=== PATIENT | male | born 1965 | race African-American/Black ===

== ENCOUNTER 2016-05-23 19:38 | Inpatient (IN) | payer MEDICAID ==
[~2016-05-23] VITALS: Ht 185.4 cm; Wt 108.4 kg
[~2016-05-23 19:38] MED LIST: ASPIRIN81 M3 PO; CARAFATE1 G1 ORAL; CIPROFLOXACIN500 M2 ORAL; COREG6.25 MG ORAL; COUMADIN4 MG ORAL; COUMADIN5 MG ORAL; CULTURELLE1 EACH ORAL; FERROUS SULFAT325 MG ORAL; HYTRIN10 MG PO; IMDUR60 MG ORAL; METRONIDAZOLE500 MG ORAL; NEURONTIN300 MG ORAL; NEXIUM40 MG ORAL; NITROSTAT0.4 M1 SL; NORCO 10/3251 EA ORAL; PEPCID20 MG ORAL; REGLAN10 MG PO; VASOTEC10 MG ORAL; XARELTO10 MG ORAL; ZOFRAN4 MG ORAL
[2016-05-23 19:56] VITALS: BP 135/81
[2016-05-23] MEDS ORDERED: Metoclopramide 10mg/2ml Inj IVP ONE (21:00)
[2016-05-23 21:15] LABS: APPEARANCE,URINE CLOUDY; KETONES,URINE 1+ (NEGATIVE); LEUKOCYTE ESTERASE ,URINE 1+ (NEGATIVE); NITRITE,URINE NEGATIVE (NEGATIVE); PH,URINE 5 (4.5-8.0); PROTEIN,URINE 2+ (NEGATIVE); UROBILINOGEN,URINE NORMAL MG/DL (0.0-1.0)
[2016-05-23 21:28] LABS: RBC,URINE TNTC /HPF (0 - 0); SQUAMOUS EPITHELIAL CELL,UR FEW /LPF (NONE/OCC); WBC,URINE TNTC /HPF (0 - 0)
[2016-05-23 21:29] LABS: BACTERIA,URINE MODERATE /HPF
[2016-05-23 21:34] LABS: ALANINE AMINOTRANSFERASE 12 U/L (3-41); ANION GAP 12 (5-15); ASPARTATE AMINO TRANSFERASE 16 U/L (5-40); CARBON DIOXIDE 16 mEQ/L (20-30); CHLORIDE 120 mEQ/L (98-107); CREATININE 1.1 mg/dL (0.7-1.2); GLOMERULAR FILTRATION RATE > 60 mL/min (>60); HEMOLYSIS 13; LIPASE 53 U/L (< 60); SODIUM 148 mEQ/L (135-145)
[2016-05-23 22:02] LABS: POTASSIUM 2.7 mEQ/L (3.4-4.9)
[2016-05-23 22:04] LABS: CALCIUM 5.6 mg/dL (8.6-10.2)
[2016-05-23 22:07] LABS: BASOPHILS % (AUTO) 1.7 % (0.0-2.0); EOSINOPHILS % (AUTO) 1.9 % (0.0-3.0); LYMPHOCYTES % (AUTO) 39.1 % (20.0-45.0); MEAN CORPUSCULAR HEMOGLOBIN 26.8 PG (27.0-31.0); MEAN CORPUSCULAR VOLUME 89 FL (80-99); MEAN PLATELET VOLUME 6.9 FL (6.5-10.1); MONOCYTES % (AUTO) 12.8 % (1.0-10.0); NEUTROPHILS % (AUTO) 44.6 % (45.0-75.0); PLATELET COUNT 161 K/UL (150-450); RED BLOOD COUNT 4.38 M/UL (4.70-6.10); RED CELL DISTRIBUTION WIDTH 15.4 % (11.6-14.8); WHITE BLOOD COUNT 5.2 K/UL (4.8-10.8)
[2016-05-23] MEDS ORDERED: Morphine Sulfate 4mg/ml Inj IVP ONE (22:15)
[2016-05-23] MEDS ORDERED: Calcium Chloride 100mg/ml Vial IVP ONE (22:15)
--- NOTE | 2016-05-23 22:18 | Emergency Room Report ---
History of Present Illness General Chief Complaint: Nausea, Vomiting, and Diarrhea Source: Patient, Medical Record Present Illness HPI 50 YO M with 2 days of hematemesis, abd pain, hematuria. States called Dr Goncalves yesterday, who told him to come to ED but he didnt because "I had stuff to take care of." States abd pain is due to "chronic pancreatitis" and "gastroparesis." No vomiting blood today. No coughing blood. No melena or blood in stool. Allergies: Coded Allergies: IODINATED CONTRAST MEDIA - IV DYE (Verified Allergy, Severe, Shortness of Breath, 01/17/15) DORIPENEM (Verified Allergy, Intermediate, Itching, 01/17/15) KETOROLAC TROMETHAMINE (Verified Allergy, Intermediate, Hives, 01/17/15) TRAMADOL (Verified Allergy, Intermediate, Hives, 01/17/15) ASPIRIN (Verified Allergy, Mild, 04/09/10) Patient History Past Medical History: see triage record, old chart reviewed Past Surgical History: other - Lapaortomy for "cancer" but "I didnt have it." Pertinent Family History: none Social History: Denies: alcohol use, drug use, smoking Immunizations: UTD Reviewed Nursing Documentation: PMH: Agreed, PSxH: Agreed Nursing Documentation-PMH Past Medical History: No History, Except For Hx Cardiac Problems: Yes - CHF Hx Hypertension: Yes Hx Pacemaker: No - PE Hx COPD: No - PE, IVC filter Hx Diabetes: Yes Hx Cancer: No Hx Gastrointestinal Problems: Yes Hx Dialysis: No - DIVERTICULITIS Hx Neurological Problems: Yes Hx Concentration Difficulty: Yes Hx Dizziness: Yes Hx Syncope: Yes Hx Weakness: Yes Hx Neurologic Surgery: No Review of Systems All Other Systems: negative except mentioned in HPI Physical Exam Vital Signs Date Time Temp Pulse Resp B/P Pulse Ox O2 Delivery O2 Flow Rate FiO2 05/23/16 19:46 97.2 90 21 147/72 100 Room Air Sp02 EP Interpretation: reviewed, normal General Appearance: normal inspection, well appearing, no apparent distress, alert Head: normocephalic, atraumatic Eyes: bilateral eye EOMI, bilateral eye PERRL ENT: normal ENT inspection, hearing grossly normal, normal voice Neck: normal inspection, full range of motion, supple, no bony tend Respiratory: normal inspection, lungs clear, normal breath sounds, no respiratory distress, no retraction, no wheezing Cardiovascular #1: regular rate, rhythm, no edema Gastrointestinal: normal inspection, normal bowel sounds, non tender, soft, no guarding, no hernia, other - midline laparatomy scar Genitourinary: no CVA tenderness Neurologic: normal inspection, alert, responsive, speech normal Psychiatric: normal inspection, judgement/insight normal, mood/affect normal Skin: normal inspection, normal color, no rash Medical Decision Making Diagnostic Impression: Primary Impression: Abdominal pain Qualified Codes: R10.84 - Generalized abdominal pain Additional Impressions: Hypokalemia Hypocalcemia ER Course 50 YO M with alleged hematemesis yesterday and abd pain. VSS. Afebrile. No vomiting blood in ED. LabsL H&H Stable. Critically low Ca and K Repleted with Calcium chloride and PO and IV K Endorsed to Dr Goncalves at 1017pm for med/surg admission CTAP in progress - endorsed to Dr Guerrero in ED to followup CTAP results and inform Dr Goncalves of any acute findings. Rhythm Strip Diag. Results EP Interpretation: yes Rate: 91 Rhythm: NSR, no PVC's, no ectopy Last Vital Signs Date Time Temp Pulse Resp B/P Pulse Ox O2 Delivery O2 Flow Rate FiO2 05/23/16 19:56 86 19 135/81 95 Room Air 05/23/16 19:46 97.2 Status: improved Disposition: ADMITTED INPATIENT Condition: Serious Referrals: KIAH GONCALVES (PCP) BARRY WADDELL M.D. May 23, 2016 22:18
[2016-05-23 22:50] VITALS: BP 143/77
[2016-05-23] MEDS ORDERED: ASPIR 8181 MG ORAL (23:13)
[2016-05-23] MEDS ORDERED: Mylanta II UD 30ml ORAL PRN (23:30)
[2016-05-23] MEDS ORDERED: Miralax 17gm pkt ORAL PRN (23:30)
[2016-05-23] MEDS ORDERED: Nitroglycerin Subl 0.4mg tab (Bottle Of 25) SL PRN (23:30)
--- NOTE | 2016-05-23 23:39 | Consultation ---
History of Present Illness General Date patient seen: May 23, 2016 Chief Complaint: Nausea, Vomiting, and Diarrhea Referring physician: Dr Aguayo Reason for Consultation: Manage multiple co-moridities Present Illness HPI Patient is a 50 yo gentleman with extensive past medical history, whom reports 2 to 3 days of hematemesis. Initially patient apparently was non-complaint with his doctors orders to immediately present to the emergency room for evaluation of his serious symptoms, however the patient admits to me he was very busy during the time of his initial hematemesis and did not have time to come to hospital. However the patient presents after a few days of hematemesis and chronic pain related complaints. I was asked to consult on this case due to the multiple co-morbidities and at this time the patient appears to be stable. Patient iwill be admitted to the hospital for prompt evaluation by GI specialist to investigate the patients apparent gastrointestinal ailment. Allergies: Coded Allergies: IODINATED CONTRAST MEDIA - IV DYE (Verified Allergy, Severe, Shortness of Breath, 01/17/15) DORIPENEM (Verified Allergy, Intermediate, Itching, 01/17/15) KETOROLAC TROMETHAMINE (Verified Allergy, Intermediate, Hives, 01/17/15) TRAMADOL (Verified Allergy, Intermediate, Hives, 01/17/15) ASPIRIN (Verified Allergy, Mild, 04/09/10) Medication History Scheduled Aspirin* (Aspir 81*), 81 MG ORAL DAILY, (Reported) Carvedilol (Coreg), 6.25 MG ORAL DAILY, (Reported) Enalapril Maleate* (Vasotec*), 10 MG ORAL DAILY, (Reported) Esomeprazole Magnesium (Nexium), 40 MG ORAL DAILY, (Reported) Ferrous Sulfate* (Ferrous Sulfate*), 325 MG ORAL DAILY, (Reported) Gabapentin (Neurontin), 300 MG ORAL THREE TIMES A DAY, (Reported) Isosorbide Mononitrate* (Imdur*), 60 MG ORAL DAILY, (Reported) Lactobacillus Rhamnosus Gg* (Culturelle*), 1 CAP ORAL THREE TIMES A DAY, ( Reported) Metronidazole* (Flagyl*), 500 MG ORAL EVERY 8 HOURS, (Reported) Sucralfate* (Carafate*), 1 GM ORAL FOUR TIMES A DAY, (Reported) Terazosin HCl (Terazosin HCl), 10 MG PO QHS, (Reported) Warfarin Sod* (Coumadin*), 5 MG ORAL DAILY, (Reported) Scheduled PRN Hydrocodone/Acetaminophen (Hydrocodon-Acetaminophn 10-325), 1 TAB ORAL Q4H PRN for For Pain, (Reported) Metoclopramide Hcl* (Reglan*), 10 MG PO TID PRN, (Reported) Nitroglycerin (Nitrostat), 0.4 MG SL, (Reported) Ondansetron (Zofran), 4 MG ORAL Q8H PRN, (Reported) Patient History Healthcare decision maker Resuscitation status Advanced Directive on File Past Medical/Surgical History Past Medical/Surgical History: (1) Hematuria (2) upper (3) Pancytopenia (4) Acute GI bleeding (5) C. difficile colitis (6) Anemia, chronic disease (7) Narcotic dependence (8) Chronic pancreatitis (9) HTN (hypertension) (10) Gastroparesis (11) UGIB (upper gastrointestinal bleed) (12) UTI (urinary tract infection) (13) Intractable abdominal pain (14) CHF (congestive heart failure) (15) Anemia (16) Presence of IVC filter (17) DVT (deep venous thrombosis) (18) HIV (human immunodeficiency virus infection) Review of Systems Constitutional: Reports: malaise, weakness Gastrointestinal: Reports: abdominal pain, hematemesis, nausea, vomiting Physical Exam General Appearance: moderate distress Lines, tubes and drains: peripheral HEENT: normocephalic, atraumatic, anicteric, PERRL Neck: non-tender, normal alignment, supple Respiratory/Chest: chest wall non-tender, normal breath sounds, no respiratory distress Breasts: no masses Cardiovascular/Chest: tachycardia Abdomen: hyperactive bowel sounds, guarding, rebound, tender Genitourinary/Rectal: normal genital exam, normal rectal exam Extremities: normal range of motion, non-tender, normal inspection Skin Exam: normal pigmentation Neurologic: hospital chief executive officer II-XII grossly normal, no motor/sensory deficits Last 24 Hour Vital Signs Date Time Temp Pulse Resp B/P Pulse Ox O2 Delivery O2 Flow Rate FiO2 05/23/16 22:52 97.2 05/23/16 22:50 65 16 143/77 98 Room Air 05/23/16 19:56 86 19 135/81 95 Room Air 05/23/16 19:46 97.2 90 21 147/72 100 Room Air Laboratory Tests Test 05/23/16 20:58 05/23/16 22:00 Urine Color Yellow Urine Appearance Cloudy Urine pH 5 (4.5-8.0) Urine Specific [place] 1.025 (1.005-1.035) Urine Protein 2+ (NEGATIVE) H Urine Glucose (UA) Negative (NEGATIVE) Urine Ketones 1+ (NEGATIVE) H Urine Occult Blood 5+ (NEGATIVE) H Urine Nitrite Negative (NEGATIVE) Urine Bilirubin Negative (NEGATIVE) Urine Urobilinogen Normal MG/DL (0.0-1.0) Urine Leukocyte Esterase 1+ (NEGATIVE) H Urine RBC Tntc /HPF (0 - 0) H Urine WBC Tntc /HPF (0 - 0) H Urine Squamous Epithelial Cells Few /LPF (NONE/OCC) Urine Bacteria Moderate /HPF (NONE) H Sodium Level 148 mEQ/L (135-145) H Potassium Level 2.7 mEQ/L (3.4-4.9) *L Chloride Level 120 mEQ/L (98-107) H Carbon Dioxide Level 16 mEQ/L (20-30) L Anion Gap 12 (5-15) Blood Urea Nitrogen 12 mg/dL (7-23) Creatinine 1.1 mg/dL (0.7-1.2) Estimat Glomerular Filtration Rate > 60 mL/min (>60) Glucose Level 85 mg/dL (74-106) Calcium Level 5.6 mg/dL (8.6-10.2) *L Total Bilirubin < 0.2 mg/dL (0.0-1.2) Aspartate Amino Transf (AST/SGOT) 16 U/L (5-40) Alanine Aminotransferase (ALT/SGPT) 12 U/L (3-41) Alkaline Phosphatase 73 U/L (40-129) Total Protein 5.0 g/dL (6.6-8.7) L Albumin 2.5 g/dL (3.5-5.2) L Globulin 2.5 g/dL Albumin/Globulin Ratio 1.0 (1.0-2.7) Lipase 53 U/L (< 60) White Blood Count 5.2 K/UL (4.8-10.8) Red Blood Count 4.38 M/UL (4.70-6.10) L Hemoglobin 11.8 G/DL (14.2-18.0) L Hematocrit 39.2 % (42.0-52.0) L Mean Corpuscular Volume 89 FL (80-99) Mean Corpuscular Hemoglobin 26.8 PG (27.0-31.0) L Mean Corpuscular Hemoglobin Concent 30.0 G/DL (32.0-36.0) L Red Cell Distribution Width 15.4 % (11.6-14.8) H Platelet Count 161 K/UL (150-450) Mean Platelet Volume 6.9 FL (6.5-10.1) Neutrophils (%) (Auto) 44.6 % (45.0-75.0) L Lymphocytes (%) (Auto) 39.1 % (20.0-45.0) Monocytes (%) (Auto) 12.8 % (1.0-10.0) H Eosinophils (%) (Auto) 1.9 % (0.0-3.0) Basophils (%) (Auto) 1.7 % (0.0-2.0) Height (Feet): 6 Height (Inches): 1.00 Weight (Pounds): 239 Medications Current Medications Medications (Trade) Dose Ordered Sig/Arslan Route PRN Reason Start Time Stop Time Status Last Admin Dose Admin Acetaminophen (Tylenol) 650 mg Q4H PRN ORAL fever 05/23/16 23:30 06/22/16 23:29 UNV Al Hydroxide/Mg Hydroxide (Mylanta II) 30 ml Q6H PRN ORAL dyspepsia 05/23/16 23:30 06/22/16 23:29 UNV Dextrose (Dextrose 50%) STAT PRN IV Hypoglycemia 05/23/16 23:30 06/22/16 23:29 UNV Diphenhydramine HCl (Benadryl) 25 mg Q6H PRN ORAL Itching/Pruritis 05/23/16 23:30 06/22/16 23:29 UNV Enalapril Maleate (Vasotec) 10 mg DAILY ORAL 05/24/16 09:00 06/23/16 08:59 UNV Nitroglycerin (Ntg) 0.4 mg Q5M X 3 DOSES PRN SL Prn Chest Pain 05/23/16 23:30 06/22/16 23:29 UNV Ondansetron HCl (Zofran) 4 mg Q6H PRN IVP Nausea & Vomiting 05/23/16 23:30 06/22/16 23:29 UNV Polyethylene Glycol (Miralax) 17 gm HSPRN PRN ORAL Constipation 05/23/16 23:30 06/22/16 23:29 UNV Potassium Chloride 100 ml @ 50 mls/hr ONCE ONCE IVPB 05/23/16 22:15 05/24/16 00:14 05/23/16 22:23 Potassium Chloride (KCl 20mEq/100ml Premix) 100 ml @ 50 mls/hr ONCE ONCE IVPB 05/23/16 22:30 05/24/16 00:29 Sucralfate (Carafate) 1 gm FOUR TIMES A DAY ORAL 05/24/16 09:00 06/23/16 08:59 UNV Temazepam (Restoril) 15 mg HSPRN PRN ORAL Insomnia 05/23/16 23:30 05/30/16 23:29 UNV Assessment/Plan Problem List: (1) UGIB (upper gastrointestinal bleed) ICD Codes: K92.2 - Gastrointestinal hemorrhage, unspecified SNOMED: 19216327 (2) Gastroparesis ICD Codes: K31.84 - Gastroparesis SNOMED: 078470705 (3) Chronic pancreatitis ICD Codes: K86.1 - Chronic pancreatitis SNOMED: 717829741 (4) HTN (hypertension) ICD Codes: I10 - HTN (hypertension) SNOMED: 57053812 Qualifiers: Qualified Codes: I10 - Essential (primary) hypertension (5) Narcotic dependence ICD Codes: F19.20 - Narcotic dependence SNOMED: 21402422 (6) Diabetes ICD Codes: E11.9 - Diabetes SNOMED: 46273438 Qualifiers: Qualified Codes: E11.8 - Type 2 diabetes mellitus with unspecified complications; Z79.4 - group home (current) use of insulin Status: stable Assessment/Plan (1) HIV (human immunodeficiency virus infection) ICD Codes: Z21 - Asymptomatic human immunodeficiency virus [HIV] infection status SNOMED: 08153102 (2) GI bleeding (3) Abdominal pain of unknown etiology ICD Codes: R10.9 - Unspecified abdominal pain SNOMED: 570753683 (4) Intractable vomiting ICD Codes: R11.10 - Vomiting, unspecified SNOMED: 823590051 (5) Gastritis ICD Codes: K29.70 - Gastritis SNOMED: 0155072 Status: stable Status Narrative Discussed with Dr. Sands. Assessment/Plan iron panel WNL stable H&H elevated lipase HIV + coffee grounds per patient Plan GI specialist to follow up EGD low fat diet tolerating ordered OB stool urine toxicology ppi fu labs SOM KNIGHT May 23, 2016 23:39
[2016-05-24] VITALS (7 sets, daily range): BP systolic 117–149; BP diastolic 67–91
[2016-05-24 03:57] LABS: BASOPHILS % (AUTO) 1.8 % (0.0-2.0); EOSINOPHILS % (AUTO) 2.4 % (0.0-3.0); LYMPHOCYTES % (AUTO) 44.6 % (20.0-45.0); MEAN CORPUSCULAR HEMOGLOBIN 27.1 PG (27.0-31.0); MEAN CORPUSCULAR HGB CONC 31.2 G/DL (32.0-36.0); MEAN CORPUSCULAR VOLUME 87 FL (80-99); MEAN PLATELET VOLUME 7.1 FL (6.5-10.1); NEUTROPHILS % (AUTO) 42.1 % (45.0-75.0); PLATELET COUNT 172 K/UL (150-450); RED BLOOD COUNT 4.38 M/UL (4.70-6.10)
[2016-05-24 04:11] LABS: INR 1.2 (0.9-1.1); PROTHROMBIN TIME 11.9 SEC (9.30-11.50)
[2016-05-24 04:16] LABS: CALCIUM 9.5 mg/dL (8.6-10.2); CREATININE 1.5 mg/dL (0.7-1.2); GLOMERULAR FILTRATION RATE 59.5 mL/min (>60); POTASSIUM 4.8 mEQ/L (3.4-4.9); TOTAL PROTEIN 8.2 g/dL (6.6-8.7)
[2016-05-24 06:05] LABS: HEMOLYSIS 11; IRON 61 ug/dL (59-158); TOTAL IRON BINDING CAPACITY 394 ug/dL (250-400)
[2016-05-24] MEDS ORDERED: Morphine Sulfate 4mg/ml Inj IM PRN (06:45)
[2016-05-24] MEDS: D5 1/2NS 1,000 ML IV SCH (07:34)
[2016-05-24 08:08] LABS: LACTATE DEHYDROGENASE 262 U/L (135-230)
[2016-05-24] MEDS ORDERED: Sucralfate 1gm tab ORAL SCH (09:00)
--- NOTE | 2016-05-24 09:13 | Infectious Diseases Prog Note ---
Assessment/Plan Problems: (1) UTI (urinary tract infection) Assessment & Plan: will start ceftriaxon empirically and send urine for culture (2) Hypokalemia Assessment & Plan: suspect dehydration related from vomiting, replace as needed , continue IVF for hydration (3) Hypocalcemia Assessment & Plan: most likely due to GI loss, replace as needed, monitor calcium level (4) UGIB (upper gastrointestinal bleed) Assessment & Plan: keep NPO, consult GI, monitor H&H, transfuse as needed (5) Intractable abdominal pain Assessment & Plan: continue pain management as per primary , consider CT abdomen if not improved Subjective Allergies: Coded Allergies: IODINATED CONTRAST MEDIA - IV DYE (Verified Allergy, Severe, Shortness of Breath, 01/17/15) DORIPENEM (Verified Allergy, Intermediate, Itching, 01/17/15) KETOROLAC TROMETHAMINE (Verified Allergy, Intermediate, Hives, 01/17/15) TRAMADOL (Verified Allergy, Intermediate, Hives, 01/17/15) ASPIRIN (Verified Allergy, Mild, 04/09/10) Objective Vital Signs Last 24 Hour Vital Signs Date Time Temp Pulse Resp B/P Pulse Ox O2 Delivery O2 Flow Rate FiO2 05/24/16 08:47 117/67 05/24/16 08:35 97.0 70 20 117/67 96 Room Air 05/24/16 04:00 97.5 74 20 126/85 98 Room Air 05/24/16 02:28 97.2 62 21 133/88 99 Room Air 05/24/16 02:20 97.3 55 20 142/89 91 Room Air 05/24/16 01:48 62 21 133/88 99 Room Air 05/24/16 00:32 75 12 130/73 97 Room Air 05/23/16 22:52 97.2 05/23/16 22:50 65 16 143/77 98 Room Air 05/23/16 19:56 86 19 135/81 95 Room Air 05/23/16 19:46 97.2 90 21 147/72 100 Room Air Height (Feet): 6 Height (Inches): 1.00 Weight (Pounds): 239 Laboratory Tests Test 05/23/16 20:58 05/23/16 22:00 05/24/16 03:20 Urine Color Yellow Urine Appearance Cloudy Urine pH 5 (4.5-8.0) Urine Specific [place] 1.025 (1.005-1.035) Urine Protein 2+ (NEGATIVE) H Urine Glucose (UA) Negative (NEGATIVE) Urine Ketones 1+ (NEGATIVE) H Urine Occult Blood 5+ (NEGATIVE) H Urine Nitrite Negative (NEGATIVE) Urine Bilirubin Negative (NEGATIVE) Urine Urobilinogen Normal MG/DL (0.0-1.0) Urine Leukocyte Esterase 1+ (NEGATIVE) H Urine RBC Tntc /HPF (0 - 0) H Urine WBC Tntc /HPF (0 - 0) H Urine Squamous Epithelial Cells Few /LPF (NONE/OCC) Urine Bacteria Moderate /HPF (NONE) H Sodium Level 148 mEQ/L (135-145) H 143 mEQ/L (135-145) Potassium Level 2.7 mEQ/L (3.4-4.9) *L 4.8 mEQ/L (3.4-4.9) # Chloride Level 120 mEQ/L (98-107) H 106 mEQ/L (98-107) Carbon Dioxide Level 16 mEQ/L (20-30) L 23 mEQ/L (20-30) Anion Gap 12 (5-15) 14 (5-15) Blood Urea Nitrogen 12 mg/dL (7-23) 17 mg/dL (7-23) Creatinine 1.1 mg/dL (0.7-1.2) 1.5 mg/dL (0.7-1.2) H Estimat Glomerular Filtration Rate > 60 mL/min (>60) 59.5 mL/min (>60) Glucose Level 85 mg/dL (74-106) 111 mg/dL (74-106) H Calcium Level 5.6 mg/dL (8.6-10.2) *L 9.5 mg/dL (8.6-10.2) # Total Bilirubin < 0.2 mg/dL (0.0-1.2) 0.3 mg/dL (0.0-1.2) Aspartate Amino Transf (AST/SGOT) 16 U/L (5-40) 27 U/L (5-40) Alanine Aminotransferase (ALT/SGPT) 12 U/L (3-41) 20 U/L (3-41) Alkaline Phosphatase 73 U/L (40-129) 132 U/L (40-129) H Total Protein 5.0 g/dL (6.6-8.7) L 8.2 g/dL (6.6-8.7) # Albumin 2.5 g/dL (3.5-5.2) L 4.1 g/dL (3.5-5.2) Globulin 2.5 g/dL 4.1 g/dL Albumin/Globulin Ratio 1.0 (1.0-2.7) 1.0 (1.0-2.7) Lipase 53 U/L (< 60) White Blood Count 5.2 K/UL (4.8-10.8) 5.0 K/UL (4.8-10.8) Red Blood Count 4.38 M/UL (4.70-6.10) L 4.38 M/UL (4.70-6.10) L Hemoglobin 11.8 G/DL (14.2-18.0) L 11.9 G/DL (14.2-18.0) L Hematocrit 39.2 % (42.0-52.0) L 38.0 % (42.0-52.0) L Mean Corpuscular Volume 89 FL (80-99) 87 FL (80-99) Mean Corpuscular Hemoglobin 26.8 PG (27.0-31.0) L 27.1 PG (27.0-31.0) Mean Corpuscular Hemoglobin Concent 30.0 G/DL (32.0-36.0) L 31.2 G/DL (32.0-36.0) L Red Cell Distribution Width 15.4 % (11.6-14.8) H 15.0 % (11.6-14.8) H Platelet Count 161 K/UL (150-450) 172 K/UL (150-450) Mean Platelet Volume 6.9 FL (6.5-10.1) 7.1 FL (6.5-10.1) Neutrophils (%) (Auto) 44.6 % (45.0-75.0) L 42.1 % (45.0-75.0) L Lymphocytes (%) (Auto) 39.1 % (20.0-45.0) 44.6 % (20.0-45.0) Monocytes (%) (Auto) 12.8 % (1.0-10.0) H 9.0 % (1.0-10.0) Eosinophils (%) (Auto) 1.9 % (0.0-3.0) 2.4 % (0.0-3.0) Basophils (%) (Auto) 1.7 % (0.0-2.0) 1.8 % (0.0-2.0) Erythrocyte Sedimentation Rate 70 MM/HR (0-20) H Reticulocyte Count 0.8 % (0.0-2.0) Prothrombin Time 11.9 SEC (9.30-11.50) H Prothromb Time International Ratio 1.2 (0.9-1.1) H Activated Partial Thromboplast Time 25 SEC (23-33) Iron Level 61 ug/dL (59-158) Total Iron Binding Capacity 394 ug/dL (250-400) Percent Iron Saturation 15 % (15-50) Unsaturated Iron Binding 333 ug/dL (112-346) Lactate Dehydrogenase 262 U/L (135-230) H Amylase Level 221 U/L (10-110) H Carcinoembryonic Antigen 4.8 ng/mL H Vitamin B12 Level 468 pg/mL (211-946) Folate Pending Current Medications Medications (Trade) Dose Ordered Sig/Arslan Route PRN Reason Start Time Stop Time Status Last Admin Dose Admin Acetaminophen (Tylenol) 650 mg Q4H PRN ORAL fever 05/23/16 23:30 06/22/16 23:29 Al Hydroxide/Mg Hydroxide (Mylanta II) 30 ml Q6H PRN ORAL dyspepsia 05/23/16 23:30 06/22/16 23:29 Dextrose STAT PRN IV Hypoglycemia 05/23/16 23:30 06/22/16 23:29 Dextrose/Sodium Chloride (D5 0.45% NS) 1,000 ml @ 50 mls/hr Q20H IV 05/24/16 07:00 06/23/16 06:59 05/24/16 07:34 Diphenhydramine HCl (Benadryl) 25 mg Q6H PRN ORAL Itching/Pruritis 05/23/16 23:30 06/22/16 23:29 05/24/16 07:55 Enalapril Maleate (Vasotec) 10 mg DAILY ORAL 05/24/16 09:00 06/23/16 08:59 Morphine Sulfate (Morphine Sulfate) 4 mg Q4H PRN IVP For Pain (Moderate to Severe) 05/24/16 10:45 05/31/16 10:44 Nitroglycerin (Ntg) 0.4 mg Q5M X 3 DOSES PRN SL Prn Chest Pain 05/23/16 23:30 06/22/16 23:29 Ondansetron HCl (Zofran) 4 mg Q6H PRN IVP Nausea & Vomiting 05/23/16 23:30 06/22/16 23:29 05/24/16 07:54 Polyethylene Glycol (Miralax) 17 gm HSPRN PRN ORAL Constipation 05/23/16 23:30 06/22/16 23:29 Sucralfate (Carafate) 1 gm FOUR TIMES A DAY ORAL 05/24/16 09:00 06/23/16 08:59 Temazepam (Restoril) 15 mg HSPRN PRN ORAL Insomnia 05/23/16 23:30 05/30/16 23:29 Warfarin Sodium (Coumadin per pharmacy) 1 ea DAILYPRN PRN MISC Per rx protocol 05/24/16 07:00 06/23/16 06:59 Fernanda Lim M.D. May 24, 2016 09:13
--- NOTE | 2016-05-24 09:15 | Diagnostic Imaging Report ---
Indication: Nausea and vomiting Technique: CT scan of the abdomen and pelvis utilizing automated exposure control without intravenous or oral contrast. Axial, sagittal and coronal images were obtained. CT dose: Total DLP 1029 mGycm; CTDI vol 18.4 mGy Comparison: 04/09/14 Findings: Evaluation of the solid organs is limited without intravenous contrast material. There is atelectasis in the lung bases. There is a small hiatal hernia. Liver and adrenal glands are grossly unremarkable. Spleen and pancreas are grossly unremarkable. IVC filter is present. No CT evident gallstones are identified. There is a nonobstructive calculus of the left kidney measuring 6 mm. There is no hydronephrosis or ureteral calculi. The appendix is normal. There is no definitive mechanical bowel obstruction. Colonic diverticulosis is noted without diverticulitis. Bladder is grossly unremarkable. Abdominal aorta is normal in caliber. Osseous structures demonstrate no acute abnormality. Impression: Limited evaluation of solid organs and bowel without intravenous or oral contrast. Nonobstructive left renal calculus. No hydronephrosis. IVC filter. Colonic diverticulosis. Small hiatal hernia. Other findings as above. The CT scanner at [facility] is accredited by the [employer] and the scans are performed using protocols designed to limit radiation exposure to as low as reasonably achievable to attain images of sufficient resolution adequate for diagnostic evaluation.
[2016-05-24] MEDS: Morphine Sulfate 4mg/ml Inj IVP PRN ×3 (10:50→20:33)
[2016-05-24] MEDS: cefTRIAXone 1 GM in D5W 55 ML IVPB SCH (11:40)
[2016-05-24 11:49] LABS: BAND NEUTROPHILS % (MANUAL) 4 % (0-8); BASOPHILS % (MANUAL) 0 % (0-2); EOSINOPHILS % (MANUAL) 1 % (0-3); LYMPHOCYTES % (MANUAL) 37 % (20-45); NEUTROPHILS % (MANUAL) 46 % (45-75); PATH BLOOD SMEAR/OMC SENT TO PATHOLOGIST; PLATELET ESTIMATE ADEQUATE; PLATELET MORPHOLOGY NORMAL; TOTAL CELLS COUNTED 100
[2016-05-24] MEDS: DiphenhydrAMINE 50mg/ml Inj IVP PRN ×2 (12:45→20:33)
--- NOTE | 2016-05-24 15:21 | Consultation ---
History of Present Illness General Chief Complaint: Nausea, Vomiting, and Diarrhea Referring physician: Dr Aguayo Reason for Consultation: Hypokalemia, hypernatremia Present Illness HPI The patient is a 50-year-old male with history of chronic generalized pain, HIV , recurrent hematuria, DVT on coumadin, gastroparesis,who presented to [facility] ED with two days of hematemesis, abdominal pain, and hematuria. Pain is in right quadrant of his abdomen and in the flank area and he described it as a dull pain, 01/11. Pain is worse with urination, vomiting and movement. Denies diarrhea or hematochezia, denies fever, no chills, no headache or blurry vision, no chest pain or SOB, c/o hematuria. Urinalysis showed evidence of infection, BMP showed potassium at 2.7, sodium is 148, calcium is 5.6 Allergies: Coded Allergies: IODINATED CONTRAST MEDIA - IV DYE (Verified Allergy, Severe, Shortness of Breath, 01/17/15) DORIPENEM (Verified Allergy, Intermediate, Itching, 01/17/15) KETOROLAC TROMETHAMINE (Verified Allergy, Intermediate, Hives, 01/17/15) TRAMADOL (Verified Allergy, Intermediate, Hives, 01/17/15) ASPIRIN (Verified Allergy, Mild, 04/09/10) Medication History Scheduled Aspirin* (Aspir 81*), 81 MG ORAL DAILY, (Reported) Carvedilol (Coreg), 6.25 MG ORAL DAILY, (Reported) Enalapril Maleate* (Vasotec*), 10 MG ORAL DAILY, (Reported) Esomeprazole Magnesium (Nexium), 40 MG ORAL DAILY, (Reported) Ferrous Sulfate* (Ferrous Sulfate*), 325 MG ORAL DAILY, (Reported) Gabapentin (Neurontin), 300 MG ORAL THREE TIMES A DAY, (Reported) Isosorbide Mononitrate* (Imdur*), 60 MG ORAL DAILY, (Reported) Lactobacillus Rhamnosus Gg* (Culturelle*), 1 CAP ORAL THREE TIMES A DAY, ( Reported) Metronidazole* (Flagyl*), 500 MG ORAL EVERY 8 HOURS, (Reported) Sucralfate* (Carafate*), 1 GM ORAL FOUR TIMES A DAY, (Reported) Terazosin HCl (Terazosin HCl), 10 MG PO QHS, (Reported) Warfarin Sod* (Coumadin*), 5 MG ORAL DAILY, (Reported) Scheduled PRN Hydrocodone/Acetaminophen (Hydrocodon-Acetaminophn 10-325), 1 TAB ORAL Q4H PRN for For Pain, (Reported) Metoclopramide Hcl* (Reglan*), 10 MG PO TID PRN, (Reported) Nitroglycerin (Nitrostat), 0.4 MG SL, (Reported) Ondansetron (Zofran), 4 MG ORAL Q8H PRN, (Reported) Patient History History Provided By: Patient Healthcare decision maker Resuscitation status Full Code Advanced Directive on File Past Medical/Surgical History Past Medical/Surgical History: (1) CHF (congestive heart failure) (2) Anemia (3) Diabetes (4) HTN (hypertension) (5) Gastroparesis (6) Presence of IVC filter (7) DVT (deep venous thrombosis) (8) HIV (human immunodeficiency virus infection) (9) Hematuria (10) Narcotic dependence (11) Chronic pancreatitis Family History Family History: (1) Medical history non-contributory Social History Social History: (1) Lives with family (2) Denies alcohol consumption (3) Patient denies drug use (4) Does not smoke Review of Systems Constitutional: Reports: weakness Eye: Denies: acuity changes, blurred vision, discharge, double vision, eye pain , no symptoms, nose congestion, nose pain, other, see HPI, tearing ENT: Denies: ear discharge, ear pain, hearing loss, mouth pain, nasal discharge , no symptoms, nose congestion, nose pain, other, see HPI, throat pain, throat swelling Respiratory: Denies: CLIFFORD, cough, no symptoms, orthopnea, other, see HPI, shortness of breath, sputum, stridor, wheezing Cardiovascular: Denies: PND, chest pain, edema, no symptoms, other, palpitations, see HPI, syncope Gastrointestinal: Reports: abdominal pain, diarrhea, nausea, vomiting Genitourinary: Denies: discharge, dysuria, frequency, hematuria, incontinence, no symptoms, other, pain, retention, see HPI, urgency, vag bleed/dc Musculoskeletal: Denies: back pain, gout, joint pain, joint swelling, muscle pain, muscle stiffness, no symptoms, other, see HPI Skin: Denies: change in color, change in hair/nails, dryness, lesions, no symptoms, other, rash, see HPI Psychiatric: Denies: HI, SI, anxiety, depressed feelings, emotional problems, hallucinations, no symptoms, other, prior hx, see HPI Neurological: Denies: dizziness, focal weakness, headache, no symptoms, numbness, other, paresthesia, see HPI, seizure, syncope, tingling, tremors Endocrine: Denies: excessive sweating, flushing, increased thirst, increased urine, intolerance to temperature, no symptoms, other, see HPI, unexplained weight loss Hematologic/Lymphatic: Denies: anemia, blood clots, diathesis, easy bleeding, easy bruising, no symptoms, other, see HPI, swollen glands Physical Exam General Appearance: alert Lines, tubes and drains: peripheral HEENT: normocephalic, atraumatic Neck: normal alignment, supple, normal inspection Respiratory/Chest: lungs clear, normal breath sounds, no respiratory distress Cardiovascular/Chest: normal rate, regular rhythm, no JVD Abdomen: non tender, soft, no organomegaly, no mass Extremities: normal range of motion, non-tender, normal inspection, no calf tenderness, normal capillary refill Skin Exam: normal pigmentation, warm/dry Neurologic: alert, oriented x 3, responsive, normal mood/affect Last 24 Hour Vital Signs Date Time Temp Pulse Resp B/P Pulse Ox O2 Delivery O2 Flow Rate FiO2 05/24/16 11:20 97.0 05/24/16 08:47 117/67 05/24/16 08:35 97.0 70 20 117/67 96 Room Air 05/24/16 04:00 97.5 74 20 126/85 98 Room Air 05/24/16 02:28 97.2 62 21 133/88 99 Room Air 05/24/16 02:20 97.3 55 20 142/89 91 Room Air 05/24/16 01:48 62 21 133/88 99 Room Air 05/24/16 00:32 75 12 130/73 97 Room Air 05/23/16 22:52 97.2 05/23/16 22:50 65 16 143/77 98 Room Air 05/23/16 19:56 86 19 135/81 95 Room Air 05/23/16 19:46 97.2 90 21 147/72 100 Room Air Intake and Output 05/23/16 05/24/16 19:00 07:00 Intake Total 100 ml Balance 100 ml IV Total 100 ml # Voids 8 Laboratory Tests Test 05/23/16 20:58 05/23/16 22:00 05/24/16 03:20 Urine Color Yellow Urine Appearance Cloudy Urine pH 5 (4.5-8.0) Urine Specific [place] 1.025 (1.005-1.035) Urine Protein 2+ (NEGATIVE) H Urine Glucose (UA) Negative (NEGATIVE) Urine Ketones 1+ (NEGATIVE) H Urine Occult Blood 5+ (NEGATIVE) H Urine Nitrite Negative (NEGATIVE) Urine Bilirubin Negative (NEGATIVE) Urine Urobilinogen Normal MG/DL (0.0-1.0) Urine Leukocyte Esterase 1+ (NEGATIVE) H Urine RBC Tntc /HPF (0 - 0) H Urine WBC Tntc /HPF (0 - 0) H Urine Squamous Epithelial Cells Few /LPF (NONE/OCC) Urine Bacteria Moderate /HPF (NONE) H Sodium Level 148 mEQ/L (135-145) H 143 mEQ/L (135-145) Potassium Level 2.7 mEQ/L (3.4-4.9) *L 4.8 mEQ/L (3.4-4.9) # Chloride Level 120 mEQ/L (98-107) H 106 mEQ/L (98-107) Carbon Dioxide Level 16 mEQ/L (20-30) L 23 mEQ/L (20-30) Anion Gap 12 (5-15) 14 (5-15) Blood Urea Nitrogen 12 mg/dL (7-23) 17 mg/dL (7-23) Creatinine 1.1 mg/dL (0.7-1.2) 1.5 mg/dL (0.7-1.2) H Estimat Glomerular Filtration Rate > 60 mL/min (>60) 59.5 mL/min (>60) Glucose Level 85 mg/dL (74-106) 111 mg/dL (74-106) H Calcium Level 5.6 mg/dL (8.6-10.2) *L 9.5 mg/dL (8.6-10.2) # Total Bilirubin < 0.2 mg/dL (0.0-1.2) 0.3 mg/dL (0.0-1.2) Aspartate Amino Transf (AST/SGOT) 16 U/L (5-40) 27 U/L (5-40) Alanine Aminotransferase (ALT/SGPT) 12 U/L (3-41) 20 U/L (3-41) Alkaline Phosphatase 73 U/L (40-129) 132 U/L (40-129) H Total Protein 5.0 g/dL (6.6-8.7) L 8.2 g/dL (6.6-8.7) # Albumin 2.5 g/dL (3.5-5.2) L 4.1 g/dL (3.5-5.2) Globulin 2.5 g/dL 4.1 g/dL Albumin/Globulin Ratio 1.0 (1.0-2.7) 1.0 (1.0-2.7) Lipase 53 U/L (< 60) White Blood Count 5.2 K/UL (4.8-10.8) 5.0 K/UL (4.8-10.8) Red Blood Count 4.38 M/UL (4.70-6.10) L 4.38 M/UL (4.70-6.10) L Hemoglobin 11.8 G/DL (14.2-18.0) L 11.9 G/DL (14.2-18.0) L Hematocrit 39.2 % (42.0-52.0) L 38.0 % (42.0-52.0) L Mean Corpuscular Volume 89 FL (80-99) 87 FL (80-99) Mean Corpuscular Hemoglobin 26.8 PG (27.0-31.0) L 27.1 PG (27.0-31.0) Mean Corpuscular Hemoglobin Concent 30.0 G/DL (32.0-36.0) L 31.2 G/DL (32.0-36.0) L Red Cell Distribution Width 15.4 % (11.6-14.8) H 15.0 % (11.6-14.8) H Platelet Count 161 K/UL (150-450) 172 K/UL (150-450) Mean Platelet Volume 6.9 FL (6.5-10.1) 7.1 FL (6.5-10.1) Neutrophils (%) (Auto) 44.6 % (45.0-75.0) L 42.1 % (45.0-75.0) L Lymphocytes (%) (Auto) 39.1 % (20.0-45.0) 44.6 % (20.0-45.0) Monocytes (%) (Auto) 12.8 % (1.0-10.0) H 9.0 % (1.0-10.0) Eosinophils (%) (Auto) 1.9 % (0.0-3.0) 2.4 % (0.0-3.0) Basophils (%) (Auto) 1.7 % (0.0-2.0) 1.8 % (0.0-2.0) Differential Total Cells Counted 100 Neutrophils % (Manual) 46 % (45-75) Lymphocytes % (Manual) 37 % (20-45) Monocytes % (Manual) 12 % (1-10) H Eosinophils % (Manual) 1 % (0-3) Basophils % (Manual) 0 % (0-2) Band Neutrophils 4 % (0-8) Platelet Estimate Adequate Platelet Morphology Normal Red Blood Cell Morphology Normal Erythrocyte Sedimentation Rate 70 MM/HR (0-20) H Reticulocyte Count 0.8 % (0.0-2.0) Prothrombin Time 11.9 SEC (9.30-11.50) H Prothromb Time International Ratio 1.2 (0.9-1.1) H Activated Partial Thromboplast Time 25 SEC (23-33) Iron Level 61 ug/dL (59-158) Total Iron Binding Capacity 394 ug/dL (250-400) Percent Iron Saturation 15 % (15-50) Unsaturated Iron Binding 333 ug/dL (112-346) Ferritin 28 ng/mL (10-230) Lactate Dehydrogenase 262 U/L (135-230) H Amylase Level 221 U/L (10-110) H Carcinoembryonic Antigen 4.8 ng/mL H Vitamin B12 Level 468 pg/mL (211-946) Folate Pending Height (Feet): 6 Height (Inches): 1.00 Weight (Pounds): 239 Medications Current Medications Medications (Trade) Dose Ordered Sig/Arslan Route PRN Reason Start Time Stop Time Status Last Admin Dose Admin Acetaminophen (Tylenol) 650 mg Q4H PRN ORAL fever 05/23/16 23:30 06/22/16 23:29 Al Hydroxide/Mg Hydroxide (Mylanta II) 30 ml Q6H PRN ORAL dyspepsia 05/23/16 23:30 06/22/16 23:29 Ceftriaxone Sodium/Dextrose (Rocephin/D5W) 55 ml @ 110 mls/hr Q24H IVPB 05/24/16 11:00 05/31/16 10:59 05/24/16 11:40 Dextrose STAT PRN IV Hypoglycemia 05/23/16 23:30 06/22/16 23:29 Dextrose/Sodium Chloride (D5 0.45% NS) 1,000 ml @ 50 mls/hr Q20H IV 05/24/16 07:00 06/23/16 06:59 05/24/16 07:34 Diphenhydramine HCl (Benadryl) 25 mg Q6H PRN IVP Itching 05/24/16 10:15 06/23/16 10:14 05/24/16 12:45 Enalapril Maleate (Vasotec) 10 mg DAILY ORAL 05/24/16 09:00 06/23/16 08:59 Morphine Sulfate 4 mg 4 mg Q4H PRN IVP For Pain (Moderate to Severe) 05/24/16 10:45 05/31/16 10:44 05/24/16 10:50 Nitroglycerin (Ntg) 0.4 mg Q5M X 3 DOSES PRN SL Prn Chest Pain 05/23/16 23:30 06/22/16 23:29 Ondansetron HCl (Zofran) 4 mg Q6H PRN IVP Nausea & Vomiting 05/23/16 23:30 06/22/16 23:29 05/24/16 07:54 Polyethylene Glycol (Miralax) 17 gm HSPRN PRN ORAL Constipation 05/23/16 23:30 06/22/16 23:29 Temazepam (Restoril) 15 mg HSPRN PRN ORAL Insomnia 05/23/16 23:30 05/30/16 23:29 Warfarin Sodium (Coumadin per pharmacy) 1 ea DAILYPRN PRN MISC Per rx protocol 05/24/16 07:00 06/23/16 06:[address] Abdomen Pelvis WO Contrast Impression: Limited evaluation of solid organs and bowel without intravenous or oral contrast. Nonobstructive left renal calculus. No hydronephrosis. IVC filter. Colonic diverticulosis. Small hiatal hernia. Assessment/Plan Problem List: (1) Hyperkalemia ICD Codes: E87.5 - Hyperkalemia SNOMED: 49642644 (2) Nausea, vomiting, and diarrhea ICD Codes: R11.2 - Nausea with vomiting, unspecified; R19.7 - Diarrhea, unspecified SNOMED: 5131524 (3) Abdominal pain ICD Codes: R10.9 - Unspecified abdominal pain SNOMED: 75760833 (4) Hypernatremia ICD Codes: E87.0 - Hyperosmolality and hypernatremia SNOMED: 82508410 (5) UTI (urinary tract infection) ICD Codes: N39.0 - Urinary tract infection, site not specified SNOMED: 73050143 (6) HIV (human immunodeficiency virus infection) ICD Codes: Z21 - Asymptomatic human immunodeficiency virus [HIV] infection status SNOMED: 48627346 (7) Hematuria ICD Codes: R31.9 - Hematuria, unspecified SNOMED: 09866492 Status: stable Assessment/Plan Hypokalemia - resolved Hypernatremia - resolved hypocalcemia - resolved GI consult pending Continue NPO Continue hydration Monitor lytes Monitor Intake and output Zofran PRN vomiting Pain management ID f/u Abx per ID AM labs Georgina Gorman N.P. May 24, 2016 15:21
--- NOTE | 2016-05-24 20:07 | History and Physical Report ---
DATE OF ADMISSION: 05/23/2016 TIME SEEN: 8 a.m. ATTENDING PHYSICIAN: Yogesh Aguayo D.O. CONSULTANTS: 1. Liam Fraire M.D. 2. Ugo Romo M.D. 3. Norbert Christianson M.D. 4. Juan Carlos Sands M.D. 5. Levi Johnston M.D. 6. Dr. Vallecillo. CHIEF COMPLAINT: Nausea, vomiting, GI bleed, hypokalemia. BRIEF HISTORY: This is a 50-year-old male who lives at home presents to [facility] last night with increased nausea, vomiting, GI bleed, exacerbation of his chronic pain and hypokalemia. The patient was admitted to medical floor for further treatment. Currently, slightly anxious in bed. PAST MEDICAL HISTORY: Include hypertension., diabetes, gastroparesis, chronic pain, anxiety. PAST SURGICAL HISTORY: Stomach surgery. MEDICATIONS: Morphine, Vasotec, Carafate, warfarin, Tylenol, MiraLAX, Zofran, Vistaril, Benadryl, Mylanta, nitroglycerin injection. ALLERGIES: Contrast, tramadol, Toradol. SOCIAL HISTORY: No smoking. No alcohol. No intravenous drug use. FAMILY HISTORY: Noncontributory. REVIEW OF SYSTEMS: No chest pain/shortness of breath. Slight nausea, vomiting. No diarrhea. PHYSICAL EXAMINATION: GENERAL: The patient is anxious in bed, alert and oriented x3, in no acute distress. VITAL SIGNS: Temperature 97 degrees, pulse 70, respiratory rate 20, and blood pressure 117/67. CARDIOVASCULAR: Distant without murmur LUNGS: ABDOMEN: Bowel sounds positive. Nontender and nondistended. EXTREMITIES: No cyanosis, clubbing, or edema. NEUROLOGIC: Cranial nerves II through XII are grossly intact. Deep tendon reflexes 2+/4. Muscle strength 4/5. LABORATORY DATA: Show hemoglobin 11.9, otherwise CBC is normal. BMP shows creatinine 1.2, yesterday potassium 2.7 now is 4.8, glucose today 111. Amylase 221. INR 1.2. Urinalysis shows leukocyte esterase 1+. ASSESSMENT: 1. Nausea and vomiting. 2. Urinary tract infection. 3. Gastrointestinal bleeding. 4. Anemia. 5. Hypotension. 6. Diabetes. 7. Gastroparesis. 8. Hypokalemia. 9. Anxiety. 10. Chronic pain. PLAN: 1. Continue premedications. 2. Antibiotics per Infectious Diseases. 3. GI followup. 4. Blood pressure and blood sugar control. 5. Dietary followup. 6. OT/OT and dietary evaluation. 7. CBC and BMP in the morning. 8. We will continue to follow this patient Dr. Fraire, Dr. Romo, Dr. Christianson, Dr. Sands, Dr. Johnston, Dr. Vallecillo, Dr. Lim consult. We will continue to follow this patient Yogesh Aguayo D.O. DR: Agustin JOB#: [id number] CC:
--- NOTE | 2016-05-24 23:17 | Consultation ---
DATE OF CONSULTATION: 05/24/2016 CHIEF COMPLAINT: Coffee-grounds emesis. HISTORY OF PRESENT ILLNESS: This is a 50-year-old male, known to me prior admissions both here and [facility]. He keeps admitting to the hospital most probably for seeking for pain medication. He every time complains of coffee-grounds emesis, but interestingly his stool OB is always negative and his H and H has been stable. For example, he was admitted here in January, his hemoglobin at the time of discharge was 12, at this time admitted with hemoglobin of 11.9, so the patient keeps coming for the same symptoms unfortunately. PAST MEDICAL HISTORY: 1. History of nephrolithiasis. 2. Diverticulosis. 3. Hiatal hernia. 4. History of hypercoagulable state, status post IVC filter placement for DVT. 5. History of bowel obstruction. 6. Questionable history of pancreatitis. ALLERGIES: To aspirin, doripenem, and iodine. MEDICATIONS: Please see medication reconciliation list. SOCIAL HISTORY: The patient denies any tobacco, alcohol, or drug abuse. FAMILY HISTORY: Noncontributory. REVIEW OF SYSTEMS: A 10-point review of systems was performed and pertinent positives in history of present illness. PHYSICAL EXAMINATION: GENERAL: The patient is a well developed male, in no acute distress. VITAL SIGNS: Temperature is 97 degrees, pulse 70, respirations 20, and blood pressure 117/67. HEENT: Normocephalic and atraumatic. NECK: Supple. No evidence of lymphadenopathy. CARDIOVASCULAR: Regular rhythm. Plus S1 and S2. LUNGS: ABDOMEN: Soft and nontender. No rebound. No guarding. EXTREMITIES: No cyanosis. No clubbing. No edema. LABORATORY DATA: White count is 5, hemoglobin 11.9, hematocrit 38, and platelet count 172,000. BUN is 17, creatinine 1.5, and glucose 111. Iron saturation 16%. Alkaline phosphate is 132. Albumin is 4.1. CEA is 4.8. Amylase was elevated to 221. Lipase was normal at 63. ASSESSMENT AND PLAN: This is a 50-year-old male with recurrent admissions for coffee-grounds emesis without any obvious gastrointestinal bleeding. Stool OB is pending. The patient's hemoglobin and hematocrit has been stable since last admission in January. PLAN: 1. Resume his diet. 2. Repeat amylase and lipase for tomorrow given the patient has abnormal amylase. Follow laboratories. 3. Hold off any GI procedures at this time. Juan Carlos Sands M.D. DR: MARTÍN JOB#: [id number] CC:
--- NOTE | 2016-05-24 23:57 | Consultation ---
DATE OF CONSULTATION: INFECTIOUS DISEASE CONSULTATION REQUESTING PHYSICIAN: Yogesh Aguayo D.O. REASON FOR CONSULTATION: Urinary tract infection, nausea and vomiting, rule out acute pyelonephritis. HISTORY OF PRESENT ILLNESS: The patient is a 50-year-old male with no significant past medical history presented to [facility] with two days of hematemesis, abdominal pain, and hematuria. The patient's pain is generalized mainly on the side of his abdomen and in the flank area and described it as a dull ache pain, 7/10. It gets worse with urination and movements, get better with rest. Abdominal pain was associated with vomiting. No diarrhea or hematochezia today but he had hematuria. The patient had history of prostate problem but he never sought any medical attention for it so far. So he was admitted to [facility] for further evaluation and management. He had a urinalysis which showed evidence of infection, so I was asked by the primary provider for antibiotics recommendation. The patient denied any fever or chills. No headache or blurry vision. No sore throat or runny nose. No chest pain or palpitations. No cough or shortness of breath. REVIEW OF SYSTEMS: A 14-point of system reviewed were all negative apart from the one I mentioned above in my History and Physical. PAST MEDICAL HISTORY: He had possible abdominal malignancy which he had surgery for but he did not have any malignancy . PAST SURGICAL HISTORY: Laparotomy. ALLERGIES: He had extensive drug allergy to iodinated contrast, doripenem, ketorolac, tramadol, and aspirin. MEDICATIONS: He is on morphine, Vasotec, Benadryl, Coumadin, Tylenol, MiraLAX, Zofran, Mylanta, and dextrose. FAMILY HISTORY: Noncontributory. SOCIAL HISTORY: The patient lives at home with family. Denied using any drugs, tobacco, or alcohol. PHYSICAL EXAMINATION: VITAL SIGNS: Temperature 97, pulse 70, respirations 20, blood pressure 117/67, pulse oximetry 96% on room air. GENERAL: This is a middle-aged male, in bed, awake, alert, oriented, not in distress, complains of mild abdominal pain. HEENT: normocephalic and atraumatic. Pupils both reactive to light equally. Moist oral mucosa. No exudate or thrush. NECK: Supple. No lymphadenopathy. CARDIOVASCULAR: Regular rate and rhythm. No murmur or gallop. LUNGS: Clear bilaterally. No wheezing. No rhonchi. Normal breathing efforts. ABDOMEN: Soft, obese, tender mainly on the side and then flank area. No rebound. No hepatomegaly. No ascites. EXTREMITIES: No edema or cyanosis. LABORATORY AND DIAGNOSTIC DATA: Showed white count of 5, hemoglobin of 11.9, hematocrit of 38, platelet count of 172,000. BUN 17, creatinine of 1.5. AST of 27, ALT of 20, lipase of 53. Urinalysis showed +1 leukocyte esterase, red blood cells too numerous to count, WBC too numerous to count, and moderate amount of bacteria. Imaging, he had abdominal CT scan and pelvis without contrast which showed obstructive left renal calculus, no hydronephrosis, IVC filter, diverticulosis, and small hiatal hernia. ASSESSMENT AND PLAN: 1. Urinary tract infection, possible pyelonephritis. The patient will be started on intravenous ceftriaxone empirically and send urine for culture. CT scan of abdomen and pelvis did not show any obstructive etiology or hydronephrosis. Recommend follow up with the urologist for enlarge prostate evaluation and management. 2. Hypokalemia and hypocalcemia suspect dehydration related versus gastrointestinal loss, replace as needed. Continue hydration. Monitor electrolyte levels closely. 3. Upper gastrointestinal bleeding. Consult gastrointestinal. Keep NPO. Monitor hemoglobin and hematocrit. Transfuse blood as needed. 4. Intractable abdominal pain. Continue pain management as per primary. CT abdomen did not show any acute pathology to explain his abdominal pain. May need esophagogastroduodenoscopy for further evaluation and management. Fernanda Lim M.D. DR: Silverio JOB#: [id number] CC: DINORA
[2016-05-25] VITALS: BP 130/72
[2016-05-25] MEDS: D5 1/2NS 1,000 ML IV SCH ×2 (00:51→22:49)
[2016-05-25] MEDS: DiphenhydrAMINE 50mg/ml Inj IVP PRN ×4 (02:38→23:56)
[2016-05-25] MEDS: Morphine Sulfate 4mg/ml Inj IVP PRN ×5 (02:39→23:58)
[2016-05-25 04:00] VITALS: BP 122/70
[2016-05-25 06:36] LABS: BASOPHILS % (AUTO) 2.4 % (0.0-2.0); EOSINOPHILS % (AUTO) 3.6 % (0.0-3.0); LYMPHOCYTES % (AUTO) 37.6 % (20.0-45.0); MEAN CORPUSCULAR HEMOGLOBIN 26.9 PG (27.0-31.0); MEAN CORPUSCULAR HGB CONC 29.7 G/DL (32.0-36.0); MEAN CORPUSCULAR VOLUME 90 FL (80-99); MEAN PLATELET VOLUME 7.4 FL (6.5-10.1); MONOCYTES % (AUTO) 11.4 % (1.0-10.0); PLATELET COUNT 162 K/UL (150-450); RED BLOOD COUNT 4.19 M/UL (4.70-6.10); WHITE BLOOD COUNT 4.8 K/UL (4.8-10.8)
[2016-05-25 06:47] LABS: INR 1.1 (0.9-1.1); PROTHROMBIN TIME 11.4 SEC (9.30-11.50)
[2016-05-25 07:57] LABS: CREATININE 1.7 mg/dL (0.7-1.2); GLOMERULAR FILTRATION RATE 51.5 mL/min (>60); POTASSIUM 4.9 mEQ/L (3.4-4.9)
[2016-05-25 08:00] VITALS: BP 123/84
[2016-05-25 08:17] LABS: LIPASE 96 U/L (< 60)
--- NOTE | 2016-05-25 08:24 | General Progress Note ---
Assessment/Plan Problem List: (1) DVT (deep venous thrombosis) ICD Codes: I82.409 - Acute embolism and thombos unsp deep vn unsp lower extremity SNOMED: 519833136 (2) Nausea, vomiting, and diarrhea ICD Codes: R11.2 - Nausea with vomiting, unspecified; R19.7 - Diarrhea, unspecified SNOMED: 8903773 (3) Abdominal pain ICD Codes: R10.9 - Unspecified abdominal pain SNOMED: 76768711 (4) Anemia ICD Codes: D64.9 - Anemia, unspecified SNOMED: 638652885 (5) Diabetes ICD Codes: E11.9 - Diabetes SNOMED: 46242598 (6) Gastritis ICD Codes: K29.70 - Gastritis SNOMED: 3187572 Assessment/Plan ppi stable H&H fu stool ob pain control EGd if needed Subjective ROS Limited/Unobtainable: Yes Allergies: Coded Allergies: IODINATED CONTRAST MEDIA - IV DYE (Verified Allergy, Severe, Shortness of Breath, 01/17/15) DORIPENEM (Verified Allergy, Intermediate, Itching, 01/17/15) KETOROLAC TROMETHAMINE (Verified Allergy, Intermediate, Hives, 01/17/15) TRAMADOL (Verified Allergy, Intermediate, Hives, 01/17/15) ASPIRIN (Verified Allergy, Mild, 04/09/10) Subjective no event Objective Last 24 Hour Vital Signs Date Time Temp Pulse Resp B/P Pulse Ox O2 Delivery O2 Flow Rate FiO2 05/25/16 08:00 97.7 73 20 123/84 97 Room Air 05/25/16 04:00 97.1 72 20 122/70 98 Room Air 05/25/16 00:00 97.9 78 18 130/72 99 Room Air 05/24/16 21:03 97.2 05/24/16 20:00 97.7 80 20 149/91 100 Room Air 05/24/16 16:30 97.2 90 20 126/74 96 Room Air 05/24/16 08:47 117/67 05/24/16 08:35 97.0 70 20 117/67 96 Room Air Intake and Output 05/24/16 05/25/16 18:59 06:59 Intake Total 915 ml 695 ml Balance 915 ml 695 ml Intake Oral 360 ml 120 ml IV Total 555 ml 575 ml # Voids 2 2 Laboratory Tests 05/25/16 04:35: White Blood Count 4.8, Red Blood Count 4.19L, Hemoglobin 11.3L, Hematocrit 37.9L , Mean Corpuscular Volume 90, Mean Corpuscular Hemoglobin 26.9L, Mean Corpuscular Hemoglobin Concent 29.7L, Red Cell Distribution Width 15.0H, Platelet Count 162, Mean Platelet Volume 7.4, Neutrophils (%) (Auto) 45.0, Lymphocytes (%) (Auto) 37.6, Monocytes (%) (Auto) 11.4H, Eosinophils (%) (Auto) 3.6H, Basophils (%) (Auto) 2.4H, Prothrombin Time 11.4, Prothromb Time International Ratio 1.1, Activated Partial Thromboplast Time 23, Sodium Level 143, Potassium Level 4.9, Chloride Level 103, Carbon Dioxide Level 27, Anion Gap 13, Blood Urea Nitrogen 21, Creatinine 1.7H, Estimat Glomerular Filtration Rate 51.5, Glucose Level 119H, Calcium Level 9.0, Amylase Level [Pending], Lipase [Pending] Height (Feet): 6 Height (Inches): 1.00 Weight (Pounds): 239 General Appearance: alert EENT: normal ENT inspection Neck: supple Cardiovascular: normal rate Respiratory/Chest: lungs clear Abdomen: normal bowel sounds, non tender, soft Extremities: non-tender TRANG CULVER May 25, 2016 08:24
[2016-05-25 08:25] LABS: AMYLASE 182 U/L (10-110)
--- NOTE | 2016-05-25 08:58 | General Progress Note ---
Assessment/Plan Problem List: (1) Renal insufficiency ICD Codes: N28.9 - Disorder of kidney and ureter, unspecified SNOMED: 193325064 (2) Intractable vomiting ICD Codes: R11.10 - Vomiting, unspecified SNOMED: 192939364 (3) Abdominal pain of unknown etiology ICD Codes: R10.9 - Unspecified abdominal pain SNOMED: 017200249 (4) UTI (urinary tract infection) ICD Codes: N39.0 - Urinary tract infection, site not specified SNOMED: 84558034 (5) Intractable abdominal pain ICD Codes: R10.9 - Intractable abdominal pain SNOMED: 04218562 (6) Hypokalemia ICD Codes: E87.6 - Hypokalemia SNOMED: 22811322 (7) GI bleeding (8) Anemia ICD Codes: D64.9 - Anemia, unspecified SNOMED: 575078131 Status: stable, progressing Assessment/Plan ot pt diet pain control gi f/u cbc bmp am Subjective Constitutional: Reports: weakness Allergies: Coded Allergies: IODINATED CONTRAST MEDIA - IV DYE (Verified Allergy, Severe, Shortness of Breath, 01/17/15) DORIPENEM (Verified Allergy, Intermediate, Itching, 01/17/15) KETOROLAC TROMETHAMINE (Verified Allergy, Intermediate, Hives, 01/17/15) TRAMADOL (Verified Allergy, Intermediate, Hives, 01/17/15) ASPIRIN (Verified Allergy, Mild, 04/09/10) All Systems: reviewed and negative except above Subjective sleepy calm sl nausea / gen pain Objective Last 24 Hour Vital Signs Date Time Temp Pulse Resp B/P Pulse Ox O2 Delivery O2 Flow Rate FiO2 05/25/16 08:00 97.7 73 20 123/84 97 Room Air 05/25/16 04:00 97.1 72 20 122/70 98 Room Air 05/25/16 00:00 97.9 78 18 130/72 99 Room Air 05/24/16 21:03 97.2 05/24/16 20:00 97.7 80 20 149/91 100 Room Air 05/24/16 16:30 97.2 90 20 126/74 96 Room Air Intake and Output 05/24/16 05/25/16 19:00 07:00 Intake Total 915 ml 745 ml Balance 915 ml 745 ml Intake Oral 360 ml 120 ml IV Total 555 ml 625 ml # Voids 2 2 Laboratory Tests 05/25/16 04:35: White Blood Count 4.8, Red Blood Count 4.19L, Hemoglobin 11.3L, Hematocrit 37.9L , Mean Corpuscular Volume 90, Mean Corpuscular Hemoglobin 26.9L, Mean Corpuscular Hemoglobin Concent 29.7L, Red Cell Distribution Width 15.0H, Platelet Count 162, Mean Platelet Volume 7.4, Neutrophils (%) (Auto) 45.0, Lymphocytes (%) (Auto) 37.6, Monocytes (%) (Auto) 11.4H, Eosinophils (%) (Auto) 3.6H, Basophils (%) (Auto) 2.4H, Prothrombin Time 11.4, Prothromb Time International Ratio 1.1, Activated Partial Thromboplast Time 23, Sodium Level 143, Potassium Level 4.9, Chloride Level 103, Carbon Dioxide Level 27, Anion Gap 13, Blood Urea Nitrogen 21, Creatinine 1.7H, Estimat Glomerular Filtration Rate 51.5, Glucose Level 119H, Calcium Level 9.0, Amylase Level 182H, Lipase 96H Height (Feet): 6 Height (Inches): 1.00 Weight (Pounds): 239 General Appearance: lethargic EENT: normal ENT inspection Neck: normal alignment Cardiovascular: normal peripheral pulses, normal rate, regular rhythm Respiratory/Chest: chest wall non-tender, lungs clear, normal breath sounds Abdomen: normal bowel sounds, non tender, soft Extremities: normal inspection Edema: no edema noted Arm (L), no edema noted Arm (R), no edema noted Leg (L), no edema noted Leg (R), no edema noted Pedal (L), no edema noted Pedal (R), no edema noted Generalized Neurologic: motor weakness Skin: normal pigmentation, warm/dry KIAH GONCALVES May 25, 2016 08:58
--- NOTE | 2016-05-25 09:36 | General Progress Note ---
Assessment/Plan Assessment/Plan IMPRESSION: 1. Anemia 2/2 GI bleed - currently h/h stable, being evaluated by GI 2. Anemia of chronic disease. 3. Anemia of kidney disease. 4. Chronic kidney disease. 5. Coagulopathy, secondary to Coumadin. 6. Hypercoagulable state. 7. History of deep vein thrombosis s/p ivc filter 8. History of pulmonary embolism s/p ivc filter 9. Status post IVC filter placement. 10. Anticoagulation with Coumadin. 11. Drug-seeking behavior. RECOMMENDATIONS: 1. Watch count. 2. Watch coagulopathy. 3. Coumadin to continue 4. INR 2-3 goal 5. PRBC transfusion as needed basis, goal >7 6. Followup on ID, GI, pulm recs 7. Skin care. 8. Staff. Sincerely, Gato Johnston MD Subjective Constitutional: Reports: no symptoms HEENT: Reports: no symptoms Cardiovascular: Reports: no symptoms Respiratory: Reports: no symptoms Gastrointestinal/Abdominal: Reports: poor appetite Genitourinary: Reports: no symptoms Neurologic/Psychiatric: Reports: no symptoms Endocrine: Reports: no symptoms Hematologic/Lymphatic: Reports: anemia Allergies: Coded Allergies: IODINATED CONTRAST MEDIA - IV DYE (Verified Allergy, Severe, Shortness of Breath, 01/17/15) DORIPENEM (Verified Allergy, Intermediate, Itching, 01/17/15) KETOROLAC TROMETHAMINE (Verified Allergy, Intermediate, Hives, 01/17/15) TRAMADOL (Verified Allergy, Intermediate, Hives, 01/17/15) ASPIRIN (Verified Allergy, Mild, 04/09/10) Subjective stable h/h, currently not bleeding Objective Last 24 Hour Vital Signs Date Time Temp Pulse Resp B/P Pulse Ox O2 Delivery O2 Flow Rate FiO2 05/25/16 09:00 123/84 05/25/16 08:25 97.7 05/25/16 08:00 97.7 73 20 123/84 97 Room Air 05/25/16 04:00 97.1 72 20 122/70 98 Room Air 05/25/16 00:00 97.9 78 18 130/72 99 Room Air 05/24/16 20:00 97.7 80 20 149/91 100 Room Air 05/24/16 16:30 97.2 90 20 126/74 96 Room Air Intake and Output 05/24/16 05/25/16 19:00 07:00 Intake Total 915 ml 745 ml Balance 915 ml 745 ml Intake Oral 360 ml 120 ml IV Total 555 ml 625 ml # Voids 2 2 Laboratory Tests 05/25/16 04:35: White Blood Count 4.8, Red Blood Count 4.19L, Hemoglobin 11.3L, Hematocrit 37.9L , Mean Corpuscular Volume 90, Mean Corpuscular Hemoglobin 26.9L, Mean Corpuscular Hemoglobin Concent 29.7L, Red Cell Distribution Width 15.0H, Platelet Count 162, Mean Platelet Volume 7.4, Neutrophils (%) (Auto) 45.0, Lymphocytes (%) (Auto) 37.6, Monocytes (%) (Auto) 11.4H, Eosinophils (%) (Auto) 3.6H, Basophils (%) (Auto) 2.4H, Prothrombin Time 11.4, Prothromb Time International Ratio 1.1, Activated Partial Thromboplast Time 23, Sodium Level 143, Potassium Level 4.9, Chloride Level 103, Carbon Dioxide Level 27, Anion Gap 13, Blood Urea Nitrogen 21, Creatinine 1.7H, Estimat Glomerular Filtration Rate 51.5, Glucose Level 119H, Calcium Level 9.0, Amylase Level 182H, Lipase 96H Height (Feet): 6 Height (Inches): 1.00 Weight (Pounds): 239 General Appearance: alert EENT: TMs normal Neck: supple Cardiovascular: regular rhythm Respiratory/Chest: lungs clear Abdomen: non tender Extremities: non-tender Edema: 1+ Leg (L), 1+ Leg (R) Edema: mild edema Neurologic: alert Skin: warm/dry GATO JOHNSTON May 25, 2016 09:36
[2016-05-25] MEDS: cefTRIAXone 1 GM in D5W 55 ML IVPB SCH (11:05)
--- NOTE | 2016-05-25 11:13 | Nephrology Progress Note ---
Assessment/Plan Problem List: (1) Nausea, vomiting, and diarrhea (2) Abdominal pain (3) Hypernatremia (4) UTI (urinary tract infection) (5) HIV (human immunodeficiency virus infection) (6) Hematuria (7) Hypokalemia Plan Continue IVF Continue pain management Continue NPO Monitor lytes Abx per ID Monitor intake and output AM labs Subjective Constitutional: Denies: chills, diaphoresis, fever, malaise, no symptoms, other , weakness HEENT: Denies: blurred vision, double vision, ear discharge, ear pain, eye pain , mouth pain, mouth swelling, no symptoms, nose congestion, nose pain, other, tearing, throat pain, throat swelling Genitourinary: Reports: flank pain, other - hematuria Neurologic/Psychiatric: Denies: anxiety, depressed, emotional problems, headache, no symptoms, numbness, other, paresthesia, pre-existing deficit, seizure, tingling, tremors, weakness Subjective In bed, in no distress Objective Objective Last 24 Hour Vital Signs Date Time Temp Pulse Resp B/P Pulse Ox O2 Delivery O2 Flow Rate FiO2 05/25/16 09:00 123/84 05/25/16 08:25 97.7 05/25/16 08:00 97.7 73 20 123/84 97 Room Air 05/25/16 04:00 97.1 72 20 122/70 98 Room Air 05/25/16 00:00 97.9 78 18 130/72 99 Room Air 05/24/16 20:00 97.7 80 20 149/91 100 Room Air 05/24/16 16:30 97.2 90 20 126/74 96 Room Air Intake and Output 05/24/16 05/25/16 18:59 06:59 Intake Total 915 ml 695 ml Balance 915 ml 695 ml Intake Oral 360 ml 120 ml IV Total 555 ml 575 ml # Voids 2 2 Laboratory Tests 05/25/16 04:35: White Blood Count 4.8, Red Blood Count 4.19L, Hemoglobin 11.3L, Hematocrit 37.9L , Mean Corpuscular Volume 90, Mean Corpuscular Hemoglobin 26.9L, Mean Corpuscular Hemoglobin Concent 29.7L, Red Cell Distribution Width 15.0H, Platelet Count 162, Mean Platelet Volume 7.4, Neutrophils (%) (Auto) 45.0, Lymphocytes (%) (Auto) 37.6, Monocytes (%) (Auto) 11.4H, Eosinophils (%) (Auto) 3.6H, Basophils (%) (Auto) 2.4H, Prothrombin Time 11.4, Prothromb Time International Ratio 1.1, Activated Partial Thromboplast Time 23, Sodium Level 143, Potassium Level 4.9, Chloride Level 103, Carbon Dioxide Level 27, Anion Gap 13, Blood Urea Nitrogen 21, Creatinine 1.7H, Estimat Glomerular Filtration Rate 51.5, Glucose Level 119H, Calcium Level 9.0, Amylase Level 182H, Lipase 96H Height (Feet): 6 Height (Inches): 1.00 Weight (Pounds): 239 General Appearance: no apparent distress, alert EENT: normal ENT inspection Neck: non-tender, normal alignment, supple, normal inspection Cardiovascular: normal rate, regular rhythm, no JVD Respiratory/Chest: chest wall non-tender, lungs clear, normal breath sounds, no respiratory distress Abdomen: soft, no organomegaly, no mass, tender Extremities: non-tender, normal inspection, no calf tenderness Neurologic: alert, oriented x 3, responsive, normal mood/affect Georgina Gorman N.P. May 25, 2016 11:13
--- NOTE | 2016-05-25 11:46 | Diagnostic Imaging Report ---
Indication: Chest pain Technique: XRAY CHEST 1 V Comparison: 01/17/15 Findings: Cardiomediastinal silhouette is within normal limits. There is no consolidation or pleural effusion. Left chest catheter is again noted. Osseous structures are stable. Impression: No acute cardiopulmonary disease.
[2016-05-25 12:05] VITALS: BP 119/75
[2016-05-25] MEDS ORDERED: D5 1/2NS 1000ml IV ONE (12:36)
[2016-05-25 16:02] VITALS: BP 135/82
--- NOTE | 2016-05-25 16:26 | Infectious Diseases Prog Note ---
Assessment/Plan Problems: (1) UTI (urinary tract infection) Assessment & Plan: continue ceftriaxon empirically and send urine for culture (2) Hypokalemia Assessment & Plan: suspect dehydration related from vomiting, replace as needed , continue IVF for hydration (3) Hypocalcemia Assessment & Plan: most likely due to GI loss, replace as needed, monitor calcium level (4) UGIB (upper gastrointestinal bleed) Assessment & Plan: keep NPO, consult GI, monitor H&H, transfuse as needed (5) Intractable abdominal pain Assessment & Plan: continue pain management as per primary , CT abdomen and pelvis showed nonobstructing stone . Subjective Gastrointestinal/Abdominal: Reports: nausea Skin: Reports: other - itching Allergies: Coded Allergies: IODINATED CONTRAST MEDIA - IV DYE (Verified Allergy, Severe, Shortness of Breath, 01/17/15) DORIPENEM (Verified Allergy, Intermediate, Itching, 01/17/15) KETOROLAC TROMETHAMINE (Verified Allergy, Intermediate, Hives, 01/17/15) TRAMADOL (Verified Allergy, Intermediate, Hives, 01/17/15) ASPIRIN (Verified Allergy, Mild, 04/09/10) All Systems: reviewed and negative except above Objective Vital Signs Last 24 Hour Vital Signs Date Time Temp Pulse Resp B/P Pulse Ox O2 Delivery O2 Flow Rate FiO2 05/25/16 16:02 97.1 80 20 135/82 100 05/25/16 15:34 97.9 05/25/16 12:05 97.9 83 22 119/75 100 Room Air 05/25/16 09:00 123/84 05/25/16 08:00 97.7 73 20 123/84 97 Room Air 05/25/16 04:00 97.1 72 20 122/70 98 Room Air 05/25/16 00:00 97.9 78 18 130/72 99 Room Air 05/24/16 20:00 97.7 80 20 149/91 100 Room Air 05/24/16 16:30 97.2 90 20 126/74 96 Room Air Height (Feet): 6 Height (Inches): 1.00 Weight (Pounds): 239 General Appearance: WD/WN, no acute distress HEENT: normocephalic, atraumatic, anicteric, mucous membranes moist, PERRL Respiratory/Chest: chest wall non-tender, lungs clear, normal breath sounds, no respiratory distress, no accessory muscle use Cardiovascular: normal peripheral pulses, normal rate, regular rhythm, no gallop/murmur, no JVD Abdomen: normal bowel sounds, no organomegaly, non distended, no mass, no scars , distended, tender Extremities: no cyanosis, no clubbing Skin: no rash, no lesions, no ulcers Microbiology Date/Time Source Procedure Growth Status 05/23/16 20:58 Urine,Clean Catch Urine Culture - Preliminary NO GROWTH AFTER 24 HOURS Resulted Laboratory Tests Test 05/25/16 04:35 White Blood Count 4.8 K/UL (4.8-10.8) Red Blood Count 4.19 M/UL (4.70-6.10) L Hemoglobin 11.3 G/DL (14.2-18.0) L Hematocrit 37.9 % (42.0-52.0) L Mean Corpuscular Volume 90 FL (80-99) Mean Corpuscular Hemoglobin 26.9 PG (27.0-31.0) L Mean Corpuscular Hemoglobin Concent 29.7 G/DL (32.0-36.0) L Red Cell Distribution Width 15.0 % (11.6-14.8) H Platelet Count 162 K/UL (150-450) Mean Platelet Volume 7.4 FL (6.5-10.1) Neutrophils (%) (Auto) 45.0 % (45.0-75.0) Lymphocytes (%) (Auto) 37.6 % (20.0-45.0) Monocytes (%) (Auto) 11.4 % (1.0-10.0) H Eosinophils (%) (Auto) 3.6 % (0.0-3.0) H Basophils (%) (Auto) 2.4 % (0.0-2.0) H Prothrombin Time 11.4 SEC (9.30-11.50) Prothromb Time International Ratio 1.1 (0.9-1.1) Activated Partial Thromboplast Time 23 SEC (23-33) Sodium Level 143 mEQ/L (135-145) Potassium Level 4.9 mEQ/L (3.4-4.9) Chloride Level 103 mEQ/L (98-107) Carbon Dioxide Level 27 mEQ/L (20-30) Anion Gap 13 (5-15) Blood Urea Nitrogen 21 mg/dL (7-23) Creatinine 1.7 mg/dL (0.7-1.2) H Estimat Glomerular Filtration Rate 51.5 mL/min (>60) Glucose Level 119 mg/dL (74-106) H Calcium Level 9.0 mg/dL (8.6-10.2) Amylase Level 182 U/L (10-110) H Lipase 96 U/L (< 60) H Current Medications Medications (Trade) Dose Ordered Sig/Arslan Route PRN Reason Start Time Stop Time Status Last Admin Dose Admin Acetaminophen (Tylenol) 650 mg Q4H PRN ORAL fever 05/23/16 23:30 06/22/16 23:29 Al Hydroxide/Mg Hydroxide (Mylanta II) 30 ml Q6H PRN ORAL dyspepsia 05/23/16 23:30 06/22/16 23:29 Ceftriaxone Sodium/Dextrose (Rocephin/D5W) 55 ml @ 110 mls/hr Q24H IVPB 05/24/16 11:00 05/31/16 10:59 05/25/16 11:05 Dextrose STAT PRN IV Hypoglycemia 05/23/16 23:30 06/22/16 23:29 Dextrose/Sodium Chloride (D5 0.45% NS) 1,000 ml @ 50 mls/hr Q20H IV 05/24/16 07:00 06/23/16 06:59 05/25/16 00:51 Diphenhydramine HCl (Benadryl) 25 mg Q6H PRN IVP Itching 05/24/16 10:15 06/23/16 10:14 05/25/16 15:34 Enalapril Maleate (Vasotec) 10 mg DAILY ORAL 05/24/16 09:00 06/23/16 08:59 Morphine Sulfate 4 mg 4 mg Q4H PRN IVP For Pain (Moderate to Severe) 05/24/16 10:45 05/31/16 10:44 05/25/16 15:04 Nitroglycerin (Ntg) 0.4 mg Q5M X 3 DOSES PRN SL Prn Chest Pain 05/23/16 23:30 06/22/16 23:29 Ondansetron HCl (Zofran) 4 mg Q6H PRN IVP Nausea & Vomiting 05/23/16 23:30 06/22/16 23:29 05/25/16 15:04 Pantoprazole (Protonix) 40 mg DAILY ORAL 05/25/16 09:00 06/24/16 08:59 Polyethylene Glycol (Miralax) 17 gm HSPRN PRN ORAL Constipation 05/23/16 23:30 06/22/16 23:29 Temazepam (Restoril) 15 mg HSPRN PRN ORAL Insomnia 05/23/16 23:30 05/30/16 23:29 Warfarin Sodium (Coumadin per pharmacy) 1 ea DAILYPRN PRN MISC Per rx protocol 05/24/16 07:00 06/23/16 06:59 Warfarin Sodium (Coumadin) 5 mg COUMADIN ONCE ORAL 05/25/16 17:00 05/25/16 17:01 Fernanda Lim M.D. May 25, 2016 16:26
[2016-05-25] MEDS ORDERED: Warfarin Sodium 5mg ORAL ONE (17:00)
[2016-05-25 20:00] VITALS: BP 139/87
[2016-05-25 22:07] LABS: INR 1.3 (0.9-1.1); PROTHROMBIN TIME 13.2 SEC (9.30-11.50)
[2016-05-25 22:11] LABS: BASOPHILS % (AUTO) 1.5 % (0.0-2.0); EOSINOPHILS % (AUTO) 3.8 % (0.0-3.0); LYMPHOCYTES % (AUTO) 49.6 % (20.0-45.0); MEAN CORPUSCULAR HEMOGLOBIN 26.8 PG (27.0-31.0); MEAN CORPUSCULAR HGB CONC 30.4 G/DL (32.0-36.0); MEAN CORPUSCULAR VOLUME 88 FL (80-99); MONOCYTES % (AUTO) 11.4 % (1.0-10.0); NEUTROPHILS % (AUTO) 33.7 % (45.0-75.0); PLATELET COUNT 154 K/UL (150-450); RED BLOOD COUNT 4.19 M/UL (4.70-6.10); RED CELL DISTRIBUTION WIDTH 14.6 % (11.6-14.8); WHITE BLOOD COUNT 5.1 K/UL (4.8-10.8)
[2016-05-26] VITALS: BP 125/68
[2016-05-26 04:00] VITALS: BP 136/75
[2016-05-26] MEDS: Morphine Sulfate 4mg/ml Inj IVP PRN ×3 (06:20→19:02)
[2016-05-26] MEDS: DiphenhydrAMINE 50mg/ml Inj IVP PRN ×3 (06:20→19:01)
[2016-05-26 08:58] VITALS: BP 114/76
[2016-05-26] MEDS: cefTRIAXone 1 GM in D5W 55 ML IVPB SCH (12:17)
[2016-05-26 12:24] VITALS: BP 145/85
--- NOTE | 2016-05-26 12:55 | GI Progress Note ---
Assessment/Plan Problems: (1) HIV (human immunodeficiency virus infection) ICD Codes: Z21 - Asymptomatic human immunodeficiency virus [HIV] infection status SNOMED: 61144319 (2) GI bleeding (3) Abdominal pain of unknown etiology ICD Codes: R10.9 - Unspecified abdominal pain SNOMED: 438406221 (4) Intractable vomiting ICD Codes: R11.10 - Vomiting, unspecified SNOMED: 286649229 (5) Gastritis ICD Codes: K29.70 - Gastritis SNOMED: 9669542 Status: stable, unchanged Status Narrative Discussed with Dr. Sands. Assessment/Plan iron panel WNL stable H&H elevated lipase HIV + coffee grounds per patient hold EGD at this time adv to low fat diet ordered OB stool ordered utox ppi fu labs Subjective Gastrointestinal/Abdominal: Reports: abdominal pain - hx of ulcer Objective Last 24 Hour Vital Signs Date Time Temp Pulse Resp B/P Pulse Ox O2 Delivery O2 Flow Rate FiO2 05/26/16 12:24 97.2 70 20 145/85 99 Room Air 05/26/16 08:58 97.7 79 114/76 97 Room Air 05/26/16 04:00 97.3 84 22 136/75 95 Room Air 05/26/16 00:00 97.9 87 20 125/68 97 Room Air 05/25/16 20:27 97.1 05/25/16 20:00 98.4 74 22 139/87 99 Room Air 05/25/16 16:02 97.1 80 20 135/82 100 Intake and Output 05/25/16 05/26/16 19:00 07:00 Intake Total 855 ml 740 ml Balance 855 ml 740 ml Intake Oral 240 ml 240 ml IV Total 615 ml 500 ml # Voids 5 3 # Bowel Movements 1 1 Laboratory Tests Test 05/25/16 21:25 White Blood Count 5.1 K/UL (4.8-10.8) Red Blood Count 4.19 M/UL (4.70-6.10) L Hemoglobin 11.2 G/DL (14.2-18.0) L Hematocrit 36.9 % (42.0-52.0) L Mean Corpuscular Volume 88 FL (80-99) Mean Corpuscular Hemoglobin 26.8 PG (27.0-31.0) L Mean Corpuscular Hemoglobin Concent 30.4 G/DL (32.0-36.0) L Red Cell Distribution Width 14.6 % (11.6-14.8) Platelet Count 154 K/UL (150-450) Mean Platelet Volume 7.0 FL (6.5-10.1) Neutrophils (%) (Auto) 33.7 % (45.0-75.0) L Lymphocytes (%) (Auto) 49.6 % (20.0-45.0) H Monocytes (%) (Auto) 11.4 % (1.0-10.0) H Eosinophils (%) (Auto) 3.8 % (0.0-3.0) H Basophils (%) (Auto) 1.5 % (0.0-2.0) Prothrombin Time 13.2 SEC (9.30-11.50) H Prothromb Time International Ratio 1.3 (0.9-1.1) H Height (Feet): 6 Height (Inches): 1.00 Weight (Pounds): 239 General Appearance: no apparent distress, lethargic Cardiovascular: normal rate Respiratory/Chest: normal breath sounds, no respiratory distress Abdominal Exam: normal bowel sounds, non tender, soft Extremities: normal range of motion Celia Raines N.P. May 26, 2016 12:55
--- NOTE | 2016-05-26 13:39 | General Progress Note ---
Assessment/Plan Problem List: (1) Renal insufficiency ICD Codes: N28.9 - Disorder of kidney and ureter, unspecified SNOMED: 444970302 (2) Intractable vomiting ICD Codes: R11.10 - Vomiting, unspecified SNOMED: 714305677 (3) Abdominal pain of unknown etiology ICD Codes: R10.9 - Unspecified abdominal pain SNOMED: 633550565 (4) UTI (urinary tract infection) ICD Codes: N39.0 - Urinary tract infection, site not specified SNOMED: 19728618 (5) Intractable abdominal pain ICD Codes: R10.9 - Intractable abdominal pain SNOMED: 13412656 (6) Hypokalemia ICD Codes: E87.6 - Hypokalemia SNOMED: 79695057 (7) GI bleeding (8) Anemia ICD Codes: D64.9 - Anemia, unspecified SNOMED: 079815327 Status: stable, progressing, tolerating diet Assessment/Plan ot pt diet pain control gi f/u egd cbc bmp am Subjective Constitutional: Reports: weakness Allergies: Coded Allergies: IODINATED CONTRAST MEDIA - IV DYE (Verified Allergy, Severe, Shortness of Breath, 01/17/15) DORIPENEM (Verified Allergy, Intermediate, Itching, 01/17/15) KETOROLAC TROMETHAMINE (Verified Allergy, Intermediate, Hives, 01/17/15) TRAMADOL (Verified Allergy, Intermediate, Hives, 01/17/15) ASPIRIN (Verified Allergy, Mild, 04/09/10) All Systems: reviewed and negative except above Subjective sleepy calm sl nausea / gen pain Objective Last 24 Hour Vital Signs Date Time Temp Pulse Resp B/P Pulse Ox O2 Delivery O2 Flow Rate FiO2 05/26/16 13:05 145/85 05/26/16 12:24 97.2 70 20 145/85 99 Room Air 05/26/16 08:58 97.7 79 114/76 97 Room Air 05/26/16 04:00 97.3 84 22 136/75 95 Room Air 05/26/16 00:00 97.9 87 20 125/68 97 Room Air 05/25/16 20:27 97.1 05/25/16 20:00 98.4 74 22 139/87 99 Room Air 05/25/16 16:02 97.1 80 20 135/82 100 Intake and Output 05/25/16 05/26/16 19:00 07:00 Intake Total 855 ml 740 ml Balance 855 ml 740 ml Intake Oral 240 ml 240 ml IV Total 615 ml 500 ml # Voids 5 3 # Bowel Movements 1 1 Laboratory Tests 05/25/16 21:25: White Blood Count 5.1, Red Blood Count 4.19L, Hemoglobin 11.2L, Hematocrit 36.9L , Mean Corpuscular Volume 88, Mean Corpuscular Hemoglobin 26.8L, Mean Corpuscular Hemoglobin Concent 30.4L, Red Cell Distribution Width 14.6, Platelet Count 154, Mean Platelet Volume 7.0, Neutrophils (%) (Auto) 33.7L, Lymphocytes (%) (Auto) 49.6H, Monocytes (%) (Auto) 11.4H, Eosinophils (%) (Auto ) 3.8H, Basophils (%) (Auto) 1.5, Prothrombin Time 13.2H, Prothromb Time International Ratio 1.3H Height (Feet): 6 Height (Inches): 1.00 Weight (Pounds): 239 General Appearance: alert EENT: normal ENT inspection Neck: normal alignment Cardiovascular: normal peripheral pulses, normal rate, regular rhythm Respiratory/Chest: chest wall non-tender, lungs clear, normal breath sounds Abdomen: normal bowel sounds, non tender, soft Extremities: normal inspection Edema: no edema noted Arm (L), no edema noted Arm (R), no edema noted Leg (L), no edema noted Leg (R), no edema noted Pedal (L), no edema noted Pedal (R), no edema noted Generalized Neurologic: responsive, motor weakness Skin: normal pigmentation, warm/dry KIAH GONCALVES May 26, 2016 13:39
--- NOTE | 2016-05-26 14:46 | Nephrology Progress Note ---
Assessment/Plan Problem List: (1) Nausea, vomiting, and diarrhea (2) Abdominal pain (3) Hypernatremia (4) UTI (urinary tract infection) (5) HIV (human immunodeficiency virus infection) (6) Hematuria (7) Hypokalemia Plan Continue IVF Continue pain management GI f/u Coumadin per hematology Urology consult rec Monitor lytes Abx per ID Monitor intake and output AM labs Subjective Constitutional: Denies: chills, diaphoresis, fever, malaise, no symptoms, other , weakness HEENT: Denies: blurred vision, double vision, ear discharge, ear pain, eye pain , mouth pain, mouth swelling, no symptoms, nose congestion, nose pain, other, tearing, throat pain, throat swelling Genitourinary: Reports: hematuria, pain Neurologic/Psychiatric: Denies: anxiety, depressed, emotional problems, headache, no symptoms, numbness, other, paresthesia, pre-existing deficit, seizure, tingling, tremors, weakness Subjective In bed, in no distress Objective Objective Last 24 Hour Vital Signs Date Time Temp Pulse Resp B/P Pulse Ox O2 Delivery O2 Flow Rate FiO2 05/26/16 13:05 145/85 05/26/16 12:24 97.2 70 20 145/85 99 Room Air 05/26/16 08:58 97.7 79 114/76 97 Room Air 05/26/16 04:00 97.3 84 22 136/75 95 Room Air 05/26/16 00:00 97.9 87 20 125/68 97 Room Air 05/25/16 20:27 97.1 05/25/16 20:00 98.4 74 22 139/87 99 Room Air 05/25/16 16:02 97.1 80 20 135/82 100 Intake and Output 05/25/16 05/26/16 19:00 07:00 Intake Total 855 ml 740 ml Balance 855 ml 740 ml Intake Oral 240 ml 240 ml IV Total 615 ml 500 ml # Voids 5 3 # Bowel Movements 1 1 Laboratory Tests 05/25/16 21:25: White Blood Count 5.1, Red Blood Count 4.19L, Hemoglobin 11.2L, Hematocrit 36.9L , Mean Corpuscular Volume 88, Mean Corpuscular Hemoglobin 26.8L, Mean Corpuscular Hemoglobin Concent 30.4L, Red Cell Distribution Width 14.6, Platelet Count 154, Mean Platelet Volume 7.0, Neutrophils (%) (Auto) 33.7L, Lymphocytes (%) (Auto) 49.6H, Monocytes (%) (Auto) 11.4H, Eosinophils (%) (Auto ) 3.8H, Basophils (%) (Auto) 1.5, Prothrombin Time 13.2H, Prothromb Time International Ratio 1.3H Height (Feet): 6 Height (Inches): 1.00 Weight (Pounds): 239 General Appearance: no apparent distress, alert EENT: normal ENT inspection, TMs normal Neck: normal alignment, supple, normal inspection Cardiovascular: normal rate, regular rhythm, no JVD Respiratory/Chest: lungs clear, normal breath sounds, no respiratory distress Abdomen: tender Extremities: normal range of motion, non-tender, normal inspection, no calf tenderness Neurologic: alert, oriented x 3, responsive, normal mood/affect Georgina Gorman N.P. May 26, 2016 14:46
--- NOTE | 2016-05-26 15:50 | General Progress Note ---
Assessment/Plan Assessment/Plan IMPRESSION: 1. Anemia 2/2 GI bleed - currently h/h stable, being evaluated by GI service 2. Anemia of chronic disease. 3. Anemia of kidney disease. 4. Chronic kidney disease. 5. Coagulopathy, secondary to coumadin. 6. Hypercoagulable state. 7. History of deep vein thrombosis s/p ivc filter 8. History of pulmonary embolism s/p ivc filter 9. Status post IVC filter placement. 10. Anticoagulation with Coumadin. 11. Drug-seeking behavior. RECOMMENDATIONS: 1. Monitor counts 2. Watch coagulopathy 3. Coumadin to continue 4. INR 2-3 goal 5. pRBC transfusion as needed basis, goal >7 6. Followup on ID, GI, pulm recs 7. Skin care 8. Staff Sincerely, Star Johnston MD Subjective Constitutional: Reports: no symptoms HEENT: Reports: no symptoms Cardiovascular: Reports: no symptoms Respiratory: Reports: no symptoms Gastrointestinal/Abdominal: Reports: poor appetite Genitourinary: Reports: no symptoms Neurologic/Psychiatric: Reports: no symptoms Endocrine: Reports: no symptoms Hematologic/Lymphatic: Reports: anemia Allergies: Coded Allergies: IODINATED CONTRAST MEDIA - IV DYE (Verified Allergy, Severe, Shortness of Breath, 01/17/15) DORIPENEM (Verified Allergy, Intermediate, Itching, 01/17/15) KETOROLAC TROMETHAMINE (Verified Allergy, Intermediate, Hives, 01/17/15) TRAMADOL (Verified Allergy, Intermediate, Hives, 01/17/15) ASPIRIN (Verified Allergy, Mild, 04/09/10) Subjective not bleeding, h/h stable Objective Last 24 Hour Vital Signs Date Time Temp Pulse Resp B/P Pulse Ox O2 Delivery O2 Flow Rate FiO2 05/26/16 13:05 145/85 05/26/16 12:24 97.2 70 20 145/85 99 Room Air 05/26/16 08:58 97.7 79 114/76 97 Room Air 05/26/16 04:00 97.3 84 22 136/75 95 Room Air 05/26/16 00:00 97.9 87 20 125/68 97 Room Air 05/25/16 20:27 97.1 05/25/16 20:00 98.4 74 22 139/87 99 Room Air 05/25/16 16:02 97.1 80 20 135/82 100 Intake and Output 05/25/16 05/26/16 19:00 07:00 Intake Total 855 ml 740 ml Balance 855 ml 740 ml Intake Oral 240 ml 240 ml IV Total 615 ml 500 ml # Voids 5 3 # Bowel Movements 1 1 Laboratory Tests 05/25/16 21:25: White Blood Count 5.1, Red Blood Count 4.19L, Hemoglobin 11.2L, Hematocrit 36.9L , Mean Corpuscular Volume 88, Mean Corpuscular Hemoglobin 26.8L, Mean Corpuscular Hemoglobin Concent 30.4L, Red Cell Distribution Width 14.6, Platelet Count 154, Mean Platelet Volume 7.0, Neutrophils (%) (Auto) 33.7L, Lymphocytes (%) (Auto) 49.6H, Monocytes (%) (Auto) 11.4H, Eosinophils (%) (Auto ) 3.8H, Basophils (%) (Auto) 1.5, Prothrombin Time 13.2H, Prothromb Time International Ratio 1.3H Height (Feet): 6 Height (Inches): 1.00 Weight (Pounds): 239 General Appearance: no apparent distress EENT: TMs normal Neck: supple Cardiovascular: regular rhythm Respiratory/Chest: normal breath sounds Abdomen: non tender Extremities: non-tender Edema: 1+ Leg (L), 1+ Leg (R) Edema: mild edema Neurologic: alert Skin: warm/dry Star Johnston May 26, 2016 15:50
[2016-05-26 16:00] VITALS: BP 152/113
--- NOTE | 2016-05-26 17:41 | Infectious Diseases Prog Note ---
Assessment/Plan Problems: (1) HIV (human immunodeficiency virus infection) Assessment & Plan: with positive screening test, will confirm, and order viral load, with CD4 level. patient denied any previous exposure to HIV. except multiple blood transfusion in the past (2) UTI (urinary tract infection) Assessment & Plan: continue ceftriaxon empirically and await urine culture (3) Hypokalemia Assessment & Plan: improved, suspect dehydration related from vomiting, replace as needed, continue IVF for hydration (4) Hypocalcemia Assessment & Plan: improved, most likely due to GI loss, replace as needed, monitor calcium level (5) UGIB (upper gastrointestinal bleed) Assessment & Plan: keep NPO, may need EGD, GI is following , monitor H&H, transfuse as needed (6) Intractable abdominal pain Assessment & Plan: continue pain management as per primary , CT abdomen and pelvis showed nonobstructing stone . Subjective Constitutional: Denies: anorexia, chills, drenching sweats, fatigue, fever, no symptoms, other HEENT: Denies: congestion, coryza, dysphagia, hearing change, no symptoms, other, visual change Respiratory: Denies: dry cough, no symptoms, other, productive cough, shortness of breath Breasts: Denies: discharge, no symptoms, other, swelling, tenderness Cardiovascular: Denies: chest pain, dyspnea on exertion, no symptoms, other, palpitations Gastrointestinal/Abdominal: Reports: bloating, constipation, other - pain Genitourinary: Denies: dysuria, frequency, hematuria, no symptoms, nocturia, other Neurologic: Denies: confusion, headache, no symptoms, numbness, other, weakness Psychiatric: Denies: anxiety, depression, no symptoms, other Skin: Denies: no symptoms, other, rash, ulcer Allergies: Coded Allergies: IODINATED CONTRAST MEDIA - IV DYE (Verified Allergy, Severe, Shortness of Breath, 01/17/15) DORIPENEM (Verified Allergy, Intermediate, Itching, 01/17/15) KETOROLAC TROMETHAMINE (Verified Allergy, Intermediate, Hives, 01/17/15) TRAMADOL (Verified Allergy, Intermediate, Hives, 01/17/15) ASPIRIN (Verified Allergy, Mild, 04/09/10) Objective Vital Signs Last 24 Hour Vital Signs Date Time Temp Pulse Resp B/P Pulse Ox O2 Delivery O2 Flow Rate FiO2 05/26/16 16:00 97.7 75 22 152/113 100 Room Air 05/26/16 13:05 145/85 05/26/16 12:24 97.2 70 20 145/85 99 Room Air 05/26/16 08:58 97.7 79 114/76 97 Room Air 05/26/16 04:00 97.3 84 22 136/75 95 Room Air 05/26/16 00:00 97.9 87 20 125/68 97 Room Air 05/25/16 20:27 97.1 05/25/16 20:00 98.4 74 22 139/87 99 Room Air Height (Feet): 6 Height (Inches): 1.00 Weight (Pounds): 239 General Appearance: WD/WN, no acute distress HEENT: normocephalic, atraumatic, anicteric, mucous membranes moist Respiratory/Chest: chest wall non-tender, lungs clear, normal breath sounds, no respiratory distress, no accessory muscle use Cardiovascular: normal peripheral pulses, normal rate, regular rhythm, no gallop/murmur, no JVD Abdomen: normal bowel sounds, soft, non tender, no organomegaly, non distended , no mass, no scars Extremities: no cyanosis, no clubbing Skin: no rash, no lesions, no ulcers Microbiology Date/Time Source Procedure Growth Status 05/23/16 20:58 Urine,Clean Catch Urine Culture - Final NO GROWTH AFTER 48 HOURS Complete Laboratory Tests Test 05/25/16 21:25 White Blood Count 5.1 K/UL (4.8-10.8) Red Blood Count 4.19 M/UL (4.70-6.10) L Hemoglobin 11.2 G/DL (14.2-18.0) L Hematocrit 36.9 % (42.0-52.0) L Mean Corpuscular Volume 88 FL (80-99) Mean Corpuscular Hemoglobin 26.8 PG (27.0-31.0) L Mean Corpuscular Hemoglobin Concent 30.4 G/DL (32.0-36.0) L Red Cell Distribution Width 14.6 % (11.6-14.8) Platelet Count 154 K/UL (150-450) Mean Platelet Volume 7.0 FL (6.5-10.1) Neutrophils (%) (Auto) 33.7 % (45.0-75.0) L Lymphocytes (%) (Auto) 49.6 % (20.0-45.0) H Monocytes (%) (Auto) 11.4 % (1.0-10.0) H Eosinophils (%) (Auto) 3.8 % (0.0-3.0) H Basophils (%) (Auto) 1.5 % (0.0-2.0) Prothrombin Time 13.2 SEC (9.30-11.50) H Prothromb Time International Ratio 1.3 (0.9-1.1) H Current Medications Medications (Trade) Dose Ordered Sig/Arslan Route PRN Reason Start Time Stop Time Status Last Admin Dose Admin Acetaminophen (Tylenol) 650 mg Q4H PRN ORAL fever 05/23/16 23:30 06/22/16 23:29 Al Hydroxide/Mg Hydroxide (Mylanta II) 30 ml Q6H PRN ORAL dyspepsia 05/23/16 23:30 06/22/16 23:29 Ceftriaxone Sodium/Dextrose (Rocephin/D5W) 55 ml @ 110 mls/hr Q24H IVPB 05/24/16 11:00 05/31/16 10:59 05/26/16 12:17 Dextrose STAT PRN IV Hypoglycemia 05/23/16 23:30 06/22/16 23:29 Dextrose/Sodium Chloride (D5 0.45% NS) 1,000 ml @ 50 mls/hr Q20H IV 05/24/16 07:00 06/23/16 06:59 05/25/16 22:49 Diphenhydramine HCl (Benadryl) 25 mg Q6H PRN IVP Itching 05/24/16 10:15 06/23/16 10:14 05/26/16 13:02 Enalapril Maleate (Vasotec) 10 mg DAILY ORAL 05/24/16 09:00 06/23/16 08:59 05/26/16 13:05 Morphine Sulfate 4 mg 4 mg Q4H PRN IVP For Pain (Moderate to Severe) 05/24/16 10:45 05/31/16 10:44 05/26/16 12:59 Nitroglycerin (Ntg) 0.4 mg Q5M X 3 DOSES PRN SL Prn Chest Pain 05/23/16 23:30 06/22/16 23:29 Ondansetron HCl (Zofran) 4 mg Q6H PRN IVP Nausea & Vomiting 05/23/16 23:30 06/22/16 23:29 05/26/16 12:55 Pantoprazole (Protonix) 40 mg DAILY ORAL 05/25/16 09:00 06/24/16 08:59 05/26/16 13:06 Polyethylene Glycol (Miralax) 17 gm HSPRN PRN ORAL Constipation 05/23/16 23:30 06/22/16 23:29 Temazepam (Restoril) 15 mg HSPRN PRN ORAL Insomnia 05/23/16 23:30 05/30/16 23:29 Fernanda Lim M.D. May 26, 2016 17:41
[2016-05-26] MEDS: D5 1/2NS 1,000 ML IV SCH (19:08)
--- NOTE | 2016-05-26 19:08 | Cardiology Report ---
APPROVED REPORT EKG Measurement Heart [id number] CT [id number] [id number] Normal sinus rhythm with sinus arrhythmia Normal ECG
[2016-05-26 20:00] VITALS: BP 123/87
[2016-05-26 20:29] LABS: BASOPHILS % (AUTO) 1.7 % (0.0-2.0); EOSINOPHILS % (AUTO) 3.5 % (0.0-3.0); LYMPHOCYTES % (AUTO) 43.4 % (20.0-45.0); MEAN CORPUSCULAR HEMOGLOBIN 26.8 PG (27.0-31.0); MEAN CORPUSCULAR HGB CONC 30.5 G/DL (32.0-36.0); MEAN CORPUSCULAR VOLUME 88 FL (80-99); MEAN PLATELET VOLUME 8.3 FL (6.5-10.1); MONOCYTES % (AUTO) 10.5 % (1.0-10.0); NEUTROPHILS % (AUTO) 40.9 % (45.0-75.0); PLATELET COUNT 156 K/UL (150-450); RED BLOOD COUNT 4.31 M/UL (4.70-6.10); RED CELL DISTRIBUTION WIDTH 14.8 % (11.6-14.8); WHITE BLOOD COUNT 4.6 K/UL (4.8-10.8)
[2016-05-26 20:39] LABS: CALCIUM 8.6 mg/dL (8.6-10.2); CREATININE 1.8 mg/dL (0.7-1.2); GLOMERULAR FILTRATION RATE 48.2 mL/min (>60); POTASSIUM 3.9 mEQ/L (3.4-4.9)
--- NOTE | 2016-05-26 23:04 | Pulmonology Progress Note ---
Assessment/Plan Problems: (1) UTI (urinary tract infection) (2) UGIB (upper gastrointestinal bleed) (3) Gastroparesis (4) Chronic pancreatitis (5) HTN (hypertension) (6) Narcotic dependence (7) Diabetes (8) HIV (human immunodeficiency virus infection) Assessment/Plan IV antibiotics for UTI advance diet check h/h check INR dc plannign soon Subjective ROS Limited/Unobtainable: No Interval Events: no more episodes of bleeding Allergies: Coded Allergies: IODINATED CONTRAST MEDIA - IV DYE (Verified Allergy, Severe, Shortness of Breath, 01/17/15) DORIPENEM (Verified Allergy, Intermediate, Itching, 01/17/15) KETOROLAC TROMETHAMINE (Verified Allergy, Intermediate, Hives, 01/17/15) TRAMADOL (Verified Allergy, Intermediate, Hives, 01/17/15) ASPIRIN (Verified Allergy, Mild, 04/09/10) Objective Last 24 Hour Vital Signs Date Time Temp Pulse Resp B/P Pulse Ox O2 Delivery O2 Flow Rate FiO2 05/26/16 20:00 97.5 80 20 123/87 100 Room Air 05/26/16 16:00 97.7 75 22 152/113 100 Room Air 05/26/16 13:05 145/85 05/26/16 12:24 97.2 70 20 145/85 99 Room Air 05/26/16 08:58 97.7 79 114/76 97 Room Air 05/26/16 04:00 97.3 84 22 136/75 95 Room Air 05/26/16 00:00 97.9 87 20 125/68 97 Room Air Intake and Output 05/25/16 05/26/16 19:00 07:00 Intake Total 855 ml 740 ml Balance 855 ml 740 ml Intake Oral 240 ml 240 ml IV Total 615 ml 500 ml # Voids 5 3 # Bowel Movements 1 1 General Appearance: WD/WN HEENT: normocephalic Respiratory/Chest: chest wall non-tender Cardiovascular: normal peripheral pulses Abdomen: normal bowel sounds Extremities: no cyanosis Neurologic/Psychiatric: skeiner II-XII grossly normal Laboratory Tests 05/26/16 20:00: White Blood Count 4.6L, Red Blood Count 4.31L, Hemoglobin 11.6L, Hematocrit 38.0L, Mean Corpuscular Volume 88, Mean Corpuscular Hemoglobin 26.8L, Mean Corpuscular Hemoglobin Concent 30.5L, Red Cell Distribution Width 14.8, Platelet Count 156, Mean Platelet Volume 8.3, Neutrophils (%) (Auto) 40.9L, Lymphocytes (%) (Auto) 43.4, Monocytes (%) (Auto) 10.5H, Eosinophils (%) (Auto) 3.5H, Basophils (%) (Auto) 1.7, Sodium Level 137, Potassium Level 3.9, Chloride Level 98, Carbon Dioxide Level 23, Anion Gap 16H, Blood Urea Nitrogen 16, Creatinine 1.8H, Estimat Glomerular Filtration Rate 48.2, Glucose Level 157H, Calcium Level 8.6 05/26/16 21:15: Urine Opiates Screen [Pending], Urine Barbiturates Screen [Pending], Phencyclidine (PCP) Screen [Pending], Urine Amphetamines Screen [Pending], Urine Benzodiazepines Screen [Pending], Urine Cocaine Screen [Pending], Urine Marijuana (THC) Screen [Pending] Current Medications Medications (Trade) Dose Ordered Sig/Arslan Route PRN Reason Start Time Stop Time Status Last Admin Dose Admin Acetaminophen (Tylenol) 650 mg Q4H PRN ORAL fever 05/23/16 23:30 06/22/16 23:29 Al Hydroxide/Mg Hydroxide (Mylanta II) 30 ml Q6H PRN ORAL dyspepsia 05/23/16 23:30 06/22/16 23:29 Ceftriaxone Sodium/Dextrose (Rocephin/D5W) 55 ml @ 110 mls/hr Q24H IVPB 05/24/16 11:00 05/31/16 10:59 05/26/16 12:17 Dextrose STAT PRN IV Hypoglycemia 05/23/16 23:30 06/22/16 23:29 Dextrose/Sodium Chloride (D5 0.45% NS) 1,000 ml @ 50 mls/hr Q20H IV 05/24/16 07:00 06/23/16 06:59 05/26/16 19:08 Diphenhydramine HCl (Benadryl) 25 mg Q6H PRN IVP Itching 05/24/16 10:15 06/23/16 10:14 05/26/16 19:01 Enalapril Maleate (Vasotec) 10 mg DAILY ORAL 05/24/16 09:00 06/23/16 08:59 05/26/16 13:05 Morphine Sulfate 4 mg 4 mg Q4H PRN IVP For Pain (Moderate to Severe) 05/24/16 10:45 05/31/16 10:44 05/26/16 19:02 Nitroglycerin (Ntg) 0.4 mg Q5M X 3 DOSES PRN SL Prn Chest Pain 05/23/16 23:30 06/22/16 23:29 Ondansetron HCl (Zofran) 4 mg Q6H PRN IVP Nausea & Vomiting 05/23/16 23:30 06/22/16 23:29 05/26/16 19:01 Pantoprazole (Protonix) 40 mg DAILY ORAL 05/25/16 09:00 06/24/16 08:59 05/26/16 13:06 Polyethylene Glycol (Miralax) 17 gm HSPRN PRN ORAL Constipation 05/23/16 23:30 06/22/16 23:29 Temazepam (Restoril) 15 mg HSPRN PRN ORAL Insomnia 05/23/16 23:30 05/30/16 23:29 SOM KNIGHT May 26, 2016 23:04
[2016-05-27] VITALS: BP 123/75
[2016-05-27] MEDS: DiphenhydrAMINE 50mg/ml Inj IVP PRN ×4 (01:12→22:21)
[2016-05-27] MEDS: Morphine Sulfate 4mg/ml Inj IVP PRN ×4 (01:12→22:21)
[2016-05-27 04:00] VITALS: BP 134/73
[2016-05-27 08:14] VITALS: BP 130/83
[2016-05-27 11:41] VITALS: BP 107/53
[2016-05-27] MEDS: cefTRIAXone 1 GM in D5W 55 ML IVPB SCH (11:46)
--- NOTE | 2016-05-27 14:58 | GI Progress Note ---
Assessment/Plan Problems: (1) HIV (human immunodeficiency virus infection) ICD Codes: Z21 - Asymptomatic human immunodeficiency virus [HIV] infection status SNOMED: 45303988 (2) GI bleeding (3) Abdominal pain of unknown etiology ICD Codes: R10.9 - Unspecified abdominal pain SNOMED: 421401033 (4) Intractable vomiting ICD Codes: R11.10 - Vomiting, unspecified SNOMED: 575547018 (5) Gastritis ICD Codes: K29.70 - Gastritis SNOMED: 7771984 Status: stable Status Narrative Discussed with Dr. Sands. Assessment/Plan iron panel WNL stable H&H elevated lipase HIV + coffee grounds per patient okay for DC per GI standpoint no labs today, refused defer EGD at this time low fat diet tolerating ordered OB stool utox >> unremarkable ppi fu labs Subjective Gastrointestinal/Abdominal: Reports: abdominal pain, vomiting Objective Last 24 Hour Vital Signs Date Time Temp Pulse Resp B/P Pulse Ox O2 Delivery O2 Flow Rate FiO2 05/27/16 11:41 97.0 65 18 107/53 97 Room Air 05/27/16 08:51 127/74 05/27/16 08:14 97.0 81 18 130/83 97 Room Air 05/27/16 04:00 97.3 81 18 134/73 95 Room Air 05/27/16 00:00 97.2 82 18 123/75 95 Room Air 05/26/16 20:00 97.5 80 20 123/87 100 Room Air 05/26/16 16:00 97.7 75 22 152/113 100 Room Air Intake and Output 05/26/16 05/27/16 19:00 07:00 Intake Total 525 ml 1455 ml Balance 525 ml 1455 ml Intake Oral 855 ml IV Total 525 ml 600 ml # Voids 7 9 # Bowel Movements 2 1 Laboratory Tests Test 05/26/16 20:00 05/26/16 21:15 White Blood Count 4.6 K/UL (4.8-10.8) L Red Blood Count 4.31 M/UL (4.70-6.10) L Hemoglobin 11.6 G/DL (14.2-18.0) L Hematocrit 38.0 % (42.0-52.0) L Mean Corpuscular Volume 88 FL (80-99) Mean Corpuscular Hemoglobin 26.8 PG (27.0-31.0) L Mean Corpuscular Hemoglobin Concent 30.5 G/DL (32.0-36.0) L Red Cell Distribution Width 14.8 % (11.6-14.8) Platelet Count 156 K/UL (150-450) Mean Platelet Volume 8.3 FL (6.5-10.1) Neutrophils (%) (Auto) 40.9 % (45.0-75.0) L Lymphocytes (%) (Auto) 43.4 % (20.0-45.0) Monocytes (%) (Auto) 10.5 % (1.0-10.0) H Eosinophils (%) (Auto) 3.5 % (0.0-3.0) H Basophils (%) (Auto) 1.7 % (0.0-2.0) Sodium Level 137 mEQ/L (135-145) Potassium Level 3.9 mEQ/L (3.4-4.9) Chloride Level 98 mEQ/L (98-107) Carbon Dioxide Level 23 mEQ/L (20-30) Anion Gap 16 (5-15) H Blood Urea Nitrogen 16 mg/dL (7-23) Creatinine 1.8 mg/dL (0.7-1.2) H Estimat Glomerular Filtration Rate 48.2 mL/min (>60) Glucose Level 157 mg/dL (74-106) H Calcium Level 8.6 mg/dL (8.6-10.2) Urine Opiates Screen Positive (NEGATIVE) H Urine Barbiturates Screen Negative (NEGATIVE) Phencyclidine (PCP) Screen Negative (NEGATIVE) Urine Amphetamines Screen Negative (NEGATIVE) Urine Benzodiazepines Screen Negative (NEGATIVE) Urine Cocaine Screen Negative (NEGATIVE) Urine Marijuana (THC) Screen Negative (NEGATIVE) Height (Feet): 6 Height (Inches): 1.00 Weight (Pounds): 239 General Appearance: no apparent distress, alert, overweight Cardiovascular: normal rate Respiratory/Chest: normal breath sounds, no respiratory distress Abdominal Exam: normal bowel sounds, non tender, soft Extremities: normal range of motion Objective no active s/sx of N/V patient showed emesis >> clear and pinkish Celia Raines N.P. May 27, 2016 14:58
--- NOTE | 2016-05-27 15:10 | General Progress Note ---
Assessment/Plan Problem List: (1) Renal insufficiency ICD Codes: N28.9 - Disorder of kidney and ureter, unspecified SNOMED: 753877683 (2) Intractable vomiting ICD Codes: R11.10 - Vomiting, unspecified SNOMED: 817408109 (3) Abdominal pain of unknown etiology ICD Codes: R10.9 - Unspecified abdominal pain SNOMED: 515411943 (4) UTI (urinary tract infection) ICD Codes: N39.0 - Urinary tract infection, site not specified SNOMED: 56268550 (5) Intractable abdominal pain ICD Codes: R10.9 - Intractable abdominal pain SNOMED: 42045864 (6) Hypokalemia ICD Codes: E87.6 - Hypokalemia SNOMED: 56459697 (7) GI bleeding (8) Anemia ICD Codes: D64.9 - Anemia, unspecified SNOMED: 450421771 Status: stable, progressing Assessment/Plan ot pt diet pain control gi f/u egd uro eval cbc bmp am Subjective Constitutional: Reports: weakness Allergies: Coded Allergies: IODINATED CONTRAST MEDIA - IV DYE (Verified Allergy, Severe, Shortness of Breath, 01/17/15) DORIPENEM (Verified Allergy, Intermediate, Itching, 01/17/15) KETOROLAC TROMETHAMINE (Verified Allergy, Intermediate, Hives, 01/17/15) TRAMADOL (Verified Allergy, Intermediate, Hives, 01/17/15) ASPIRIN (Verified Allergy, Mild, 04/09/10) All Systems: reviewed and negative except above Subjective sleepy calm sl nausea / gen pain Objective Last 24 Hour Vital Signs Date Time Temp Pulse Resp B/P Pulse Ox O2 Delivery O2 Flow Rate FiO2 05/27/16 11:41 97.0 65 18 107/53 97 Room Air 05/27/16 08:51 127/74 05/27/16 08:14 97.0 81 18 130/83 97 Room Air 05/27/16 04:00 97.3 81 18 134/73 95 Room Air 05/27/16 00:00 97.2 82 18 123/75 95 Room Air 05/26/16 20:00 97.5 80 20 123/87 100 Room Air 05/26/16 16:00 97.7 75 22 152/113 100 Room Air Intake and Output 05/26/16 05/27/16 19:00 07:00 Intake Total 525 ml 1455 ml Balance 525 ml 1455 ml Intake Oral 855 ml IV Total 525 ml 600 ml # Voids 7 9 # Bowel Movements 2 1 Laboratory Tests 05/26/16 20:00: White Blood Count 4.6L, Red Blood Count 4.31L, Hemoglobin 11.6L, Hematocrit 38.0L, Mean Corpuscular Volume 88, Mean Corpuscular Hemoglobin 26.8L, Mean Corpuscular Hemoglobin Concent 30.5L, Red Cell Distribution Width 14.8, Platelet Count 156, Mean Platelet Volume 8.3, Neutrophils (%) (Auto) 40.9L, Lymphocytes (%) (Auto) 43.4, Monocytes (%) (Auto) 10.5H, Eosinophils (%) (Auto) 3.5H, Basophils (%) (Auto) 1.7, Sodium Level 137, Potassium Level 3.9, Chloride Level 98, Carbon Dioxide Level 23, Anion Gap 16H, Blood Urea Nitrogen 16, Creatinine 1.8H, Estimat Glomerular Filtration Rate 48.2, Glucose Level 157H, Calcium Level 8.6 05/26/16 21:15: Urine Opiates Screen PositiveH, Urine Barbiturates Screen Negative, Phencyclidine (PCP) Screen Negative, Urine Amphetamines Screen Negative, Urine Benzodiazepines Screen Negative, Urine Cocaine Screen Negative, Urine Marijuana (THC) Screen Negative Height (Feet): 6 Height (Inches): 1.00 Weight (Pounds): 239 General Appearance: lethargic EENT: normal ENT inspection Neck: normal alignment Cardiovascular: normal peripheral pulses, normal rate, regular rhythm Respiratory/Chest: chest wall non-tender, lungs clear, normal breath sounds Abdomen: normal bowel sounds, non tender, soft Extremities: normal inspection Edema: no edema noted Arm (L), no edema noted Arm (R), no edema noted Leg (L), no edema noted Leg (R), no edema noted Pedal (L), no edema noted Pedal (R), no edema noted Generalized Neurologic: responsive, motor weakness Skin: normal pigmentation, warm/dry KIAH GONCALVES May 27, 2016 15:10
[2016-05-27] MEDS: D5 1/2NS 1,000 ML IV SCH (15:58)
[2016-05-27 16:08] VITALS: BP 133/94
--- NOTE | 2016-05-27 16:51 | General Progress Note ---
Assessment/Plan Assessment/Plan IMPRESSION: 1. Anemia 2/2 GI bleed - currently h/h stable, egd deferred for now given stable h/h 2. Anemia of chronic disease. 3. Anemia of kidney disease. 4. Chronic kidney disease. 5. Coagulopathy, secondary to coumadin. 6. Hypercoagulable state. 7. History of deep vein thrombosis s/p ivc filter 8. History of pulmonary embolism s/p ivc filter 9. Status post IVC filter placement. 10. Anticoagulation with Coumadin. 11. Drug-seeking behavior. RECOMMENDATIONS: 1. Monitor counts 2. Watch coagulopathy 3. Coumadin to continue 4. INR 2-3 goal 5. pRBC transfusion as needed basis, goal >7 6. Followup on ID, GI, pulm recs 7. Skin care 8. Staff Sincerely, Star Johnston MD Subjective Constitutional: Reports: no symptoms HEENT: Reports: no symptoms Cardiovascular: Reports: no symptoms Respiratory: Reports: no symptoms Gastrointestinal/Abdominal: Reports: no symptoms Genitourinary: Reports: no symptoms Neurologic/Psychiatric: Reports: no symptoms Endocrine: Reports: no symptoms Hematologic/Lymphatic: Reports: anemia Allergies: Coded Allergies: IODINATED CONTRAST MEDIA - IV DYE (Verified Allergy, Severe, Shortness of Breath, 01/17/15) DORIPENEM (Verified Allergy, Intermediate, Itching, 01/17/15) KETOROLAC TROMETHAMINE (Verified Allergy, Intermediate, Hives, 01/17/15) TRAMADOL (Verified Allergy, Intermediate, Hives, 01/17/15) ASPIRIN (Verified Allergy, Mild, 04/09/10) Subjective not bleeding, h/h is stable Objective Last 24 Hour Vital Signs Date Time Temp Pulse Resp B/P Pulse Ox O2 Delivery O2 Flow Rate FiO2 05/27/16 16:08 97.7 84 18 133/94 99 Room Air 05/27/16 11:41 97.0 65 18 107/53 97 Room Air 05/27/16 08:51 127/74 05/27/16 08:14 97.0 81 18 130/83 97 Room Air 05/27/16 04:00 97.3 81 18 134/73 95 Room Air 05/27/16 00:00 97.2 82 18 123/75 95 Room Air 05/26/16 20:00 97.5 80 20 123/87 100 Room Air Intake and Output 05/26/16 05/27/16 19:00 07:00 Intake Total 525 ml 1455 ml Balance 525 ml 1455 ml Intake Oral 855 ml IV Total 525 ml 600 ml # Voids 7 9 # Bowel Movements 2 1 Laboratory Tests 05/26/16 20:00: White Blood Count 4.6L, Red Blood Count 4.31L, Hemoglobin 11.6L, Hematocrit 38.0L, Mean Corpuscular Volume 88, Mean Corpuscular Hemoglobin 26.8L, Mean Corpuscular Hemoglobin Concent 30.5L, Red Cell Distribution Width 14.8, Platelet Count 156, Mean Platelet Volume 8.3, Neutrophils (%) (Auto) 40.9L, Lymphocytes (%) (Auto) 43.4, Monocytes (%) (Auto) 10.5H, Eosinophils (%) (Auto) 3.5H, Basophils (%) (Auto) 1.7, Sodium Level 137, Potassium Level 3.9, Chloride Level 98, Carbon Dioxide Level 23, Anion Gap 16H, Blood Urea Nitrogen 16, Creatinine 1.8H, Estimat Glomerular Filtration Rate 48.2, Glucose Level 157H, Calcium Level 8.6 05/26/16 21:15: Urine Opiates Screen PositiveH, Urine Barbiturates Screen Negative, Phencyclidine (PCP) Screen Negative, Urine Amphetamines Screen Negative, Urine Benzodiazepines Screen Negative, Urine Cocaine Screen Negative, Urine Marijuana (THC) Screen Negative Height (Feet): 6 Height (Inches): 1.00 Weight (Pounds): 239 General Appearance: alert EENT: TMs normal Neck: supple Cardiovascular: normal peripheral pulses Respiratory/Chest: lungs clear Abdomen: non tender Extremities: normal range of motion Edema: 1+ Leg (L), 1+ Leg (R) Edema: mild edema Skin: normal pigmentation Star Johnston May 27, 2016 16:51
--- NOTE | 2016-05-27 17:22 | Infectious Diseases Prog Note ---
Assessment/Plan Problems: (1) HIV (human immunodeficiency virus infection) Assessment & Plan: with positive rapid screening test, will confirm, and order viral load, with CD4 level. patient denied any previous exposure to HIV. except multiple blood transfusion in the past (2) UTI (urinary tract infection) Assessment & Plan: continue ceftriaxon empirically and await urine culture (3) Hypokalemia Assessment & Plan: improved, suspect dehydration related from vomiting, replace as needed, continue IVF for hydration (4) Hypocalcemia Assessment & Plan: improved, most likely due to GI loss, replace as needed, monitor calcium level (5) UGIB (upper gastrointestinal bleed) Assessment & Plan: may need EGD, GI is following , monitor H&H, transfuse as needed (6) Intractable abdominal pain Assessment & Plan: continue pain management as per primary , CT abdomen and pelvis showed nonobstructing stone . (7) Hematuria Assessment & Plan: recommend urology eval and cystoscopy Subjective Genitourinary: Reports: frequency, hematuria, other - pain Allergies: Coded Allergies: IODINATED CONTRAST MEDIA - IV DYE (Verified Allergy, Severe, Shortness of Breath, 01/17/15) DORIPENEM (Verified Allergy, Intermediate, Itching, 01/17/15) KETOROLAC TROMETHAMINE (Verified Allergy, Intermediate, Hives, 01/17/15) TRAMADOL (Verified Allergy, Intermediate, Hives, 01/17/15) ASPIRIN (Verified Allergy, Mild, 04/09/10) All Systems: reviewed and negative except above Objective Vital Signs Last 24 Hour Vital Signs Date Time Temp Pulse Resp B/P Pulse Ox O2 Delivery O2 Flow Rate FiO2 05/27/16 16:08 97.7 84 18 133/94 99 Room Air 05/27/16 11:41 97.0 65 18 107/53 97 Room Air 05/27/16 08:51 127/74 05/27/16 08:14 97.0 81 18 130/83 97 Room Air 05/27/16 04:00 97.3 81 18 134/73 95 Room Air 05/27/16 00:00 97.2 82 18 123/75 95 Room Air 05/26/16 20:00 97.5 80 20 123/87 100 Room Air Height (Feet): 6 Height (Inches): 1.00 Weight (Pounds): 239 General Appearance: WD/WN, no acute distress HEENT: normocephalic, atraumatic, anicteric, mucous membranes moist, PERRL Respiratory/Chest: chest wall non-tender, lungs clear, normal breath sounds, no respiratory distress, no accessory muscle use Cardiovascular: normal peripheral pulses, normal rate, regular rhythm, no gallop/murmur, no JVD Abdomen: normal bowel sounds, soft, non tender, no organomegaly, non distended , no mass, no scars Extremities: no cyanosis, no clubbing Skin: no rash, no lesions, no ulcers Laboratory Tests Test 05/26/16 20:00 05/26/16 21:15 White Blood Count 4.6 K/UL (4.8-10.8) L Red Blood Count 4.31 M/UL (4.70-6.10) L Hemoglobin 11.6 G/DL (14.2-18.0) L Hematocrit 38.0 % (42.0-52.0) L Mean Corpuscular Volume 88 FL (80-99) Mean Corpuscular Hemoglobin 26.8 PG (27.0-31.0) L Mean Corpuscular Hemoglobin Concent 30.5 G/DL (32.0-36.0) L Red Cell Distribution Width 14.8 % (11.6-14.8) Platelet Count 156 K/UL (150-450) Mean Platelet Volume 8.3 FL (6.5-10.1) Neutrophils (%) (Auto) 40.9 % (45.0-75.0) L Lymphocytes (%) (Auto) 43.4 % (20.0-45.0) Monocytes (%) (Auto) 10.5 % (1.0-10.0) H Eosinophils (%) (Auto) 3.5 % (0.0-3.0) H Basophils (%) (Auto) 1.7 % (0.0-2.0) Sodium Level 137 mEQ/L (135-145) Potassium Level 3.9 mEQ/L (3.4-4.9) Chloride Level 98 mEQ/L (98-107) Carbon Dioxide Level 23 mEQ/L (20-30) Anion Gap 16 (5-15) H Blood Urea Nitrogen 16 mg/dL (7-23) Creatinine 1.8 mg/dL (0.7-1.2) H Estimat Glomerular Filtration Rate 48.2 mL/min (>60) Glucose Level 157 mg/dL (74-106) H Calcium Level 8.6 mg/dL (8.6-10.2) Urine Opiates Screen Positive (NEGATIVE) H Urine Barbiturates Screen Negative (NEGATIVE) Phencyclidine (PCP) Screen Negative (NEGATIVE) Urine Amphetamines Screen Negative (NEGATIVE) Urine Benzodiazepines Screen Negative (NEGATIVE) Urine Cocaine Screen Negative (NEGATIVE) Urine Marijuana (THC) Screen Negative (NEGATIVE) Current Medications Medications (Trade) Dose Ordered Sig/Arslan Route PRN Reason Start Time Stop Time Status Last Admin Dose Admin Acetaminophen (Tylenol) 650 mg Q4H PRN ORAL fever 05/23/16 23:30 06/22/16 23:29 Al Hydroxide/Mg Hydroxide (Mylanta II) 30 ml Q6H PRN ORAL dyspepsia 05/23/16 23:30 06/22/16 23:29 Ceftriaxone Sodium/Dextrose (Rocephin/D5W) 55 ml @ 110 mls/hr Q24H IVPB 05/24/16 11:00 05/31/16 10:59 05/27/16 11:46 Dextrose STAT PRN IV Hypoglycemia 05/23/16 23:30 06/22/16 23:29 Dextrose/Sodium Chloride (D5 0.45% NS) 1,000 ml @ 50 mls/hr Q20H IV 05/24/16 07:00 06/23/16 06:59 05/27/16 15:58 Diphenhydramine HCl (Benadryl) 25 mg Q6H PRN IVP Itching 05/24/16 10:15 06/23/16 10:14 05/27/16 16:05 Enalapril Maleate (Vasotec) 10 mg DAILY ORAL 05/24/16 09:00 06/23/16 08:59 05/27/16 08:51 Morphine Sulfate 4 mg 4 mg Q4H PRN IVP For Pain (Moderate to Severe) 05/24/16 10:45 05/31/16 10:44 05/27/16 16:06 Nitroglycerin (Ntg) 0.4 mg Q5M X 3 DOSES PRN SL Prn Chest Pain 05/23/16 23:30 06/22/16 23:29 Ondansetron HCl (Zofran) 4 mg Q6H PRN IVP Nausea & Vomiting 05/23/16 23:30 06/22/16 23:29 05/27/16 16:05 Pantoprazole (Protonix) 40 mg DAILY ORAL 05/25/16 09:00 06/24/16 08:59 05/27/16 08:52 Polyethylene Glycol (Miralax) 17 gm HSPRN PRN ORAL Constipation 05/23/16 23:30 06/22/16 23:29 Temazepam (Restoril) 15 mg HSPRN PRN ORAL Insomnia 05/23/16 23:30 05/30/16 23:29 Warfarin Sodium (Coumadin per pharmacy) 1 ea DAILY PRN MISC Per rx protocol 05/27/16 17:00 06/26/16 16:59 Fernanda Haile M.D. May 27, 2016 17:21
[2016-05-27 20:10] VITALS: BP 125/90
--- NOTE | 2016-05-27 23:08 | Nephrology Progress Note ---
Assessment/Plan Problem List: (1) Renal insufficiency (2) HIV (human immunodeficiency virus infection) (3) Abdominal pain of unknown etiology (4) Hypokalemia (5) Nausea, vomiting, and diarrhea (6) Abdominal pain Plan will cont to monitor. Cr stable. Subjective Subjective no acute events, Objective Objective Last 24 Hour Vital Signs Date Time Temp Pulse Resp B/P Pulse Ox O2 Delivery O2 Flow Rate FiO2 05/27/16 20:10 97.9 75 18 125/90 98 Room Air 05/27/16 16:08 97.7 84 18 133/94 99 Room Air 05/27/16 11:41 97.0 65 18 107/53 97 Room Air 05/27/16 08:51 127/74 05/27/16 08:14 97.0 81 18 130/83 97 Room Air 05/27/16 04:00 97.3 81 18 134/73 95 Room Air 05/27/16 00:00 97.2 82 18 123/75 95 Room Air Intake and Output 05/26/16 05/27/16 19:00 07:00 Intake Total 525 ml 1455 ml Balance 525 ml 1455 ml Intake Oral 855 ml IV Total 525 ml 600 ml # Voids 7 9 # Bowel Movements 2 1 Height (Feet): 6 Height (Inches): 1.00 Weight (Pounds): 239 General Appearance: no apparent distress Cardiovascular: normal rate, regular rhythm Respiratory/Chest: lungs clear Abdomen: non tender, soft CARRIE HEADLEY May 27, 2016 23:08
--- NOTE | 2016-05-27 23:51 | Pulmonology Progress Note ---
Assessment/Plan Problems: (1) Bronchitis (2) UTI (urinary tract infection) (3) UGIB (upper gastrointestinal bleed) (4) Gastroparesis (5) Chronic pancreatitis (6) HTN (hypertension) (7) Narcotic dependence (8) Diabetes (9) HIV (human immunodeficiency virus infection) Assessment/Plan improving respiratory treatment IV antibiotics for UTI advance diet check h/h check INR dc plannign soon Subjective ROS Limited/Unobtainable: No Interval Events: no new complains Allergies: Coded Allergies: IODINATED CONTRAST MEDIA - IV DYE (Verified Allergy, Severe, Shortness of Breath, 01/17/15) DORIPENEM (Verified Allergy, Intermediate, Itching, 01/17/15) KETOROLAC TROMETHAMINE (Verified Allergy, Intermediate, Hives, 01/17/15) TRAMADOL (Verified Allergy, Intermediate, Hives, 01/17/15) ASPIRIN (Verified Allergy, Mild, 04/09/10) Objective Last 24 Hour Vital Signs Date Time Temp Pulse Resp B/P Pulse Ox O2 Delivery O2 Flow Rate FiO2 05/27/16 20:10 97.9 75 18 125/90 98 Room Air 05/27/16 16:08 97.7 84 18 133/94 99 Room Air 05/27/16 11:41 97.0 65 18 107/53 97 Room Air 05/27/16 08:51 127/74 05/27/16 08:14 97.0 81 18 130/83 97 Room Air 05/27/16 04:00 97.3 81 18 134/73 95 Room Air 05/27/16 00:00 97.2 82 18 123/75 95 Room Air Intake and Output 05/26/16 05/27/16 19:00 07:00 Intake Total 525 ml 1455 ml Balance 525 ml 1455 ml Intake Oral 855 ml IV Total 525 ml 600 ml # Voids 7 9 # Bowel Movements 2 1 General Appearance: WD/WN HEENT: atraumatic Respiratory/Chest: chest wall non-tender, normal breath sounds Cardiovascular: normal peripheral pulses, regular rhythm Abdomen: normal bowel sounds, soft, non tender Genitourinary: normal external genitalia Skin: no rash, no ulcers Current Medications Medications (Trade) Dose Ordered Sig/Arslan Route PRN Reason Start Time Stop Time Status Last Admin Dose Admin Acetaminophen (Tylenol) 650 mg Q4H PRN ORAL fever 05/23/16 23:30 06/22/16 23:29 Al Hydroxide/Mg Hydroxide (Mylanta II) 30 ml Q6H PRN ORAL dyspepsia 05/23/16 23:30 06/22/16 23:29 Ceftriaxone Sodium/Dextrose (Rocephin/D5W) 55 ml @ 110 mls/hr Q24H IVPB 05/24/16 11:00 05/31/16 10:59 05/27/16 11:46 Dextrose STAT PRN IV Hypoglycemia 05/23/16 23:30 06/22/16 23:29 Dextrose/Sodium Chloride (D5 0.45% NS) 1,000 ml @ 50 mls/hr Q20H IV 05/24/16 07:00 06/23/16 06:59 05/27/16 15:58 Diphenhydramine HCl (Benadryl) 25 mg Q6H PRN IVP Itching 05/24/16 10:15 06/23/16 10:14 05/27/16 22:21 Enalapril Maleate (Vasotec) 10 mg DAILY ORAL 05/24/16 09:00 06/23/16 08:59 05/27/16 08:51 Morphine Sulfate 4 mg 4 mg Q4H PRN IVP For Pain (Moderate to Severe) 05/24/16 10:45 05/31/16 10:44 05/27/16 22:21 Nitroglycerin (Ntg) 0.4 mg Q5M X 3 DOSES PRN SL Prn Chest Pain 05/23/16 23:30 06/22/16 23:29 Ondansetron HCl (Zofran) 4 mg Q6H PRN IVP Nausea & Vomiting 05/23/16 23:30 06/22/16 23:29 05/27/16 22:21 Pantoprazole (Protonix) 40 mg DAILY ORAL 05/25/16 09:00 06/24/16 08:59 05/27/16 08:52 Polyethylene Glycol (Miralax) 17 gm HSPRN PRN ORAL Constipation 05/23/16 23:30 06/22/16 23:29 Temazepam (Restoril) 15 mg HSPRN PRN ORAL Insomnia 05/23/16 23:30 05/30/16 23:29 Warfarin Sodium (Coumadin per pharmacy) 1 ea DAILY PRN MISC Per rx protocol 1/24/17 17:00 06/26/16 16:59 SOM JENNINGS May 27, 2016 23:51
[2016-05-28] VITALS: BP 130/66
[2016-05-28] MEDS: Morphine Sulfate 4mg/ml Inj IVP PRN ×5 (02:31→21:31)
[2016-05-28 04:00] VITALS: BP 147/75
[2016-05-28] MEDS: DiphenhydrAMINE 50mg/ml Inj IVP PRN ×3 (06:34→21:31)
--- NOTE | 2016-05-28 08:17 | Nephrology Progress Note ---
Assessment/Plan Problem List: (1) Nausea, vomiting, and diarrhea (2) Abdominal pain (3) Hypernatremia (4) UTI (urinary tract infection) (5) HIV (human immunodeficiency virus infection) (6) Hematuria (7) Hypokalemia Plan Continue IVF Continue pain management GI f/u Coumadin per hematology Urology consult rec Monitor lytes Abx per ID Monitor intake and output AM labs Subjective Constitutional: Denies: chills, diaphoresis, fever, malaise, no symptoms, other , weakness HEENT: Denies: blurred vision, double vision, ear discharge, ear pain, eye pain , mouth pain, mouth swelling, no symptoms, nose congestion, nose pain, other, tearing, throat pain, throat swelling Genitourinary: Reports: hematuria, pain Neurologic/Psychiatric: Denies: anxiety, depressed, emotional problems, headache, no symptoms, numbness, other, paresthesia, pre-existing deficit, seizure, tingling, tremors, weakness Subjective In bed, in no distress Objective Objective Last 24 Hour Vital Signs Date Time Temp Pulse Resp B/P Pulse Ox O2 Delivery O2 Flow Rate FiO2 05/28/16 07:03 97.3 05/28/16 04:00 97.3 80 18 147/75 97 Room Air 05/28/16 00:00 97.3 74 18 130/66 95 Room Air 05/27/16 20:10 97.9 75 18 125/90 98 Room Air 05/27/16 16:08 97.7 84 18 133/94 99 Room Air 05/27/16 11:41 97.0 65 18 107/53 97 Room Air 05/27/16 08:51 127/74 Intake and Output 05/27/16 05/28/16 19:00 07:00 Intake Total 1030 ml 1200 ml Balance 1030 ml 1200 ml Intake Oral 600 ml 1050 ml IV Total 430 ml 150 ml # Voids 4 9 # Bowel Movements 1 Height (Feet): 6 Height (Inches): 1.00 Weight (Pounds): 239 General Appearance: no apparent distress, alert EENT: normal ENT inspection Neck: non-tender, normal alignment Cardiovascular: normal rate, regular rhythm, no JVD Respiratory/Chest: lungs clear, normal breath sounds, no respiratory distress Abdomen: non tender, soft, no organomegaly, no mass Extremities: non-tender, normal inspection, no calf tenderness, normal capillary refill Neurologic: alert, oriented x 3, responsive, normal mood/affect Georgina Gorman N.P. May 28, 2016 08:17
[2016-05-28 08:24] VITALS: BP 120/85
[2016-05-28 09:16] LABS: HIV-1 ANTIBODY Positive (Negative); HIV-2 ANTIBODY Negative (Negative)
[2016-05-28] MEDS ORDERED: Lidocaine 1% Plain 30 ml INJ PRN (09:30)
[2016-05-28] MEDS ORDERED: Heparin 2000 units/Ns 1000ml INJ PRN (09:30)
[2016-05-28] MEDS ORDERED: Sodium Bicarbonate 8.4% 50ml Inj INJ PRN (09:45)
--- NOTE | 2016-05-28 09:58 | General Progress Note ---
Assessment/Plan Assessment/Plan IMPRESSION: 1. Anemia 2/2 GI bleed - currently h/h stable, egd deferred for now given stable h/h 2. Anemia of chronic disease. 3. Anemia of kidney disease. 4. Chronic kidney disease. 5. Coagulopathy, secondary to coumadin. 6. Hypercoagulable state. 7. History of deep vein thrombosis s/p ivc filter on coumadin 8. History of pulmonary embolism s/p ivc filter 9. Status post IVC filter placement. 10. Drug-seeking behavior. RECOMMENDATIONS: 1. Monitor counts 2. Watch coagulopathy 3. Coumadin to continue 4. INR 2-3 goal 5. pRBC transfusion as needed basis, goal >7 6. Followup on ID, GI, pulm recs 7. Skin care 8. Staff Sincerely, Star Johnston MD Subjective Constitutional: Reports: no symptoms HEENT: Reports: no symptoms Cardiovascular: Reports: no symptoms Respiratory: Reports: no symptoms Gastrointestinal/Abdominal: Reports: poor appetite Genitourinary: Reports: no symptoms Neurologic/Psychiatric: Reports: no symptoms Endocrine: Reports: no symptoms Hematologic/Lymphatic: Reports: anemia Allergies: Coded Allergies: IODINATED CONTRAST MEDIA - IV DYE (Verified Allergy, Severe, Shortness of Breath, 01/17/15) DORIPENEM (Verified Allergy, Intermediate, Itching, 01/17/15) KETOROLAC TROMETHAMINE (Verified Allergy, Intermediate, Hives, 01/17/15) TRAMADOL (Verified Allergy, Intermediate, Hives, 01/17/15) ASPIRIN (Verified Allergy, Mild, 04/09/10) Subjective without bleeding, h/h is stable Objective Last 24 Hour Vital Signs Date Time Temp Pulse Resp B/P Pulse Ox O2 Delivery O2 Flow Rate FiO2 05/28/16 08:26 120/85 05/28/16 08:24 97.8 86 18 120/85 97 Room Air 05/28/16 07:03 97.3 05/28/16 04:00 97.3 80 18 147/75 97 Room Air 05/28/16 00:00 97.3 74 18 130/66 95 Room Air 05/27/16 20:10 97.9 75 18 125/90 98 Room Air 05/27/16 16:08 97.7 84 18 133/94 99 Room Air 05/27/16 11:41 97.0 65 18 107/53 97 Room Air Intake and Output 05/27/16 05/28/16 19:00 07:00 Intake Total 1030 ml 1200 ml Balance 1030 ml 1200 ml Intake Oral 600 ml 1050 ml IV Total 430 ml 150 ml # Voids 4 9 # Bowel Movements 1 Height (Feet): 6 Height (Inches): 1.00 Weight (Pounds): 239 General Appearance: no apparent distress EENT: TMs normal Neck: supple Cardiovascular: regular rhythm Respiratory/Chest: normal breath sounds Abdomen: non tender Extremities: non-tender Edema: no edema noted Leg (L), no edema noted Leg (R) Edema: mild edema Neurologic: alert Skin: warm/dry Star Johnston May 28, 2016 09:58
[2016-05-28] MEDS: cefTRIAXone 1 GM in D5W 55 ML IVPB SCH (11:45)
[2016-05-28 11:55] VITALS: BP 136/82
--- NOTE | 2016-05-28 13:24 | General Progress Note ---
Assessment/Plan Problem List: (1) Renal insufficiency ICD Codes: N28.9 - Disorder of kidney and ureter, unspecified SNOMED: 035232519 (2) Intractable vomiting ICD Codes: R11.10 - Vomiting, unspecified SNOMED: 211696442 (3) Abdominal pain of unknown etiology ICD Codes: R10.9 - Unspecified abdominal pain SNOMED: 926316904 (4) UTI (urinary tract infection) ICD Codes: N39.0 - Urinary tract infection, site not specified SNOMED: 54503553 (5) Intractable abdominal pain ICD Codes: R10.9 - Intractable abdominal pain SNOMED: 21315221 (6) Hypokalemia ICD Codes: E87.6 - Hypokalemia SNOMED: 45031501 (7) GI bleeding (8) Anemia ICD Codes: D64.9 - Anemia, unspecified SNOMED: 113612973 Status: stable, progressing Assessment/Plan ot pt diet pain control gi f/u egd uro eval cbc bmp am dc plan Subjective Constitutional: Reports: weakness Allergies: Coded Allergies: IODINATED CONTRAST MEDIA - IV DYE (Verified Allergy, Severe, Shortness of Breath, 01/17/15) DORIPENEM (Verified Allergy, Intermediate, Itching, 01/17/15) KETOROLAC TROMETHAMINE (Verified Allergy, Intermediate, Hives, 01/17/15) TRAMADOL (Verified Allergy, Intermediate, Hives, 01/17/15) ASPIRIN (Verified Allergy, Mild, 04/09/10) All Systems: reviewed and negative except above Subjective sleepy calm sl nausea / gen pain Objective Last 24 Hour Vital Signs Date Time Temp Pulse Resp B/P Pulse Ox O2 Delivery O2 Flow Rate FiO2 05/28/16 11:55 97.2 89 20 136/82 100 Room Air 05/28/16 08:26 120/85 05/28/16 08:24 97.8 86 18 120/85 97 Room Air 05/28/16 07:03 97.3 05/28/16 04:00 97.3 80 18 147/75 97 Room Air 05/28/16 00:00 97.3 74 18 130/66 95 Room Air 05/27/16 20:10 97.9 75 18 125/90 98 Room Air 05/27/16 16:08 97.7 84 18 133/94 99 Room Air Intake and Output 05/27/16 05/28/16 19:00 07:00 Intake Total 1030 ml 1200 ml Balance 1030 ml 1200 ml Intake Oral 600 ml 1050 ml IV Total 430 ml 150 ml # Voids 4 9 # Bowel Movements 1 Height (Feet): 6 Height (Inches): 1.00 Weight (Pounds): 239 General Appearance: lethargic EENT: normal ENT inspection Neck: normal alignment Cardiovascular: normal peripheral pulses, normal rate, regular rhythm Respiratory/Chest: chest wall non-tender, lungs clear, normal breath sounds Abdomen: normal bowel sounds, non tender, soft Extremities: normal inspection Edema: no edema noted Arm (L), no edema noted Arm (R), no edema noted Leg (L), no edema noted Leg (R), no edema noted Pedal (L), no edema noted Pedal (R), no edema noted Generalized Neurologic: responsive, motor weakness Skin: normal pigmentation, warm/dry KIAH GONCALVES May 28, 2016 13:23
[2016-05-28] MEDS: D5 1/2NS 1,000 ML IV SCH (13:31)
--- NOTE | 2016-05-28 14:34 | GI Progress Note ---
Assessment/Plan Problems: (1) HIV (human immunodeficiency virus infection) ICD Codes: Z21 - Asymptomatic human immunodeficiency virus [HIV] infection status SNOMED: 98260245 (2) GI bleeding (3) Abdominal pain of unknown etiology ICD Codes: R10.9 - Unspecified abdominal pain SNOMED: 798163947 (4) Intractable vomiting ICD Codes: R11.10 - Vomiting, unspecified SNOMED: 514200674 (5) Gastritis ICD Codes: K29.70 - Gastritis SNOMED: 6450079 Status: stable, unchanged Status Narrative Discussed with Dr. Sands. Assessment/Plan iron panel WNL stable H&H elevated lipase HIV + coffee grounds per patient no amlabs today okay for DC per GI standpoint defer EGD at this time low fat diet, tolerating ordered OB stool utox >> unremarkable ppi fu labs Subjective Gastrointestinal/Abdominal: Reports: no symptoms Objective Last 24 Hour Vital Signs Date Time Temp Pulse Resp B/P Pulse Ox O2 Delivery O2 Flow Rate FiO2 05/28/16 11:55 97.2 89 20 136/82 100 Room Air 05/28/16 08:26 120/85 05/28/16 08:24 97.8 86 18 120/85 97 Room Air 05/28/16 07:03 97.3 05/28/16 04:00 97.3 80 18 147/75 97 Room Air 05/28/16 00:00 97.3 74 18 130/66 95 Room Air 05/27/16 20:10 97.9 75 18 125/90 98 Room Air 05/27/16 16:08 97.7 84 18 133/94 99 Room Air Intake and Output 05/27/16 05/28/16 19:00 07:00 Intake Total 1030 ml 1200 ml Balance 1030 ml 1200 ml Intake Oral 600 ml 1050 ml IV Total 430 ml 150 ml # Voids 4 9 # Bowel Movements 1 Microbiology Date/Time Source Procedure Growth Status 05/27/16 16:00 Urine,Clean Catch Urine Culture - Preliminary NO GROWTH Resulted Height (Feet): 6 Height (Inches): 1.00 Weight (Pounds): 239 General Appearance: no apparent distress, alert Cardiovascular: normal rate Respiratory/Chest: normal breath sounds Abdominal Exam: normal bowel sounds, non tender, soft Extremities: normal range of motion Objective no active s/sx of N/V Celia Raines N.P. May 28, 2016 14:34
[2016-05-28 16:05] VITALS: BP 110/63
[2016-05-28 17:04] LABS: BASOPHILS % (AUTO) 2.2 % (0.0-2.0); EOSINOPHILS % (AUTO) 2.1 % (0.0-3.0); LYMPHOCYTES % (AUTO) 37.9 % (20.0-45.0); MEAN CORPUSCULAR HGB CONC 31.4 G/DL (32.0-36.0); MEAN CORPUSCULAR VOLUME 86 FL (80-99); MEAN PLATELET VOLUME 7.3 FL (6.5-10.1); MONOCYTES % (AUTO) 10.3 % (1.0-10.0); NEUTROPHILS % (AUTO) 47.6 % (45.0-75.0); PLATELET COUNT 159 K/UL (150-450); RED BLOOD COUNT 4.64 M/UL (4.70-6.10); RED CELL DISTRIBUTION WIDTH 14.7 % (11.6-14.8); WHITE BLOOD COUNT 5.6 K/UL (4.8-10.8)
[2016-05-28 17:15] LABS: INR 1.2 (0.9-1.1); PROTHROMBIN TIME 12.5 SEC (9.30-11.50)
--- NOTE | 2016-05-28 17:37 | Infectious Diseases Prog Note ---
Assessment/Plan Problems: (1) HIV (human immunodeficiency virus infection) Assessment & Plan: with positive rapid screening test, and positive HIV-1 antibody , viral load, with CD4 level are pending . will check RPR, GC& Chlamydia , toxo IgG, and T spot test, patient denied any previous exposure to HIV. except multiple blood transfusion in the past, recommend follow up with HIV provider as an out patient to start antiretroviral therapy. (2) UTI (urinary tract infection) Assessment & Plan: continue ceftriaxon empirically and await urine culture (3) Hypokalemia Assessment & Plan: improved, suspect dehydration related from vomiting, replace as needed, continue IVF for hydration (4) Hypocalcemia Assessment & Plan: improved, most likely due to GI loss, replace as needed, monitor calcium level (5) UGIB (upper gastrointestinal bleed) Assessment & Plan: may need EGD, GI is following , monitor H&H, transfuse as needed (6) Intractable abdominal pain Assessment & Plan: continue pain management as per primary , CT abdomen and pelvis showed nonobstructing stone . (7) Hematuria Assessment & Plan: recommend urology eval and cystoscopy Subjective Genitourinary: Reports: dysuria, frequency, hematuria Allergies: Coded Allergies: IODINATED CONTRAST MEDIA - IV DYE (Verified Allergy, Severe, Shortness of Breath, 01/17/15) DORIPENEM (Verified Allergy, Intermediate, Itching, 01/17/15) KETOROLAC TROMETHAMINE (Verified Allergy, Intermediate, Hives, 01/17/15) TRAMADOL (Verified Allergy, Intermediate, Hives, 01/17/15) ASPIRIN (Verified Allergy, Mild, 04/09/10) All Systems: reviewed and negative except above Objective Vital Signs Last 24 Hour Vital Signs Date Time Temp Pulse Resp B/P Pulse Ox O2 Delivery O2 Flow Rate FiO2 05/28/16 16:05 98.2 74 23 110/63 100 Room Air 05/28/16 11:55 97.2 89 20 136/82 100 Room Air 05/28/16 08:26 120/85 05/28/16 08:24 97.8 86 18 120/85 97 Room Air 05/28/16 07:03 97.3 05/28/16 04:00 97.3 80 18 147/75 97 Room Air 05/28/16 00:00 97.3 74 18 130/66 95 Room Air 05/27/16 20:10 97.9 75 18 125/90 98 Room Air Height (Feet): 6 Height (Inches): 1.00 Weight (Pounds): 239 General Appearance: WD/WN, no acute distress HEENT: normocephalic, atraumatic, anicteric, mucous membranes moist Respiratory/Chest: chest wall non-tender, lungs clear, normal breath sounds, no respiratory distress, no accessory muscle use Cardiovascular: normal peripheral pulses, normal rate, regular rhythm, no gallop/murmur Abdomen: normal bowel sounds, soft, non tender, no organomegaly, non distended , no mass, no scars Extremities: no cyanosis, no clubbing Skin: no rash, no lesions Microbiology Date/Time Source Procedure Growth Status 05/27/16 16:00 Urine,Clean Catch Urine Culture - Preliminary NO GROWTH Resulted Laboratory Tests Test 05/28/16 16:50 White Blood Count 5.6 K/UL (4.8-10.8) Red Blood Count 4.64 M/UL (4.70-6.10) L Hemoglobin 12.6 G/DL (14.2-18.0) L Hematocrit 39.9 % (42.0-52.0) L Mean Corpuscular Volume 86 FL (80-99) Mean Corpuscular Hemoglobin 27.0 PG (27.0-31.0) Mean Corpuscular Hemoglobin Concent 31.4 G/DL (32.0-36.0) L Red Cell Distribution Width 14.7 % (11.6-14.8) Platelet Count 159 K/UL (150-450) Mean Platelet Volume 7.3 FL (6.5-10.1) Neutrophils (%) (Auto) 47.6 % (45.0-75.0) Lymphocytes (%) (Auto) 37.9 % (20.0-45.0) Monocytes (%) (Auto) 10.3 % (1.0-10.0) H Eosinophils (%) (Auto) 2.1 % (0.0-3.0) Basophils (%) (Auto) 2.2 % (0.0-2.0) H Prothrombin Time 12.5 SEC (9.30-11.50) H Prothromb Time International Ratio 1.2 (0.9-1.1) H Sodium Level Pending Potassium Level Pending Chloride Level Pending Carbon Dioxide Level Pending Blood Urea Nitrogen Pending Creatinine Pending Estimat Glomerular Filtration Rate Pending Glucose Level Pending Calcium Level Pending Amylase Level Pending Lipase Pending Current Medications Medications (Trade) Dose Ordered Sig/Arslan Route PRN Reason Start Time Stop Time Status Last Admin Dose Admin Acetaminophen (Tylenol) 650 mg Q4H PRN ORAL fever 05/23/16 23:30 06/22/16 23:29 Al Hydroxide/Mg Hydroxide (Mylanta II) 30 ml Q6H PRN ORAL dyspepsia 05/23/16 23:30 06/22/16 23:29 Ceftriaxone Sodium/Dextrose (Rocephin/D5W) 55 ml @ 110 mls/hr Q24H IVPB 05/24/16 11:00 05/31/16 10:59 05/28/16 11:45 Dextrose STAT PRN IV Hypoglycemia 05/23/16 23:30 06/22/16 23:29 Dextrose/Sodium Chloride (D5 0.45% NS) 1,000 ml @ 50 mls/hr Q20H IV 05/24/16 07:00 06/23/16 06:59 05/28/16 13:31 Diphenhydramine HCl (Benadryl) 25 mg Q6H PRN IVP Itching 05/24/16 10:15 06/23/16 10:14 05/28/16 13:21 Enalapril Maleate (Vasotec) 10 mg DAILY ORAL 05/24/16 09:00 06/23/16 08:59 05/28/16 08:26 Heparin Sodium/ Sodium Chloride (Heparin 2000 units/Ns 1000ml premix) 2,000 unit ONCE PRN INJ FOR PICC LINE PLACEMENT 05/28/16 09:30 05/29/16 23:59 Lidocaine HCl (Xylocaine 1% 30ml) 30 ml ONCE PRN INJ PICC PLACEMENT 05/28/16 09:30 05/29/16 23:59 Morphine Sulfate 4 mg 4 mg Q4H PRN IVP For Pain (Moderate to Severe) 05/24/16 10:45 05/31/16 10:44 05/28/16 13:23 Nitroglycerin (Ntg) 0.4 mg Q5M X 3 DOSES PRN SL Prn Chest Pain 05/23/16 23:30 06/22/16 23:29 Ondansetron HCl (Zofran) 4 mg Q6H PRN IVP Nausea & Vomiting 05/23/16 23:30 06/22/16 23:29 05/28/16 13:12 Pantoprazole (Protonix) 40 mg DAILY ORAL 05/25/16 09:00 06/24/16 08:59 05/28/16 08:26 Polyethylene Glycol (Miralax) 17 gm HSPRN PRN ORAL Constipation 05/23/16 23:30 06/22/16 23:29 Sodium Bicarbonate (Sodium Bicarbonate) 50 ml ONCE PRN INJ FOR PICC LINE PLACEMENT 05/28/16 09:45 05/29/16 23:59 Temazepam (Restoril) 15 mg HSPRN PRN ORAL Insomnia 05/23/16 23:30 05/30/16 23:29 Warfarin Sodium (Coumadin per pharmacy) 1 ea DAILY PRN MISC Per rx protocol 05/27/16 17:00 06/26/16 16:59 Fernanda Haile M.D. May 28, 2016 17:37
[2016-05-28 17:39] LABS: CALCIUM 9.1 mg/dL (8.6-10.2); CREATININE 1.6 mg/dL (0.7-1.2); GLOMERULAR FILTRATION RATE 55.3 mL/min (>60); POTASSIUM 4.5 mEQ/L (3.4-4.9)
[2016-05-28] MEDS ORDERED: Warfarin Sodium 5mg ORAL SCH (19:00)
[2016-05-28 20:05] VITALS: BP 151/87
--- NOTE | 2016-05-28 22:50 | Pulmonology Progress Note ---
Assessment/Plan Problems: (1) UTI (urinary tract infection) (2) UGIB (upper gastrointestinal bleed) (3) Gastroparesis (4) Chronic pancreatitis (5) HTN (hypertension) (6) Narcotic dependence (7) Diabetes (8) HIV (human immunodeficiency virus infection) Assessment/Plan IV antibiotics for UTI advance diet check h/h check INR dc plannign soon Subjective ROS Limited/Unobtainable: No Genitourinary: Reports: dysuria, frequency, hematuria, nocturia, urgency Allergies: Coded Allergies: IODINATED CONTRAST MEDIA - IV DYE (Verified Allergy, Severe, Shortness of Breath, 01/17/15) DORIPENEM (Verified Allergy, Intermediate, Itching, 01/17/15) KETOROLAC TROMETHAMINE (Verified Allergy, Intermediate, Hives, 01/17/15) TRAMADOL (Verified Allergy, Intermediate, Hives, 01/17/15) ASPIRIN (Verified Allergy, Mild, 04/09/10) Objective Last 24 Hour Vital Signs Date Time Temp Pulse Resp B/P Pulse Ox O2 Delivery O2 Flow Rate FiO2 05/28/16 20:05 97.7 74 20 151/87 98 Room Air 05/28/16 16:05 98.2 74 23 110/63 100 Room Air 05/28/16 11:55 97.2 89 20 136/82 100 Room Air 05/28/16 08:26 120/85 05/28/16 08:24 97.8 86 18 120/85 97 Room Air 05/28/16 07:03 97.3 05/28/16 04:00 97.3 80 18 147/75 97 Room Air 05/28/16 00:00 97.3 74 18 130/66 95 Room Air Intake and Output 05/27/16 05/28/16 19:00 07:00 Intake Total 1030 ml 1200 ml Balance 1030 ml 1200 ml Intake Oral 600 ml 1050 ml IV Total 430 ml 150 ml # Voids 4 9 # Bowel Movements 1 General Appearance: no acute distress HEENT: normocephalic, atraumatic, PERRL Respiratory/Chest: chest wall non-tender, decreased breath sounds, accessory muscle use Cardiovascular: normal peripheral pulses, normal rate, regular rhythm, no JVD Abdomen: normal bowel sounds, soft, non tender, no organomegaly Genitourinary: normal external genitalia Extremities: no cyanosis Skin: no rash, no lesions Neurologic/Psychiatric: dock hand II-XII grossly normal, no motor/sensory deficits Microbiology Date/Time Source Procedure Growth Status 05/27/16 16:00 Urine,Clean Catch Urine Culture - Preliminary NO GROWTH Resulted Laboratory Tests 05/28/16 16:50: White Blood Count 5.6, Red Blood Count 4.64L, Hemoglobin 12.6L, Hematocrit 39.9L , Mean Corpuscular Volume 86, Mean Corpuscular Hemoglobin 27.0, Mean Corpuscular Hemoglobin Concent 31.4L, Red Cell Distribution Width 14.7, Platelet Count 159, Mean Platelet Volume 7.3, Neutrophils (%) (Auto) 47.6, Lymphocytes (%) (Auto) 37.9, Monocytes (%) (Auto) 10.3H, Eosinophils (%) (Auto) 2.1, Basophils (%) (Auto) 2.2H, Prothrombin Time 12.5H, Prothromb Time International Ratio 1.2H, Sodium Level 138, Potassium Level 4.5, Chloride Level 99, Carbon Dioxide Level 26, Anion Gap 13, Blood Urea Nitrogen 17, Creatinine 1.6H, Estimat Glomerular Filtration Rate 55.3, Glucose Level 117H, Calcium Level 9.1, Amylase Level 185H, Lipase 40 05/28/16 20:30: Rapid Plasma Reagin [Pending], Toxoplasma IgG Antibody [Pending], Toxoplasma IgM Antibody [Pending] Current Medications Medications (Trade) Dose Ordered Sig/Arslan Route PRN Reason Start Time Stop Time Status Last Admin Dose Admin Acetaminophen (Tylenol) 650 mg Q4H PRN ORAL fever 05/23/16 23:30 06/22/16 23:29 Al Hydroxide/Mg Hydroxide (Mylanta II) 30 ml Q6H PRN ORAL dyspepsia 05/23/16 23:30 06/22/16 23:29 Ceftriaxone Sodium/Dextrose (Rocephin/D5W) 55 ml @ 110 mls/hr Q24H IVPB 05/24/16 11:00 05/31/16 10:59 05/28/16 11:45 Dextrose STAT PRN IV Hypoglycemia 05/23/16 23:30 06/22/16 23:29 Dextrose/Sodium Chloride (D5 0.45% NS) 1,000 ml @ 50 mls/hr Q20H IV 05/24/16 07:00 06/23/16 06:59 05/28/16 13:31 Diphenhydramine HCl (Benadryl) 25 mg Q6H PRN IVP Itching 05/24/16 10:15 06/23/16 10:14 05/28/16 21:31 Enalapril Maleate (Vasotec) 10 mg DAILY ORAL 05/24/16 09:00 06/23/16 08:59 05/28/16 08:26 Heparin Sodium/ Sodium Chloride (Heparin 2000 units/Ns 1000ml premix) 2,000 unit ONCE PRN INJ FOR PICC LINE PLACEMENT 05/28/16 09:30 05/29/16 23:59 Lidocaine HCl (Xylocaine 1% 30ml) 30 ml ONCE PRN INJ PICC PLACEMENT 05/28/16 09:30 05/29/16 23:59 Morphine Sulfate 4 mg 4 mg Q4H PRN IVP For Pain (Moderate to Severe) 05/24/16 10:45 05/31/16 10:44 05/28/16 21:31 Nitroglycerin (Ntg) 0.4 mg Q5M X 3 DOSES PRN SL Prn Chest Pain 05/23/16 23:30 06/22/16 23:29 Ondansetron HCl (Zofran) 4 mg Q6H PRN IVP Nausea & Vomiting 05/23/16 23:30 06/22/16 23:29 05/28/16 21:31 Pantoprazole (Protonix) 40 mg DAILY ORAL 05/25/16 09:00 06/24/16 08:59 05/28/16 08:26 Polyethylene Glycol (Miralax) 17 gm HSPRN PRN ORAL Constipation 05/23/16 23:30 06/22/16 23:29 Sodium Bicarbonate (Sodium Bicarbonate) 50 ml ONCE PRN INJ FOR PICC LINE PLACEMENT 05/28/16 09:45 05/29/16 23:59 Temazepam (Restoril) 15 mg HSPRN PRN ORAL Insomnia 05/23/16 23:30 05/30/16 23:29 Warfarin Sodium (Coumadin per pharmacy) 1 ea DAILY PRN MISC Per rx protocol 05/27/16 17:00 06/26/16 16:59 SOM KNIGHT May 28, 2016 22:50
[2016-05-29] VITALS: BP 120/78
[2016-05-29] MEDS: DiphenhydrAMINE 50mg/ml Inj IVP PRN ×3 (03:37→17:03)
[2016-05-29] MEDS: D5 1/2NS 1,000 ML IV SCH (03:38)
[2016-05-29] MEDS: Morphine Sulfate 4mg/ml Inj IVP PRN ×3 (03:38→17:03)
[2016-05-29 04:00] VITALS: BP 116/78
[2016-05-29 07:38] LABS: BASOPHILS % (AUTO) 1.9 % (0.0-2.0); EOSINOPHILS % (AUTO) 4.1 % (0.0-3.0); MEAN CORPUSCULAR HEMOGLOBIN 26.8 PG (27.0-31.0); MEAN CORPUSCULAR HGB CONC 30.8 G/DL (32.0-36.0); MEAN CORPUSCULAR VOLUME 87 FL (80-99); MONOCYTES % (AUTO) 14.3 % (1.0-10.0); NEUTROPHILS % (AUTO) 38.7 % (45.0-75.0); PLATELET COUNT 185 K/UL (150-450); RED BLOOD COUNT 4.03 M/UL (4.70-6.10); RED CELL DISTRIBUTION WIDTH 15.3 % (11.6-14.8); WHITE BLOOD COUNT 3.7 K/UL (4.8-10.8)
[2016-05-29 07:39] LABS: INR 1.4 (0.9-1.1); PROTHROMBIN TIME 13.9 SEC (9.30-11.50)
[2016-05-29 08:16] LABS: CALCIUM 8.3 mg/dL (8.6-10.2); CREATININE 1.6 mg/dL (0.7-1.2); GLOMERULAR FILTRATION RATE 55.3 mL/min (>60); POTASSIUM 4.5 mEQ/L (3.4-4.9)
[2016-05-29 08:25] VITALS: BP 137/83
[2016-05-29 12:39] VITALS: BP 114/76
--- NOTE | 2016-05-29 12:44 | Diagnostic Imaging Report ---
APPROVED REPORT CPT Code: 40666 Present Symptoms Lower Extremity Pain: Bilateral BILATERAL: Imaging reveals a patent deep venous system bilaterally. There is no evidence of thrombus within the femoral, popliteal or tibial segments. The greater saphenous veins are also within normal limits. Doppler indicates normal spontaneous flow within these segments.
--- NOTE | 2016-05-29 13:06 | General Progress Note ---
Assessment/Plan Assessment/Plan IMPRESSION: 1. Anemia 2/2 GI bleed - currently h/h stable, egd deferred for now given stable h/h 2. Anemia of chronic disease. 3. Anemia of kidney disease. 4. Chronic kidney disease. 5. Coagulopathy, secondary to coumadin. 6. Hypercoagulable state. 7. History of deep vein thrombosis s/p ivc filter on coumadin 8. History of pulmonary embolism s/p ivc filter 9. Status post IVC filter placement. 10. Drug-seeking behavior. RECOMMENDATIONS: 1. Monitor counts 2. Watch coagulopathy 3. Continue coumadin 4. INR 2-3 goal 5. pRBC transfusion as needed basis, goal >7 6. Followup on ID, GI, pulm recs 7. Skin care 8. Staff Sincerely, Star Johnston MD Subjective Constitutional: Reports: no symptoms HEENT: Reports: no symptoms Cardiovascular: Reports: no symptoms Respiratory: Reports: no symptoms Gastrointestinal/Abdominal: Reports: poor appetite Genitourinary: Reports: no symptoms Neurologic/Psychiatric: Reports: no symptoms Endocrine: Reports: no symptoms Hematologic/Lymphatic: Reports: anemia Allergies: Coded Allergies: IODINATED CONTRAST MEDIA - IV DYE (Verified Allergy, Severe, Shortness of Breath, 01/17/15) DORIPENEM (Verified Allergy, Intermediate, Itching, 01/17/15) KETOROLAC TROMETHAMINE (Verified Allergy, Intermediate, Hives, 01/17/15) TRAMADOL (Verified Allergy, Intermediate, Hives, 01/17/15) ASPIRIN (Verified Allergy, Mild, 04/09/10) Subjective without bleeding, h/h is stable, on coumadin Objective Last 24 Hour Vital Signs Date Time Temp Pulse Resp B/P Pulse Ox O2 Delivery O2 Flow Rate FiO2 05/29/16 12:39 97.7 81 20 114/76 96 Room Air 05/29/16 09:27 132/60 05/29/16 08:25 97.0 91 20 137/83 97 Room Air 05/29/16 04:00 97.7 80 18 116/78 96 Room Air 05/29/16 00:00 97.9 89 18 120/78 95 Room Air 05/28/16 20:05 97.7 74 20 151/87 98 Room Air 05/28/16 16:05 98.2 74 23 110/63 100 Room Air Intake and Output 05/28/16 05/29/16 19:00 07:00 Intake Total 1350 ml 1810 ml Balance 1350 ml 1810 ml Intake Oral 720 ml 1260 ml IV Total 630 ml 550 ml # Voids 2 3 Laboratory Tests 05/28/16 16:50: White Blood Count 5.6, Red Blood Count 4.64L, Hemoglobin 12.6L, Hematocrit 39.9L , Mean Corpuscular Volume 86, Mean Corpuscular Hemoglobin 27.0, Mean Corpuscular Hemoglobin Concent 31.4L, Red Cell Distribution Width 14.7, Platelet Count 159, Mean Platelet Volume 7.3, Neutrophils (%) (Auto) 47.6, Lymphocytes (%) (Auto) 37.9, Monocytes (%) (Auto) 10.3H, Eosinophils (%) (Auto) 2.1, Basophils (%) (Auto) 2.2H, Prothrombin Time 12.5H, Prothromb Time International Ratio 1.2H, Sodium Level 138, Potassium Level 4.5, Chloride Level 99, Carbon Dioxide Level 26, Anion Gap 13, Blood Urea Nitrogen 17, Creatinine 1.6H, Estimat Glomerular Filtration Rate 55.3, Glucose Level 117H, Calcium Level 9.1, Amylase Level 185H, Lipase 40 05/28/16 20:30: Rapid Plasma Reagin [Pending], Toxoplasma IgG Antibody [Pending], Toxoplasma IgM Antibody [Pending] 05/28/16 21:30: Chlamydia trachomatis RNA [Pending] 05/29/16 04:00: White Blood Count 3.7L, Red Blood Count 4.03L, Hemoglobin 10.8L, Hematocrit 35.1L, Mean Corpuscular Volume 87, Mean Corpuscular Hemoglobin 26.8L, Mean Corpuscular Hemoglobin Concent 30.8L, Red Cell Distribution Width 15.3H, Platelet Count 185, Mean Platelet Volume 8.0, Neutrophils (%) (Auto) 38.7L, Lymphocytes (%) (Auto) 41.0, Monocytes (%) (Auto) 14.3H, Eosinophils (%) (Auto) 4.1H, Basophils (%) (Auto) 1.9, Prothrombin Time 13.9H, Prothromb Time International Ratio 1.4H, Sodium Level 140, Potassium Level 4.5, Chloride Level 101, Carbon Dioxide Level 24, Anion Gap 15, Blood Urea Nitrogen 21, Creatinine 1.6H, Estimat Glomerular Filtration Rate 55.3, Glucose Level 120H, Calcium Level 8.3L, TB Test (T-Spot) [Pending], TB Test Nil Control (T-Spot) [Pending], TB Test Panel A (T-Spot) [Pending], TB Test Panel B (T-Spot) [Pending], TB Test Positive Control (T-Spot) [Pending] Height (Feet): 6 Height (Inches): 1.00 Weight (Pounds): 239 General Appearance: no apparent distress EENT: TMs normal Neck: normal alignment Cardiovascular: regular rhythm Respiratory/Chest: normal breath sounds Abdomen: non tender Extremities: normal range of motion Edema: 1+ Leg (L), 1+ Leg (R) Edema: mild edema Neurologic: alert Skin: warm/dry Star Johnston May 29, 2016 13:06
--- NOTE | 2016-05-29 14:18 | GI Progress Note ---
Assessment/Plan Problems: (1) HIV (human immunodeficiency virus infection) ICD Codes: Z21 - Asymptomatic human immunodeficiency virus [HIV] infection status SNOMED: 55735053 (2) GI bleeding (3) Abdominal pain of unknown etiology ICD Codes: R10.9 - Unspecified abdominal pain SNOMED: 222995010 (4) Intractable vomiting ICD Codes: R11.10 - Vomiting, unspecified SNOMED: 362035396 (5) Gastritis ICD Codes: K29.70 - Gastritis SNOMED: 8708919 Status: stable Status Narrative Discussed with Dr. Sands. Assessment/Plan iron panel WNL stable H&H elevated lipase HIV + coffee grounds per patient no amlabs today okay for DC per GI standpoint defer EGD at this time low fat diet, tolerating OB stool uncollected utox >> unremarkable ppi fu labs Subjective Gastrointestinal/Abdominal: Reports: no symptoms Objective Last 24 Hour Vital Signs Date Time Temp Pulse Resp B/P Pulse Ox O2 Delivery O2 Flow Rate FiO2 05/29/16 12:39 97.7 81 20 114/76 96 Room Air 05/29/16 09:27 132/60 05/29/16 08:25 97.0 91 20 137/83 97 Room Air 05/29/16 04:00 97.7 80 18 116/78 96 Room Air 05/29/16 00:00 97.9 89 18 120/78 95 Room Air 05/28/16 20:05 97.7 74 20 151/87 98 Room Air 05/28/16 16:05 98.2 74 23 110/63 100 Room Air Intake and Output 05/28/16 05/29/16 19:00 07:00 Intake Total 1350 ml 1810 ml Balance 1350 ml 1810 ml Intake Oral 720 ml 1260 ml IV Total 630 ml 550 ml # Voids 2 3 Laboratory Tests Test 05/28/16 16:50 05/28/16 20:30 05/28/16 21:30 05/29/16 04:00 White Blood Count 5.6 K/UL (4.8-10.8) 3.7 K/UL (4.8-10.8) L Red Blood Count 4.64 M/UL (4.70-6.10) L 4.03 M/UL (4.70-6.10) L Hemoglobin 12.6 G/DL (14.2-18.0) L 10.8 G/DL (14.2-18.0) L Hematocrit 39.9 % (42.0-52.0) L 35.1 % (42.0-52.0) L Mean Corpuscular Volume 86 FL (80-99) 87 FL (80-99) Mean Corpuscular Hemoglobin 27.0 PG (27.0-31.0) 26.8 PG (27.0-31.0) L Mean Corpuscular Hemoglobin Concent 31.4 G/DL (32.0-36.0) L 30.8 G/DL (32.0-36.0) L Red Cell Distribution Width 14.7 % (11.6-14.8) 15.3 % (11.6-14.8) H Platelet Count 159 K/UL (150-450) 185 K/UL (150-450) Mean Platelet Volume 7.3 FL (6.5-10.1) 8.0 FL (6.5-10.1) Neutrophils (%) (Auto) 47.6 % (45.0-75.0) 38.7 % (45.0-75.0) L Lymphocytes (%) (Auto) 37.9 % (20.0-45.0) 41.0 % (20.0-45.0) Monocytes (%) (Auto) 10.3 % (1.0-10.0) H 14.3 % (1.0-10.0) H Eosinophils (%) (Auto) 2.1 % (0.0-3.0) 4.1 % (0.0-3.0) H Basophils (%) (Auto) 2.2 % (0.0-2.0) H 1.9 % (0.0-2.0) Prothrombin Time 12.5 SEC (9.30-11.50) H 13.9 SEC (9.30-11.50) H Prothromb Time International Ratio 1.2 (0.9-1.1) H 1.4 (0.9-1.1) H Sodium Level 138 mEQ/L (135-145) 140 mEQ/L (135-145) Potassium Level 4.5 mEQ/L (3.4-4.9) 4.5 mEQ/L (3.4-4.9) Chloride Level 99 mEQ/L (98-107) 101 mEQ/L (98-107) Carbon Dioxide Level 26 mEQ/L (20-30) 24 mEQ/L (20-30) Anion Gap 13 (5-15) 15 (5-15) Blood Urea Nitrogen 17 mg/dL (7-23) 21 mg/dL (7-23) Creatinine 1.6 mg/dL (0.7-1.2) H 1.6 mg/dL (0.7-1.2) H Estimat Glomerular Filtration Rate 55.3 mL/min (>60) 55.3 mL/min (>60) Glucose Level 117 mg/dL (74-106) H 120 mg/dL (74-106) H Calcium Level 9.1 mg/dL (8.6-10.2) 8.3 mg/dL (8.6-10.2) L Amylase Level 185 U/L (10-110) H Lipase 40 U/L (< 60) Rapid Plasma Reagin Pending Toxoplasma IgG Antibody Pending Toxoplasma IgM Antibody Pending Chlamydia trachomatis RNA Pending TB Test (T-Spot) Pending TB Test Nil Control (T-Spot) Pending TB Test Panel A (T-Spot) Pending TB Test Panel B (T-Spot) Pending TB Test Positive Control (T-Spot) Pending Height (Feet): 6 Height (Inches): 1.00 Weight (Pounds): 239 General Appearance: no apparent distress, alert Cardiovascular: normal rate Respiratory/Chest: normal breath sounds, no respiratory distress Abdominal Exam: normal bowel sounds, non tender, soft Extremities: normal range of motion Objective no active s/sx of N/V Celia Raines N.P. May 29, 2016 14:18
--- NOTE | 2016-05-29 15:25 | General Progress Note ---
Assessment/Plan Problem List: (1) Renal insufficiency ICD Codes: N28.9 - Disorder of kidney and ureter, unspecified SNOMED: 885887339 (2) Intractable vomiting ICD Codes: R11.10 - Vomiting, unspecified SNOMED: 654525748 (3) Abdominal pain of unknown etiology ICD Codes: R10.9 - Unspecified abdominal pain SNOMED: 996644592 (4) UTI (urinary tract infection) ICD Codes: N39.0 - Urinary tract infection, site not specified SNOMED: 80118692 (5) Intractable abdominal pain ICD Codes: R10.9 - Intractable abdominal pain SNOMED: 58367153 (6) Hypokalemia ICD Codes: E87.6 - Hypokalemia SNOMED: 30204204 (7) GI bleeding (8) Anemia ICD Codes: D64.9 - Anemia, unspecified SNOMED: 285010544 Status: stable, progressing, tolerating diet Assessment/Plan ot pt diet pain control gi f/u egd uro eval cbc bmp am dc plan Subjective Constitutional: Reports: weakness Allergies: Coded Allergies: IODINATED CONTRAST MEDIA - IV DYE (Verified Allergy, Severe, Shortness of Breath, 01/17/15) DORIPENEM (Verified Allergy, Intermediate, Itching, 01/17/15) KETOROLAC TROMETHAMINE (Verified Allergy, Intermediate, Hives, 01/17/15) TRAMADOL (Verified Allergy, Intermediate, Hives, 01/17/15) ASPIRIN (Verified Allergy, Mild, 04/09/10) All Systems: reviewed and negative except above Subjective sleepy calm sl nausea / gen pain Objective Last 24 Hour Vital Signs Date Time Temp Pulse Resp B/P Pulse Ox O2 Delivery O2 Flow Rate FiO2 05/29/16 12:39 97.7 81 20 114/76 96 Room Air 05/29/16 09:27 132/60 05/29/16 08:25 97.0 91 20 137/83 97 Room Air 05/29/16 04:00 97.7 80 18 116/78 96 Room Air 05/29/16 00:00 97.9 89 18 120/78 95 Room Air 05/28/16 20:05 97.7 74 20 151/87 98 Room Air 05/28/16 16:05 98.2 74 23 110/63 100 Room Air Intake and Output 05/28/16 05/29/16 19:00 07:00 Intake Total 1350 ml 1810 ml Balance 1350 ml 1810 ml Intake Oral 720 ml 1260 ml IV Total 630 ml 550 ml # Voids 2 3 Laboratory Tests 05/28/16 16:50: White Blood Count 5.6, Red Blood Count 4.64L, Hemoglobin 12.6L, Hematocrit 39.9L , Mean Corpuscular Volume 86, Mean Corpuscular Hemoglobin 27.0, Mean Corpuscular Hemoglobin Concent 31.4L, Red Cell Distribution Width 14.7, Platelet Count 159, Mean Platelet Volume 7.3, Neutrophils (%) (Auto) 47.6, Lymphocytes (%) (Auto) 37.9, Monocytes (%) (Auto) 10.3H, Eosinophils (%) (Auto) 2.1, Basophils (%) (Auto) 2.2H, Prothrombin Time 12.5H, Prothromb Time International Ratio 1.2H, Sodium Level 138, Potassium Level 4.5, Chloride Level 99, Carbon Dioxide Level 26, Anion Gap 13, Blood Urea Nitrogen 17, Creatinine 1.6H, Estimat Glomerular Filtration Rate 55.3, Glucose Level 117H, Calcium Level 9.1, Amylase Level 185H, Lipase 40 05/28/16 20:30: Rapid Plasma Reagin [Pending], Toxoplasma IgG Antibody [Pending], Toxoplasma IgM Antibody [Pending] 05/28/16 21:30: Chlamydia trachomatis RNA [Pending] 05/29/16 04:00: White Blood Count 3.7L, Red Blood Count 4.03L, Hemoglobin 10.8L, Hematocrit 35.1L, Mean Corpuscular Volume 87, Mean Corpuscular Hemoglobin 26.8L, Mean Corpuscular Hemoglobin Concent 30.8L, Red Cell Distribution Width 15.3H, Platelet Count 185, Mean Platelet Volume 8.0, Neutrophils (%) (Auto) 38.7L, Lymphocytes (%) (Auto) 41.0, Monocytes (%) (Auto) 14.3H, Eosinophils (%) (Auto) 4.1H, Basophils (%) (Auto) 1.9, Prothrombin Time 13.9H, Prothromb Time International Ratio 1.4H, Sodium Level 140, Potassium Level 4.5, Chloride Level 101, Carbon Dioxide Level 24, Anion Gap 15, Blood Urea Nitrogen 21, Creatinine 1.6H, Estimat Glomerular Filtration Rate 55.3, Glucose Level 120H, Calcium Level 8.3L, TB Test (T-Spot) [Pending], TB Test Nil Control (T-Spot) [Pending], TB Test Panel A (T-Spot) [Pending], TB Test Panel B (T-Spot) [Pending], TB Test Positive Control (T-Spot) [Pending] Height (Feet): 6 Height (Inches): 1.00 Weight (Pounds): 239 General Appearance: alert EENT: normal ENT inspection Neck: normal alignment Cardiovascular: normal peripheral pulses, normal rate, regular rhythm Respiratory/Chest: chest wall non-tender, lungs clear, normal breath sounds Abdomen: normal bowel sounds, non tender, soft Extremities: normal inspection Edema: no edema noted Arm (L), no edema noted Arm (R), no edema noted Leg (L), no edema noted Leg (R), no edema noted Pedal (L), no edema noted Pedal (R), no edema noted Generalized Neurologic: responsive, motor weakness Skin: normal pigmentation, warm/dry KIAH GONCALVES May 29, 2016 15:25
[2016-05-29 16:07] VITALS: BP 146/83
[2016-05-29] MEDS ORDERED: D5 1/2NS 1000ml IV ONE (16:51)
[2016-05-29] MEDS ORDERED: Tubing IV Secondary IV ONE (16:51)
[2016-05-29] MEDS ORDERED: Warfarin Sodium 5mg ORAL ONE (17:00)
--- NOTE | 2016-05-29 17:05 | Pulmonology Progress Note ---
Assessment/Plan Problems: (1) UTI (urinary tract infection) (2) UGIB (upper gastrointestinal bleed) (3) Gastroparesis (4) Chronic pancreatitis (5) HTN (hypertension) (6) Narcotic dependence (7) Diabetes (8) HIV (human immunodeficiency virus infection) Assessment/Plan respiratroy treatment antitussives all notes, meds noted Subjective ROS Limited/Unobtainable: No Interval Events: still coughing, hematuria resolved Constitutional: Reports: no symptoms HEENT: Repors: no symptoms Allergies: Coded Allergies: IODINATED CONTRAST MEDIA - IV DYE (Verified Allergy, Severe, Shortness of Breath, 01/17/15) DORIPENEM (Verified Allergy, Intermediate, Itching, 01/17/15) KETOROLAC TROMETHAMINE (Verified Allergy, Intermediate, Hives, 01/17/15) TRAMADOL (Verified Allergy, Intermediate, Hives, 01/17/15) ASPIRIN (Verified Allergy, Mild, 04/09/10) Objective Last 24 Hour Vital Signs Date Time Temp Pulse Resp B/P Pulse Ox O2 Delivery O2 Flow Rate FiO2 05/29/16 16:07 97.3 84 20 146/83 100 Room Air 05/29/16 12:39 97.7 81 20 114/76 96 Room Air 05/29/16 09:27 132/60 05/29/16 08:25 97.0 91 20 137/83 97 Room Air 05/29/16 04:00 97.7 80 18 116/78 96 Room Air 05/29/16 00:00 97.9 89 18 120/78 95 Room Air 05/28/16 20:05 97.7 74 20 151/87 98 Room Air Intake and Output 05/28/16 05/29/16 19:00 07:00 Intake Total 1350 ml 1810 ml Balance 1350 ml 1810 ml Intake Oral 720 ml 1260 ml IV Total 630 ml 550 ml # Voids 2 3 General Appearance: WD/WN HEENT: normocephalic, atraumatic Respiratory/Chest: chest wall non-tender, lungs clear Cardiovascular: normal peripheral pulses, normal rate Abdomen: normal bowel sounds, soft, non tender Extremities: no cyanosis Skin: no rash Microbiology Date/Time Source Procedure Growth Status 05/27/16 16:00 Urine,Clean Catch Urine Culture - Preliminary NO GROWTH AFTER 24 HOURS Resulted Laboratory Tests 05/28/16 20:30: Rapid Plasma Reagin [Pending], Toxoplasma IgG Antibody [Pending], Toxoplasma IgM Antibody [Pending] 05/28/16 21:30: Chlamydia trachomatis RNA [Pending] 05/29/16 04:00: White Blood Count 3.7L, Red Blood Count 4.03L, Hemoglobin 10.8L, Hematocrit 35.1L, Mean Corpuscular Volume 87, Mean Corpuscular Hemoglobin 26.8L, Mean Corpuscular Hemoglobin Concent 30.8L, Red Cell Distribution Width 15.3H, Platelet Count 185, Mean Platelet Volume 8.0, Neutrophils (%) (Auto) 38.7L, Lymphocytes (%) (Auto) 41.0, Monocytes (%) (Auto) 14.3H, Eosinophils (%) (Auto) 4.1H, Basophils (%) (Auto) 1.9, Prothrombin Time 13.9H, Prothromb Time International Ratio 1.4H, Sodium Level 140, Potassium Level 4.5, Chloride Level 101, Carbon Dioxide Level 24, Anion Gap 15, Blood Urea Nitrogen 21, Creatinine 1.6H, Estimat Glomerular Filtration Rate 55.3, Glucose Level 120H, Calcium Level 8.3L, TB Test (T-Spot) [Pending], TB Test Nil Control (T-Spot) [Pending], TB Test Panel A (T-Spot) [Pending], TB Test Panel B (T-Spot) [Pending], TB Test Positive Control (T-Spot) [Pending] Current Medications Medications (Trade) Dose Ordered Sig/Arslan Route PRN Reason Start Time Stop Time Status Last Admin Dose Admin Acetaminophen (Tylenol) 650 mg Q4H PRN ORAL fever 05/23/16 23:30 06/22/16 23:29 Al Hydroxide/Mg Hydroxide (Mylanta II) 30 ml Q6H PRN ORAL dyspepsia 05/23/16 23:30 06/22/16 23:29 Dextrose STAT PRN IV Hypoglycemia 05/23/16 23:30 06/22/16 23:29 Dextrose/Sodium Chloride (D5 0.45% NS) 1,000 ml @ 50 mls/hr Q20H IV 05/24/16 07:00 06/23/16 06:59 05/29/16 03:38 Diphenhydramine HCl (Benadryl) 25 mg Q6H PRN IVP Itching 05/24/16 10:15 06/23/16 10:14 05/29/16 09:48 Enalapril Maleate (Vasotec) 10 mg DAILY ORAL 05/24/16 09:00 06/23/16 08:59 05/29/16 09:27 Heparin Sodium/ Sodium Chloride (Heparin 2000 units/Ns 1000ml premix) 2,000 unit ONCE PRN INJ FOR PICC LINE PLACEMENT 05/28/16 09:30 05/29/16 23:59 Lidocaine HCl (Xylocaine 1% 30ml) 30 ml ONCE PRN INJ PICC PLACEMENT 05/28/16 09:30 05/29/16 23:59 Morphine Sulfate (Morphine Sulfate) 4 mg Q4H PRN IVP For Pain (Moderate to Severe) 05/24/16 10:45 05/31/16 10:44 05/29/16 09:44 Nitroglycerin (Ntg) 0.4 mg Q5M X 3 DOSES PRN SL Prn Chest Pain 05/23/16 23:30 06/22/16 23:29 Ondansetron HCl (Zofran) 4 mg Q6H PRN IVP Nausea & Vomiting 05/23/16 23:30 06/22/16 23:29 05/29/16 09:41 Pantoprazole (Protonix) 40 mg DAILY ORAL 05/25/16 09:00 06/24/16 08:59 05/29/16 09:26 Polyethylene Glycol (Miralax) 17 gm HSPRN PRN ORAL Constipation 05/23/16 23:30 06/22/16 23:29 Sodium Bicarbonate (Sodium Bicarbonate) 50 ml ONCE PRN INJ FOR PICC LINE PLACEMENT 05/28/16 09:45 05/29/16 23:59 Temazepam (Restoril) 15 mg HSPRN PRN ORAL Insomnia 05/23/16 23:30 05/30/16 23:29 Warfarin Sodium (Coumadin per pharmacy) 1 ea DAILY PRN MISC Per rx protocol 05/27/16 17:00 06/26/16 16:59 SOM KNIGHT May 29, 2016 17:05
--- NOTE | 2016-05-29 17:52 | Infectious Diseases Prog Note ---
Assessment/Plan Problems: (1) HIV (human immunodeficiency virus infection) Assessment & Plan: with positive rapid screening test, and positive HIV-1 antibody , viral load, with CD4 level are pending . will check RPR, GC& Chlamydia , toxo IgG, and T spot test, patient denied any previous exposure to HIV. except multiple blood transfusion in the past, recommend follow up with HIV provider as an out patient to start antiretroviral therapy. (2) UTI (urinary tract infection) Assessment & Plan: received ceftriaxone empirically, urine culture is negative , will D/C ceftriaxon (3) Hypokalemia Assessment & Plan: improved, suspect dehydration related from vomiting, replace as needed, continue IVF for hydration (4) Hypocalcemia Assessment & Plan: improved, most likely due to GI loss, replace as needed, monitor calcium level (5) UGIB (upper gastrointestinal bleed) Assessment & Plan: may need EGD, GI is following , monitor H&H, transfuse as needed (6) Intractable abdominal pain Assessment & Plan: continue pain management as per primary , CT abdomen and pelvis showed nonobstructing stone . (7) Hematuria Assessment & Plan: recommend urology eval and cystoscopy Subjective Genitourinary: Reports: hematuria Allergies: Coded Allergies: IODINATED CONTRAST MEDIA - IV DYE (Verified Allergy, Severe, Shortness of Breath, 01/17/15) DORIPENEM (Verified Allergy, Intermediate, Itching, 01/17/15) KETOROLAC TROMETHAMINE (Verified Allergy, Intermediate, Hives, 01/17/15) TRAMADOL (Verified Allergy, Intermediate, Hives, 01/17/15) ASPIRIN (Verified Allergy, Mild, 04/09/10) All Systems: reviewed and negative except above Objective Vital Signs Last 24 Hour Vital Signs Date Time Temp Pulse Resp B/P Pulse Ox O2 Delivery O2 Flow Rate FiO2 05/29/16 17:33 97.3 05/29/16 16:07 97.3 84 20 146/83 100 Room Air 05/29/16 12:39 97.7 81 20 114/76 96 Room Air 05/29/16 09:27 132/60 05/29/16 08:25 97.0 91 20 137/83 97 Room Air 05/29/16 04:00 97.7 80 18 116/78 96 Room Air 05/29/16 00:00 97.9 89 18 120/78 95 Room Air 05/28/16 20:05 97.7 74 20 151/87 98 Room Air Height (Feet): 6 Height (Inches): 1.00 Weight (Pounds): 239 General Appearance: WD/WN, no acute distress HEENT: normocephalic, atraumatic, anicteric, mucous membranes moist Respiratory/Chest: chest wall non-tender, lungs clear, normal breath sounds, no respiratory distress, no accessory muscle use Cardiovascular: normal peripheral pulses, normal rate, regular rhythm, no gallop/murmur Abdomen: normal bowel sounds, soft, non tender, no organomegaly, non distended , no mass Extremities: no cyanosis, no clubbing Skin: no rash, no lesions, no ulcers Microbiology Date/Time Source Procedure Growth Status 05/27/16 16:00 Urine,Clean Catch Urine Culture - Preliminary NO GROWTH AFTER 24 HOURS Resulted Laboratory Tests Test 05/28/16 20:30 05/28/16 21:30 05/29/16 04:00 Rapid Plasma Reagin Pending Toxoplasma IgG Antibody Pending Toxoplasma IgM Antibody Pending Chlamydia trachomatis RNA Pending White Blood Count 3.7 K/UL (4.8-10.8) L Red Blood Count 4.03 M/UL (4.70-6.10) L Hemoglobin 10.8 G/DL (14.2-18.0) L Hematocrit 35.1 % (42.0-52.0) L Mean Corpuscular Volume 87 FL (80-99) Mean Corpuscular Hemoglobin 26.8 PG (27.0-31.0) L Mean Corpuscular Hemoglobin Concent 30.8 G/DL (32.0-36.0) L Red Cell Distribution Width 15.3 % (11.6-14.8) H Platelet Count 185 K/UL (150-450) Mean Platelet Volume 8.0 FL (6.5-10.1) Neutrophils (%) (Auto) 38.7 % (45.0-75.0) L Lymphocytes (%) (Auto) 41.0 % (20.0-45.0) Monocytes (%) (Auto) 14.3 % (1.0-10.0) H Eosinophils (%) (Auto) 4.1 % (0.0-3.0) H Basophils (%) (Auto) 1.9 % (0.0-2.0) Prothrombin Time 13.9 SEC (9.30-11.50) H Prothromb Time International Ratio 1.4 (0.9-1.1) H Sodium Level 140 mEQ/L (135-145) Potassium Level 4.5 mEQ/L (3.4-4.9) Chloride Level 101 mEQ/L (98-107) Carbon Dioxide Level 24 mEQ/L (20-30) Anion Gap 15 (5-15) Blood Urea Nitrogen 21 mg/dL (7-23) Creatinine 1.6 mg/dL (0.7-1.2) H Estimat Glomerular Filtration Rate 55.3 mL/min (>60) Glucose Level 120 mg/dL (74-106) H Calcium Level 8.3 mg/dL (8.6-10.2) L TB Test (T-Spot) Pending TB Test Nil Control (T-Spot) Pending TB Test Panel A (T-Spot) Pending TB Test Panel B (T-Spot) Pending TB Test Positive Control (T-Spot) Pending Current Medications Medications (Trade) Dose Ordered Sig/Arslan Route PRN Reason Start Time Stop Time Status Last Admin Dose Admin Acetaminophen (Tylenol) 650 mg Q4H PRN ORAL fever 05/23/16 23:30 06/22/16 23:29 Al Hydroxide/Mg Hydroxide (Mylanta II) 30 ml Q6H PRN ORAL dyspepsia 05/23/16 23:30 06/22/16 23:29 Dextrose STAT PRN IV Hypoglycemia 05/23/16 23:30 06/22/16 23:29 Dextrose/Sodium Chloride (D5 0.45% NS) 1,000 ml @ 50 mls/hr Q20H IV 05/24/16 07:00 06/23/16 06:59 05/29/16 03:38 Diphenhydramine HCl (Benadryl) 25 mg Q6H PRN IVP Itching 05/24/16 10:15 06/23/16 10:14 05/29/16 17:03 Enalapril Maleate (Vasotec) 10 mg DAILY ORAL 05/24/16 09:00 06/23/16 08:59 05/29/16 09:27 Heparin Sodium/ Sodium Chloride (Heparin 2000 units/Ns 1000ml premix) 2,000 unit ONCE PRN INJ FOR PICC LINE PLACEMENT 05/28/16 09:30 05/29/16 23:59 Lidocaine HCl (Xylocaine 1% 30ml) 30 ml ONCE PRN INJ PICC PLACEMENT 05/28/16 09:30 05/29/16 23:59 Morphine Sulfate (Morphine Sulfate) 4 mg Q4H PRN IVP For Pain (Moderate to Severe) 05/24/16 10:45 05/31/16 10:44 05/29/16 17:03 Nitroglycerin (Ntg) 0.4 mg Q5M X 3 DOSES PRN SL Prn Chest Pain 05/23/16 23:30 06/22/16 23:29 Ondansetron HCl (Zofran) 4 mg Q6H PRN IVP Nausea & Vomiting 05/23/16 23:30 06/22/16 23:29 05/29/16 17:03 Pantoprazole (Protonix) 40 mg DAILY ORAL 05/25/16 09:00 06/24/16 08:59 05/29/16 09:26 Polyethylene Glycol (Miralax) 17 gm HSPRN PRN ORAL Constipation 05/23/16 23:30 06/22/16 23:29 Sodium Bicarbonate (Sodium Bicarbonate) 50 ml ONCE PRN INJ FOR PICC LINE PLACEMENT 05/28/16 09:45 05/29/16 23:59 Temazepam (Restoril) 15 mg HSPRN PRN ORAL Insomnia 05/23/16 23:30 05/30/16 23:29 Warfarin Sodium (Coumadin per pharmacy) 1 ea DAILY PRN MISC Per rx protocol 05/27/16 17:00 06/26/16 16:59 Fernanda Lim M.D. May 29, 2016 17:52
--- NOTE | 2016-05-29 19:53 | Nephrology Progress Note ---
Assessment/Plan Problem List: (1) Renal insufficiency Assessment: Cr improving. (2) HIV (human immunodeficiency virus infection) (3) Abdominal pain of unknown etiology (4) Hypokalemia (5) Nausea, vomiting, and diarrhea (6) Abdominal pain Plan d/c home today Subjective Subjective for discharge today. Objective Objective Last 24 Hour Vital Signs Date Time Temp Pulse Resp B/P Pulse Ox O2 Delivery O2 Flow Rate FiO2 05/29/16 17:33 97.3 05/29/16 16:07 97.3 84 20 146/83 100 Room Air 05/29/16 12:39 97.7 81 20 114/76 96 Room Air 05/29/16 09:27 132/60 05/29/16 08:25 97.0 91 20 137/83 97 Room Air 05/29/16 04:00 97.7 80 18 116/78 96 Room Air 05/29/16 00:00 97.9 89 18 120/78 95 Room Air 05/28/16 20:05 97.7 74 20 151/87 98 Room Air Intake and Output 05/28/16 05/29/16 19:00 07:00 Intake Total 1350 ml 1810 ml Balance 1350 ml 1810 ml Intake Oral 720 ml 1260 ml IV Total 630 ml 550 ml # Voids 2 3 Laboratory Tests 05/28/16 20:30: Rapid Plasma Reagin [Pending], Toxoplasma IgG Antibody [Pending], Toxoplasma IgM Antibody [Pending] 05/28/16 21:30: Chlamydia trachomatis RNA [Pending] 05/29/16 04:00: White Blood Count 3.7L, Red Blood Count 4.03L, Hemoglobin 10.8L, Hematocrit 35.1L, Mean Corpuscular Volume 87, Mean Corpuscular Hemoglobin 26.8L, Mean Corpuscular Hemoglobin Concent 30.8L, Red Cell Distribution Width 15.3H, Platelet Count 185, Mean Platelet Volume 8.0, Neutrophils (%) (Auto) 38.7L, Lymphocytes (%) (Auto) 41.0, Monocytes (%) (Auto) 14.3H, Eosinophils (%) (Auto) 4.1H, Basophils (%) (Auto) 1.9, Prothrombin Time 13.9H, Prothromb Time International Ratio 1.4H, Sodium Level 140, Potassium Level 4.5, Chloride Level 101, Carbon Dioxide Level 24, Anion Gap 15, Blood Urea Nitrogen 21, Creatinine 1.6H, Estimat Glomerular Filtration Rate 55.3, Glucose Level 120H, Calcium Level 8.3L, TB Test (T-Spot) [Pending], TB Test Nil Control (T-Spot) [Pending], TB Test Panel A (T-Spot) [Pending], TB Test Panel B (T-Spot) [Pending], TB Test Positive Control (T-Spot) [Pending] Height (Feet): 6 Height (Inches): 1.00 Weight (Pounds): 239 General Appearance: no apparent distress Cardiovascular: normal rate, regular rhythm Respiratory/Chest: lungs clear Abdomen: non tender, soft CARRIE HEADLEY May 29, 2016 19:53
[2016-05-29 20:00] VITALS: BP 146/88
--- NOTE | 2016-05-30 16:53 | Discharge Summary ---
Discharge Summary Hospital Course Date of Admission May 23, 2016 at 22:35 Date of Discharge May 29, 2016 at 20:15 Admitting Diagnosis Hypokalemia, Hypocalcemia NASREEN Gan is a 50 year old male who was admitted on May 23, 2016 at 22:35 for Hypokalemia,Hypocalcemia Hospital Course [id number] Discharge Discharge Disposition Patient was discharged to Home (01) Discharge Diagnoses: Brielle Winslow NP May 30, 2016 16:53
--- NOTE | 2016-05-31 01:58 | Discharge Summary 2 SIG ---
DATE OF ADMISSION: 05/23/2016 DATE OF DISCHARGE: 05/29/2016 CONSULTANTS: 1. Fernanda Lim M.D. 2. Juan Carlos Sands M.D. 3. Norbert Christianson M.D. 4. Liam Fraire M.D. 5. Levi Johnston M.D. BRIEF HOSPITAL COURSE: The patient is a 50-year-old male who presented to ED with two days of hematemesis, abdominal pain, and hematuria. He had exacerbation of his chronic pain and on evaluation at ED, potassium was 2.7 and amylase was 221. Dr. Sands was consulted. Diet was resumed. Dr. Christianson was also consulted for evaluation of hypokalemia and hypernatremia. CT of the abdomen and pelvis done showed nonobstructive left renal calculus with no hydronephrosis and presence of IVC filter. Dr. Lim was consulted for evaluation of urinary tract infection with possible pyelonephritis and was started empirically on ceftriaxone. Hemoglobin and hematocrit was monitored and has been stable. GI procedures have been deferred. Dr. Fraire was consulted for evaluation of cough and was given respiratory treatments and antitussives. The patient was tolerating low-fat diet and was given proton pump inhibitors. The patient was eventually discharged home. FINAL DIAGNOSES: 1. Urinary tract infection. 2. Hypokalemia. 3. Hypocalcemia. 4. Upper gastrointestinal bleed. 5. Human immunodeficiency virus. 6. Drug-seeking behavior. 7. Acute kidney injury. 8. Gastroparesis. 9. Chronic pancreatitis. 10. Narcotic dependence. 11. Hypertension. 12. Diabetes. 13. Anemia secondary to gastrointestinal bleed. 14. Anemia of chronic disease. 15. Anemia of kidney disease. 16. Coagulopathy secondary to Coumadin use. 17. History of deep venous thrombosis status post inferior vena cava filter on Coumadin. 18. History of pulmonary embolism status post inferior vena cava filter. Yogesh Aguayo D.O. I have been assigned to dictate discharge summary on this account and I was not involved in the patient's management. Brielle Winslow N.P. DR: Tamiko JOB#: [id number] CC:
[2016-05-31 21:28] LABS: TOXOPLASMA IGG ANTIBODY <3.0 IU/mL (0.0-7.1)
[2016-06-02 11:44] LABS: NIL (NEG) CONTROL SPOT COUNT 0 (0-9); PANEL A SPOT COUNT 0; PANEL B SPOT COUNT 1; POSITIVE CONTROL SPOT COUNT > 20; T SPOT TB NEGATIVE
== END 2016-05-29 20:15 | disposition home or self-care (01) | DRG 253 ==
LOC: EMR 20:45 → 4W 22:35 → EDBEDREQ 05-24 01:35 → 4W 05-24 23:29
DX: K92.2 Gastrointestinal hemorrhage, unspecified (principal); E87.0 Hyperosmolality and hypernatremia; N17.9 Acute kidney failure, unspecified; E11.43 Type 2 diabetes mellitus with diabetic autonomic (poly)neuropathy; K31.84 Gastroparesis; N39.0 Urinary tract infection, site not specified; K86.1 Other chronic pancreatitis; F11.20 Opioid dependence, uncomplicated; E83.51 Hypocalcemia; E87.6 Hypokalemia; I10 Essential (primary) hypertension; Z88.8 Allergy status to other drugs, medicaments and biological substances; Z88.6 Allergy status to analgesic agent; Z91.041 Radiographic dye allergy status; Z79.01 Long term (current) use of anticoagulants; F41.9 Anxiety disorder, unspecified; G89.29 Other chronic pain; Z76.5 Malingerer [conscious simulation]; D50.0 Iron deficiency anemia secondary to blood loss (chronic); D63.8 Anemia in other chronic diseases classified elsewhere; Z86.718 Personal history of other venous thrombosis and embolism; Z86.711 Personal history of pulmonary embolism; K44.9 Diaphragmatic hernia without obstruction or gangrene; K29.70 Gastritis, unspecified, without bleeding
CPT/HCPCS: 36415; 71010; 74176; 80048; 80053; 80300; 81003; 82150; 82378; 82607; 82728; 82746; 83540; 83550; 83615; 83690; 85007; 85025; 85044; 85060; 85610; 85651; 85730; 86592; 86689; 86703; 86777; 86778; 87086; 87491; 93005; 93970; 97803; J2405; J2765; J8499

== ENCOUNTER 2016-07-17 19:20 | Emergency (ER) | payer MEDICAID ==
[~2016-07-17] VITALS: Ht 185.4 cm; Wt 99.3 kg
[~2016-07-17 19:20] MED LIST changes: +ASPIR 8181 MG ORAL
[2016-07-17 19:50] VITALS: BP 147/77
[2016-07-17] MEDS ORDERED: HYDROmorphone 1mg/ml Carpuject IM ONE (20:45)
[2016-07-17 21:12] LABS: BASOPHILS % (AUTO) 1.5 % (0.0-2.0); EOSINOPHILS % (AUTO) 2.1 % (0.0-3.0); LYMPHOCYTES % (AUTO) 44.3 % (20.0-45.0); MEAN CORPUSCULAR HEMOGLOBIN 26.6 PG (27.0-31.0); MEAN CORPUSCULAR HGB CONC 30.4 G/DL (32.0-36.0); MEAN CORPUSCULAR VOLUME 87 FL (80-99); MEAN PLATELET VOLUME 7.5 FL (6.5-10.1); MONOCYTES % (AUTO) 9.2 % (1.0-10.0); PLATELET COUNT 149 K/UL (150-450); RED BLOOD COUNT 4.21 M/UL (4.70-6.10); RED CELL DISTRIBUTION WIDTH 16.2 % (11.6-14.8); WHITE BLOOD COUNT 5.4 K/UL (4.8-10.8)
[2016-07-17 21:27] LABS: CALCIUM 9.1 mg/dL (8.6-10.2); CREATININE 1.5 mg/dL (0.7-1.2); GLOMERULAR FILTRATION RATE 59.5 mL/min (>60); TOTAL PROTEIN 8.1 g/dL (6.6-8.7)
[2016-07-17 21:45] VITALS: BP 112/79
[2016-07-17 21:58] VITALS: BP 112/79
--- NOTE | 2016-07-19 08:14 | Emergency Room Report ---
History of Present Illness General Chief Complaint: Abdominal Pain Source: Patient Present Illness HPI Patient present with complaints of diffuse abdominal pain Patient has had multiple workups for this pain he reports Denies any vomiting he does feel nauseated He states that he was not able to take his oral medications given a secondary nausea Denies any fevers or chills patient reports has follow up tomorrow with his primary physician Denies any back or flank pain denies any fall or trauma pain is 6/10 fairly diffuse however also mainly epigastric and burning in nature Allergies: Coded Allergies: IODINATED CONTRAST MEDIA - IV DYE (Verified Allergy, Severe, Shortness of Breath, 01/17/15) DORIPENEM (Verified Allergy, Intermediate, Itching, 01/17/15) KETOROLAC TROMETHAMINE (Verified Allergy, Intermediate, Hives, 01/17/15) TRAMADOL (Verified Allergy, Intermediate, Hives, 01/17/15) ASPIRIN (Verified Allergy, Mild, 04/09/10) Patient History Past Medical History: see triage record Pertinent Family History: none Reviewed Nursing Documentation: PMH: Agreed, PSxH: Agreed Nursing Documentation-PMH Past Medical History: No History, Except For Hx Cardiac Problems: Yes - CHF, A-fib Hx Hypertension: Yes Hx Pacemaker: No - PE Hx COPD: No - PE, IVC filter Hx Diabetes: Yes Hx Cancer: No Hx Gastrointestinal Problems: Yes - Pancreatitis, Gasis Paresis Hx Dialysis: No - DIVERTICULITIS Hx Neurological Problems: Yes Hx Concentration Difficulty: Yes Hx Dizziness: Yes Hx Syncope: Yes Hx Weakness: Yes Hx Neurologic Surgery: No Review of Systems All Other Systems: negative except mentioned in HPI Physical Exam Vital Signs Date Time Temp Pulse Resp B/P Pulse Ox O2 Delivery O2 Flow Rate FiO2 07/17/16 19:46 97.9 70 16 147/77 100 Room Air Sp02 EP Interpretation: reviewed, normal General Appearance: well appearing, no apparent distress Head: normocephalic, atraumatic Eyes: bilateral eye EOMI, bilateral eye PERRL ENT: hearing grossly normal, normal pharynx, TMs + canals normal, uvula midline Neck: full range of motion, supple, no meningismus, no bony tend Respiratory: lungs clear, normal breath sounds, no rhonchi, no respiratory distress, no retraction, no accessory muscle use Cardiovascular #1: normal peripheral pulses, regular rate, rhythm, no edema, no gallop, no JVD, no murmur Gastrointestinal: normal bowel sounds, non tender - Nontender on palpation however subjectively pointing diffusely, also epigastric , soft, no mass, no organomegaly, non-distended, no guarding, no hernia, no pulsatile mass, no rebound Genitourinary: no CVA tenderness Neurologic: oriented x3, responsive, auto top mechanic III-XII nml as tested, motor strength/ tone normal, sensory intact Psychiatric: mood/affect normal Skin: normal color, no rash, warm/dry, palpation normal Lymphatic: normal inspection, no adenopathy Medical Decision Making Diagnostic Impression: Primary Impression: Abdominal pain ER Course Multiple differentials considered including but not limited to pancreatitis, cholecystitis, appendicitis Patient is a fairly soft abdomen on exam Patient has had multiple imaging previously on review Baseline blood work was initiated which is appropriate patient's pain was treated here in the ER and stable for close outpatient followup Labs Test 07/17/16 20:51 White Blood Count 5.4 K/UL (4.8-10.8) Red Blood Count 4.21 M/UL (4.70-6.10) Hemoglobin 11.2 G/DL (14.2-18.0) Hematocrit 36.8 % (42.0-52.0) Mean Corpuscular Volume 87 FL (80-99) Mean Corpuscular Hemoglobin 26.6 PG (27.0-31.0) Mean Corpuscular Hemoglobin Concent 30.4 G/DL (32.0-36.0) Red Cell Distribution Width 16.2 % (11.6-14.8) Platelet Count 149 K/UL (150-450) Mean Platelet Volume 7.5 FL (6.5-10.1) Neutrophils (%) (Auto) 43.0 % (45.0-75.0) Lymphocytes (%) (Auto) 44.3 % (20.0-45.0) Monocytes (%) (Auto) 9.2 % (1.0-10.0) Eosinophils (%) (Auto) 2.1 % (0.0-3.0) Basophils (%) (Auto) 1.5 % (0.0-2.0) Sodium Level 144 mEQ/L (135-145) Potassium Level 4.0 mEQ/L (3.4-4.9) Chloride Level 105 mEQ/L (98-107) Carbon Dioxide Level 25 mEQ/L (20-30) Anion Gap 14 (5-15) Blood Urea Nitrogen 15 mg/dL (7-23) Creatinine 1.5 mg/dL (0.7-1.2) Estimat Glomerular Filtration Rate 59.5 mL/min (>60) Glucose Level 96 mg/dL (74-106) Calcium Level 9.1 mg/dL (8.6-10.2) Total Bilirubin 0.2 mg/dL (0.0-1.2) Aspartate Amino Transf (AST/SGOT) 23 U/L (5-40) Alanine Aminotransferase (ALT/SGPT) 16 U/L (3-41) Alkaline Phosphatase 87 U/L (40-129) Total Protein 8.1 g/dL (6.6-8.7) Albumin 4.1 g/dL (3.5-5.2) Globulin 4.0 g/dL Albumin/Globulin Ratio 1.0 (1.0-2.7) Lipase 66 U/L (< 60) Last Vital Signs Date Time Temp Pulse Resp B/P Pulse Ox O2 Delivery O2 Flow Rate FiO2 07/17/16 21:58 97.9 82 17 112/79 99 Room Air Status: improved Disposition: HOME, SELF-CARE Condition: Improved Referrals: NON PHYSICIAN (PCP) Patient Instructions: Abdominal Pain, Adult Additional Instructions: Patient is provided with the discharge instructions notified to follow up with primary doctor in the next 2-3 days otherwise return to the er with any worsening symptoms. Please note that this report is being documented using [employer] technology. This can lead to erroneous entry secondary to incorrect interpretation by the dictating instrument. ALLYN WINCHESTER D.O. Jul 19, 2016 08:14
== END 2016-07-17 21:58 | disposition home or self-care (01) ==
LOC: EMR 21:14
DX: R10.9 Unspecified abdominal pain (principal); R11.0 Nausea; Z88.6 Allergy status to analgesic agent; Z88.8 Allergy status to other drugs, medicaments and biological substances; I50.9 Heart failure, unspecified; I48.91 Unspecified atrial fibrillation; I10 Essential (primary) hypertension; E11.9 Type 2 diabetes mellitus without complications
CPT/HCPCS: 36415; 80053; 83690; 85025; 96372; 99283; J1170

== ENCOUNTER 2016-09-12 18:02 | Inpatient (IN) | payer MEDICAID ==
[~2016-09-12] VITALS: Ht 188 cm; Wt 102.5 kg
[2016-09-12 18:17] VITALS: BP 158/81
[2016-09-12] MEDS ORDERED: Famotidine 20 MG/ 2ML VIAL IVP ONE (18:30)
[2016-09-12] MEDS ORDERED: TAMSULOSIN HCL0.4 MG ORAL (19:16)
[2016-09-12 19:20] LABS: MEAN CORPUSCULAR HEMOGLOBIN 29.3 PG (27.0-31.0); MEAN CORPUSCULAR VOLUME 89 FL (80-99); MEAN PLATELET VOLUME 8.4 FL (6.5-10.1); PLATELET COUNT 85 K/UL (150-450); RED BLOOD COUNT 3.74 M/UL (4.70-6.10); RED CELL DISTRIBUTION WIDTH 15.4 % (11.6-14.8); WHITE BLOOD COUNT 3.9 K/UL (4.8-10.8)
[2016-09-12 19:21] LABS: LYMPHOCYTES % (AUTO) 45.5 % (20.0-45.0); MONOCYTES % (AUTO) 10.1 % (1.0-10.0); NEUTROPHILS % (AUTO) 39.4 % (45.0-75.0)
[2016-09-12 19:27] LABS: APPEARANCE,URINE SLIGHTLY CLOUDY; KETONES,URINE 1+ (NEGATIVE); LEUKOCYTE ESTERASE ,URINE 1+ (NEGATIVE); NITRITE,URINE NEGATIVE (NEGATIVE); PH,URINE 5 (4.5-8.0); PROTEIN,URINE 2+ (NEGATIVE); UROBILINOGEN,URINE 1 MG/DL (0.0-1.0)
[2016-09-12] MEDS ORDERED: Morphine Sulfate 4mg/ml Inj IVP ONE (19:30)
[2016-09-12 19:35] LABS: RBC,URINE TNTC /HPF (0 - 0)
[2016-09-12 19:36] LABS: BACTERIA,URINE FEW /HPF; MUCUS,URINE MANY /LPF (NONE/OCC); SQUAMOUS EPITHELIAL CELL,UR MANY /LPF (NONE/OCC)
[2016-09-12 19:36] LABS: ALANINE AMINOTRANSFERASE 24 U/L (3-41); ALBUMIN/GLOBULIN RATIO 1.1 (1.0-2.7); AMYLASE 136 U/L (10-110); ANION GAP 14 (5-15); ASPARTATE AMINO TRANSFERASE 28 U/L (5-40); CALCIUM 8.7 mg/dL (8.6-10.2); CARBON DIOXIDE 26 mEQ/L (20-30); CHLORIDE 103 mEQ/L (98-107); CREATININE 1.4 mg/dL (0.7-1.2); GLOMERULAR FILTRATION RATE > 60 mL/min (>60); HEMOLYSIS 8; LIPASE 45 U/L (< 60); POTASSIUM 3.7 mEQ/L (3.4-4.9); SODIUM 143 mEQ/L (135-145); TOTAL PROTEIN 7.4 g/dL (6.6-8.7)
[2016-09-12] MEDS ORDERED: Ciprofloxacin 500mg tab ORAL ONE (20:00)
[2016-09-12 20:16] VITALS: BP 153/83
[2016-09-12 22:00] VITALS: BP 147/91
--- NOTE | 2016-09-12 22:35 | Emergency Room Report ---
History of Present Illness General Chief Complaint: Abdominal Pain Source: Patient Present Illness HPI The patient is a 50-year-old male with a history of pancreatitis and multiple upper GI bleeds presenting for abdominal pain and hematemesis for the past 2 days. He states that this feels the same as past presentations. He has tried Zofran at home which has not helped. Patient states the vomit looked like coffee grounds yesterday but today he is coughing up bright red blood. Pain of the abdomen is described as a 10 out of 10 dull ache across the upper abdomen. Pain worse with touch and vomiting. He denies other symptoms including fever, chills, chest pain, shortness of breath, back pain, diarrhea, constipation, melena, hematochezia, fatigue, dizziness Allergies: Coded Allergies: IODINATED CONTRAST MEDIA - IV DYE (Verified Allergy, Severe, Shortness of Breath, 01/17/15) DORIPENEM (Verified Allergy, Intermediate, Itching, 01/17/15) KETOROLAC TROMETHAMINE (Verified Allergy, Intermediate, Hives, 01/17/15) TRAMADOL (Verified Allergy, Intermediate, Hives, 01/17/15) ASPIRIN (Verified Allergy, Mild, 04/09/10) Patient History Past Medical History: see triage record Pertinent Family History: none Reviewed Nursing Documentation: PMH: Agreed, PSxH: Agreed Nursing Documentation-PMH Past Medical History: No History, Except For Hx Cardiac Problems: Yes - CHF, A-fib Hx Hypertension: Yes Hx Pacemaker: No - PE Hx COPD: No - PE, IVC filter Hx Diabetes: Yes Hx Cancer: No Hx Gastrointestinal Problems: Yes Hx Dialysis: No - DIVERTICULITIS Hx Neurological Problems: No Hx Concentration Difficulty: Yes Hx Dizziness: Yes Hx Syncope: Yes Hx Weakness: Yes Hx Neurologic Surgery: No Review of Systems All Other Systems: negative except mentioned in HPI Physical Exam Vital Signs Date Time Temp Pulse Resp B/P Pulse Ox O2 Delivery O2 Flow Rate FiO2 09/12/16 18:07 97.7 92 22 158/81 97 Room Air Sp02 EP Interpretation: reviewed, normal General Appearance: no apparent distress, alert, GCS 15, non-toxic Head: normocephalic, atraumatic Eyes: bilateral eye PERRL, bilateral eye normal inspection ENT: hearing grossly normal, normal pharynx, no angioedema, normal voice Neck: full range of motion, supple/symm/no masses Respiratory: chest non-tender, lungs clear, normal breath sounds, speaking full sentences Cardiovascular #1: regular rate, rhythm, no edema Gastrointestinal: normal bowel sounds, soft, tenderness - RUQ, epigastric, and LUQ, other - surgical scar mid abdomen Rectal: deferred Genitourinary: normal inspection, no CVA tenderness Musculoskeletal: back normal, gait/station normal, normal range of motion, non- tender Neurologic: alert, oriented x3, responsive, motor strength/tone normal, sensory intact, speech normal Psychiatric: judgement/insight normal, memory normal, mood/affect normal, no suicidal/homicidal ideation Skin: normal color, no rash, warm/dry, well hydrated Lymphatic: no adenopathy Medical Decision Making PA Attestation Dr. Huang is my supervising physician. Patient management was discussed with my supervising physician Diagnostic Impression: Primary Impression: hemoptysis Additional Impressions: pancreatitis UTI (urinary tract infection) Qualified Codes: N39.0 - Urinary tract infection, site not specified; R31.9 - Hematuria, unspecified Hematuria ER Course The patient is a 50-year-old male with a history of pancreatitis and multiple upper GI bleeds presenting for abdominal pain and hematemesis Differential diagnoses considered but not limited to: Acute GI bleed, pancreatitis, appendicitis, diverticulitis, gastric ulcer, appendicitis, urinary tract infection, among others Physical exam: Vitals show hypertension. Afebrile. The patient is in no apparent distress Abdomen is soft. Normal bowel sounds. There is tenderness to palpation across the right upper, epigastric, and left upper quadrants. There is a midline surgical scar. No McBurney point tenderness. Lungs are clear to auscultation bilaterally Lab work shows no leukocytosis and only minimally elevated amylase. Mild anemia. Lipase within normal limits The patient is given IV fluids, Zofran, and morphine for pain. The patient is feeling better. He is also given IV antibiotics for possible urinary tract infection. She will be admitted to this hospital in stable condition. Dr. Huang has spoken with Dr. Goncalves regarding admission Laboratory Tests Test 09/12/16 18:20 09/12/16 19:04 Urine Color Yellow Urine Appearance Slightly cloudy Urine pH 5 (4.5-8.0) Urine Specific [place] 1.025 (1.005-1.035) Urine Protein 2+ (NEGATIVE) H Urine Glucose (UA) Negative (NEGATIVE) Urine Ketones 1+ (NEGATIVE) H Urine Occult Blood 5+ (NEGATIVE) H Urine Nitrite Negative (NEGATIVE) Urine Bilirubin Negative (NEGATIVE) Urine Urobilinogen 1 MG/DL (0.0-1.0) H Urine Leukocyte Esterase 1+ (NEGATIVE) H Urine RBC Tntc /HPF (0 - 0) H Urine WBC 5-10 /HPF (0 - 0) H Urine Squamous Epithelial Cells Many /LPF (NONE/OCC) H Urine Bacteria Few /HPF (NONE) Urine Mucus Many /LPF (NONE/OCC) H White Blood Count 3.9 K/UL (4.8-10.8) L Red Blood Count 3.74 M/UL (4.70-6.10) L Hemoglobin 11.0 G/DL (14.2-18.0) L Hematocrit 33.2 % (42.0-52.0) L Mean Corpuscular Volume 89 FL (80-99) Mean Corpuscular Hemoglobin 29.3 PG (27.0-31.0) Mean Corpuscular Hemoglobin Concent 33.0 G/DL (32.0-36.0) Red Cell Distribution Width 15.4 % (11.6-14.8) H Platelet Count 85 K/UL (150-450) L Mean Platelet Volume 8.4 FL (6.5-10.1) Neutrophils (%) (Auto) 39.4 % (45.0-75.0) L Lymphocytes (%) (Auto) 45.5 % (20.0-45.0) H Monocytes (%) (Auto) 10.1 % (1.0-10.0) H Eosinophils (%) (Auto) 3.0 % (0.0-3.0) Basophils (%) (Auto) 2.0 % (0.0-2.0) Sodium Level 143 mEQ/L (135-145) Potassium Level 3.7 mEQ/L (3.4-4.9) Chloride Level 103 mEQ/L (98-107) Carbon Dioxide Level 26 mEQ/L (20-30) Anion Gap 14 (5-15) Blood Urea Nitrogen 17 mg/dL (7-23) Creatinine 1.4 mg/dL (0.7-1.2) H Estimate Glomerular Filtration Rate > 60 mL/min (>60) Glucose Level 105 mg/dL (74-106) Calcium Level 8.7 mg/dL (8.6-10.2) Total Bilirubin < 0.2 mg/dL (0.0-1.2) Aspartate Amino Transferase (AST) 28 U/L (5-40) Alanine Aminotransferase (ALT) 24 U/L (3-41) Alkaline Phosphatase 81 U/L (40-129) Total Protein 7.4 g/dL (6.6-8.7) Albumin 4.0 g/dL (3.5-5.2) Globulin 3.4 g/dL Albumin/Globulin Ratio 1.1 (1.0-2.7) Amylase Level 136 U/L (10-110) H Lipase 45 U/L (< 60) Lab Results Impression CBC shows no leukocytosis. Mild anemia. CMP has mildly elevated creatinine. Otherwise unremarkable. Amylase is elevated but not consistent with acute pancreatitis. Lipase within normal limits. Urinalysis shows 5 + occult blood with red blood cells. There are also white blood cells and bacteria Chest X-Ray Diagnostic Results EP Interpretation: Yes Findings: no consolidation, no effusion, no pneumothorax, no acute cardiopulmonary disease Number of Views: 1 PA Scribe Text I am acting as scribe for my supervising physician. My supervising physician's interpretation of the chest xrays are there is no consolidation, no effusion, no acute cardiopulmonary disease, no pneumothorax Last Vital Signs Date Time Temp Pulse Resp B/P Pulse Ox O2 Delivery O2 Flow Rate FiO2 09/12/16 22:00 98.2 63 18 147/91 100 Room Air Status: improved Disposition: ADMITTED INPATIENT Condition: Stable Referrals: KIAH GONCALVES (PCP) KARLENE GUSTAFSON September 12, 2016 22:35
[2016-09-12] MEDS ORDERED: Miralax 17gm pkt ORAL PRN (23:15)
[2016-09-12] MEDS ORDERED: Nitroglycerin Subl 0.4mg tab (Bottle Of 25) SL PRN (23:15)
[2016-09-12] MEDS ORDERED: Mylanta II UD 30ml ORAL PRN (23:15)
[2016-09-13] VITALS: BP 138/89
[2016-09-13] MEDS ORDERED: Phytonadione 10 mg/mL 1ml amp ONE
[2016-09-13] MEDS ORDERED: Phytonadione 10 MG in D5W 55 ML IVPB ONE ×2
[2016-09-13] MEDS: D5NS 1,000 ML IV SCH ×3 (00:16→13:45)
[2016-09-13] MEDS: Morphine Sulfate 4mg/ml Inj IVP PRN ×6 (01:14→22:17)
[2016-09-13 04:00] VITALS: BP 128/80
[2016-09-13 08:25] VITALS: BP 117/84
[2016-09-13] MEDS: Carvedilol 6.25mg Tab ORAL SCH (09:27)
[2016-09-13 09:28] LABS: BASOPHILS % (AUTO) 1.5 % (0.0-2.0); EOSINOPHILS % (AUTO) 3.7 % (0.0-3.0); LYMPHOCYTES % (AUTO) 49.2 % (20.0-45.0); MEAN CORPUSCULAR HEMOGLOBIN 27.7 PG (27.0-31.0); MEAN CORPUSCULAR HGB CONC 32.1 G/DL (32.0-36.0); MEAN CORPUSCULAR VOLUME 86 FL (80-99); MEAN PLATELET VOLUME 8.3 FL (6.5-10.1); MONOCYTES % (AUTO) 9.4 % (1.0-10.0); NEUTROPHILS % (AUTO) 36.3 % (45.0-75.0); PLATELET COUNT 100 K/UL (150-450); RED BLOOD COUNT 4.09 M/UL (4.70-6.10); RED CELL DISTRIBUTION WIDTH 14.9 % (11.6-14.8); WHITE BLOOD COUNT 3.6 K/UL (4.8-10.8)
[2016-09-13 09:46] LABS: ALANINE AMINOTRANSFERASE 22 U/L (3-41); ALBUMIN/GLOBULIN RATIO 1.1 (1.0-2.7); AMYLASE 113 U/L (10-110); ANION GAP 15 (5-15); ASPARTATE AMINO TRANSFERASE 28 U/L (5-40); CALCIUM 8.8 mg/dL (8.6-10.2); CARBON DIOXIDE 25 mEQ/L (20-30); CHLORIDE 102 mEQ/L (98-107); CREATININE 1.4 mg/dL (0.7-1.2); GLOMERULAR FILTRATION RATE > 60 mL/min (>60); HEMOLYSIS 4; LIPASE 26 U/L (< 60); POTASSIUM 3.9 mEQ/L (3.4-4.9); SODIUM 142 mEQ/L (135-145); TOTAL PROTEIN 7.5 g/dL (6.6-8.7)
[2016-09-13 09:49] LABS: INR 1.5 (0.9-1.1); PROTHROMBIN TIME 15.4 SEC (9.30-11.50)
[2016-09-13 12:07] VITALS: BP 136/71
[2016-09-13] MEDS: DiphenhydrAMINE 50mg/ml Inj IVP PRN ×2 (13:43→22:15)
--- NOTE | 2016-09-13 14:27 | Infectious Diseases Prog Note ---
Assessment/Plan Problems: (1) UTI (urinary tract infection) Assessment & Plan: will send urine culture and start ceftriaxon empirically , and order renal US to rule out stone (2) HIV (human immunodeficiency virus infection) Assessment & Plan: will order viral load and CD4 to confirm , and genotype , patient was counseled regarding safe sex practice, and he is required to notify his of his HIV status if confirmed positive (3) GI bleeding Assessment & Plan: monitor H/H , transfuse blood as needed, Gi is following Subjective Allergies: Coded Allergies: IODINATED CONTRAST MEDIA - IV DYE (Verified Allergy, Severe, Shortness of Breath, 01/17/15) DORIPENEM (Verified Allergy, Intermediate, Itching, 01/17/15) KETOROLAC TROMETHAMINE (Verified Allergy, Intermediate, Hives, 01/17/15) TRAMADOL (Verified Allergy, Intermediate, Hives, 01/17/15) ASPIRIN (Verified Allergy, Mild, 04/09/10) Objective Vital Signs Last 24 Hour Vital Signs Date Time Temp Pulse Resp B/P Pulse Ox O2 Delivery O2 Flow Rate FiO2 09/13/16 12:07 97.4 78 20 136/71 98 Room Air 09/13/16 09:27 117/84 09/13/16 09:27 85 117/84 09/13/16 08:25 97.4 85 20 117/84 98 Room Air 09/13/16 06:05 97.9 09/13/16 04:00 96.8 79 20 128/80 98 Room Air 09/13/16 00:00 97.9 68 18 138/89 100 Room Air 09/12/16 22:00 98.2 63 18 147/91 100 Room Air 09/12/16 21:08 97.7 70 16 153/83 100 Room Air 09/12/16 20:16 97.7 70 16 153/83 100 Room Air 09/12/16 19:59 97.7 09/12/16 18:17 97.7 22 158/81 97 Room Air 09/12/16 18:07 97.7 92 22 158/81 97 Room Air Height (Feet): 6 Height (Inches): 2.00 Weight (Pounds): 226 Laboratory Tests Test 09/12/16 18:20 09/12/16 19:04 09/13/16 09:00 Urine Color Yellow Urine Appearance Slightly cloudy Urine pH 5 (4.5-8.0) Urine Specific [place] 1.025 (1.005-1.035) Urine Protein 2+ (NEGATIVE) H Urine Glucose (UA) Negative (NEGATIVE) Urine Ketones 1+ (NEGATIVE) H Urine Occult Blood 5+ (NEGATIVE) H Urine Nitrite Negative (NEGATIVE) Urine Bilirubin Negative (NEGATIVE) Urine Urobilinogen 1 MG/DL (0.0-1.0) H Urine Leukocyte Esterase 1+ (NEGATIVE) H Urine RBC Tntc /HPF (0 - 0) H Urine WBC 5-10 /HPF (0 - 0) H Urine Squamous Epithelial Cells Many /LPF (NONE/OCC) H Urine Bacteria Few /HPF (NONE) Urine Mucus Many /LPF (NONE/OCC) H White Blood Count 3.9 K/UL (4.8-10.8) L 3.6 K/UL (4.8-10.8) L Red Blood Count 3.74 M/UL (4.70-6.10) L 4.09 M/UL (4.70-6.10) L Hemoglobin 11.0 G/DL (14.2-18.0) L 11.3 G/DL (14.2-18.0) L Hematocrit 33.2 % (42.0-52.0) L 35.3 % (42.0-52.0) L Mean Corpuscular Volume 89 FL (80-99) 86 FL (80-99) Mean Corpuscular Hemoglobin 29.3 PG (27.0-31.0) 27.7 PG (27.0-31.0) Mean Corpuscular Hemoglobin Concent 33.0 G/DL (32.0-36.0) 32.1 G/DL (32.0-36.0) Red Cell Distribution Width 15.4 % (11.6-14.8) H 14.9 % (11.6-14.8) H Platelet Count 85 K/UL (150-450) L 100 K/UL (150-450) L Mean Platelet Volume 8.4 FL (6.5-10.1) 8.3 FL (6.5-10.1) Neutrophils (%) (Auto) 39.4 % (45.0-75.0) L 36.3 % (45.0-75.0) L Lymphocytes (%) (Auto) 45.5 % (20.0-45.0) H 49.2 % (20.0-45.0) H Monocytes (%) (Auto) 10.1 % (1.0-10.0) H 9.4 % (1.0-10.0) Eosinophils (%) (Auto) 3.0 % (0.0-3.0) 3.7 % (0.0-3.0) H Basophils (%) (Auto) 2.0 % (0.0-2.0) 1.5 % (0.0-2.0) Sodium Level 143 mEQ/L (135-145) 142 mEQ/L (135-145) Potassium Level 3.7 mEQ/L (3.4-4.9) 3.9 mEQ/L (3.4-4.9) Chloride Level 103 mEQ/L (98-107) 102 mEQ/L (98-107) Carbon Dioxide Level 26 mEQ/L (20-30) 25 mEQ/L (20-30) Anion Gap 14 (5-15) 15 (5-15) Blood Urea Nitrogen 17 mg/dL (7-23) 14 mg/dL (7-23) Creatinine 1.4 mg/dL (0.7-1.2) H 1.4 mg/dL (0.7-1.2) H Estimat Glomerular Filtration Rate > 60 mL/min (>60) > 60 mL/min (>60) Glucose Level 105 mg/dL (74-106) 122 mg/dL (74-106) H Calcium Level 8.7 mg/dL (8.6-10.2) 8.8 mg/dL (8.6-10.2) Total Bilirubin < 0.2 mg/dL (0.0-1.2) 0.5 mg/dL (0.0-1.2) Aspartate Amino Transf (AST/SGOT) 28 U/L (5-40) 28 U/L (5-40) Alanine Aminotransferase (ALT/SGPT) 24 U/L (3-41) 22 U/L (3-41) Alkaline Phosphatase 81 U/L (40-129) 78 U/L (40-129) Total Protein 7.4 g/dL (6.6-8.7) 7.5 g/dL (6.6-8.7) Albumin 4.0 g/dL (3.5-5.2) 4.0 g/dL (3.5-5.2) Globulin 3.4 g/dL 3.5 g/dL Albumin/Globulin Ratio 1.1 (1.0-2.7) 1.1 (1.0-2.7) Amylase Level 136 U/L (10-110) H 113 U/L (10-110) H Lipase 45 U/L (< 60) 26 U/L (< 60) Prothrombin Time 15.4 SEC (9.30-11.50) H Prothromb Time International Ratio 1.5 (0.9-1.1) H Activated Partial Thromboplast Time 27 SEC (23-33) Current Medications Medications (Trade) Dose Ordered Sig/Arslan Route PRN Reason Start Time Stop Time Status Last Admin Dose Admin Acetaminophen (Tylenol) 650 mg Q4H PRN ORAL fever 09/12/16 23:15 10/12/16 23:14 Al Hydroxide/Mg Hydroxide (Mylanta II) 30 ml Q6H PRN ORAL dyspepsia 09/12/16 23:15 10/12/16 23:14 Carvedilol (Coreg) 6.25 mg DAILY ORAL 09/13/16 09:00 10/13/16 08:59 09/13/16 09:27 Ceftriaxone Sodium/Dextrose (Rocephin/D5W) 55 ml @ 110 mls/hr Q24H IVPB 09/13/16 15:00 09/20/16 14:59 Dextrose STAT PRN IV Hypoglycemia 09/12/16 23:15 10/12/16 23:14 Dextrose/Sodium Chloride (D5ns) 1,000 ml @ 100 mls/hr Q10H IV 09/13/16 00:00 10/13/16 00:00 09/13/16 13:45 Diphenhydramine HCl 25 mg 25 mg Q6H PRN IVP Itching 09/13/16 12:00 10/13/16 11:59 09/13/16 13:43 Enalapril Maleate (Vasotec) 10 mg DAILY ORAL 09/13/16 09:00 10/13/16 08:59 09/13/16 09:27 Morphine Sulfate (Morphine Sulfate) 4 mg Q4H PRN IVP For Pain 09/13/16 01:00 09/20/16 00:59 09/13/16 13:43 Nitroglycerin (Ntg) 0.4 mg Q5M X 3 DOSES PRN SL Prn Chest Pain 09/12/16 23:15 10/12/16 23:14 Ondansetron HCl (Zofran) 4 mg Q6H PRN IVP Nausea & Vomiting 09/12/16 23:15 10/12/16 23:14 09/13/16 01:38 Pantoprazole (Protonix) 40 mg DAILY ORAL 09/13/16 09:00 10/13/16 08:59 09/13/16 09:26 Polyethylene Glycol (Miralax) 17 gm HSPRN PRN ORAL Constipation 09/12/16 23:15 10/12/16 23:14 Tamsulosin HCl (Flomax) 4 mg BEDTIME ORAL 09/13/16 21:00 10/13/16 20:59 Temazepam (Restoril) 15 mg HSPRN PRN ORAL Insomnia 09/12/16 23:15 09/19/16 23:14 Fernanda Lim M.D. September 13, 2016 14:27
[2016-09-13] MEDS: cefTRIAXone 1 GM in D5W 55 ML IVPB SCH (15:42)
[2016-09-13 15:55] VITALS: BP 146/75
[2016-09-13 18:33] LABS: PSA TOTAL 1.1 ng/mL (< 3.5)
--- NOTE | 2016-09-13 19:39 | History and Physical Report ---
DATE OF ADMISSION: 09/12/2016 TIME SEEN: At 8 a.m. ATTENDING PHYSICIAN: Yogesh Aguayo D.O. CONSULTANTS: 1. Liam Fraire M.D. 2. Juan Carlos Sands M.D. 3. Ugo Romo M.D. CHIEF COMPLAINT: Nausea, vomiting, abdominal pain, and hematemesis. HISTORY OF PRESENT ILLNESS: The patient is a 50-year-old male who presents to [facility] last night with a history of nausea, vomiting, and abdominal pain with hematemesis. He does have a history of gastroparesis and has been in multiple times for the same problem. The patient was admitted to the medical floor, currently slightly anxious in bed, oriented x3, in no acute distress. PAST MEDICAL HISTORY: Hypertension, CHF, DVT, and gastroparesis. PAST SURGICAL HISTORY: Stomach surgery. ALLERGIES: IV contrast, Vicodin, tramadol, and Toradol. MEDICATIONS: 1. Flomax. 2. Coreg. 3. Vasotec. 4. Protonix. 5. Morphine. 6. Tylenol. 7. MiraLAX. 8. Zofran. 9. Restoril. 10. Benadryl. 11. Nitroglycerin. SOCIAL HISTORY: No smoking, no alcohol, and no intravenous drug abuse. FAMILY HISTORY: Noncontributory. PHYSICAL EXAMINATION: GENERAL: Anxious in bed, oriented x3, and in no acute distress. VITAL SIGNS: Temperature 97, pulse 85, respirations 20, and blood pressure 117/84. CARDIOVASCULAR: No murmur. LUNGS: Distant and clear. ABDOMEN: Bowel sounds are positive. Nontender and nondistended. EXTREMITIES: No clubbing, cyanosis, or edema. NEUROLOGIC: Cranial nerves II through XII are grossly intact. Deep tendon reflexes 2+. Muscle strength 4/5. LABORATORY DATA: White count 3.9, hemoglobin and hematocrit 11 and 33, and platelets 85,000. BMP shows creatinine of 1.4 and amylase of 136, otherwise normal. Urinalysis shows 1+ ketones, 5+ blood, 2+ protein, and 1+ leukocyte esterase. ASSESSMENT: 1. Nausea. 2. Vomiting. 3. Abdominal pain. 4. Hematemesis. 5. Hypertension. 6. Congestive heart failure. 7. Urinary tract infection. 8. Pancytopenia. 9. Deep venous thrombosis. 10. Gastroparesis. PLAN: 1. Continue premeds. 2. Antibiotics per Infectious Disease. 3. OT/PT. 4. Dietary evaluation. 5. IV fluids. 6. GI followup. 7. Pain control. 8. We will continue to follow up with the patient. Dr. Fraire, Dr. Sands, Dr. Romo, and to consult. Yogesh Aguayo D.O. DR: DANICA JOB#: [id number] CC:
[2016-09-13 20:00] VITALS: BP 106/74
--- NOTE | 2016-09-13 20:29 | Consultation ---
DATE OF CONSULTATION: 09/13/2016 CHIEF COMPLAINT: Hematemesis and abdominal pain. HISTORY OF PRESENT ILLNESS: The patient is an unfortunate male 50 years old admitted multiple time here at [facility] and other hospitals. He has been having chronic abdominal pain and chronic pain medication dependency followed by Dr. Romo for pain management, came to the hospital with one-day worth of nausea, vomiting, hematemesis, and abdominal pain. PAST MEDICAL HISTORY: 1. Significant for history of DVT status post IVC filter placement. 2. Hypercoagulable state. 3. History of pancreatitis. 4. Prior history of abdominal surgeries for possibly small bowel obstruction. 5. Diverticulosis. 6. Hiatal hernia. 7. Anemia. 8. Gastritis. 9. H. pylori negative. PAST SURGICAL HISTORY: Possible abdominal surgery for small bowel obstruction. ALLERGIES: To aspirin, doripenem, and iodine. MEDICATIONS: Please see medication reconciliation list. SOCIAL HISTORY: The patient denies any tobacco, alcohol, or drug abuse. FAMILY HISTORY: Noncontributory. REVIEW OF SYSTEMS: A 10-point review of systems was performed, pertinent positives in history of present illness. PHYSICAL EXAMINATION: VITAL SIGNS: Temperature is 97.9 degrees, pulse 79, respirations 20, and blood pressure 120/80. HEENT: Normocephalic and atraumatic. NECK: Supple. No adenopathy. CARDIOVASCULAR: Regular rate and rhythm. Plus S1 and S2. LUNGS: Clear to auscultation bilaterally. ABDOMEN: Minimal tenderness to palpation in the epigastric area. No rebound. No guarding. No peritoneal sign. There is a scar in the midline from prior abdominal surgeries. EXTREMITIES: No cyanosis, no clubbing, no edema. LABORATORY DATA: Sodium 142, potassium 3.7, BUN 17, and creatinine 1.4. White count is 3.9, hemoglobin 11, hematocrit 33, and platelet count 85,000. ASSESSMENT AND PLAN: This is a [id number] with abdominal pain, history of hypercoagulable state, and inferior vena cava filter placement and multiple admissions for abdominal pain. At this time, we are going to advance his diet to clear liquid diet. Start him on Protonix for gastrointestinal prophylaxis. Repeat CBC for tomorrow and control pain. Repeat amylase and lipase for tomorrow. Hold gastrointestinal procedure at this time. I want to thank Dr. Yogesh Aguayo for this kind referral. Juan Carlos Sands M.D. DR: MARTÍN JOB#: [id number] CC: Yogesh Aguayo D.O.
[2016-09-13] MEDS ORDERED: Tamsulosin 0.4mg cap ORAL SCH (21:00)
--- NOTE | 2016-09-13 22:19 | Consultation ---
DATE OF CONSULTATION: 09/13/2016 INFECTIOUS DISEASE CONSULTATION CONSULTING PHYSICIAN: Fernanda Lim M.D. REQUESTING PHYSICIAN: Yogesh Aguayo D.O. REASON FOR CONSULTATION: Possible HIV infection and UTI. Recommendation for antibiotics therapy. HISTORY OF PRESENT ILLNESS: The patient is a 50-year-old male with past medical history of atrial fibrillation, CHF, hypertension, diabetes, and GERD, who was brought in to [facility] for upper GI bleeding and abdominal pain for two days. The patient said that his abdominal pain has been localized in the lower aspect of his abdomen mainly in the suprapubic area. The intensity is 6/10, radiates to the back. He also complained of left-sided flank pain radiate all the way to the groin area. He noticed some blood in his urine. He did not have any associated factor or any exacerbating factor that he can be aware of. The patient had laboratory tests done in the emergency room including urinalysis, which showed evidence of urinary tract infection. So, he was given Cipro admitted to the hospital and I was asked by the primary provider for antibiotics treatment and to rule out HIV infection since his antibody screening were positive last time when he was hospitalized in May. PAST MEDICAL HISTORY: Significant for CHF, atrial fibrillation, hypertension, diabetes, GERD, dizziness and syncope. PAST SURGICAL HISTORY: Negative. ALLERGIES: He is allergic to aspirin, tramadol, ketorolac, doripenem, and iodinated contrast media. MEDICATIONS: He is on Flomax, Benadryl, Coreg, Vasotec, Protonix, morphine sulfate, Tylenol, MiraLax, Zofran, Restoril, and Mylanta. SOCIAL HISTORY: He lives with his and kids and unemployed at this moment. No recent drugs, tobacco, or alcohol. PHYSICAL EXAMINATION: VITAL SIGNS: Temperature 97.4 degrees, pulse 78, respirations 20, blood pressure 136/71, and saturation 98% on room air. GENERAL: The patient is a middle-aged male, up in bed, awake, alert, not in distress. HEENT: Normocephalic and atraumatic. Pupils are reactive to light. Moist oral mucosa. No exudate. NECK: Supple. No lymphadenopathy. CARDIOVASCULAR: Regular rate and rhythm. No murmur or gallop. LUNGS: Clear bilaterally. No wheezing or rhonchi. ABDOMEN: Soft. Tender in the flank area and the suprapubic area. No rebound. No organomegaly. EXTREMITIES: No edema. No cyanosis. SKIN: No rash. No breakdown. LABORATORY DATA: Showed white count of 3.6 and hemoglobin of 11.3. Creatinine is 1.4. Urinalysis showed evidence of infection with few bacteria and positive leukocyte esterase. IMAGING STUDIES: None in the system yet reported. ASSESSMENT AND PLAN: 1. Urinary tract infection with hematuria rule out obstructive uropathy. We will order ultrasound of the abdomen to rule out kidney stone. Recommend urologist consultation for further evaluation. We will start the patient on ceftriaxone empirically and send urine culture. 2. Positive screening for human immunodeficiency virus with positive antibody. We will order viral load and CD4 count to confirm. The patient was counseled regarding safe sex practice. He required to notify his of his condition if it turns out to be really positive human immunodeficiency virus disease. 3. Gastrointestinal bleeding. Monitor hemoglobin and hematocrit. Transfuse blood as needed. Further recommendation as per gastrointestinal. Fernanda Lim M.D. DR: MARGIE JOB#: [id number] CC:
--- NOTE | 2016-09-13 22:44 | Consultation ---
History of Present Illness General Chief Complaint: Abdominal Pain Present Illness Allergies: Coded Allergies: IODINATED CONTRAST MEDIA - IV DYE (Verified Allergy, Severe, Shortness of Breath, 01/17/15) DORIPENEM (Verified Allergy, Intermediate, Itching, 01/17/15) KETOROLAC TROMETHAMINE (Verified Allergy, Intermediate, Hives, 01/17/15) TRAMADOL (Verified Allergy, Intermediate, Hives, 01/17/15) ASPIRIN (Verified Allergy, Mild, 04/09/10) Medication History Scheduled Carvedilol (Coreg), 6.25 MG ORAL DAILY, (Reported) Enalapril Maleate* (Vasotec*), 10 MG ORAL DAILY, (Reported) Isosorbide Mononitrate* (Imdur*), 60 MG ORAL DAILY, (Reported) Tamsulosin Hcl (Tamsulosin Hcl*), Unknown Dose ORAL BEDTIME, (Reported) Terazosin HCl (Terazosin HCl), 10 MG PO QHS, (Reported) Warfarin Sod* (Coumadin*), 5 MG ORAL DAILY, (Reported) Scheduled PRN Ondansetron (Zofran), 4 MG ORAL Q8H PRN, (Reported) Discontinued Medications Aspirin* (Aspir 81*), 81 MG ORAL DAILY, (Reported) Discontinued Reason: Therapy completed Esomeprazole Magnesium (Nexium), 40 MG ORAL DAILY, (Reported) Discontinued Reason: Therapy completed Ferrous Sulfate* (Ferrous Sulfate*), 325 MG ORAL DAILY, (Reported) Discontinued Reason: Therapy completed Gabapentin (Neurontin), 300 MG ORAL THREE TIMES A DAY, (Reported) Discontinued Reason: Therapy completed Hydrocodone/Acetaminophen (Hydrocodon-Acetaminophn 10-325), 1 TAB ORAL Q4H PRN for For Pain, (Reported) Discontinued Reason: Therapy completed Lactobacillus Rhamnosus Gg* (Culturelle*), 1 CAP ORAL THREE TIMES A DAY, ( Reported) Discontinued Reason: Therapy completed Metoclopramide Hcl* (Reglan*), 10 MG PO TID PRN, (Reported) Discontinued Reason: Therapy completed Metronidazole* (Flagyl*), 500 MG ORAL EVERY 8 HOURS, (Reported) Discontinued Reason: Therapy completed Nitroglycerin (Nitrostat), 0.4 MG SL, (Reported) Discontinued Reason: Therapy completed Sucralfate* (Carafate*), 1 GM ORAL FOUR TIMES A DAY, (Reported) Discontinued Reason: Therapy completed Patient History Healthcare decision maker Resuscitation status Advanced Directive on File Physical Exam Last 24 Hour Vital Signs Date Time Temp Pulse Resp B/P Pulse Ox O2 Delivery O2 Flow Rate FiO2 09/13/16 20:00 97.9 87 20 106/74 95 Room Air 09/13/16 15:55 98.0 79 20 146/75 95 Room Air 09/13/16 12:07 97.4 78 20 136/71 98 Room Air 09/13/16 09:27 117/84 09/13/16 09:27 85 117/84 09/13/16 08:25 97.4 85 20 117/84 98 Room Air 09/13/16 06:05 97.9 09/13/16 04:00 96.8 79 20 128/80 98 Room Air 09/13/16 00:00 97.9 68 18 138/89 100 Room Air Intake and Output 09/12/16 09/13/16 19:00 07:00 Intake Total 0 ml 1200 ml Balance 0 ml 1200 ml Intake Oral 0 ml IV Total 1200 ml # Voids 2 Laboratory Tests Test 09/13/16 00:00 09/13/16 09:00 HIV-1 Antibody Pending HIV-2 Antibody Pending White Blood Count 3.6 K/UL (4.8-10.8) L Red Blood Count 4.09 M/UL (4.70-6.10) L Hemoglobin 11.3 G/DL (14.2-18.0) L Hematocrit 35.3 % (42.0-52.0) L Mean Corpuscular Volume 86 FL (80-99) Mean Corpuscular Hemoglobin 27.7 PG (27.0-31.0) Mean Corpuscular Hemoglobin Concent 32.1 G/DL (32.0-36.0) Red Cell Distribution Width 14.9 % (11.6-14.8) H Platelet Count 100 K/UL (150-450) L Mean Platelet Volume 8.3 FL (6.5-10.1) Neutrophils (%) (Auto) 36.3 % (45.0-75.0) L Lymphocytes (%) (Auto) 49.2 % (20.0-45.0) H Monocytes (%) (Auto) 9.4 % (1.0-10.0) Eosinophils (%) (Auto) 3.7 % (0.0-3.0) H Basophils (%) (Auto) 1.5 % (0.0-2.0) Prothrombin Time 15.4 SEC (9.30-11.50) H Prothromb Time International Ratio 1.5 (0.9-1.1) H Activated Partial Thromboplast Time 27 SEC (23-33) D-Dimer 1792 ng/mL (<500) H Sodium Level 142 mEQ/L (135-145) Potassium Level 3.9 mEQ/L (3.4-4.9) Chloride Level 102 mEQ/L (98-107) Carbon Dioxide Level 25 mEQ/L (20-30) Anion Gap 15 (5-15) Blood Urea Nitrogen 14 mg/dL (7-23) Creatinine 1.4 mg/dL (0.7-1.2) H Estimat Glomerular Filtration Rate > 60 mL/min (>60) Glucose Level 122 mg/dL (74-106) H Calcium Level 8.8 mg/dL (8.6-10.2) Ferritin 222 ng/mL (10-230) Total Bilirubin 0.5 mg/dL (0.0-1.2) Aspartate Amino Transf (AST/SGOT) 28 U/L (5-40) Alanine Aminotransferase (ALT/SGPT) 22 U/L (3-41) Alkaline Phosphatase 78 U/L (40-129) Total Protein 7.5 g/dL (6.6-8.7) Albumin 4.0 g/dL (3.5-5.2) Globulin 3.5 g/dL Albumin/Globulin Ratio 1.1 (1.0-2.7) Amylase Level 113 U/L (10-110) H Lipase 26 U/L (< 60) Carcinoembryonic Antigen 3.9 ng/mL H CA 19-9 Antigen 0.600 U/mL (< 37) Prostate Specific Antigen 1.1 ng/mL (< 3.5) HIV (1&2) Antibody Rapid Preliminary positive Height (Feet): 6 Height (Inches): 2.00 Weight (Pounds): 226 Medications Current Medications Medications (Trade) Dose Ordered Sig/Arslan Route PRN Reason Start Time Stop Time Status Last Admin Dose Admin Acetaminophen (Tylenol) 650 mg Q4H PRN ORAL fever 09/12/16 23:15 10/12/16 23:14 Al Hydroxide/Mg Hydroxide (Mylanta II) 30 ml Q6H PRN ORAL dyspepsia 09/12/16 23:15 10/12/16 23:14 Carvedilol (Coreg) 6.25 mg DAILY ORAL 09/13/16 09:00 10/13/16 08:59 09/13/16 09:27 Ceftriaxone Sodium/Dextrose (Rocephin/D5W) 55 ml @ 110 mls/hr Q24H IVPB 09/13/16 15:00 09/20/16 14:59 09/13/16 15:42 Dextrose STAT PRN IV Hypoglycemia 09/12/16 23:15 10/12/16 23:14 Dextrose/Sodium Chloride (D5ns) 1,000 ml @ 100 mls/hr Q10H IV 09/13/16 00:00 10/13/16 00:00 09/13/16 13:45 Diphenhydramine HCl 25 mg 25 mg Q6H PRN IVP Itching 09/13/16 12:00 10/13/16 11:59 09/13/16 22:15 Enalapril Maleate (Vasotec) 10 mg DAILY ORAL 09/13/16 09:00 10/13/16 08:59 09/13/16 09:27 Morphine Sulfate (Morphine Sulfate) 4 mg Q4H PRN IVP For Pain 09/13/16 01:00 09/20/16 00:59 09/13/16 22:17 Nitroglycerin (Ntg) 0.4 mg Q5M X 3 DOSES PRN SL Prn Chest Pain 09/12/16 23:15 10/12/16 23:14 Ondansetron HCl (Zofran) 4 mg Q6H PRN IVP Nausea & Vomiting 09/12/16 23:15 10/12/16 23:14 09/13/16 22:15 Pantoprazole (Protonix) 40 mg DAILY ORAL 09/13/16 09:00 10/13/16 08:59 09/13/16 09:26 Polyethylene Glycol (Miralax) 17 gm HSPRN PRN ORAL Constipation 09/12/16 23:15 10/12/16 23:14 Tamsulosin HCl (Flomax) 0.4 mg BEDTIME ORAL 09/13/16 21:00 10/13/16 20:59 Temazepam (Restoril) 15 mg HSPRN PRN ORAL Insomnia 09/12/16 23:15 09/19/16 23:14 SOM KNIGHT September 13, 2016 22:44
[2016-09-13] MEDS: Tamsulosin 0.4mg cap ORAL SCH (23:01)
[2016-09-14] VITALS (7 sets, daily range): BP systolic 109–142; BP diastolic 54–92
[2016-09-14] MEDS: D5NS 1,000 ML IV SCH ×2 (01:02→12:13)
[2016-09-14] MEDS: Morphine Sulfate 4mg/ml Inj IVP PRN ×5 (02:21→20:42)
--- NOTE | 2016-09-14 03:59 | Consultation ---
DATE OF CONSULTATION: 09/13/2016 HEMATOLOGY/ONCOLOGY CONSULTATION CONSULTING PHYSICIAN: Levi Johnston M.D. REFERRING PHYSICIAN: Yogesh Aguayo D.O. REASON FOR CONSULTATION: Anemia, hypercoagulable state, and a history of DVT and history of PE. CURRENT COMPLAINT AND HISTORY OF PRESENT ILLNESS: Dear Dr. Yogesh Aguayo, Today, I had an opportunity to see one of your patients. As you well aware, this is a 50-year-old delightful gentleman with a past medical history remarkable for hypercoagulable state, anticoagulation with Coumadin, history of PE, history of IVC filter, and history of DVT. The patient claims that he got multiple upper GI bleeds over the last couple of days. The patient states that he has abdominal pain, nausea, and vomiting. The patient denies any chest pain or palpitation. During the evaluation, it was found the patient developed some anemia. My service was called for evaluation of anemia. PAST MEDICAL HISTORY: 1. Hypercoagulable state. 2. History of DVT. 3. History of PE. 4. Status post IVC filter placement. 5. Anticoagulation with Coumadin. 6. Diabetes mellitus. 7. HIV. 8. Dizziness. 9. Syncope. 10. Weakness. 11. Difficulty with concentration. 12. CHF. 13. Atrial fibrillation. 14. Hypertension. MEDICATIONS: 1. Flomax. 2. Ceftriaxone. 3. Benadryl. 4. Coreg. 5. Vasotec. 6. Protonix. 7. Morphine. 8. Dextrose. 9. Zofran. 10. Temazepam. 11. Nitroglycerin. ALLERGIES: NKDA. SOCIAL HISTORY: History of . FAMILY HISTORY: Noncontributory. REVIEW OF SYSTEMS: General Description: The patient is not in any significant distress, but looks chronically ill. Respiratory: Mild shortness of breath on exertion. Gastrointestinal: The patient claims constipation. Neuromuscular: The patient claims muscle aches. PHYSICAL EXAMINATION: VITAL SIGNS: T-max 97, respiratory rate 20, heart rate 80, and blood pressure 130/80. HEENT: Head, normocephalic and atraumatic. NECK: Neck is supple. No thyroid enlargement. No lymphadenopathy. LUNGS: Decreased breath sounds bilaterally with a few rhonchi in the bases. HEART: S1 and S2 regular. ABDOMEN: Soft and benign. No organomegaly present. Bowel sounds are present. EXTREMITIES: No cyanosis, clubbing, or edema. LABORATORY DATA: Labs today pancytopenia. IMPRESSION: 1. Hypercoagulable state. 2. History of DVT. 3. History of pulmonary emboli. 4. Status post IVC filter placement. 5. Anticoagulation with Coumadin. 6. History of GI bleed. 7. History of hematuria. 8. Diabetes mellitus. 9. Drug-seeking behavior. 10. Chronic pain syndrome. 11. Increased CVA. 12. Rule out occult malignancy. 13. Anemia of chronic disease. 14. Anemia of kidney disease. 15. History of anemia of iron deficiency. 16. Failure to thrive. RECOMMENDATIONS: 1. Watch counts. 2. Watch coagulopathy. 3. Edema of bilateral lower extremities, rule out DVT. 4. Functional [employer] evaluation. 5. PRBC transfusion on a p.r.n. basis. 6. Platelets transfusion on a p.r.n. basis. 7. Neupogen on a p.r.n. basis if WBC less than 2.0. 8. Urology evaluation. 9. . 10. Skin care. 11. Close followup. Levi Johnston MD DR: FRANCINE JOB#: [id number] CC:
[2016-09-14] MEDS: DiphenhydrAMINE 50mg/ml Inj IVP PRN ×3 (06:27→20:41)
--- NOTE | 2016-09-14 07:36 | General Progress Note ---
Assessment/Plan Problem List: (1) HIV (human immunodeficiency virus infection) ICD Codes: Z21 - Asymptomatic human immunodeficiency virus [HIV] infection status SNOMED: 42985992 (2) Abdominal pain ICD Codes: R10.9 - Unspecified abdominal pain SNOMED: 26720272 (3) Anemia, chronic disease (4) Gastritis ICD Codes: K29.70 - Gastritis SNOMED: 4404591 (5) Presence of IVC filter ICD Codes: Z95.828 - Presence of other vascular implants and grafts SNOMED: 129437349, 492180442 Assessment/Plan ppi monitor H&H stool ob advance diet gi procedures on hold Subjective ROS Limited/Unobtainable: Yes Constitutional: Reports: no symptoms HEENT: Reports: no symptoms Cardiovascular: Reports: no symptoms Respiratory: Reports: no symptoms Gastrointestinal/Abdominal: Reports: no symptoms Genitourinary: Reports: no symptoms Neurologic/Psychiatric: Reports: no symptoms Endocrine: Reports: no symptoms Hematologic/Lymphatic: Reports: no symptoms Allergies: Coded Allergies: IODINATED CONTRAST MEDIA - IV DYE (Verified Allergy, Severe, Shortness of Breath, 01/17/15) DORIPENEM (Verified Allergy, Intermediate, Itching, 01/17/15) KETOROLAC TROMETHAMINE (Verified Allergy, Intermediate, Hives, 01/17/15) TRAMADOL (Verified Allergy, Intermediate, Hives, 01/17/15) ASPIRIN (Verified Allergy, Mild, 04/09/10) Objective Last 24 Hour Vital Signs Date Time Temp Pulse Resp B/P Pulse Ox O2 Delivery O2 Flow Rate FiO2 09/14/16 04:00 97.5 71 20 135/82 94 Room Air 09/14/16 00:00 97.9 81 18 128/65 96 Room Air 09/13/16 20:00 97.9 87 20 106/74 95 Room Air 09/13/16 15:55 98.0 79 20 146/75 95 Room Air 09/13/16 12:07 97.4 78 20 136/71 98 Room Air 09/13/16 09:27 117/84 09/13/16 09:27 85 117/84 09/13/16 08:25 97.4 85 20 117/84 98 Room Air Intake and Output 09/13/16 09/14/16 19:00 07:00 Intake Total 1280 ml 1440 ml Balance 1280 ml 1440 ml Intake Oral 480 ml 240 ml IV Total 800 ml 1200 ml # Voids 2 Laboratory Tests 09/13/16 09:00: White Blood Count 3.6L, Red Blood Count 4.09L, Hemoglobin 11.3L, Hematocrit 35.3L, Mean Corpuscular Volume 86, Mean Corpuscular Hemoglobin 27.7, Mean Corpuscular Hemoglobin Concent 32.1, Red Cell Distribution Width 14.9H, Platelet Count 100L, Mean Platelet Volume 8.3, Neutrophils (%) (Auto) 36.3L, Lymphocytes (%) (Auto) 49.2H, Monocytes (%) (Auto) 9.4, Eosinophils (%) (Auto) 3.7H, Basophils (%) (Auto) 1.5, Prothrombin Time 15.4H, Prothromb Time International Ratio 1.5H, Activated Partial Thromboplast Time 27, D-Dimer 1792H , Sodium Level 142, Potassium Level 3.9, Chloride Level 102, Carbon Dioxide Level 25, Anion Gap 15, Blood Urea Nitrogen 14, Creatinine 1.4H, Estimat Glomerular Filtration Rate > 60, Glucose Level 122H, Calcium Level 8.8, Ferritin 222, Total Bilirubin 0.5, Aspartate Amino Transf (AST/SGOT) 28, Alanine Aminotransferase (ALT/SGPT) 22, Alkaline Phosphatase 78, Total Protein 7.5, Albumin 4.0, Globulin 3.5, Albumin/Globulin Ratio 1.1, Amylase Level 113H, Lipase 26, Carcinoembryonic Antigen 3.9H, CA 19-9 Antigen 0.600, Prostate Specific Antigen 1.1, HIV (1&2) Antibody Rapid Preliminary positiveH Height (Feet): 6 Height (Inches): 2.00 Weight (Pounds): 226 General Appearance: alert EENT: normal ENT inspection Neck: supple Cardiovascular: normal rate Respiratory/Chest: lungs clear Abdomen: normal bowel sounds, non tender, soft Extremities: non-tender TRANG CULVER September 14, 2016 07:36
[2016-09-14] MEDS: Carvedilol 6.25mg Tab ORAL SCH (08:24)
[2016-09-14] MEDS ORDERED: Cathflo Alteplase 2mg Inj INJ ONE (09:00)
[2016-09-14] MEDS ORDERED: D5NS 1000ml IV ONE ×2 (09:33→15:59)
[2016-09-14] MEDS ORDERED: Tubing IV Secondary IV ONE ×2 (09:33→15:59)
--- NOTE | 2016-09-14 09:41 | General Progress Note ---
Assessment/Plan Problem List: (1) Acute GI bleeding ICD Codes: K92.2 - Gastrointestinal hemorrhage, unspecified SNOMED: 70368629 (2) HTN (hypertension) ICD Codes: I10 - HTN (hypertension) SNOMED: 41763608 (3) Gastroparesis ICD Codes: K31.84 - Gastroparesis SNOMED: 841658186 (4) Intractable abdominal pain ICD Codes: R10.9 - Intractable abdominal pain SNOMED: 99163867 (5) DVT (deep venous thrombosis) ICD Codes: I82.409 - Acute embolism and thombos unsp deep vn unsp lower extremity SNOMED: 612818309 (6) CHF (congestive heart failure) ICD Codes: I50.9 - Heart failure, unspecified SNOMED: 56400473 Status: stable, progressing, tolerating diet Assessment/Plan gi pain f/u cbc bmp am Subjective Constitutional: Reports: weakness Gastrointestinal/Abdominal: Reports: nausea, vomiting Allergies: Coded Allergies: IODINATED CONTRAST MEDIA - IV DYE (Verified Allergy, Severe, Shortness of Breath, 01/17/15) DORIPENEM (Verified Allergy, Intermediate, Itching, 01/17/15) KETOROLAC TROMETHAMINE (Verified Allergy, Intermediate, Hives, 01/17/15) TRAMADOL (Verified Allergy, Intermediate, Hives, 01/17/15) ASPIRIN (Verified Allergy, Mild, 04/09/10) All Systems: reviewed and negative except above Subjective anxious Objective Last 24 Hour Vital Signs Date Time Temp Pulse Resp B/P Pulse Ox O2 Delivery O2 Flow Rate FiO2 09/14/16 08:24 128/92 09/14/16 08:24 70 128/92 09/14/16 08:00 97.5 76 18 128/74 94 Room Air 09/14/16 04:00 97.5 71 20 135/82 94 Room Air 09/14/16 00:00 97.9 81 18 128/65 96 Room Air 09/13/16 20:00 97.9 87 20 106/74 95 Room Air 09/13/16 15:55 98.0 79 20 146/75 95 Room Air 09/13/16 12:07 97.4 78 20 136/71 98 Room Air Intake and Output 09/13/16 09/14/16 19:00 07:00 Intake Total 1280 ml 1440 ml Balance 1280 ml 1440 ml Intake Oral 480 ml 240 ml IV Total 800 ml 1200 ml # Voids 2 Height (Feet): 6 Height (Inches): 2.00 Weight (Pounds): 226 General Appearance: alert EENT: normal ENT inspection Neck: normal alignment Cardiovascular: normal peripheral pulses, normal rate, regular rhythm Respiratory/Chest: chest wall non-tender, lungs clear, normal breath sounds Abdomen: normal bowel sounds, non tender, soft Extremities: normal inspection Edema: no edema noted Arm (L), no edema noted Arm (R), no edema noted Leg (L), no edema noted Leg (R), no edema noted Pedal (L), no edema noted Pedal (R), no edema noted Generalized Neurologic: responsive, motor weakness Skin: normal pigmentation, warm/dry KIAH GONCALVES September 14, 2016 09:41
--- NOTE | 2016-09-14 11:46 | Diagnostic Imaging Report ---
Indication: Abdominal pain Technique: Ultrasound of the abdomen. Comparison: CT abdomen and pelvis 05/23/16 Findings: The pancreas is incompletely visualized. Visualized pancreatic head is grossly unremarkable. The liver is normal in size and echogenicity. No focal liver lesions are identified. Visualized portions of the main portal vein and the hepatic veins are grossly unremarkable although incompletely evaluated. The gallbladder is unremarkable without evidence of stones. Gallbladder wall thickness is within normal limits. Sonographic Morales's is negative. Common bile duct measures 6 mm. Bilateral kidneys demonstrate normal echogenicity. No focal renal lesions are seen. There is no hydronephrosis. There is a nonobstructive calculus of the left kidney. The spleen is normal in size and echogenicity. The visualized aorta is normal in caliber. Visualized portions of the inferior vena cava are unremarkable. Impression: No evidence of gallstones. Nonobstructive left renal calculus.
--- NOTE | 2016-09-14 12:22 | Consultation ---
History of Present Illness General Date patient seen: September 14, 2016 Present Illness Allergies: Coded Allergies: IODINATED CONTRAST MEDIA - IV DYE (Verified Allergy, Severe, Shortness of Breath, 01/17/15) DORIPENEM (Verified Allergy, Intermediate, Itching, 01/17/15) KETOROLAC TROMETHAMINE (Verified Allergy, Intermediate, Hives, 01/17/15) TRAMADOL (Verified Allergy, Intermediate, Hives, 01/17/15) ASPIRIN (Verified Allergy, Mild, 04/09/10) Medication History Scheduled Carvedilol (Coreg), 6.25 MG ORAL DAILY, (Reported) Enalapril Maleate* (Vasotec*), 10 MG ORAL DAILY, (Reported) Isosorbide Mononitrate* (Imdur*), 60 MG ORAL DAILY, (Reported) Tamsulosin Hcl (Tamsulosin Hcl*), Unknown Dose ORAL BEDTIME, (Reported) Terazosin HCl (Terazosin HCl), 10 MG PO QHS, (Reported) Warfarin Sod* (Coumadin*), 5 MG ORAL DAILY, (Reported) Scheduled PRN Ondansetron (Zofran), 4 MG ORAL Q8H PRN, (Reported) Discontinued Medications Aspirin* (Aspir 81*), 81 MG ORAL DAILY, (Reported) Discontinued Reason: Therapy completed Esomeprazole Magnesium (Nexium), 40 MG ORAL DAILY, (Reported) Discontinued Reason: Therapy completed Ferrous Sulfate* (Ferrous Sulfate*), 325 MG ORAL DAILY, (Reported) Discontinued Reason: Therapy completed Gabapentin (Neurontin), 300 MG ORAL THREE TIMES A DAY, (Reported) Discontinued Reason: Therapy completed Hydrocodone/Acetaminophen (Hydrocodon-Acetaminophn 10-325), 1 TAB ORAL Q4H PRN for For Pain, (Reported) Discontinued Reason: Therapy completed Lactobacillus Rhamnosus Gg* (Culturelle*), 1 CAP ORAL THREE TIMES A DAY, ( Reported) Discontinued Reason: Therapy completed Metoclopramide Hcl* (Reglan*), 10 MG PO TID PRN, (Reported) Discontinued Reason: Therapy completed Metronidazole* (Flagyl*), 500 MG ORAL EVERY 8 HOURS, (Reported) Discontinued Reason: Therapy completed Nitroglycerin (Nitrostat), 0.4 MG SL, (Reported) Discontinued Reason: Therapy completed Sucralfate* (Carafate*), 1 GM ORAL FOUR TIMES A DAY, (Reported) Discontinued Reason: Therapy completed Patient History Healthcare decision maker Resuscitation status Advanced Directive on File Physical Exam Last 24 Hour Vital Signs Date Time Temp Pulse Resp B/P Pulse Ox O2 Delivery O2 Flow Rate FiO2 09/14/16 08:24 128/92 09/14/16 08:24 70 128/92 09/14/16 08:00 97.5 76 18 128/74 94 Room Air 09/14/16 04:00 97.5 71 20 135/82 94 Room Air 09/14/16 00:00 97.9 81 18 128/65 96 Room Air 09/13/16 20:00 97.9 87 20 106/74 95 Room Air 09/13/16 15:55 98.0 79 20 146/75 95 Room Air Intake and Output 09/13/16 09/14/16 19:00 07:00 Intake Total 1280 ml 1440 ml Balance 1280 ml 1440 ml Intake Oral 480 ml 240 ml IV Total 800 ml 1200 ml # Voids 2 Height (Feet): 6 Height (Inches): 2.00 Weight (Pounds): 226 Medications Current Medications Medications (Trade) Dose Ordered Sig/Arslan Route PRN Reason Start Time Stop Time Status Last Admin Dose Admin Acetaminophen (Tylenol) 650 mg Q4H PRN ORAL fever 09/12/16 23:15 10/12/16 23:14 Al Hydroxide/Mg Hydroxide (Mylanta II) 30 ml Q6H PRN ORAL dyspepsia 09/12/16 23:15 10/12/16 23:14 Carvedilol (Coreg) 6.25 mg DAILY ORAL 09/13/16 09:00 10/13/16 08:59 09/14/16 08:24 Ceftriaxone Sodium/Dextrose (Rocephin/D5W) 55 ml @ 110 mls/hr Q24H IVPB 09/13/16 15:00 09/20/16 14:59 09/13/16 15:42 Dextrose STAT PRN IV Hypoglycemia 09/12/16 23:15 10/12/16 23:14 Dextrose/Sodium Chloride (D5ns) 1,000 ml @ 100 mls/hr Q10H IV 09/13/16 00:00 10/13/16 00:00 09/14/16 12:13 Diphenhydramine HCl 25 mg 25 mg Q6H PRN IVP Itching 09/13/16 12:00 10/13/16 11:59 09/14/16 12:13 Enalapril Maleate (Vasotec) 10 mg DAILY ORAL 09/13/16 09:00 10/13/16 08:59 09/14/16 08:24 Morphine Sulfate (Morphine Sulfate) 4 mg Q4H PRN IVP For Pain 09/13/16 01:00 09/20/16 00:59 09/14/16 12:13 Nitroglycerin (Ntg) 0.4 mg Q5M X 3 DOSES PRN SL Prn Chest Pain 09/12/16 23:15 10/12/16 23:14 Ondansetron HCl (Zofran) 4 mg Q6H PRN IVP Nausea & Vomiting 09/12/16 23:15 10/12/16 23:14 09/14/16 12:13 Pantoprazole (Protonix) 40 mg DAILY ORAL 09/13/16 09:00 10/13/16 08:59 09/14/16 08:24 Polyethylene Glycol (Miralax) 17 gm HSPRN PRN ORAL Constipation 09/12/16 23:15 10/12/16 23:14 Tamsulosin HCl (Flomax) 0.4 mg BEDTIME ORAL 09/13/16 21:00 10/13/16 20:59 09/13/16 23:01 Temazepam (Restoril) 15 mg HSPRN PRN ORAL Insomnia 09/12/16 23:15 09/19/16 23:14 Assessment/Plan Assessment/Plan (1) Chronic Abdominal pain (2) Gastritis (3) Gastroparesis seen dictated JANA HERNANDEZ September 14, 2016 12:22
[2016-09-14 13:28] LABS: MEAN CORPUSCULAR HEMOGLOBIN 27.5 PG (27.0-31.0); MEAN CORPUSCULAR VOLUME 86 FL (80-99); MEAN PLATELET VOLUME 8.6 FL (6.5-10.1); PLATELET COUNT 135 K/UL (150-450); RED BLOOD COUNT 3.97 M/UL (4.70-6.10); RED CELL DISTRIBUTION WIDTH 15.1 % (11.6-14.8); WHITE BLOOD COUNT 3.3 K/UL (4.8-10.8)
--- NOTE | 2016-09-14 13:41 | General Progress Note ---
Assessment/Plan Assessment/Plan IMPRESSION: 1. Hypercoagulable state. 2. History of DVT. 3. History of pulmonary emboli. 4. Status post IVC filter placement. 5. Anticoagulation with Coumadin. 6. History of GI bleed. 7. History of hematuria. 8. Diabetes mellitus. 9. Drug-seeking behavior. 10. Chronic pain syndrome. 11. Increased CVA. 12. Rule out occult malignancy. 13. Anemia of chronic disease. 14. Anemia of kidney disease. 15. History of anemia of iron deficiency. 16. Failure to thrive. RECOMMENDATIONS: 1. Watch counts. 2. Watch coagulopathy. 3. Edema of bilateral lower extremities, rule out DVT. 4. Burring Wheel Operator evaluation. 5. PRBC transfusion on a p.r.n. basis. 6. Platelets transfusion on a p.r.n. basis. 7. Neupogen on a p.r.n. basis if WBC less than 2.0. 8. Urology evaluation. 9. Skin care. 10. Close followup. Subjective Constitutional: Reports: no symptoms HEENT: Reports: no symptoms Cardiovascular: Reports: no symptoms Respiratory: Reports: no symptoms Gastrointestinal/Abdominal: Reports: no symptoms Genitourinary: Reports: no symptoms Neurologic/Psychiatric: Reports: no symptoms Endocrine: Reports: no symptoms Hematologic/Lymphatic: Reports: anemia Allergies: Coded Allergies: IODINATED CONTRAST MEDIA - IV DYE (Verified Allergy, Severe, Shortness of Breath, 01/17/15) DORIPENEM (Verified Allergy, Intermediate, Itching, 01/17/15) KETOROLAC TROMETHAMINE (Verified Allergy, Intermediate, Hives, 01/17/15) TRAMADOL (Verified Allergy, Intermediate, Hives, 01/17/15) ASPIRIN (Verified Allergy, Mild, 04/09/10) Subjective stable, no events, no fevers or chills Objective Last 24 Hour Vital Signs Date Time Temp Pulse Resp B/P Pulse Ox O2 Delivery O2 Flow Rate FiO2 09/14/16 12:00 96.1 58 16 140/92 98 Room Air 09/14/16 08:24 128/92 09/14/16 08:24 70 128/92 09/14/16 08:00 97.5 76 18 128/74 94 Room Air 09/14/16 04:00 97.5 71 20 135/82 94 Room Air 09/14/16 00:00 97.9 81 18 128/65 96 Room Air 09/13/16 20:00 97.9 87 20 106/74 95 Room Air 09/13/16 15:55 98.0 79 20 146/75 95 Room Air Intake and Output 09/13/16 09/14/16 19:00 07:00 Intake Total 1280 ml 1440 ml Balance 1280 ml 1440 ml Intake Oral 480 ml 240 ml IV Total 800 ml 1200 ml # Voids 2 Laboratory Tests 09/14/16 11:20: White Blood Count [Pending], Red Blood Count 3.97L, Hemoglobin 10.9L, Hematocrit 34.1L, Mean Corpuscular Volume 86, Mean Corpuscular Hemoglobin 27.5, Mean Corpuscular Hemoglobin Concent 32.0, Red Cell Distribution Width 15.1H, Platelet Count 135L, Mean Platelet Volume 8.6, Neutrophils (%) (Auto) , Lymphocytes (%) (Auto) , Monocytes (%) (Auto) , Eosinophils (%) (Auto) , Basophils (%) (Auto) , Neutrophils % (Manual) [Pending], Lymphocytes % (Manual) [Pending], Lymphocytes [Pending], Platelet Estimate [Pending], Platelet Morphology [Pending], Lupus Anticoagulant [Pending], Lupus Anticoagulant PTT Baseline [Pending], Lupus Anticoag DRVVT Screen Ratio [Pending], DRVVT Confirmation Interpretation [Pending], Hexagonal Phase Comment [Pending], Protein C Activity [Pending], Protein S Activity [Pending], Anti-Thrombin III Activity [Pending], Factor V Mutation [Pending], Sodium Level [Pending], Potassium Level [Pending], Chloride Level [Pending], Carbon Dioxide Level [ Pending], Blood Urea Nitrogen [Pending], Creatinine [Pending], Estimat Glomerular Filtration Rate [Pending], Glucose Level [Pending], Calcium Level [ Pending], Ammonia [Pending], Alpha Fetoprotein [Pending], Percent CD3 Cells [ Pending], Absolute CD3 Count [Pending], Percent CD4 Cells [Pending], Absolute CD4 Count [Pending], T-Lymphocyte CD4/CD8 Ratio [Pending], Percent CD8 Cells [ Pending], Absolute CD8 Count [Pending], Hepatitis A IgM Antibody [Pending], Hepatitis B Surface Antigen [Pending], Hepatitis B Core IgM Antibody [Pending], Hepatitis C Antibody [Pending], HIV-1 RNA, Quantitative copies/mL [Pending], HIV -1 RNA (PCR) log10 Value [Pending], HIV-1 RNA Ultraquantitative (PCR) [Pending] , HIV Genotype [Pending] Height (Feet): 6 Height (Inches): 2.00 Weight (Pounds): 226 General Appearance: alert EENT: normal ENT inspection Neck: supple Cardiovascular: regular rhythm Respiratory/Chest: lungs clear Extremities: non-tender Star Johnston September 14, 2016 13:41
[2016-09-14 13:48] LABS: ANISOCYTOSIS 1+; BAND NEUTROPHILS % (MANUAL) 0 % (0-8); BASOPHILS % (MANUAL) 0 % (0-2); EOSINOPHILS % (MANUAL) 6 % (0-3); HYPOCHROMASIA 1+; LYMPHOCYTES % (MANUAL) 58 % (20-45); NEUTROPHILS % (MANUAL) 30 % (45-75); PLATELET ESTIMATE DECREASED; PLATELET MORPHOLOGY NORMAL; TOTAL CELLS COUNTED 100
[2016-09-14 13:49] LABS: ANION GAP 14 (5-15); CALCIUM 7.8 mg/dL (8.6-10.2); CARBON DIOXIDE 25 mEQ/L (20-30); CHLORIDE 101 mEQ/L (98-107); CREATININE 1.2 mg/dL (0.7-1.2); GLOMERULAR FILTRATION RATE > 60 mL/min (>60); HEMOLYSIS 2; POTASSIUM 3.7 mEQ/L (3.4-4.9); SODIUM 140 mEQ/L (135-145)
[2016-09-14] MEDS: cefTRIAXone 1 GM in D5W 55 ML IVPB SCH (15:18)
--- NOTE | 2016-09-14 20:38 | Consultation ---
DATE OF CONSULTATION: 09/14/2016 PAIN MANAGEMENT CONSULTATION CONSULTING PHYSICIAN: Ugo Romo M.D. REFERRING PHYSICIAN: Yogesh Aguayo D.O. PHYSICIAN LUMBER TYING MACHINE OPERATOR: Crys Colin CHIEF COMPLAINT: Abdominal pain. HISTORY OF PRESENT ILLNESS: This is a 50-year-old male, who is being seen on the Med/Surg floor of [facility] for initial comprehensive pain management consultation. He has been having abdominal pain, which is chronic for many years and now, he has been having, as per patient, bloody vomiting. He has been seen by french folder and found to have gastritis and has continued pain. He is on morphine 4 mg IV every 4 hours as needed for pain, which has been helping to relieve his pain. At this time, the patient is comfortable and he has no other complaints. REVIEW OF SYSTEMS: He denies rash, fever, chills, sweating, dizziness, drowsiness, blurred vision, sore throat, or change in weight. He is complaining of vomiting. PHYSICAL EXAMINATION: GENERAL: Alert, awake, and oriented. VITAL SIGNS: Blood pressure 128/74, heart rate 76, oxygen saturation respirations 18, and temperature is 97.5 degrees Fahrenheit. Height 6 feet 2 inches and weight is 226 pounds. HEENT: PERRLA. NECK: Range of motion is full in all directions. No tenderness to paracervical muscles. No adenopathy. LUNGS: Clear. HEART: Regular. ABDOMEN: Tenderness to palpation. EXTREMITIES: No cyanosis. No clubbing. NEUROLOGICAL: No focal deficit. ASSESSMENT: This is a 50-year-old male with chronic abdominal pain, gastroparesis, and gastritis. The patient will be continued on the morphine 4 mg IV every four hours as needed for severe pain. The patient was discussed with Dr. Romo and Dr. Romo concurred. We will follow the patient. Thank you very much for the courtesy of this consultation. Ugo Romo M.D. WILL Colin DR: LUCILA JOB#: [id number] CC: DINORA
[2016-09-14] MEDS: Tamsulosin 0.4mg cap ORAL SCH (20:41)
--- NOTE | 2016-09-14 22:18 | Pulmonology Progress Note ---
Subjective Allergies: Coded Allergies: IODINATED CONTRAST MEDIA - IV DYE (Verified Allergy, Severe, Shortness of Breath, 01/17/15) DORIPENEM (Verified Allergy, Intermediate, Itching, 01/17/15) KETOROLAC TROMETHAMINE (Verified Allergy, Intermediate, Hives, 01/17/15) TRAMADOL (Verified Allergy, Intermediate, Hives, 01/17/15) ASPIRIN (Verified Allergy, Mild, 04/09/10) Objective Last 24 Hour Vital Signs Date Time Temp Pulse Resp B/P Pulse Ox O2 Delivery O2 Flow Rate FiO2 09/14/16 20:00 97.9 82 18 123/75 96 Room Air 09/14/16 16:51 97.5 09/14/16 16:00 98.1 78 16 142/80 98 Room Air 09/14/16 12:00 96.1 58 16 140/92 98 Room Air 09/14/16 08:24 128/92 09/14/16 08:24 70 128/92 09/14/16 08:00 97.5 76 18 128/74 94 Room Air 09/14/16 04:00 97.5 71 20 135/82 94 Room Air 09/14/16 00:00 97.9 81 18 128/65 96 Room Air Intake and Output 09/13/16 09/14/16 19:00 07:00 Intake Total 1280 ml 1440 ml Balance 1280 ml 1440 ml Intake Oral 480 ml 240 ml IV Total 800 ml 1200 ml # Voids 2 Laboratory Tests 09/14/16 11:20: White Blood Count [Pending], Red Blood Count 3.97L, Hemoglobin 10.9L, Hematocrit 34.1L, Mean Corpuscular Volume 86, Mean Corpuscular Hemoglobin 27.5, Mean Corpuscular Hemoglobin Concent 32.0, Red Cell Distribution Width 15.1H, Platelet Count 135L, Mean Platelet Volume 8.6, Neutrophils (%) (Auto) , Lymphocytes (%) (Auto) , Monocytes (%) (Auto) , Eosinophils (%) (Auto) , Basophils (%) (Auto) , Differential Total Cells Counted 100, Neutrophils % ( Manual) 30L, Lymphocytes % (Manual) 58H, Monocytes % (Manual) 6, Eosinophils % ( Manual) 6H, Basophils % (Manual) 0, Band Neutrophils 0, Lymphocytes [Pending], Platelet Estimate DecreasedL, Platelet Morphology Normal, Hypochromasia 1+, Anisocytosis 1+, Lupus Anticoagulant [Pending], Lupus Anticoagulant PTT Baseline [Pending], Lupus Anticoag DRVVT Screen Ratio [Pending], DRVVT Confirmation Interpretation [Pending], Hexagonal Phase Comment [Pending], Protein C Activity [Pending], Protein S Activity [Pending], Anti-Thrombin III Activity [Pending], Factor V Mutation [Pending], Sodium Level 140, Potassium Level 3.7, Chloride Level 101, Carbon Dioxide Level 25, Anion Gap 14, Blood Urea Nitrogen 11, Creatinine 1.2, Estimat Glomerular Filtration Rate > 60, Glucose Level 87, Calcium Level 7.8L, Ammonia 50, Alpha Fetoprotein [Pending], Percent CD3 Cells [Pending], Absolute CD3 Count [Pending], Percent CD4 Cells [ Pending], Absolute CD4 Count [Pending], T-Lymphocyte CD4/CD8 Ratio [Pending], Percent CD8 Cells [Pending], Absolute CD8 Count [Pending], Hepatitis A IgM Antibody [Pending], Hepatitis B Surface Antigen [Pending], Hepatitis B Core IgM Antibody [Pending], Hepatitis C Antibody [Pending], HIV-1 RNA, Quantitative copies/mL [Pending], HIV-1 RNA (PCR) log10 Value [Pending], HIV-1 RNA Ultraquantitative (PCR) [Pending], HIV Genotype [Pending] 09/14/16 12:30: Stool Occult Blood [Pending] Current Medications Medications (Trade) Dose Ordered Sig/Arslan Route PRN Reason Start Time Stop Time Status Last Admin Dose Admin Acetaminophen (Tylenol) 650 mg Q4H PRN ORAL fever 09/12/16 23:15 10/12/16 23:14 Al Hydroxide/Mg Hydroxide (Mylanta II) 30 ml Q6H PRN ORAL dyspepsia 09/12/16 23:15 10/12/16 23:14 Carvedilol (Coreg) 6.25 mg DAILY ORAL 09/13/16 09:00 10/13/16 08:59 09/14/16 08:24 Ceftriaxone Sodium/Dextrose (Rocephin/D5W) 55 ml @ 110 mls/hr Q24H IVPB 09/13/16 15:00 09/20/16 14:59 09/14/16 15:18 Dextrose STAT PRN IV Hypoglycemia 09/12/16 23:15 10/12/16 23:14 Dextrose/Sodium Chloride (D5ns) 1,000 ml @ 100 mls/hr Q10H IV 09/13/16 00:00 10/13/16 00:00 09/14/16 12:13 Diphenhydramine HCl 25 mg 25 mg Q6H PRN IVP Itching 09/13/16 12:00 10/13/16 11:59 09/14/16 20:41 Enalapril Maleate (Vasotec) 10 mg DAILY ORAL 09/13/16 09:00 10/13/16 08:59 09/14/16 08:24 Morphine Sulfate (Morphine Sulfate) 4 mg Q4H PRN IVP For Pain 09/13/16 01:00 09/20/16 00:59 09/14/16 20:42 Nitroglycerin (Ntg) 0.4 mg Q5M X 3 DOSES PRN SL Prn Chest Pain 09/12/16 23:15 10/12/16 23:14 Ondansetron HCl (Zofran) 4 mg Q6H PRN IVP Nausea & Vomiting 09/12/16 23:15 10/12/16 23:14 09/14/16 20:41 Pantoprazole (Protonix) 40 mg DAILY ORAL 09/13/16 09:00 10/13/16 08:59 09/14/16 08:24 Polyethylene Glycol (Miralax) 17 gm HSPRN PRN ORAL Constipation 09/12/16 23:15 10/12/16 23:14 Tamsulosin HCl (Flomax) 0.4 mg BEDTIME ORAL 09/13/16 21:00 10/13/16 20:59 09/14/16 20:41 Temazepam (Restoril) 15 mg HSPRN PRN ORAL Insomnia 09/12/16 23:15 09/19/16 23:14 SOM KNIGHT September 14, 2016 22:17
[2016-09-15] MEDS: D5NS 1,000 ML IV SCH ×3 (01:57→20:57)
[2016-09-15] MEDS: DiphenhydrAMINE 50mg/ml Inj IVP PRN ×4 (02:59→20:57)
[2016-09-15] MEDS: Morphine Sulfate 4mg/ml Inj IVP PRN ×4 (03:00→20:57)
[2016-09-15 04:00] VITALS: BP 126/78
[2016-09-15 07:08] LABS: BASOPHILS % (AUTO) 1.2 % (0.0-2.0); EOSINOPHILS % (AUTO) 4.9 % (0.0-3.0); LYMPHOCYTES % (AUTO) 42.7 % (20.0-45.0); MEAN CORPUSCULAR HEMOGLOBIN 28.3 PG (27.0-31.0); MEAN CORPUSCULAR HGB CONC 32.6 G/DL (32.0-36.0); MEAN CORPUSCULAR VOLUME 87 FL (80-99); MEAN PLATELET VOLUME 7.5 FL (6.5-10.1); MONOCYTES % (AUTO) 7.8 % (1.0-10.0); NEUTROPHILS % (AUTO) 43.3 % (45.0-75.0); PLATELET COUNT 137 K/UL (150-450); RED BLOOD COUNT 3.92 M/UL (4.70-6.10); RED CELL DISTRIBUTION WIDTH 15.2 % (11.6-14.8); WHITE BLOOD COUNT 4.2 K/UL (4.8-10.8)
[2016-09-15 08:00] VITALS: BP 134/78
[2016-09-15] MEDS: Carvedilol 6.25mg Tab ORAL SCH (09:04)
[2016-09-15 12:22] VITALS: BP 145/71
--- NOTE | 2016-09-15 12:47 | General Progress Note ---
Assessment/Plan Assessment/Plan IMPRESSION: 1. Hypercoagulable state. Currently off coumadin given hemoptysis, has a IVC filter in place 2. History of DVT. 3. History of pulmonary emboli. 4. Status post IVC filter placement. 5. Anticoagulation with Coumadin. 6. History of GI bleed. 7. History of hematuria. 8. Diabetes mellitus. 9. Drug-seeking behavior. 10. Chronic pain syndrome. 11. Increased CVA. 12. Rule out occult malignancy. 13. Anemia of chronic disease. 14. Anemia of kidney disease. 15. History of anemia of iron deficiency. RECOMMENDATIONS: 1. Watch counts. 2. Watch coagulopathy. 3. No clots noted on lower extremities 4. Advanced Manufacturing Technician evaluation. 5. PRBC transfusion on a p.r.n. basis. 6. Platelets transfusion on a p.r.n. basis. 7. Off coumadin 8. Urology eval 9. Skin care. 10. Close followup. Subjective Constitutional: Reports: no symptoms HEENT: Reports: no symptoms Cardiovascular: Reports: no symptoms Gastrointestinal/Abdominal: Reports: poor fluid intake Genitourinary: Reports: no symptoms Neurologic/Psychiatric: Reports: no symptoms Endocrine: Reports: no symptoms Hematologic/Lymphatic: Reports: anemia Allergies: Coded Allergies: IODINATED CONTRAST MEDIA - IV DYE (Verified Allergy, Severe, Shortness of Breath, 01/17/15) DORIPENEM (Verified Allergy, Intermediate, Itching, 01/17/15) KETOROLAC TROMETHAMINE (Verified Allergy, Intermediate, Hives, 01/17/15) TRAMADOL (Verified Allergy, Intermediate, Hives, 01/17/15) ASPIRIN (Verified Allergy, Mild, 04/09/10) Subjective stable, no events, no fevers or chills reported Objective Last 24 Hour Vital Signs Date Time Temp Pulse Resp B/P Pulse Ox O2 Delivery O2 Flow Rate FiO2 09/15/16 12:22 97.7 78 19 145/71 100 Room Air 09/15/16 09:35 97.7 09/15/16 09:05 134/78 09/15/16 09:04 90 134/78 09/15/16 08:00 97.7 90 18 134/78 100 Room Air 09/15/16 04:00 97.6 70 18 126/78 95 Room Air 09/14/16 23:40 97.7 72 18 109/54 94 Room Air 09/14/16 20:00 97.9 82 18 123/75 96 Room Air 09/14/16 16:00 98.1 78 16 142/80 98 Room Air Intake and Output 09/14/16 09/15/16 19:00 07:00 Intake Total 1100 ml 1695 ml Balance 1100 ml 1695 ml Intake Oral 420 ml IV Total 1100 ml 1275 ml # Voids 3 # Bowel Movements 1 Laboratory Tests 09/15/16 03:30: White Blood Count 4.2L, Red Blood Count 3.92L, Hemoglobin 11.1L, Hematocrit 34.0L, Mean Corpuscular Volume 87, Mean Corpuscular Hemoglobin 28.3, Mean Corpuscular Hemoglobin Concent 32.6, Red Cell Distribution Width 15.2H, Platelet Count 137L, Mean Platelet Volume 7.5, Neutrophils (%) (Auto) 43.3L, Lymphocytes (%) (Auto) 42.7, Monocytes (%) (Auto) 7.8, Eosinophils (%) (Auto) 4.9H, Basophils (%) (Auto) 1.2 Height (Feet): 6 Height (Inches): 2.00 Weight (Pounds): 226 General Appearance: alert EENT: normal ENT inspection Neck: supple Cardiovascular: regular rhythm Respiratory/Chest: no respiratory distress Abdomen: no mass Pelvis: no cerv. motion tender Extremities: non-tender Edema: 1+ Leg (L), 1+ Leg (R) Edema: mild edema Neurologic: alert Skin: warm/dry Star Johnston September 15, 2016 12:47
--- NOTE | 2016-09-15 13:37 | General Progress Note ---
Assessment/Plan Problem List: (1) Acute GI bleeding ICD Codes: K92.2 - Gastrointestinal hemorrhage, unspecified SNOMED: 12075612 (2) HTN (hypertension) ICD Codes: I10 - HTN (hypertension) SNOMED: 43191273 (3) Gastroparesis ICD Codes: K31.84 - Gastroparesis SNOMED: 965233363 (4) Intractable abdominal pain ICD Codes: R10.9 - Intractable abdominal pain SNOMED: 39250329 (5) DVT (deep venous thrombosis) ICD Codes: I82.409 - Acute embolism and thombos unsp deep vn unsp lower extremity SNOMED: 417540282 (6) CHF (congestive heart failure) ICD Codes: I50.9 - Heart failure, unspecified SNOMED: 36279022 Status: stable, progressing, tolerating diet Assessment/Plan gi pain f/u cbc bmp am dc plan Subjective Constitutional: Reports: weakness Allergies: Coded Allergies: IODINATED CONTRAST MEDIA - IV DYE (Verified Allergy, Severe, Shortness of Breath, 01/17/15) DORIPENEM (Verified Allergy, Intermediate, Itching, 01/17/15) KETOROLAC TROMETHAMINE (Verified Allergy, Intermediate, Hives, 01/17/15) TRAMADOL (Verified Allergy, Intermediate, Hives, 01/17/15) ASPIRIN (Verified Allergy, Mild, 04/09/10) All Systems: reviewed and negative except above Subjective anxious Objective Last 24 Hour Vital Signs Date Time Temp Pulse Resp B/P Pulse Ox O2 Delivery O2 Flow Rate FiO2 09/15/16 12:22 97.7 78 19 145/71 100 Room Air 09/15/16 09:35 97.7 09/15/16 09:05 134/78 09/15/16 09:04 90 134/78 09/15/16 08:00 97.7 90 18 134/78 100 Room Air 09/15/16 04:00 97.6 70 18 126/78 95 Room Air 09/14/16 23:40 97.7 72 18 109/54 94 Room Air 09/14/16 20:00 97.9 82 18 123/75 96 Room Air 09/14/16 16:00 98.1 78 16 142/80 98 Room Air Intake and Output 09/14/16 09/15/16 19:00 07:00 Intake Total 1100 ml 1695 ml Balance 1100 ml 1695 ml Intake Oral 420 ml IV Total 1100 ml 1275 ml # Voids 3 # Bowel Movements 1 Laboratory Tests 09/15/16 03:30: White Blood Count 4.2L, Red Blood Count 3.92L, Hemoglobin 11.1L, Hematocrit 34.0L, Mean Corpuscular Volume 87, Mean Corpuscular Hemoglobin 28.3, Mean Corpuscular Hemoglobin Concent 32.6, Red Cell Distribution Width 15.2H, Platelet Count 137L, Mean Platelet Volume 7.5, Neutrophils (%) (Auto) 43.3L, Lymphocytes (%) (Auto) 42.7, Monocytes (%) (Auto) 7.8, Eosinophils (%) (Auto) 4.9H, Basophils (%) (Auto) 1.2 Height (Feet): 6 Height (Inches): 2.00 Weight (Pounds): 226 General Appearance: alert EENT: normal ENT inspection Neck: normal alignment Cardiovascular: normal peripheral pulses, normal rate, regular rhythm Respiratory/Chest: chest wall non-tender, lungs clear, normal breath sounds Abdomen: normal bowel sounds, non tender, soft Extremities: normal inspection Edema: no edema noted Arm (L), no edema noted Arm (R), no edema noted Leg (L), no edema noted Leg (R), no edema noted Pedal (L), no edema noted Pedal (R), no edema noted Generalized Neurologic: responsive, motor weakness Skin: normal pigmentation, warm/dry KIAH GONCALVES September 15, 2016 13:37
--- NOTE | 2016-09-15 13:37 | GI Progress Note ---
Assessment/Plan Problems: (1) Denies alcohol consumption ICD Codes: Z78.9 - Other specified health status SNOMED: 351116977 (2) Acute GI bleeding ICD Codes: K92.2 - Gastrointestinal hemorrhage, unspecified SNOMED: 84167952 (3) Abdominal pain ICD Codes: R10.9 - Unspecified abdominal pain SNOMED: 66825006 (4) Gastritis ICD Codes: K29.70 - Gastritis SNOMED: 1538287 (5) Hemoptysis ICD Codes: R04.2 - Hemoptysis SNOMED: 54923132 (6) Iron deficiency ICD Codes: E61.1 - Iron deficiency SNOMED: 21047314 (7) Abdominal pain of unknown etiology ICD Codes: R10.9 - Unspecified abdominal pain SNOMED: 349175566 Status: stable Status Narrative Discussed with Dr. Sands. Assessment/Plan s/p colonoscopy with unremarkable results per patient. OB stool negative abdominal U/S >> unremarkable stable H&H defer GI procedures for now ppi monitor H&H advance diet fu hep panel fu labs Subjective Subjective abdominal pain hemoptysis + Objective Last 24 Hour Vital Signs Date Time Temp Pulse Resp B/P Pulse Ox O2 Delivery O2 Flow Rate FiO2 09/15/16 12:22 97.7 78 19 145/71 100 Room Air 09/15/16 09:35 97.7 09/15/16 09:05 134/78 09/15/16 09:04 90 134/78 09/15/16 08:00 97.7 90 18 134/78 100 Room Air 09/15/16 04:00 97.6 70 18 126/78 95 Room Air 09/14/16 23:40 97.7 72 18 109/54 94 Room Air 09/14/16 20:00 97.9 82 18 123/75 96 Room Air 09/14/16 16:00 98.1 78 16 142/80 98 Room Air Intake and Output 09/14/16 09/15/16 19:00 07:00 Intake Total 1100 ml 1695 ml Balance 1100 ml 1695 ml Intake Oral 420 ml IV Total 1100 ml 1275 ml # Voids 3 # Bowel Movements 1 Laboratory Tests Test 09/15/16 03:30 White Blood Count 4.2 K/UL (4.8-10.8) L Red Blood Count 3.92 M/UL (4.70-6.10) L Hemoglobin 11.1 G/DL (14.2-18.0) L Hematocrit 34.0 % (42.0-52.0) L Mean Corpuscular Volume 87 FL (80-99) Mean Corpuscular Hemoglobin 28.3 PG (27.0-31.0) Mean Corpuscular Hemoglobin Concent 32.6 G/DL (32.0-36.0) Red Cell Distribution Width 15.2 % (11.6-14.8) H Platelet Count 137 K/UL (150-450) L Mean Platelet Volume 7.5 FL (6.5-10.1) Neutrophils (%) (Auto) 43.3 % (45.0-75.0) L Lymphocytes (%) (Auto) 42.7 % (20.0-45.0) Monocytes (%) (Auto) 7.8 % (1.0-10.0) Eosinophils (%) (Auto) 4.9 % (0.0-3.0) H Basophils (%) (Auto) 1.2 % (0.0-2.0) Height (Feet): 6 Height (Inches): 2.00 Weight (Pounds): 226 General Appearance: no apparent distress, alert Cardiovascular: normal rate Respiratory/Chest: normal breath sounds, no respiratory distress Abdominal Exam: normal bowel sounds, non tender, soft Extremities: normal range of motion Celia Raines N.P. September 15, 2016 13:37
[2016-09-15] MEDS: cefTRIAXone 1 GM in D5W 55 ML IVPB SCH (13:57)
[2016-09-15 15:52] VITALS: BP 132/67
--- NOTE | 2016-09-15 16:43 | Infectious Diseases Prog Note ---
Assessment/Plan Problems: (1) UTI (urinary tract infection) Assessment & Plan: continue ceftriaxon empirically for now , renal US showed nonobstructing stone, recommend urology follow up (2) HIV (human immunodeficiency virus infection) Assessment & Plan: await viral load and CD4 to confirm , and genotype , patient was counseled regarding safe sex practice, and he is required to notify his of his HIV status if confirmed positive. recommend follow up with HIV provider as an outpatient to start ART if HIV status is confirmed , D/W patient (3) GI bleeding Assessment & Plan: monitor H/H , transfuse blood as needed, Gi is following Subjective Constitutional: Reports: no symptoms HEENT: Reports: no symptoms Respiratory: Reports: other - hemoptysis Cardiovascular: Reports: no symptoms Gastrointestinal/Abdominal: Reports: vomiting Genitourinary: Reports: hematuria Neurologic: Reports: no symptoms Psychiatric: Reports: no symptoms Skin: Reports: no symptoms Endocrine: Reports: no symptoms Hematologic: Reports: no symptoms Allergies: Coded Allergies: IODINATED CONTRAST MEDIA - IV DYE (Verified Allergy, Severe, Shortness of Breath, 01/17/15) DORIPENEM (Verified Allergy, Intermediate, Itching, 01/17/15) KETOROLAC TROMETHAMINE (Verified Allergy, Intermediate, Hives, 01/17/15) TRAMADOL (Verified Allergy, Intermediate, Hives, 01/17/15) ASPIRIN (Verified Allergy, Mild, 04/09/10) Objective Vital Signs Last 24 Hour Vital Signs Date Time Temp Pulse Resp B/P Pulse Ox O2 Delivery O2 Flow Rate FiO2 09/15/16 15:52 97.7 76 19 132/67 100 Room Air 09/15/16 15:32 97.7 09/15/16 12:22 97.7 78 19 145/71 100 Room Air 09/15/16 09:05 134/78 09/15/16 09:04 90 134/78 09/15/16 08:00 97.7 90 18 134/78 100 Room Air 09/15/16 04:00 97.6 70 18 126/78 95 Room Air 09/14/16 23:40 97.7 72 18 109/54 94 Room Air 09/14/16 20:00 97.9 82 18 123/75 96 Room Air Height (Feet): 6 Height (Inches): 2.00 Weight (Pounds): 226 General Appearance: WD/WN, no acute distress HEENT: normocephalic, atraumatic, anicteric, mucous membranes moist Respiratory/Chest: chest wall non-tender, lungs clear, normal breath sounds, no respiratory distress, no accessory muscle use Cardiovascular: normal peripheral pulses, normal rate, regular rhythm, regularly irregular, no gallop/murmur Abdomen: normal bowel sounds, soft, non tender, no organomegaly, non distended , no mass Extremities: no cyanosis, no clubbing Skin: no rash, no lesions Laboratory Tests Test 09/15/16 03:30 White Blood Count 4.2 K/UL (4.8-10.8) L Red Blood Count 3.92 M/UL (4.70-6.10) L Hemoglobin 11.1 G/DL (14.2-18.0) L Hematocrit 34.0 % (42.0-52.0) L Mean Corpuscular Volume 87 FL (80-99) Mean Corpuscular Hemoglobin 28.3 PG (27.0-31.0) Mean Corpuscular Hemoglobin Concent 32.6 G/DL (32.0-36.0) Red Cell Distribution Width 15.2 % (11.6-14.8) H Platelet Count 137 K/UL (150-450) L Mean Platelet Volume 7.5 FL (6.5-10.1) Neutrophils (%) (Auto) 43.3 % (45.0-75.0) L Lymphocytes (%) (Auto) 42.7 % (20.0-45.0) Monocytes (%) (Auto) 7.8 % (1.0-10.0) Eosinophils (%) (Auto) 4.9 % (0.0-3.0) H Basophils (%) (Auto) 1.2 % (0.0-2.0) Current Medications Medications (Trade) Dose Ordered Sig/Arslan Route PRN Reason Start Time Stop Time Status Last Admin Dose Admin Acetaminophen (Tylenol) 650 mg Q4H PRN ORAL fever 09/12/16 23:15 10/12/16 23:14 Al Hydroxide/Mg Hydroxide (Mylanta II) 30 ml Q6H PRN ORAL dyspepsia 09/12/16 23:15 10/12/16 23:14 Carvedilol (Coreg) 6.25 mg DAILY ORAL 09/13/16 09:00 10/13/16 08:59 09/15/16 09:04 Ceftriaxone Sodium/Dextrose (Rocephin/D5W) 55 ml @ 110 mls/hr Q24H IVPB 09/13/16 15:00 09/20/16 14:59 09/15/16 13:57 Dextrose STAT PRN IV Hypoglycemia 09/12/16 23:15 10/12/16 23:14 Dextrose/Sodium Chloride (D5ns) 1,000 ml @ 100 mls/hr Q10H IV 09/13/16 00:00 10/13/16 00:00 09/15/16 11:20 Diphenhydramine HCl 25 mg 25 mg Q6H PRN IVP Itching 09/13/16 12:00 10/13/16 11:59 09/15/16 15:03 Enalapril Maleate (Vasotec) 10 mg DAILY ORAL 09/13/16 09:00 10/13/16 08:59 09/15/16 09:05 Morphine Sulfate (Morphine Sulfate) 4 mg Q4H PRN IVP For Pain 09/13/16 01:00 09/20/16 00:59 09/15/16 15:02 Nitroglycerin (Ntg) 0.4 mg Q5M X 3 DOSES PRN SL Prn Chest Pain 09/12/16 23:15 10/12/16 23:14 Ondansetron HCl (Zofran) 4 mg Q6H PRN IVP Nausea & Vomiting 09/12/16 23:15 10/12/16 23:14 09/15/16 15:03 Pantoprazole (Protonix) 40 mg DAILY ORAL 09/13/16 09:00 10/13/16 08:59 09/15/16 09:04 Polyethylene Glycol (Miralax) 17 gm HSPRN PRN ORAL Constipation 09/12/16 23:15 10/12/16 23:14 Tamsulosin HCl (Flomax) 0.4 mg BEDTIME ORAL 09/13/16 21:00 10/13/16 20:59 09/14/16 20:41 Temazepam (Restoril) 15 mg HSPRN PRN ORAL Insomnia 09/12/16 23:15 09/19/16 23:14 Fernanda Lim M.D. September 15, 2016 16:43
[2016-09-15 20:00] VITALS: BP 134/74
[2016-09-15] MEDS: Tamsulosin 0.4mg cap ORAL SCH (20:57)
--- NOTE | 2016-09-15 21:21 | Diagnostic Imaging Report ---
APPROVED REPORT CPT Code: 65659 Present Symptoms Lower Extremity Pain: Bilateral BILATERAL: Imaging reveals a patent deep venous system bilaterally. There is no evidence of thrombus within the femoral, popliteal or tibial segments. The greater saphenous veins are also within normal limits. Doppler indicates normal spontaneous flow within these segments.
--- NOTE | 2016-09-15 23:27 | Pulmonology Progress Note ---
Subjective Allergies: Coded Allergies: IODINATED CONTRAST MEDIA - IV DYE (Verified Allergy, Severe, Shortness of Breath, 01/17/15) DORIPENEM (Verified Allergy, Intermediate, Itching, 01/17/15) KETOROLAC TROMETHAMINE (Verified Allergy, Intermediate, Hives, 01/17/15) TRAMADOL (Verified Allergy, Intermediate, Hives, 01/17/15) ASPIRIN (Verified Allergy, Mild, 04/09/10) Objective Last 24 Hour Vital Signs Date Time Temp Pulse Resp B/P Pulse Ox O2 Delivery O2 Flow Rate FiO2 09/15/16 20:00 96.8 64 20 134/74 98 Room Air 09/15/16 15:52 97.7 76 19 132/67 100 Room Air 09/15/16 15:32 97.7 09/15/16 12:22 97.7 78 19 145/71 100 Room Air 09/15/16 09:05 134/78 09/15/16 09:04 90 134/78 09/15/16 08:00 97.7 90 18 134/78 100 Room Air 09/15/16 04:00 97.6 70 18 126/78 95 Room Air 09/14/16 23:40 97.7 72 18 109/54 94 Room Air Intake and Output 09/14/16 09/15/16 19:00 07:00 Intake Total 1100 ml 1695 ml Balance 1100 ml 1695 ml Intake Oral 420 ml IV Total 1100 ml 1275 ml # Voids 3 # Bowel Movements 1 Laboratory Tests 09/15/16 03:30: White Blood Count 4.2L, Red Blood Count 3.92L, Hemoglobin 11.1L, Hematocrit 34.0L, Mean Corpuscular Volume 87, Mean Corpuscular Hemoglobin 28.3, Mean Corpuscular Hemoglobin Concent 32.6, Red Cell Distribution Width 15.2H, Platelet Count 137L, Mean Platelet Volume 7.5, Neutrophils (%) (Auto) 43.3L, Lymphocytes (%) (Auto) 42.7, Monocytes (%) (Auto) 7.8, Eosinophils (%) (Auto) 4.9H, Basophils (%) (Auto) 1.2 Current Medications Medications (Trade) Dose Ordered Sig/Arslan Route PRN Reason Start Time Stop Time Status Last Admin Dose Admin Acetaminophen (Tylenol) 650 mg Q4H PRN ORAL fever 09/12/16 23:15 6/11/17 23:14 Al Hydroxide/Mg Hydroxide (Mylanta II) 30 ml Q6H PRN ORAL dyspepsia 09/12/16 23:15 10/12/16 23:14 Carvedilol (Coreg) 6.25 mg DAILY ORAL 09/13/16 09:00 10/13/16 08:59 09/15/16 09:04 Ceftriaxone Sodium/Dextrose (Rocephin/D5W) 55 ml @ 110 mls/hr Q24H IVPB 09/13/16 15:00 09/20/16 14:59 09/15/16 13:57 Dextrose STAT PRN IV Hypoglycemia 09/12/16 23:15 10/12/16 23:14 Dextrose/Sodium Chloride (D5ns) 1,000 ml @ 100 mls/hr Q10H IV 09/13/16 00:00 10/13/16 00:00 09/15/16 20:57 Diphenhydramine HCl 25 mg 25 mg Q6H PRN IVP Itching 09/13/16 12:00 10/13/16 11:59 09/15/16 20:57 Enalapril Maleate (Vasotec) 10 mg DAILY ORAL 09/13/16 09:00 10/13/16 08:59 09/15/16 09:05 Morphine Sulfate (Morphine Sulfate) 4 mg Q4H PRN IVP For Pain 09/13/16 01:00 09/20/16 00:59 09/15/16 20:57 Nitroglycerin (Ntg) 0.4 mg Q5M X 3 DOSES PRN SL Prn Chest Pain 09/12/16 23:15 10/12/16 23:14 Ondansetron HCl (Zofran) 4 mg Q6H PRN IVP Nausea & Vomiting 09/12/16 23:15 10/12/16 23:14 09/15/16 20:57 Pantoprazole (Protonix) 40 mg DAILY ORAL 09/13/16 09:00 10/13/16 08:59 09/15/16 09:04 Polyethylene Glycol (Miralax) 17 gm HSPRN PRN ORAL Constipation 09/12/16 23:15 10/12/16 23:14 Tamsulosin HCl (Flomax) 0.4 mg BEDTIME ORAL 09/13/16 21:00 10/13/16 20:59 09/15/16 20:57 Temazepam (Restoril) 15 mg HSPRN PRN ORAL Insomnia 09/12/16 23:15 09/19/16 23:14 SOM KNIGHT September 15, 2016 23:27
[2016-09-16] VITALS: BP 131/69
[2016-09-16 02:15] LABS: CD3 ABSOLUTE 1619 /uL (622-2402); CD4 ABSOLUTE 530 /uL (359-1519); CD8 ABSOLUTE 1065 /uL (109-897); LYMPHOCYTES ABSOLUTE 2.2 x10E3/uL (0.7-3.1); LYMPHS 49 % (.); WBC 4.5 x10E3/uL (3.4-10.8)
[2016-09-16] MEDS: Morphine Sulfate 4mg/ml Inj IVP PRN ×4 (02:56→21:00)
[2016-09-16] MEDS: DiphenhydrAMINE 50mg/ml Inj IVP PRN ×4 (02:56→20:59)
[2016-09-16 07:41] VITALS: BP 123/78
[2016-09-16] MEDS: D5NS 1,000 ML IV SCH ×2 (08:00→17:58)
[2016-09-16] MEDS: Carvedilol 6.25mg Tab ORAL SCH (09:07)
--- NOTE | 2016-09-16 09:46 | GI Progress Note ---
Assessment/Plan Problems: (1) Denies alcohol consumption ICD Codes: Z78.9 - Other specified health status SNOMED: 527188295 (2) Acute GI bleeding ICD Codes: K92.2 - Gastrointestinal hemorrhage, unspecified SNOMED: 30358651 (3) Abdominal pain ICD Codes: R10.9 - Unspecified abdominal pain SNOMED: 47280920 (4) Gastritis ICD Codes: K29.70 - Gastritis SNOMED: 0495148 (5) Hemoptysis ICD Codes: R04.2 - Hemoptysis SNOMED: 73275661 (6) Iron deficiency ICD Codes: E61.1 - Iron deficiency SNOMED: 22569417 (7) Abdominal pain of unknown etiology ICD Codes: R10.9 - Unspecified abdominal pain SNOMED: 226674989 Status: stable Status Narrative Discussed with Dr. Sands. Assessment/Plan s/p colonoscopy with unremarkable results per patient. OB stool negative abdominal U/S >> unremarkable AFP WNL stable H&H HIV+ ok for DC per GI standpoint cardiac diet, tolerating ppi monitor H&H fu hep panel fu labs Subjective Subjective hemoptysis + Objective Last 24 Hour Vital Signs Date Time Temp Pulse Resp B/P Pulse Ox O2 Delivery O2 Flow Rate FiO2 09/16/16 09:07 123/78 09/16/16 09:07 79 123/78 09/16/16 07:41 97.3 79 24 123/78 98 09/16/16 00:00 98.1 71 20 131/69 99 Room Air 09/15/16 20:00 96.8 64 20 134/74 98 Room Air 09/15/16 15:52 97.7 76 19 132/67 100 Room Air 09/15/16 15:32 97.7 09/15/16 12:22 97.7 78 19 145/71 100 Room Air Intake and Output 09/15/16 09/16/16 19:00 07:00 Intake Total 1840 ml 900 ml Balance 1840 ml 900 ml Intake Oral 840 ml IV Total 1000 ml 900 ml Height (Feet): 6 Height (Inches): 2.00 Weight (Pounds): 226 General Appearance: no apparent distress, alert Cardiovascular: normal rate Respiratory/Chest: normal breath sounds, no respiratory distress Abdominal Exam: normal bowel sounds, non tender, soft Extremities: normal range of motion - ambulates around unit Celia Raines N.P. September 16, 2016 09:46
[2016-09-16 10:46] LABS: BASOPHILS % (AUTO) 2.3 % (0.0-2.0); EOSINOPHILS % (AUTO) 5.2 % (0.0-3.0); LYMPHOCYTES % (AUTO) 46.6 % (20.0-45.0); MEAN CORPUSCULAR HEMOGLOBIN 26.8 PG (27.0-31.0); MEAN CORPUSCULAR HGB CONC 30.4 G/DL (32.0-36.0); MEAN CORPUSCULAR VOLUME 88 FL (80-99); MEAN PLATELET VOLUME 7.9 FL (6.5-10.1); MONOCYTES % (AUTO) 11.6 % (1.0-10.0); NEUTROPHILS % (AUTO) 34.4 % (45.0-75.0); PLATELET COUNT 139 K/UL (150-450); RED BLOOD COUNT 4.25 M/UL (4.70-6.10); RED CELL DISTRIBUTION WIDTH 15.3 % (11.6-14.8); WHITE BLOOD COUNT 3.6 K/UL (4.8-10.8)
[2016-09-16 11:02] LABS: ANION GAP 11 (5-15); CARBON DIOXIDE 26 mEQ/L (20-30); CHLORIDE 101 mEQ/L (98-107); CREATININE 1.3 mg/dL (0.7-1.2); GLOMERULAR FILTRATION RATE > 60 mL/min (>60); HEMOLYSIS 12; SODIUM 138 mEQ/L (135-145)
[2016-09-16 12:19] VITALS: BP 139/74
[2016-09-16 13:14] LABS: HIV-1 ANTIBODY Positive (Negative); HIV-2 ANTIBODY Negative (Negative)
--- NOTE | 2016-09-16 14:56 | General Progress Note ---
Assessment/Plan Problem List: (1) Acute GI bleeding ICD Codes: K92.2 - Gastrointestinal hemorrhage, unspecified SNOMED: 84452027 (2) HTN (hypertension) ICD Codes: I10 - HTN (hypertension) SNOMED: 58480696 (3) Gastroparesis ICD Codes: K31.84 - Gastroparesis SNOMED: 446593141 (4) Intractable abdominal pain ICD Codes: R10.9 - Intractable abdominal pain SNOMED: 61588228 (5) DVT (deep venous thrombosis) ICD Codes: I82.409 - Acute embolism and thombos unsp deep vn unsp lower extremity SNOMED: 939303663 (6) CHF (congestive heart failure) ICD Codes: I50.9 - Heart failure, unspecified SNOMED: 59587827 Status: stable, progressing, tolerating diet Assessment/Plan gi pain f/u cbc bmp am dc plan Subjective Constitutional: Reports: weakness Gastrointestinal/Abdominal: Reports: nausea Allergies: Coded Allergies: IODINATED CONTRAST MEDIA - IV DYE (Verified Allergy, Severe, Shortness of Breath, 01/17/15) DORIPENEM (Verified Allergy, Intermediate, Itching, 01/17/15) KETOROLAC TROMETHAMINE (Verified Allergy, Intermediate, Hives, 01/17/15) TRAMADOL (Verified Allergy, Intermediate, Hives, 01/17/15) ASPIRIN (Verified Allergy, Mild, 04/09/10) All Systems: reviewed and negative except above Subjective anxious Objective Last 24 Hour Vital Signs Date Time Temp Pulse Resp B/P Pulse Ox O2 Delivery O2 Flow Rate FiO2 09/16/16 12:19 97.7 62 16 139/74 98 Room Air 09/16/16 09:07 123/78 09/16/16 09:07 79 123/78 09/16/16 07:41 97.3 79 24 123/78 98 09/16/16 00:00 98.1 71 20 131/69 99 Room Air 09/15/16 20:00 96.8 64 20 134/74 98 Room Air 09/15/16 15:52 97.7 76 19 132/67 100 Room Air 09/15/16 15:32 97.7 Intake and Output 09/15/16 09/16/16 19:00 07:00 Intake Total 1840 ml 900 ml Balance 1840 ml 900 ml Intake Oral 840 ml IV Total 1000 ml 900 ml Laboratory Tests 09/16/16 10:40: White Blood Count 3.6L, Red Blood Count 4.25L, Hemoglobin 11.4L, Hematocrit 37.5L, Mean Corpuscular Volume 88, Mean Corpuscular Hemoglobin 26.8L, Mean Corpuscular Hemoglobin Concent 30.4L, Red Cell Distribution Width 15.3H, Platelet Count 139L, Mean Platelet Volume 7.9, Neutrophils (%) (Auto) 34.4L, Lymphocytes (%) (Auto) 46.6H, Monocytes (%) (Auto) 11.6H, Eosinophils (%) (Auto ) 5.2H, Basophils (%) (Auto) 2.3H, Sodium Level 138, Potassium Level 4.0, Chloride Level 101, Carbon Dioxide Level 26, Anion Gap 11, Blood Urea Nitrogen 13, Creatinine 1.3H, Estimat Glomerular Filtration Rate > 60, Glucose Level 88, Calcium Level 9.0 Height (Feet): 6 Height (Inches): 2.00 Weight (Pounds): 226 General Appearance: alert EENT: normal ENT inspection Neck: non-tender, normal alignment, supple Cardiovascular: normal peripheral pulses, normal rate, regular rhythm Respiratory/Chest: chest wall non-tender, lungs clear, normal breath sounds Abdomen: normal bowel sounds, non tender, soft Extremities: normal inspection Edema: no edema noted Arm (L), no edema noted Arm (R), no edema noted Leg (L), no edema noted Leg (R), no edema noted Pedal (L), no edema noted Pedal (R), no edema noted Generalized Neurologic: responsive, motor weakness Skin: normal pigmentation, warm/dry KIAH GONCALVES September 16, 2016 14:56
[2016-09-16] MEDS: cefTRIAXone 1 GM in D5W 55 ML IVPB SCH (15:00)
[2016-09-16 16:00] VITALS: BP 128/78
--- NOTE | 2016-09-16 18:22 | General Progress Note ---
Assessment/Plan Assessment/Plan IMPRESSION: 1. Hypercoagulable state. Currently off coumadin given hemoptysis, has a IVC filter in place. Okay to d/c from heme perspective, restart coumadin after seen in office 2. History of DVT. 3. History of pulmonary emboli. 4. Status post IVC filter placement. 5. Anticoagulation with Coumadin. 6. History of GI bleed. 7. History of hematuria. 8. Diabetes mellitus. 9. Drug-seeking behavior. 10. Chronic pain syndrome. RECOMMENDATIONS: 1. Watch counts. 2. Watch coagulopathy. 3. No clots noted on lower extremities 4. 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 5. PRBC transfusion on a p.r.n. basis. 6. Platelets transfusion on a p.r.n. basis. 7. Off coumadin 8. Urology eval 9. Skin care. 10. Close followup. Subjective Constitutional: Reports: no symptoms HEENT: Reports: no symptoms Cardiovascular: Reports: no symptoms Gastrointestinal/Abdominal: Reports: poor fluid intake Genitourinary: Reports: no symptoms Neurologic/Psychiatric: Reports: no symptoms Endocrine: Reports: no symptoms Hematologic/Lymphatic: Reports: anemia Allergies: Coded Allergies: IODINATED CONTRAST MEDIA - IV DYE (Verified Allergy, Severe, Shortness of Breath, 01/17/15) DORIPENEM (Verified Allergy, Intermediate, Itching, 01/17/15) KETOROLAC TROMETHAMINE (Verified Allergy, Intermediate, Hives, 01/17/15) TRAMADOL (Verified Allergy, Intermediate, Hives, 01/17/15) ASPIRIN (Verified Allergy, Mild, 04/09/10) Subjective stable, no events, no fevers or chills reported, on coumadin Objective Last 24 Hour Vital Signs Date Time Temp Pulse Resp B/P Pulse Ox O2 Delivery O2 Flow Rate FiO2 09/16/16 16:00 97.7 81 18 128/78 99 Room Air 09/16/16 12:19 97.7 62 16 139/74 98 Room Air 09/16/16 09:07 123/78 09/16/16 09:07 79 123/78 09/16/16 07:41 97.3 79 24 123/78 98 09/16/16 00:00 98.1 71 20 131/69 99 Room Air 09/15/16 20:00 96.8 64 20 134/74 98 Room Air Intake and Output 09/15/16 09/16/16 19:00 07:00 Intake Total 1840 ml 900 ml Balance 1840 ml 900 ml Intake Oral 840 ml IV Total 1000 ml 900 ml Laboratory Tests 09/16/16 10:40: White Blood Count 3.6L, Red Blood Count 4.25L, Hemoglobin 11.4L, Hematocrit 37.5L, Mean Corpuscular Volume 88, Mean Corpuscular Hemoglobin 26.8L, Mean Corpuscular Hemoglobin Concent 30.4L, Red Cell Distribution Width 15.3H, Platelet Count 139L, Mean Platelet Volume 7.9, Neutrophils (%) (Auto) 34.4L, Lymphocytes (%) (Auto) 46.6H, Monocytes (%) (Auto) 11.6H, Eosinophils (%) (Auto ) 5.2H, Basophils (%) (Auto) 2.3H, Sodium Level 138, Potassium Level 4.0, Chloride Level 101, Carbon Dioxide Level 26, Anion Gap 11, Blood Urea Nitrogen 13, Creatinine 1.3H, Estimat Glomerular Filtration Rate > 60, Glucose Level 88, Calcium Level 9.0 Height (Feet): 6 Height (Inches): 2.00 Weight (Pounds): 226 General Appearance: alert EENT: normal ENT inspection Neck: supple Cardiovascular: regular rhythm Respiratory/Chest: normal breath sounds Abdomen: normal bowel sounds Extremities: non-tender Edema: no edema noted Leg (L), no edema noted Leg (R) Neurologic: alert Skin: warm/dry Star Johnston September 16, 2016 18:22
[2016-09-16 20:28] VITALS: BP 146/90
[2016-09-16] MEDS: Tamsulosin 0.4mg cap ORAL SCH (20:58)
--- NOTE | 2016-09-16 22:26 | Pulmonology Progress Note ---
Subjective Allergies: Coded Allergies: IODINATED CONTRAST MEDIA - IV DYE (Verified Allergy, Severe, Shortness of Breath, 01/17/15) DORIPENEM (Verified Allergy, Intermediate, Itching, 01/17/15) KETOROLAC TROMETHAMINE (Verified Allergy, Intermediate, Hives, 01/17/15) TRAMADOL (Verified Allergy, Intermediate, Hives, 01/17/15) ASPIRIN (Verified Allergy, Mild, 04/09/10) Objective Last 24 Hour Vital Signs Date Time Temp Pulse Resp B/P Pulse Ox O2 Delivery O2 Flow Rate FiO2 09/16/16 20:28 97.9 72 20 146/90 99 Room Air 09/16/16 16:00 97.7 81 18 128/78 99 Room Air 09/16/16 12:19 97.7 62 16 139/74 98 Room Air 09/16/16 09:07 123/78 09/16/16 09:07 79 123/78 09/16/16 07:41 97.3 79 24 123/78 98 09/16/16 00:00 98.1 71 20 131/69 99 Room Air Intake and Output 09/15/16 09/16/16 19:00 07:00 Intake Total 1840 ml 900 ml Balance 1840 ml 900 ml Intake Oral 840 ml IV Total 1000 ml 900 ml Laboratory Tests 09/16/16 10:40: White Blood Count 3.6L, Red Blood Count 4.25L, Hemoglobin 11.4L, Hematocrit 37.5L, Mean Corpuscular Volume 88, Mean Corpuscular Hemoglobin 26.8L, Mean Corpuscular Hemoglobin Concent 30.4L, Red Cell Distribution Width 15.3H, Platelet Count 139L, Mean Platelet Volume 7.9, Neutrophils (%) (Auto) 34.4L, Lymphocytes (%) (Auto) 46.6H, Monocytes (%) (Auto) 11.6H, Eosinophils (%) (Auto ) 5.2H, Basophils (%) (Auto) 2.3H, Sodium Level 138, Potassium Level 4.0, Chloride Level 101, Carbon Dioxide Level 26, Anion Gap 11, Blood Urea Nitrogen 13, Creatinine 1.3H, Estimat Glomerular Filtration Rate > 60, Glucose Level 88, Calcium Level 9.0 Current Medications Medications (Trade) Dose Ordered Sig/Arslan Route PRN Reason Start Time Stop Time Status Last Admin Dose Admin Acetaminophen (Tylenol) 650 mg Q4H PRN ORAL fever 09/12/16 23:15 10/12/16 23:14 Al Hydroxide/Mg Hydroxide (Mylanta II) 30 ml Q6H PRN ORAL dyspepsia 09/12/16 23:15 10/12/16 23:14 Carvedilol (Coreg) 6.25 mg DAILY ORAL 09/13/16 09:00 10/13/16 08:59 09/16/16 09:07 Ceftriaxone Sodium/Dextrose (Rocephin/D5W) 55 ml @ 110 mls/hr Q24H IVPB 09/13/16 15:00 09/20/16 14:59 09/16/16 15:00 Dextrose STAT PRN IV Hypoglycemia 09/12/16 23:15 10/12/16 23:14 Dextrose/Sodium Chloride (D5ns) 1,000 ml @ 100 mls/hr Q10H IV 09/13/16 00:00 10/13/16 00:00 09/16/16 17:58 Diphenhydramine HCl 25 mg 25 mg Q6H PRN IVP Itching 09/13/16 12:00 10/13/16 11:59 09/16/16 20:59 Enalapril Maleate (Vasotec) 10 mg DAILY ORAL 09/13/16 09:00 10/13/16 08:59 09/16/16 09:07 Morphine Sulfate (Morphine Sulfate) 4 mg Q4H PRN IVP For Pain 09/13/16 01:00 09/20/16 00:59 09/16/16 21:00 Nitroglycerin (Ntg) 0.4 mg Q5M X 3 DOSES PRN SL Prn Chest Pain 09/12/16 23:15 10/12/16 23:14 Ondansetron HCl (Zofran) 4 mg Q6H PRN IVP Nausea & Vomiting 09/12/16 23:15 10/12/16 23:14 09/16/16 20:59 Pantoprazole (Protonix) 40 mg DAILY ORAL 09/13/16 09:00 10/13/16 08:59 09/16/16 09:07 Polyethylene Glycol (Miralax) 17 gm HSPRN PRN ORAL Constipation 09/12/16 23:15 10/12/16 23:14 Tamsulosin HCl (Flomax) 0.4 mg BEDTIME ORAL 09/13/16 21:00 10/13/16 20:59 09/16/16 20:58 Temazepam (Restoril) 15 mg HSPRN PRN ORAL Insomnia 09/12/16 23:15 09/19/16 23:14 SOM KNIGHT September 16, 2016 22:26
[2016-09-17 00:22] VITALS: BP 129/86
[2016-09-17] MEDS: DiphenhydrAMINE 50mg/ml Inj IVP PRN ×3 (02:59→15:09)
[2016-09-17] MEDS: Morphine Sulfate 4mg/ml Inj IVP PRN ×3 (03:00→15:08)
[2016-09-17] MEDS: D5NS 1,000 ML IV SCH ×2 (03:01→14:00)
[2016-09-17 04:45] VITALS: BP 125/67
--- NOTE | 2016-09-17 06:39 | General Progress Note ---
Assessment/Plan Problem List: (1) Acute GI bleeding ICD Codes: K92.2 - Gastrointestinal hemorrhage, unspecified SNOMED: 32263725 (2) HTN (hypertension) ICD Codes: I10 - HTN (hypertension) SNOMED: 14001169 (3) Gastroparesis ICD Codes: K31.84 - Gastroparesis SNOMED: 059328779 (4) Intractable abdominal pain ICD Codes: R10.9 - Intractable abdominal pain SNOMED: 90932240 (5) DVT (deep venous thrombosis) ICD Codes: I82.409 - Acute embolism and thombos unsp deep vn unsp lower extremity SNOMED: 581146804 (6) CHF (congestive heart failure) ICD Codes: I50.9 - Heart failure, unspecified SNOMED: 12437898 Status: stable, progressing, tolerating diet Assessment/Plan gi pain f/u dc home Subjective Constitutional: Reports: weakness Allergies: Coded Allergies: IODINATED CONTRAST MEDIA - IV DYE (Verified Allergy, Severe, Shortness of Breath, 01/17/15) DORIPENEM (Verified Allergy, Intermediate, Itching, 01/17/15) KETOROLAC TROMETHAMINE (Verified Allergy, Intermediate, Hives, 01/17/15) TRAMADOL (Verified Allergy, Intermediate, Hives, 01/17/15) ASPIRIN (Verified Allergy, Mild, 04/09/10) All Systems: reviewed and negative except above Subjective anxious Objective Last 24 Hour Vital Signs Date Time Temp Pulse Resp B/P Pulse Ox O2 Delivery O2 Flow Rate FiO2 09/17/16 04:45 97.3 64 20 125/67 97 Room Air 09/17/16 00:22 96.3 75 20 129/86 97 Room Air 09/16/16 20:28 97.9 72 20 146/90 99 Room Air 09/16/16 16:00 97.7 81 18 128/78 99 Room Air 09/16/16 12:19 97.7 62 16 139/74 98 Room Air 09/16/16 09:07 123/78 09/16/16 09:07 79 123/78 09/16/16 07:41 97.3 79 24 123/78 98 Intake and Output 09/16/16 09/17/16 19:00 07:00 Intake Total 1465 ml 1100 ml Balance 1465 ml 1100 ml Intake Oral 360 ml IV Total 1105 ml 1100 ml # Voids 2 3 # Bowel Movements 1 Laboratory Tests 09/16/16 10:40: White Blood Count 3.6L, Red Blood Count 4.25L, Hemoglobin 11.4L, Hematocrit 37.5L, Mean Corpuscular Volume 88, Mean Corpuscular Hemoglobin 26.8L, Mean Corpuscular Hemoglobin Concent 30.4L, Red Cell Distribution Width 15.3H, Platelet Count 139L, Mean Platelet Volume 7.9, Neutrophils (%) (Auto) 34.4L, Lymphocytes (%) (Auto) 46.6H, Monocytes (%) (Auto) 11.6H, Eosinophils (%) (Auto ) 5.2H, Basophils (%) (Auto) 2.3H, Sodium Level 138, Potassium Level 4.0, Chloride Level 101, Carbon Dioxide Level 26, Anion Gap 11, Blood Urea Nitrogen 13, Creatinine 1.3H, Estimat Glomerular Filtration Rate > 60, Glucose Level 88, Calcium Level 9.0 Height (Feet): 6 Height (Inches): 2.00 Weight (Pounds): 226 General Appearance: alert EENT: normal ENT inspection Neck: normal alignment Cardiovascular: normal peripheral pulses, normal rate, regular rhythm Respiratory/Chest: chest wall non-tender, lungs clear, normal breath sounds Abdomen: normal bowel sounds, non tender, soft Extremities: normal inspection Edema: no edema noted Arm (L), no edema noted Arm (R), no edema noted Leg (L), no edema noted Leg (R), no edema noted Pedal (L), no edema noted Pedal (R), no edema noted Generalized Neurologic: responsive, motor weakness Skin: normal pigmentation, warm/dry KIAH GONCALVES September 17, 2016 06:39
[2016-09-17 07:55] LABS: ANION GAP 12 (5-15); CALCIUM 9.1 mg/dL (8.6-10.2); CARBON DIOXIDE 26 mEQ/L (20-30); CHLORIDE 103 mEQ/L (98-107); CREATININE 1.4 mg/dL (0.7-1.2); GLOMERULAR FILTRATION RATE > 60 mL/min (>60); HEMOLYSIS 2; SODIUM 141 mEQ/L (135-145)
[2016-09-17 07:56] VITALS: BP 126/82
[2016-09-17 08:00] LABS: BASOPHILS % (AUTO) 1.8 % (0.0-2.0); EOSINOPHILS % (AUTO) 5.9 % (0.0-3.0); LYMPHOCYTES % (AUTO) 46.1 % (20.0-45.0); MEAN CORPUSCULAR HEMOGLOBIN 27.3 PG (27.0-31.0); MEAN CORPUSCULAR HGB CONC 30.8 G/DL (32.0-36.0); MEAN CORPUSCULAR VOLUME 88 FL (80-99); MEAN PLATELET VOLUME 8.1 FL (6.5-10.1); MONOCYTES % (AUTO) 12.4 % (1.0-10.0); NEUTROPHILS % (AUTO) 33.8 % (45.0-75.0); PLATELET COUNT 149 K/UL (150-450); RED CELL DISTRIBUTION WIDTH 15.3 % (11.6-14.8); WHITE BLOOD COUNT 4.2 K/UL (4.8-10.8)
[2016-09-17] MEDS: Carvedilol 6.25mg Tab ORAL SCH (09:10)
--- NOTE | 2016-09-17 11:32 | GI Progress Note ---
Assessment/Plan Problems: (1) Denies alcohol consumption ICD Codes: Z78.9 - Other specified health status SNOMED: 865257218 (2) Acute GI bleeding ICD Codes: K92.2 - Gastrointestinal hemorrhage, unspecified SNOMED: 23295779 (3) Abdominal pain ICD Codes: R10.9 - Unspecified abdominal pain SNOMED: 28862525 (4) Gastritis ICD Codes: K29.70 - Gastritis SNOMED: 2047676 (5) Hemoptysis ICD Codes: R04.2 - Hemoptysis SNOMED: 23166705 (6) Iron deficiency ICD Codes: E61.1 - Iron deficiency SNOMED: 01101119 (7) Abdominal pain of unknown etiology ICD Codes: R10.9 - Unspecified abdominal pain SNOMED: 747390807 Status: stable Status Narrative Discussed with Dr. Sands. Assessment/Plan s/p colonoscopy with unremarkable results per patient. OB stool negative abdominal U/S >> unremarkable AFP WNL stable H&H HIV+ ok for DC per GI standpoint cardiac diet, tolerating ppi monitor H&H fu hep panel fu labs Subjective Gastrointestinal/Abdominal: Reports: no symptoms Subjective hemoptysis + Objective Last 24 Hour Vital Signs Date Time Temp Pulse Resp B/P Pulse Ox O2 Delivery O2 Flow Rate FiO2 09/17/16 09:10 126/82 09/17/16 09:10 69 126/82 09/17/16 07:56 97.7 69 14 126/82 97 Room Air 97.0 09/17/16 04:45 97.3 64 20 125/67 97 Room Air 09/17/16 00:22 96.3 75 20 129/86 97 Room Air 09/16/16 20:28 97.9 72 20 146/90 99 Room Air 09/16/16 16:00 97.7 81 18 128/78 99 Room Air 09/16/16 12:19 97.7 62 16 139/74 98 Room Air Intake and Output 09/16/16 09/17/16 19:00 07:00 Intake Total 1465 ml 1200 ml Balance 1465 ml 1200 ml Intake Oral 360 ml IV Total 1105 ml 1200 ml # Voids 2 3 # Bowel Movements 1 Laboratory Tests Test 09/17/16 07:10 White Blood Count 4.2 K/UL (4.8-10.8) L Red Blood Count 4.20 M/UL (4.70-6.10) L Hemoglobin 11.5 G/DL (14.2-18.0) L Hematocrit 37.2 % (42.0-52.0) L Mean Corpuscular Volume 88 FL (80-99) Mean Corpuscular Hemoglobin 27.3 PG (27.0-31.0) Mean Corpuscular Hemoglobin Concent 30.8 G/DL (32.0-36.0) L Red Cell Distribution Width 15.3 % (11.6-14.8) H Platelet Count 149 K/UL (150-450) L Mean Platelet Volume 8.1 FL (6.5-10.1) Neutrophils (%) (Auto) 33.8 % (45.0-75.0) L Lymphocytes (%) (Auto) 46.1 % (20.0-45.0) H Monocytes (%) (Auto) 12.4 % (1.0-10.0) H Eosinophils (%) (Auto) 5.9 % (0.0-3.0) H Basophils (%) (Auto) 1.8 % (0.0-2.0) Sodium Level 141 mEQ/L (135-145) Potassium Level 4.0 mEQ/L (3.4-4.9) Chloride Level 103 mEQ/L (98-107) Carbon Dioxide Level 26 mEQ/L (20-30) Anion Gap 12 (5-15) Blood Urea Nitrogen 14 mg/dL (7-23) Creatinine 1.4 mg/dL (0.7-1.2) H Estimat Glomerular Filtration Rate > 60 mL/min (>60) Glucose Level 112 mg/dL (74-106) H Calcium Level 9.1 mg/dL (8.6-10.2) Height (Feet): 6 Height (Inches): 2.00 Weight (Pounds): 226 General Appearance: no apparent distress, alert Cardiovascular: normal rate Respiratory/Chest: normal breath sounds, no respiratory distress Abdominal Exam: normal bowel sounds, non tender, soft Extremities: normal range of motion Celia Raines N.P. September 17, 2016 11:32
[2016-09-17 11:37] VITALS: BP 133/72
--- NOTE | 2016-09-17 14:57 | Infectious Diseases Prog Note ---
Assessment/Plan Problems: (1) UTI (urinary tract infection) Assessment & Plan: improved with ceftriaxon , renal US showed nonobstructing stone, will D/C ceftriaxon, recommend urology follow up (2) HIV (human immunodeficiency virus infection) Assessment & Plan: with low CD4 , await viral load to confirm , and genotype . patient was counseled regarding safe sex practice, and he is required to notify his of his HIV status .infection control is aware of the HIV status. recommend follow up with HIV provider as an outpatient to start ART , patient understands the benefits of starting ART. (3) GI bleeding Assessment & Plan: resolved, had abdominal US , which showed no significant pathology, Gi is following Subjective Allergies: Coded Allergies: IODINATED CONTRAST MEDIA - IV DYE (Verified Allergy, Severe, Shortness of Breath, 01/17/15) DORIPENEM (Verified Allergy, Intermediate, Itching, 01/17/15) KETOROLAC TROMETHAMINE (Verified Allergy, Intermediate, Hives, 01/17/15) TRAMADOL (Verified Allergy, Intermediate, Hives, 01/17/15) ASPIRIN (Verified Allergy, Mild, 04/09/10) Objective Vital Signs Last 24 Hour Vital Signs Date Time Temp Pulse Resp B/P Pulse Ox O2 Delivery O2 Flow Rate FiO2 09/17/16 11:37 97.2 68 14 133/72 98 Room Air 09/17/16 09:10 126/82 09/17/16 09:10 69 126/82 09/17/16 07:56 97.7 69 14 126/82 97 Room Air 97.0 09/17/16 04:45 97.3 64 20 125/67 97 Room Air 09/17/16 00:22 96.3 75 20 129/86 97 Room Air 09/16/16 20:28 97.9 72 20 146/90 99 Room Air 09/16/16 16:00 97.7 81 18 128/78 99 Room Air Height (Feet): 6 Height (Inches): 2.00 Weight (Pounds): 226 General Appearance: WD/WN, no acute distress HEENT: normocephalic, atraumatic, anicteric, mucous membranes moist Respiratory/Chest: chest wall non-tender, lungs clear, normal breath sounds, no respiratory distress, no accessory muscle use Cardiovascular: normal peripheral pulses, normal rate, regular rhythm, no gallop/murmur, no JVD Abdomen: normal bowel sounds, soft, non tender, no organomegaly, non distended , no mass Extremities: no cyanosis, no clubbing Skin: no rash, no lesions Laboratory Tests Test 09/17/16 07:10 White Blood Count 4.2 K/UL (4.8-10.8) L Red Blood Count 4.20 M/UL (4.70-6.10) L Hemoglobin 11.5 G/DL (14.2-18.0) L Hematocrit 37.2 % (42.0-52.0) L Mean Corpuscular Volume 88 FL (80-99) Mean Corpuscular Hemoglobin 27.3 PG (27.0-31.0) Mean Corpuscular Hemoglobin Concent 30.8 G/DL (32.0-36.0) L Red Cell Distribution Width 15.3 % (11.6-14.8) H Platelet Count 149 K/UL (150-450) L Mean Platelet Volume 8.1 FL (6.5-10.1) Neutrophils (%) (Auto) 33.8 % (45.0-75.0) L Lymphocytes (%) (Auto) 46.1 % (20.0-45.0) H Monocytes (%) (Auto) 12.4 % (1.0-10.0) H Eosinophils (%) (Auto) 5.9 % (0.0-3.0) H Basophils (%) (Auto) 1.8 % (0.0-2.0) Sodium Level 141 mEQ/L (135-145) Potassium Level 4.0 mEQ/L (3.4-4.9) Chloride Level 103 mEQ/L (98-107) Carbon Dioxide Level 26 mEQ/L (20-30) Anion Gap 12 (5-15) Blood Urea Nitrogen 14 mg/dL (7-23) Creatinine 1.4 mg/dL (0.7-1.2) H Estimat Glomerular Filtration Rate > 60 mL/min (>60) Glucose Level 112 mg/dL (74-106) H Calcium Level 9.1 mg/dL (8.6-10.2) Current Medications Medications (Trade) Dose Ordered Sig/Arslan Route PRN Reason Start Time Stop Time Status Last Admin Dose Admin Acetaminophen (Tylenol) 650 mg Q4H PRN ORAL fever 09/12/16 23:15 10/12/16 23:14 Al Hydroxide/Mg Hydroxide (Mylanta II) 30 ml Q6H PRN ORAL dyspepsia 09/12/16 23:15 10/12/16 23:14 Carvedilol (Coreg) 6.25 mg DAILY ORAL 09/13/16 09:00 10/13/16 08:59 09/17/16 09:10 Ceftriaxone Sodium/Dextrose (Rocephin/D5W) 55 ml @ 110 mls/hr Q24H IVPB 09/13/16 15:00 09/20/16 14:59 09/16/16 15:00 Dextrose STAT PRN IV Hypoglycemia 09/12/16 23:15 10/12/16 23:14 Dextrose/Sodium Chloride (D5ns) 1,000 ml @ 100 mls/hr Q10H IV 09/13/16 00:00 10/13/16 00:00 09/17/16 03:01 Diphenhydramine HCl 25 mg 25 mg Q6H PRN IVP Itching 09/13/16 12:00 10/13/16 11:59 09/17/16 09:11 Enalapril Maleate (Vasotec) 10 mg DAILY ORAL 09/13/16 09:00 10/13/16 08:59 09/17/16 09:10 Morphine Sulfate (Morphine Sulfate) 4 mg Q4H PRN IVP For Pain 09/13/16 01:00 09/20/16 00:59 09/17/16 09:11 Nitroglycerin (Ntg) 0.4 mg Q5M X 3 DOSES PRN SL Prn Chest Pain 09/12/16 23:15 10/12/16 23:14 Ondansetron HCl (Zofran) 4 mg Q6H PRN IVP Nausea & Vomiting 09/12/16 23:15 10/12/16 23:14 09/17/16 09:11 Pantoprazole (Protonix) 40 mg DAILY ORAL 09/13/16 09:00 10/13/16 08:59 09/17/16 09:10 Polyethylene Glycol (Miralax) 17 gm HSPRN PRN ORAL Constipation 09/12/16 23:15 10/12/16 23:14 Tamsulosin HCl (Flomax) 0.4 mg BEDTIME ORAL 09/13/16 21:00 10/13/16 20:59 09/16/16 20:58 Temazepam (Restoril) 15 mg HSPRN PRN ORAL Insomnia 09/12/16 23:15 09/19/16 23:14 Fernanda Lim M.D. September 17, 2016 14:56
[2016-09-17] MEDS: cefTRIAXone 1 GM in D5W 55 ML IVPB SCH (15:09)
[2016-09-17 16:00] VITALS: BP 141/98
[2016-09-17] MEDS ORDERED: ACETAMINOPHEN325 M1 ORAL (16:27)
[2016-09-17] MEDS ORDERED: MYLANTA II30 ML ORAL (16:29)
[2016-09-17] MEDS ORDERED: DIPHENHYDRAMINE25 M1 ORAL (16:29)
[2016-09-17] MEDS ORDERED: PROTONIX40 MG ORAL (16:32)
[2016-09-17] MEDS ORDERED: NITROGLYCERIN0.4 MG SL (16:32)
[2016-09-17] MEDS ORDERED: MIRALAX17 G2 ORAL (16:33)
[2016-09-17] MEDS ORDERED: RESTORIL15 MG ORAL (16:34)
[2016-09-17] MEDS ORDERED: Tubing IV Secondary IV ONE (17:44)
[2016-09-17] MEDS ORDERED: D5NS 1000ml IV ONE (17:44)
--- NOTE | 2016-09-17 22:28 | Pulmonology Progress Note ---
Subjective Allergies: Coded Allergies: IODINATED CONTRAST MEDIA - IV DYE (Verified Allergy, Severe, Shortness of Breath, 01/17/15) DORIPENEM (Verified Allergy, Intermediate, Itching, 01/17/15) KETOROLAC TROMETHAMINE (Verified Allergy, Intermediate, Hives, 01/17/15) TRAMADOL (Verified Allergy, Intermediate, Hives, 01/17/15) ASPIRIN (Verified Allergy, Mild, 04/09/10) Objective Last 24 Hour Vital Signs Date Time Temp Pulse Resp B/P Pulse Ox O2 Delivery O2 Flow Rate FiO2 09/17/16 16:00 97.5 74 18 141/98 96 Room Air 09/17/16 11:37 97.2 68 14 133/72 98 Room Air 09/17/16 09:10 126/82 09/17/16 09:10 69 126/82 09/17/16 07:56 97.7 69 14 126/82 97 Room Air 97.0 09/17/16 04:45 97.3 64 20 125/67 97 Room Air 09/17/16 00:22 96.3 75 20 129/86 97 Room Air Intake and Output 09/16/16 09/17/16 19:00 07:00 Intake Total 1465 ml 1200 ml Balance 1465 ml 1200 ml Intake Oral 360 ml IV Total 1105 ml 1200 ml # Voids 2 3 # Bowel Movements 1 Laboratory Tests 09/17/16 07:10: White Blood Count 4.2L, Red Blood Count 4.20L, Hemoglobin 11.5L, Hematocrit 37.2L, Mean Corpuscular Volume 88, Mean Corpuscular Hemoglobin 27.3, Mean Corpuscular Hemoglobin Concent 30.8L, Red Cell Distribution Width 15.3H, Platelet Count 149L, Mean Platelet Volume 8.1, Neutrophils (%) (Auto) 33.8L, Lymphocytes (%) (Auto) 46.1H, Monocytes (%) (Auto) 12.4H, Eosinophils (%) (Auto ) 5.9H, Basophils (%) (Auto) 1.8, Sodium Level 141, Potassium Level 4.0, Chloride Level 103, Carbon Dioxide Level 26, Anion Gap 12, Blood Urea Nitrogen 14, Creatinine 1.4H, Estimat Glomerular Filtration Rate > 60, Glucose Level 112H , Calcium Level 9.1 SOM KNIGHT September 17, 2016 22:28
--- NOTE | 2016-09-17 23:08 | General Progress Note ---
Assessment/Plan Assessment/Plan IMPRESSION: 1. Hypercoagulable state. Currently off coumadin given hemoptysis, has a IVC filter in place. Okay to d/c from heme perspective, restart coumadin after seen in office 2. History of DVT. 3. History of pulmonary emboli. 4. Status post IVC filter placement. 5. Anticoagulation with Coumadin. 6. History of GI bleed. 7. History of hematuria. 8. Diabetes mellitus. 9. Drug-seeking behavior. 10. Chronic pain syndrome. RECOMMENDATIONS: 1. Watch counts. 2. Watch coagulopathy. 3. No clots noted on lower extremities 4. [employer] evaluation. 5. PRBC transfusion on a p.r.n. basis. 6. Platelets transfusion on a p.r.n. basis. 7. Off coumadin 8. Urology eval 9. Skin care. 10. Close followup. Subjective Constitutional: Reports: no symptoms HEENT: Reports: no symptoms Cardiovascular: Reports: no symptoms Respiratory: Reports: no symptoms Gastrointestinal/Abdominal: Reports: no symptoms Genitourinary: Reports: no symptoms Neurologic/Psychiatric: Reports: no symptoms Endocrine: Reports: no symptoms Allergies: Coded Allergies: IODINATED CONTRAST MEDIA - IV DYE (Verified Allergy, Severe, Shortness of Breath, 01/17/15) DORIPENEM (Verified Allergy, Intermediate, Itching, 01/17/15) KETOROLAC TROMETHAMINE (Verified Allergy, Intermediate, Hives, 01/17/15) TRAMADOL (Verified Allergy, Intermediate, Hives, 01/17/15) ASPIRIN (Verified Allergy, Mild, 04/09/10) Subjective stable for d/c off coumadin Objective Last 24 Hour Vital Signs Date Time Temp Pulse Resp B/P Pulse Ox O2 Delivery O2 Flow Rate FiO2 09/17/16 16:00 97.5 74 18 141/98 96 Room Air 09/17/16 11:37 97.2 68 14 133/72 98 Room Air 09/17/16 09:10 126/82 09/17/16 09:10 69 126/82 09/17/16 07:56 97.7 69 14 126/82 97 Room Air 97.0 09/17/16 04:45 97.3 64 20 125/67 97 Room Air 09/17/16 00:22 96.3 75 20 129/86 97 Room Air Intake and Output 09/16/16 09/17/16 19:00 07:00 Intake Total 1465 ml 1200 ml Balance 1465 ml 1200 ml Intake Oral 360 ml IV Total 1105 ml 1200 ml # Voids 2 3 # Bowel Movements 1 Laboratory Tests 09/17/16 07:10: White Blood Count 4.2L, Red Blood Count 4.20L, Hemoglobin 11.5L, Hematocrit 37.2L, Mean Corpuscular Volume 88, Mean Corpuscular Hemoglobin 27.3, Mean Corpuscular Hemoglobin Concent 30.8L, Red Cell Distribution Width 15.3H, Platelet Count 149L, Mean Platelet Volume 8.1, Neutrophils (%) (Auto) 33.8L, Lymphocytes (%) (Auto) 46.1H, Monocytes (%) (Auto) 12.4H, Eosinophils (%) (Auto ) 5.9H, Basophils (%) (Auto) 1.8, Sodium Level 141, Potassium Level 4.0, Chloride Level 103, Carbon Dioxide Level 26, Anion Gap 12, Blood Urea Nitrogen 14, Creatinine 1.4H, Estimat Glomerular Filtration Rate > 60, Glucose Level 112H , Calcium Level 9.1 Height (Feet): 6 Height (Inches): 2.00 Weight (Pounds): 226 General Appearance: alert EENT: TMs normal Neck: abnormal alignment Cardiovascular: regular rhythm Respiratory/Chest: normal breath sounds Pelvis: speculum exam normal Genitourinary/Rectal: normal prostate exam Extremities: normal inspection Star Johnston September 17, 2016 23:08
[2016-09-18 03:15] LABS: ANTI THROMBIN III ACTIVITY 100 % (75-135); PROTEIN C ACTIVITY 57 % (73-180); PROTEIN S ACTIVITY 35 % (63-140)
[2016-09-18 11:15] LABS: HIV RNA PCR QUANT <20 copies/mL (.)
--- NOTE | 2016-09-18 16:05 | Discharge Summary ---
Discharge Summary Hospital Course Date of Admission September 12, 2016 at 18:58 Date of Discharge September 17, 2016 at 17:45 Admitting Diagnosis hemoptysis/pancreatitis HPI Ramu Gan is a 50 year old male who was admitted on September 12, 2016 at 18:58 for Hemoptysis/Pacreatitis Hospital Course [id number] Discharge Discharge Disposition Patient was discharged to Home (01) Discharge Diagnoses: Brielle Winslow NP September 18, 2016 16:05
--- NOTE | 2016-09-19 04:02 | Discharge Summary 2 SIG ---
DATE OF ADMISSION: 09/12/2016 DATE OF DISCHARGE: 09/17/2016 CONSULTANTS: 1. Star Johnston M.D. 2. Liam Fraire M.D. 3. Fernanda Lim M.D. 4. Juan Carlos Sands M.D. BRIEF HOSPITAL COURSE: The patient is a 50-year-old male who presented to [facility] with history of nausea, vomiting, and abdominal pain with hematemesis. On evaluation at ED, amylase was minimally elevated and was given IV antibiotics for possible urinary tract infection. The patient was admitted for further evaluation. Chest x-ray showed no acute cardiopulmonary disease. CBC showed mild anemia and mildly elevated creatinine. Dr. Sands was consulted. He was initially placed on NPO and diet was advanced. He was given proton pump inhibitor. Abdominal ultrasound done was unremarkable. Stool OB was also negative. Alpha-fetoprotein was within normal limits. He was followed by Dr. Johnston as the patient has anemia and history of hypercoagulable state on anticoagulation with Coumadin. He has a history of PE and DVT with IVC filter placement. The patient has been off Coumadin given hemoptysis and he has an IVC filter in place. He was followed by Infectious Diseases specialist for possible HIV infection and UTI. He had a positive screening for HIV with positive antibody. He was counseled regarding safe sex practice. Viral load was checked. He was required to notify his of his HIV status and advised to follow up with HIV provider as an outpatient to be started on anti-retroviral therapy. He was given ceftriaxone for urine infection. Renal ultrasound done showed a nonobstructive stone. At the time of discharge, antibiotic was discontinued and was recommended Urology follow up. He was eventually discharged home. Referrals for HIV clinics was given. FINAL DIAGNOSES: 1. Urinary tract infection. 2. Human immunodeficiency virus. 3. Gastrointestinal bleed, resolved. 4. Hypercoagulable state currently off of Coumadin. 5. History of deep venous thrombosis and pulmonary embolism with inferior vena cava filter placement. 6. Chronic pain syndrome . 7. Drug-seeking behavior. 8. Iron-deficiency. 9. Gastritis. Yogesh Aguayo D.O. I have been assigned to dictate discharge summary on this account and I was not involved in the patient's management. Brielle Winslow N.P. DR: Tamiko JOB#: [id number] CC:
== END 2016-09-17 17:45 | disposition home or self-care (01) | DRG 253 ==
LOC: EMR 18:29 → 4W 18:58 → EDBEDREQ 20:31
PROC: 30233K1 Transfusion of Nonautologous Frozen Plasma into Peripheral Vein, Percutaneous Approach (ICD-10-PCS; principal; 2016-09-13)
DX: K92.2 Gastrointestinal hemorrhage, unspecified (principal); D68.59 Other primary thrombophilia; I50.9 Heart failure, unspecified; K31.84 Gastroparesis; N39.0 Urinary tract infection, site not specified; I48.91 Unspecified atrial fibrillation; Z88.8 Allergy status to other drugs, medicaments and biological substances; Z88.6 Allergy status to analgesic agent; Z91.041 Radiographic dye allergy status; E11.9 Type 2 diabetes mellitus without complications; I10 Essential (primary) hypertension; Z86.718 Personal history of other venous thrombosis and embolism; Z86.711 Personal history of pulmonary embolism; D63.8 Anemia in other chronic diseases classified elsewhere; R62.7 Adult failure to thrive; K29.70 Gastritis, unspecified, without bleeding; G89.4 Chronic pain syndrome; Z76.5 Malingerer [conscious simulation]; Z79.01 Long term (current) use of anticoagulants
CPT/HCPCS: 36415; 71010; 76700; 80048; 80053; 81003; 81241; 82105; 82140; 82150; 82270; 82378; 82728; 83690; 84153; 85007; 85025; 85300; 85303; 85306; 85379; 85610; 85613; 85730; 86301; 86360; 86689; 86703; 86705; 86709; 86803; 86850; 86900; 86901; 86927; 87340; 87535; 87536; 93970; 97803; J2405

== ENCOUNTER 2018-04-17 20:07 | Emergency (ER) | payer MEDICAID, OTHER ==
[~2018-04-17] VITALS: Ht 185.4 cm; Wt 105.2 kg
[~2018-04-17 20:07] MED LIST changes: +ACETAMINOPHEN325 M1 ORAL; +DIPHENHYDRAMINE25 M1 ORAL; +MIRALAX17 G2 ORAL; +MYLANTA II30 ML ORAL; +NITROGLYCERIN0.4 MG SL; +PROTONIX40 MG ORAL; +RESTORIL15 MG ORAL; +TAMSULOSIN HCL0.4 MG ORAL
[2018-04-17] MEDS ORDERED: Morphine Sulfate 4mg/ml Inj (IV/IM USE ONLY) IVP ONE ×2 (20:45→22:00)
[2018-04-17] MEDS ORDERED: DiphenhydrAMINE 50mg/ml Inj IVP ONE ×2 (20:45→22:00)
[2018-04-17] MEDS ORDERED: Pantoprazole Inj IV ONE (20:45)
--- NOTE | 2018-04-17 20:58 | Diagnostic Imaging Report ---
EXAM: XR Chest, 1 View CLINICAL HISTORY: Abdominal pain TECHNIQUE: Frontal view of the chest. COMPARISON: 09/12/2016 FINDINGS: Lungs: Unremarkable. No consolidation. Pleural space: Unremarkable. No pneumothorax. Heart: Unremarkable. No cardiomegaly. Mediastinum: Unremarkable. Bones/joints: No acute osseous abnormality. IMPRESSION: No acute cardiopulmonary process.
[2018-04-17] MEDS ORDERED: VITAMIN D250000 UNI1 ORAL (21:01)
[2018-04-17] MEDS ORDERED: FERROUS SULFAT325 MG ORAL (21:01)
--- NOTE | 2018-04-17 21:05 | Emergency Room Report ---
History of Present Illness General Chief Complaint: Male Urogenital Problems Source: Patient Present Illness HPI Patient has been ill for several days. For one week he's had swelling and increased tenderness in his calf on the right-hand side. He's on Coumadin and has an IVC filter. He's had problems DVT in the past. The pain is in his calf and radiates to his thigh. Rated 8/10, aching pressure and worse when leg is dependent. Over the last 2 days he's been passing blood in his urine and also vomiting some blood and passing dark stools. He has a history of gastritis in the past. He takes omeprazole intermittently. Denies dysuria. The patient has felt feverish but not documented. He has abdominal pain that's 8/10 in the epigastric area. It doesn't radiate to his back. The patient is supposed be taking anti-vitals but has not been compliant recently. No cough, sore throat, chest pain, hemoptysis. He has a rash on the R leg (and chronic venous stasis changes on L). Admitted 2017: 1. Urinary tract infection. 2. Human immunodeficiency virus. 3. Gastrointestinal bleed, resolved. 4. Hypercoagulable state currently off of Coumadin. 5. History of deep venous thrombosis and pulmonary embolism with inferior vena cava filter placement. 6. Chronic pain syndrome . 7. Drug-seeking behavior. 8. Iron-deficiency. 9. Gastritis. Allergies: Coded Allergies: IODINATED CONTRAST MEDIA - IV DYE (Verified Allergy, Severe, Shortness of Breath, 01/17/15) DORIPENEM (Verified Allergy, Intermediate, Itching, 01/17/15) KETOROLAC TROMETHAMINE (Verified Allergy, Intermediate, Hives, 01/17/15) TRAMADOL (Verified Allergy, Intermediate, Hives, 01/17/15) ASPIRIN (Verified Allergy, Mild, 04/09/10) Patient History Past Medical History: see triage record Social History: Denies: smoking, alcohol use, drug use Social History Narrative disabled Reviewed Nursing Documentation: PMH: Agreed; PSxH: Agreed Nursing Documentation-PMH Hx Cardiac Problems: Yes - CHF, ANEMIC, CHRONIC DVT L leg. Hx Hypertension: Yes Hx Pacemaker: No - PE Hx COPD: No - PE, IVC filter Hx Diabetes: Yes - BORDERLINE Hx Cancer: No Hx Gastrointestinal Problems: Yes Hx Dialysis: No - DIVERTICULITIS Hx Neurological Problems: No Hx Concentration Difficulty: Yes Hx Dizziness: Yes Hx Syncope: Yes Hx Weakness: Yes Hx Neurologic Surgery: No Review of Systems All Other Systems: negative except mentioned in HPI Physical Exam Vital Signs Date Time Temp Pulse Resp B/P (MAP) Pulse Ox O2 Delivery O2 Flow Rate FiO2 04/17/18 20:13 98.1 82 18 155/72 99 Room Air Sp02 EP Interpretation: reviewed, normal General Appearance: well appearing, no apparent distress, GCS 15 Head: normocephalic Eyes: bilateral eye normal inspection, bilateral eye PERRL ENT: moist mucus membranes Neck: supple Respiratory: lungs clear, normal breath sounds Cardiovascular #1: regular rate, rhythm, edema - R >> L Cardiovascular #2: 2+ radial (R) Gastrointestinal: normal inspection, normal bowel sounds, non tender, no mass, non-distended Musculoskeletal: back normal, gait/station normal, normal range of motion, swelling - R LE Neurologic: alert, oriented x3, grossly normal Psychiatric: depressed affect Skin: normal inspection, warm/dry Medical Decision Making Diagnostic Impression: Primary Impression: Gastritis Qualified Codes: K29.01 - Acute gastritis with bleeding Additional Impressions: Anticoagulation excessive Non compliance w medication regimen Persistent vomiting Presence of IVC filter HIV (human immunodeficiency virus infection) Hematuria Qualified Codes: R31.9 - Hematuria, unspecified ER Course Patient presents with multiple complaints including vomiting and passing blood in stool and right leg swelling and pain. Differential includes DVT, coagulopathy, gastritis, gastroenteritis amongst others. Evaluation will be with EKG, chest x-ray and labs. Also an ultrasound will be obtained of the right leg to exclude DVT. The patient's been noncompliant with his antivirals and therefore occult infection could be occurring. The patient will be treated with Protonix, Benadryl, morphine and Zofran. Will also receive IV hydration. EKG normal sinus rhythm rate 77 normal EKG. Labs with normal WBC, low H/H. INR 4.3. CXR neg. Abd with IVC filters. Slightly elevated glucose. Still with pain. Morphine repeated. Discussed with Dr. Alan Aguayo who accepts at [facility]. As patient hemodynamically stable, not reverse elevated INR. Will follow H/H. Patient threaten to sign out AMA but after discussion, agrees to go. Laboratory Tests Test 04/17/18 20:28 04/17/18 20:50 Urine Color Pale yellow Urine Appearance Slightly cloudy Urine pH 5 (4.5-8.0) Urine Specific [employer] 1.020 (1.005-1.035) Urine Protein 2+ (NEGATIVE) H Urine Glucose (UA) Negative (NEGATIVE) Urine Ketones 1+ (NEGATIVE) H Urine Blood 5+ (NEGATIVE) H Urine Nitrite Negative (NEGATIVE) Urine Bilirubin Negative (NEGATIVE) Urine Urobilinogen Normal MG/DL (0.0-1.0) Urine Leukocyte Esterase 2+ (NEGATIVE) H Urine RBC 15-20 /HPF (0 - 0) H Urine WBC 2-4 /HPF (0 - 0) Urine Squamous Epithelial Cells None /LPF (NONE/OCC) Urine Bacteria Few /HPF (NONE) White Blood Count 4.4 K/UL (4.8-10.8) L Red Blood Count 4.27 M/UL (4.70-6.10) L Hemoglobin 11.2 G/DL (14.2-18.0) L Hematocrit 35.2 % (42.0-52.0) L Mean Corpuscular Volume 82 FL (80-99) Mean Corpuscular Hemoglobin 26.2 PG (27.0-31.0) L Mean Corpuscular Hemoglobin Concent 31.8 G/DL (32.0-36.0) L Red Cell Distribution Width 13.5 % (11.6-14.8) Platelet Count 159 K/UL (150-450) Mean Platelet Volume 8.5 FL (6.5-10.1) Neutrophils (%) (Auto) 45.4 % (45.0-75.0) Lymphocytes (%) (Auto) 38.5 % (20.0-45.0) Monocytes (%) (Auto) 8.7 % (1.0-10.0) Eosinophils (%) (Auto) 5.7 % (0.0-3.0) H Basophils (%) (Auto) 1.7 % (0.0-2.0) Prothrombin Time 42.2 SEC (9.30-11.50) H Prothrombin Time INR 4.3 (0.9-1.1) H PTT 86 SEC (23-33) H Sodium Level 140 MMOL/L (136-145) Potassium Level 3.6 MMOL/L (3.5-5.1) Chloride Level 105 MMOL/L (98-107) Carbon Dioxide Level 25 MMOL/L (21-32) Anion Gap 10 mmol/L (5-15) Blood Urea Nitrogen 14 mg/dL (7-18) Creatinine 1.6 MG/DL (0.55-1.30) H Estimate Glomerular Filtration Rate 54.9 mL/min (>60) Glucose Level 191 MG/DL (74-106) H Calcium Level 8.4 MG/DL (8.5-10.1) L Total Bilirubin 0.2 MG/DL (0.2-1.0) Aspartate Amino Transferase (AST) 20 U/L (15-37) Alanine Aminotransferase (ALT) 18 U/L (12-78) Alkaline Phosphatase 89 U/L (46-116) Total Creatine Kinase 175 U/L (26-308) Troponin I 0.000 ng/mL (0.000-0.056) Total Protein 8.1 G/DL (6.4-8.2) Albumin 3.7 G/DL (3.4-5.0) Globulin 4.4 g/dL Albumin/Globulin Ratio 0.8 (1.0-2.7) L Lipase 284 U/L (73-393) EKG Diagnostic Results Rate: normal Rhythm: NSR ST Segments: no acute changes Rhythm Strip Diag. Results EP Interpretation: yes Rhythm: NSR, no PVC's, no ectopy Chest X-Ray Diagnostic Results Chest X-Ray Diagnostic Results : Chest X-Ray Ordered: Yes Indication: Other EP Interpretation: Yes Interpretation: no consolidation, no effusion, no pneumothorax Impression: No acute disease Electronically Signed by: Electronically signed by Devin Huang MD Other X-Ray Diagnostic Results Other X-Ray Diagnostic Results : X-Ray ordered: abd # of Views/Limited Vs Complete: 2 View Indication: Pain EP Interpretation: Yes Interpretation: nonspecific bowel gas, no sbo, other - IVC filters Impression: Other Electronically Signed by: Electronically signed by Devin Huang MD Last Vital Signs Date Time Temp Pulse Resp B/P (MAP) Pulse Ox O2 Delivery O2 Flow Rate FiO2 04/17/18 22:15 98.4 90 16 144/81 99 04/17/18 20:13 Room Air Status: improved Disposition: XFER SHT-TRM HOSP Condition: Serious Referrals: [facility],REFERRING (PCP) Devin Huang MD Apr 17, 2018 21:05
[2018-04-17 21:25] LABS: APPEARANCE,URINE SLIGHTLY CLOUDY; BILIRUBIN, URINE NEGATIVE (NEGATIVE); COLOR,URINE PALE YELLOW; GLUCOSE, URINE (UA) NEGATIVE (NEGATIVE); KETONES,URINE 1+ (NEGATIVE); LEUKOCYTE ESTERASE ,URINE 2+ (NEGATIVE); NITRITE,URINE NEGATIVE (NEGATIVE); PH,URINE 5 (4.5-8.0); PROTEIN,URINE 2+ (NEGATIVE); UROBILINOGEN,URINE NORMAL MG/DL (0.0-1.0)
--- NOTE | 2018-04-17 21:27 | Diagnostic Imaging Report ---
EXAM: XR Abdomen, 2 Views CLINICAL HISTORY: ABD PAIN TECHNIQUE: Frontal view of the abdomen/pelvis with upright view of the abdomen. COMPARISON: CT 05/23/2016 FINDINGS: Lower thorax: Bilateral pulmonary opacities are favored to be artifactual. Intraperitoneal space: No pneumoperitoneum. Gastrointestinal tract: Paucity of bowel gas. Stool and gas are seen in the nondilated colon. Bones/joints: Unremarkable. IMPRESSION: No acute findings.
[2018-04-17 21:32] LABS: BASOPHILS % (AUTO) 1.7 % (0.0-2.0); EOSINOPHILS % (AUTO) 5.7 % (0.0-3.0); HEMATOCRIT 35.2 % (42.0-52.0); HEMOGLOBIN 11.2 G/DL (14.2-18.0); LYMPHOCYTES % (AUTO) 38.5 % (20.0-45.0); MEAN CORPUSCULAR VOLUME 82 FL (80-99); MONOCYTES % (AUTO) 8.7 % (1.0-10.0); NEUTROPHILS % (AUTO) 45.4 % (45.0-75.0); PLATELET COUNT 159 K/UL (150-450); RED BLOOD COUNT 4.27 M/UL (4.70-6.10); RED CELL DISTRIBUTION WIDTH 13.5 % (11.6-14.8); WHITE BLOOD COUNT 4.4 K/UL (4.8-10.8)
[2018-04-17 21:37] LABS: ANION GAP 10 mmol/L (5-15); BLOOD UREA NITROGEN 14 mg/dL (7-18); CALCIUM 8.4 MG/DL (8.5-10.1); CARBON DIOXIDE 25 MMOL/L (21-32); CHLORIDE 105 MMOL/L (98-107); CREATININE 1.6 MG/DL (0.55-1.30); POTASSIUM 3.6 MMOL/L (3.5-5.1); SODIUM 140 MMOL/L (136-145)
[2018-04-17 21:40] LABS: ALANINE AMINOTRANSFERASE 18 U/L (12-78); ALBUMIN 3.7 G/DL (3.4-5.0); ALBUMIN/GLOBULIN RATIO 0.8 (1.0-2.7); ALKALINE PHOSPHATASE 89 U/L (46-116); ASPARTATE AMINO TRANSFERASE 20 U/L (15-37); BILIRUBIN,TOTAL 0.2 MG/DL (0.2-1.0); CREATINE KINASE 175 U/L (26-308)
[2018-04-17 21:45] LABS: INR 4.3 (0.9-1.1)
[2018-04-17 22:15] VITALS: BP 144/81
[2018-04-17 22:50] VITALS: BP 132/87
[2018-04-17 23:00] VITALS: BP 132/87
== END 2018-04-17 23:00 | disposition short-term general hospital (02) ==
LOC: EMR 20:55 → EDBEDREQSVC 21:31 → EMR 23:00
DX: K29.70 Gastritis, unspecified, without bleeding (principal); R79.1 Abnormal coagulation profile; Z91.14 Patient's other noncompliance with medication regimen; R11.10 Vomiting, unspecified; Z79.01 Long term (current) use of anticoagulants; Z86.718 Personal history of other venous thrombosis and embolism; R31.9 Hematuria, unspecified; G89.29 Other chronic pain
CPT/HCPCS: 36415; 71045; 74018; 80053; 81003; 82550; 83690; 84484; 85025; 85610; 85730; 86850; 86900; 86901; 93005; 96361; 96374; 96375; 96376; 99285; C9113; J1200; J2270; J2405

== ENCOUNTER 2019-08-17 21:29 | Emergency (ER) | payer OTHER ==
[~2019-08-17] VITALS: Ht 185.4 cm; Wt 106.1 kg
[~2019-08-17 21:29] MED LIST changes: +VITAMIN D250000 UNI1 ORAL
--- NOTE | 2019-08-17 22:06 | Emergency Room Report ---
History of Present Illness General Chief Complaint: Abdominal Pain Source: Patient Present Illness HPI This is a 53-year-old male with history of atrial fibrillation. He also has a history of DVT and PE. He has an IVC filter and and currently taking Coumadin. He presents with chief plaint of epigastric pain and nausea and vomiting with specks of blood. He saw his doctor today. His INR was elevated and Coumadin was held. He is still having pain. Pain is 8 out of 10. Nothing made it better. Nothing made it worse. He is has chronic right leg pain from his DVT. He denies any fever or chills. Pain has no radiation. No diarrhea. He has a endoscopy done 9 months ago which showed severe gastritis. He is currently taking Prilosec and Carafate. Allergies: Coded Allergies: IODINATED CONTRAST MEDIA - IV DYE (Verified Allergy, Severe, Shortness of Breath, 01/17/15) DORIPENEM (Verified Allergy, Intermediate, Itching, 01/17/15) KETOROLAC TROMETHAMINE (Verified Allergy, Intermediate, Hives, 01/17/15) TRAMADOL (Verified Allergy, Intermediate, Hives, 01/17/15) ASPIRIN (Verified Allergy, Mild, 04/09/10) COVID-19 Screening Contact w/high risk pt: No Recent Travel to affected area: No Experienced COVID-19 symptoms?: No Patient History Past Medical History: see triage record, old chart reviewed, HTN, AFib Past Surgical History: other Pertinent Family History: none Social History: Denies: smoking Immunizations: other Reviewed Nursing Documentation: PMH: Agreed; PSxH: Agreed Nursing Documentation-PMH Hx Cardiac Problems: Yes - AFIB; CHF Hx Hypertension: Yes Hx Pacemaker: No - PE Hx COPD: Yes Hx Diabetes: Yes - BORDERLINE Hx Cancer: No Hx Gastrointestinal Problems: Yes - Gastritis; hernia Hx Dialysis: No - DIVERTICULITIS Hx Neurological Problems: No Hx Cerebrovascular Accident: Yes - PE; DVT Hx Concentration Difficulty: Yes Hx Dizziness: Yes Hx Syncope: Yes Hx Weakness: Yes Hx Neurologic Surgery: No Review of Systems Eye: Denies: eye pain, blurred vision ENT: Denies: ear pain, nose congestion, throat swelling Respiratory: Denies: cough, shortness of breath Cardiovascular: Denies: chest pain, palpitations Gastrointestinal: Reports: abdominal pain; Denies: diarrhea, nausea, vomiting Musculoskeletal: Denies: back pain, joint pain Skin: Denies: rash Neurological: Denies: headache, numbness Endocrine: Denies: increased thirst, increased urine Hematologic/Lymphatic: Denies: easy bruising All Other Systems: negative except mentioned in HPI Physical Exam Vital Signs Date Time Temp Pulse Resp B/P (MAP) Pulse Ox O2 Delivery O2 Flow Rate FiO2 08/17/19 21:46 98.1 93 16 132/75 (94) 96 Room Air Vitals normal Sp02 EP Interpretation: reviewed, normal General Appearance: well appearing, no apparent distress, alert Head: normocephalic, atraumatic Eyes: bilateral eye PERRL, bilateral eye EOMI ENT: hearing grossly normal, normal pharynx Neck: full range of motion, supple, no meningismus Respiratory: chest non-tender, lungs clear, normal breath sounds Cardiovascular #1: regular rate, rhythm, no murmur Gastrointestinal: normal bowel sounds, non tender, no mass, no organomegaly, no bruit, non-distended Musculoskeletal: back normal, normal range of motion, gait/station normal Psychiatric: mood/affect normal Medical Decision Making Diagnostic Impression: Primary Impression: Acute GI bleeding Additional Impressions: Anemia Qualified Codes: D64.9 - Anemia, unspecified Gastritis Qualified Codes: K29.01 - Acute gastritis with bleeding ER Course Patient presents with gastritis with some minor bleeding. No active bleeding here. No acute abdomen. Slightly anemic but not much change from baseline. Will discharge home. Rhythm Strip Diag. Results EP Interpretation: yes Rate: 81 Rhythm: NSR, no PVC's, no ectopy Last Vital Signs Date Time Temp Pulse Resp B/P (MAP) Pulse Ox O2 Delivery O2 Flow Rate FiO2 08/17/19 21:46 98.1 93 16 132/75 (94) 96 Room Air Status: improved Disposition: HOME, SELF-CARE Condition: Stable Scripts Hydrocodone/Acetaminophen 5-325* (HYDROCODONE/ACETAMINOPHEN 5-325*) 1 Each Tablet 1 TAB ORAL Q6H PRN for For Pain, #15 TAB 0 Refills Prov: Vladimir Raines MD 08/17/19 Additional Instructions: Increase your Prilosec to twice a day for a week. Discuss with your doctor regarding restarting Coumadin. Follow-up with your doctor in a week. Return if symptoms worsen. Vladimir Raines MD Aug 17, 2019 22:06
[2019-08-17] MEDS ORDERED: HYDROmorphone 1mg/ml Carpuject IVP ONE (22:15)
[2019-08-17] MEDS ORDERED: Pantoprazole Inj IVP ONE (22:15)
--- NOTE | 2019-08-17 22:20 | NUR ---
ED Nurse Note: Recieved report from [facility]. Patient walked into ED from home d/t c/o right leg swelling and throbbing pain d/t suspected DVT and abdominal pain 11/10. Patient also reports hematuria and coughing up blood. Patient aao x 4 and ambulatory with steady gait. Patient placed in gown and secured entrance monitor. No acute distress noted.
--- NOTE | 2019-08-17 22:22 | NUR ---
ED Nurse Note: Patient has a port-a-cath on right subclavian, placed a 20g port-a-cath infusion set, patent and asymptomatic.
--- NOTE | 2019-08-17 22:24 | NUR ---
ED Nurse Note: Blood collected and sent to lab.
--- NOTE | 2019-08-17 22:31 | NUR ---
ED Nurse Note: Patient ambulating to restroom in stable condition.
[2019-08-17 22:33] VITALS: BP 134/76
[2019-08-17 22:45] LABS: APPEARANCE,URINE SLIGHTLY CLOUDY; BILIRUBIN, URINE NEGATIVE (NEGATIVE); COLOR,URINE RED; GLUCOSE, URINE (UA) NEGATIVE (NEGATIVE); KETONES,URINE 1+ (NEGATIVE); LEUKOCYTE ESTERASE ,URINE 1+ (NEGATIVE); NITRITE,URINE NEGATIVE (NEGATIVE); PH,URINE 5 (4.5-8.0); PROTEIN,URINE 3+ (NEGATIVE); UROBILINOGEN,URINE NORMAL MG/DL (0.0-1.0)
[2019-08-17 22:48] LABS: EOSINOPHILS % (AUTO) 5.4 % (0.0-3.0); HEMOGLOBIN 10.8 G/DL (14.2-18.0); LYMPHOCYTES % (AUTO) 36.2 % (20.0-45.0); MEAN CORPUSCULAR VOLUME 83 FL (80-99); MONOCYTES % (AUTO) 11.5 % (1.0-10.0); NEUTROPHILS % (AUTO) 44.9 % (45.0-75.0); PLATELET COUNT 153 K/UL (150-450); RED BLOOD COUNT 4.36 M/UL (4.70-6.10); RED CELL DISTRIBUTION WIDTH 17.5 % (11.6-14.8)
[2019-08-17 22:55] LABS: ANION GAP 6 mmol/L (5-15); BLOOD UREA NITROGEN 20 mg/dL (7-18); CALCIUM 8.8 MG/DL (8.5-10.1); CARBON DIOXIDE 26 MMOL/L (21-32); CHLORIDE 103 MMOL/L (98-107); INR 1.2 (0.9-1.1); POTASSIUM 3.4 MMOL/L (3.5-5.1); SODIUM 135 MMOL/L (136-145)
[2019-08-17 22:59] LABS: ALANINE AMINOTRANSFERASE 24 U/L (12-78); ALBUMIN 3.8 G/DL (3.4-5.0); ALBUMIN/GLOBULIN RATIO 0.9 (1.0-2.7); ALKALINE PHOSPHATASE 98 U/L (46-116); ASPARTATE AMINO TRANSFERASE 22 U/L (15-37); BILIRUBIN,TOTAL 0.2 MG/DL (0.2-1.0)
[2019-08-17] MEDS ORDERED: HYDROCODON-ACE1 EA15 ORAL (23:20)
[2019-08-17 23:40] VITALS: BP 130/82
--- NOTE | 2019-08-17 23:40 | NUR ---
ER DISCHARGE NOTE: Patient is cleared to be discharged per ERMD, pt is aox4, on room air, with stable vital signs. pt was given dc and prescription instructions, pt was able to verbalize understanding, pt id band and port-a-cath infusion tubing removed intact without complications. pt is able to ambulate with steady gait. pt took all belongings. pt stable upon discharge.
== END 2019-08-17 23:40 | disposition home or self-care (01) ==
LOC: EMR 22:18
DX: K29.01 Acute gastritis with bleeding (principal); K62.5 Hemorrhage of anus and rectum; D64.9 Anemia, unspecified; Z86.718 Personal history of other venous thrombosis and embolism; Z91.041 Radiographic dye allergy status; Z88.6 Allergy status to analgesic agent; I10 Essential (primary) hypertension; J44.9 Chronic obstructive pulmonary disease, unspecified; Z86.711 Personal history of pulmonary embolism
CPT/HCPCS: 36415; 80053; 81003; 83690; 85025; 85610; 85730; 96374; 96375; J1170; J2405; S0164; Z7502; 99284

== ENCOUNTER 2019-10-26 23:05 | Emergency (ER) | payer MEDICAID, OTHER ==
[~2019-10-26] VITALS: Ht 185.4 cm; Wt 106.1 kg
[~2019-10-26 23:05] MED LIST changes: +HYDROCODON-ACE1 EA15 ORAL
[2019-10-26 23:20] VITALS: BP 127/82
[2019-10-26] MEDS ORDERED: DiphenhydrAMINE 50mg/ml Inj IVP ONE (23:30)
[2019-10-26] MEDS ORDERED: Pantoprazole Inj IV ONE (23:30)
[2019-10-26] MEDS ORDERED: Metoclopramide 10mg/2ml Inj IVP ONE (23:30)
[2019-10-26] MEDS ORDERED: Hydromorphone 0.5mg/0.5ml inj IVP ONE (23:45)
[2019-10-26 23:49] LABS: APPEARANCE,URINE CLOUDY; BILIRUBIN, URINE 1+ (NEGATIVE); GLUCOSE, URINE (UA) NEGATIVE (NEGATIVE); KETONES,URINE 1+ (NEGATIVE); LEUKOCYTE ESTERASE ,URINE 2+ (NEGATIVE); NITRITE,URINE POSITIVE (NEGATIVE); PH,URINE 5 (4.5-8.0); PROTEIN,URINE 2+ (NEGATIVE); UROBILINOGEN,URINE 1 MG/DL (0.0-1.0)
[2019-10-26 23:55] LABS: BASOPHILS % (AUTO) 1.2 % (0.0-2.0); EOSINOPHILS % (AUTO) 4.1 % (0.0-3.0); HEMATOCRIT 34.8 % (42.0-52.0); HEMOGLOBIN 10.3 G/DL (14.2-18.0); LYMPHOCYTES % (AUTO) 36.6 % (20.0-45.0); MEAN CORPUSCULAR VOLUME 83 FL (80-99); MONOCYTES % (AUTO) 9.9 % (1.0-10.0); NEUTROPHILS % (AUTO) 48.2 % (45.0-75.0); PLATELET COUNT 174 K/UL (150-450); RED BLOOD COUNT 4.22 M/UL (4.70-6.10); RED CELL DISTRIBUTION WIDTH 17.5 % (11.6-14.8); WHITE BLOOD COUNT 6.4 K/UL (4.8-10.8)
[2019-10-27] LABS: ANION GAP 11 mmol/L (5-15); BLOOD UREA NITROGEN 16 mg/dL (7-18); CALCIUM 8.5 MG/DL (8.5-10.1); CARBON DIOXIDE 25 MMOL/L (21-32); CHLORIDE 104 MMOL/L (98-107); CREATININE 1.8 MG/DL (0.55-1.30); POTASSIUM 3.5 MMOL/L (3.5-5.1); SODIUM 140 MMOL/L (136-145)
[2019-10-27 00:01] LABS: INR 1.1 (0.9-1.1)
[2019-10-27 00:07] LABS: ALANINE AMINOTRANSFERASE 18 U/L (12-78); ALBUMIN 3.8 G/DL (3.4-5.0); ALBUMIN/GLOBULIN RATIO 0.9 (1.0-2.7); ALKALINE PHOSPHATASE 93 U/L (46-116); ASPARTATE AMINO TRANSFERASE 25 U/L (15-37); BILIRUBIN,TOTAL 0.3 MG/DL (0.2-1.0); CREATINE KINASE 140 U/L (26-308)
[2019-10-27 00:08] LABS: COLOR,URINE AMBER
[2019-10-27] MEDS ORDERED: HYDROmorphone 1mg/ml Carpuject IVP ONE (00:45)
--- NOTE | 2019-10-27 02:29 | Emergency Room Report ---
History of Present Illness General Chief Complaint: Nausea, Vomiting, and Diarrhea Source: Patient Present Illness HPI Patient presents with 3 days of abdominal pain. He points to his lower abdomen. He is also been vomiting. He is on Coumadin and states he was in coffee grounds and also blood. He is not passing any melena but he has diarrhea that is been a clear color. The patient has had this problem before. He is taking Coumadin for a DVT in his leg. He says he is not able to keep down his Coumadin at this time and has had increased pain in his leg over the course of the last 3 days. He is also complaining about increased swelling and edema along with pain in his calf also. He is complaining about 8/10 pain in his leg. There is aching and throbbing. It radiates up towards his body. His doctor told him to come to the emergency department here. Patient has a Port-A-Cath. The patient was last seen here August 16 with and diagnosed with gastritis. He was able to be discharged home. No fevers, chills, sore throat, chest pain, palpitations, dysuria, abdominal pain, shortness of breath, rashes, anxiety, visual changes, dizziness, headache. Allergies: Coded Allergies: IODINATED CONTRAST MEDIA - IV DYE (Verified Allergy, Severe, Shortness of Breath, 01/17/15) DORIPENEM (Verified Allergy, Intermediate, Itching, 01/17/15) KETOROLAC TROMETHAMINE (Verified Allergy, Intermediate, Hives, 01/17/15) TRAMADOL (Verified Allergy, Intermediate, Hives, 01/17/15) ASPIRIN (Verified Allergy, Mild, 04/09/10) COVID-19 Screening Contact w/high risk pt: No Recent Travel to affected area: No Experienced COVID-19 symptoms?: No COVID-19 Testing performed PATTERNMAKER METAL BENCH: No Patient History Past Medical History: see triage record Social History: Denies: smoking Social History Narrative from home Reviewed Nursing Documentation: PMH: Agreed; PSxH: Agreed Nursing Documentation-PM Past Medical History: No History, Except For Hx Cardiac Problems: Yes - AFIB; CHF Hx Hypertension: Yes Hx Pacemaker: No - PE Hx COPD: Yes Hx Diabetes: Yes - BORDERLINE Hx Cancer: No Hx Gastrointestinal Problems: Yes - Gastritis; hernia Hx Dialysis: No - DIVERTICULITIS Hx Neurological Problems: No Hx Cerebrovascular Accident: Yes - PE; DVT Hx Concentration Difficulty: Yes Hx Dizziness: Yes Hx Syncope: Yes Hx Weakness: Yes Hx Neurologic Surgery: No Review of Systems All Other Systems: negative except mentioned in HPI Physical Exam Vital Signs Date Time Temp Pulse Resp B/P (MAP) Pulse Ox O2 Delivery O2 Flow Rate FiO2 10/26/19 23:12 98.1 76 18 153/84 (107) 95 Room Air Sp02 EP Interpretation: reviewed, normal General Appearance: no apparent distress, alert, GCS 15, non-toxic, Chronically Ill Head: normocephalic Eyes: bilateral eye normal inspection, bilateral eye PERRL, bilateral eye EOMI ENT: moist mucus membranes Neck: supple Respiratory: lungs clear, normal breath sounds Cardiovascular #1: regular rate, rhythm, edema - Bilateral lower extremities Cardiovascular #2: 2+ radial (R), 2+ dorsalis pedis (R), 2+ dorsalis pedis (L) Gastrointestinal: normal inspection, normal bowel sounds, non tender, no mass, non-distended Musculoskeletal: back normal, normal range of motion, gait/station normal Neurologic: alert, oriented x3, grossly normal Psychiatric: depressed affect Skin: other - Venous disease lower extremities Medical Decision Making Diagnostic Impression: Primary Impression: Hematemesis Qualified Codes: K92.0 - Hematemesis Additional Impressions: Right leg DVT Qualified Codes: I82.401 - Acute embolism and thrombosis of unspecified deep veins of right lower extremity Inadequate anticoagulation ER Course Patient with history of gastritis presents with abdominal pain that is lower and vomiting of blood and coffee grounds while taking Coumadin. Differential includes upper GI bleed, gastritis, excessive anticoagulation, pancreatitis amongst others. Additionally is complaining about increased pain in his right leg with swelling. Differential here is DVT, increasing chronic pain amongst others. Hydration with EKG, chest x-ray noninvasive vascular study of his legs and labs. Patient treated with IV hydration, Protonix, Reglan, Benadryl and Dilaudid. EKG with sinus bradycardia rate [address]-T wave changes. Chest x-ray no infiltrates and Port-A-Cath is present. INR is 1.1 which is subtherapeutic. White count is normal. Patient has anemia but the hemoglobin is 10.3 which is similar to Vivian the lower. Ultrasound does not identify definitive DVT however clinically the patient appears to have one. No more vomiting but patient continues with abdominal pain that is in his lower abdomen. Abdomen is soft and this is a nonsurgical belly at this time. Consideration of CT scan in the future. Is extremely complicated patient with comorbidities. The fact that he is GI bleeding and supposed be on Coumadin but anti-coagulation is inadequate is probably advantageous at the moment. Patient needs to be admitted to the hospital for further evaluation and consideration for restarting anticoagulation. As there is no evidence of threatening DVT further anticoagulation will be held in light of the GI bleeding. Discussed with Dr. Smith who accepts patient Laboratory Tests Test 10/26/19 23:35 White Blood Count 6.4 K/UL (4.8-10.8) Red Blood Count 4.22 M/UL (4.70-6.10) L Hemoglobin 10.3 G/DL (14.2-18.0) L Hematocrit 34.8 % (42.0-52.0) L Mean Corpuscular Volume 83 FL (80-99) Mean Corpuscular Hemoglobin 24.4 PG (27.0-31.0) L Mean Corpuscular Hemoglobin Concent 29.6 G/DL (32.0-36.0) L Red Cell Distribution Width 17.5 % (11.6-14.8) H Platelet Count 174 K/UL (150-450) Mean Platelet Volume 7.0 FL (6.5-10.1) Neutrophils (%) (Auto) 48.2 % (45.0-75.0) Lymphocytes (%) (Auto) 36.6 % (20.0-45.0) Monocytes (%) (Auto) 9.9 % (1.0-10.0) Eosinophils (%) (Auto) 4.1 % (0.0-3.0) H Basophils (%) (Auto) 1.2 % (0.0-2.0) Prothrombin Time 11.7 SEC (9.30-11.50) H Prothrombin Time INR 1.1 (0.9-1.1) Urine Color [place] Urine Appearance Cloudy Urine pH 5 (4.5-8.0) Urine Specific [place] 1.025 (1.005-1.035) Urine Protein 2+ (NEGATIVE) H Urine Glucose (UA) Negative (NEGATIVE) Urine Ketones 1+ (NEGATIVE) H Urine Blood 5+ (NEGATIVE) H Urine Nitrite Positive (NEGATIVE) H Urine Bilirubin 1+ (NEGATIVE) H Urine Ictotest Positive (NEGATIVE) Urine Urobilinogen 1 MG/DL (0.0-1.0) H Urine Leukocyte Esterase 2+ (NEGATIVE) H Urine RBC Tntc /HPF (0 - 0) H Urine WBC 10-15 /HPF (0 - 0) H Urine Squamous Epithelial Cells None /LPF (NONE/OCC) Urine Bacteria Many /HPF (NONE) H Sodium Level 140 MMOL/L (136-145) Potassium Level 3.5 MMOL/L (3.5-5.1) Chloride Level 104 MMOL/L (98-107) Carbon Dioxide Level 25 MMOL/L (21-32) Anion Gap 11 mmol/L (5-15) Blood Urea Nitrogen 16 mg/dL (7-18) Creatinine 1.8 MG/DL (0.55-1.30) H Estimated Glomerular Filtration Rate 47.5 mL/min (>60) Glucose Level 103 MG/DL (74-106) Calcium Level 8.5 MG/DL (8.5-10.1) Total Bilirubin 0.3 MG/DL (0.2-1.0) Aspartate Amino Transferase (AST) 25 U/L (15-37) Alanine Aminotransferase (ALT) 18 U/L (12-78) Alkaline Phosphatase 93 U/L (46-116) Total Creatine Kinase 140 U/L (26-308) Troponin I 0.000 ng/mL (0.000-0.056) Total Protein 8.0 G/DL (6.4-8.2) Albumin 3.8 G/DL (3.4-5.0) Globulin 4.2 g/dL Albumin/Globulin Ratio 0.9 (1.0-2.7) L Lipase 315 U/L (73-393) EKG Diagnostic Results Rate: bradycardiac Rhythm: NSR ST Segments: no acute changes Rhythm Strip Diag. Results EP Interpretation: yes Rhythm: NSR, no PVC's, no ectopy Chest X-Ray Diagnostic Results Chest X-Ray Diagnostic Results : Chest X-Ray Ordered: Yes # of Views/Limited/Complete: 1 View Indication: Other EP Interpretation: Yes Interpretation: no consolidation, no effusion, no pneumothorax, other - Juan M-Cath right Impression: No acute disease Electronically Signed by: Electronically signed by Devin Huang MD CT/MRI/US Diagnostic Results CT/MRI/US Diagnostic Results : Imaging Test Ordered: venous doppler yasmany LE Impression No proximal DVT Last Vital Signs Date Time Temp Pulse Resp B/P (MAP) Pulse Ox O2 Delivery O2 Flow Rate FiO2 10/27/19 03:14 98.0 65 16 123/76 99 Room Air Status: improved Disposition: SHORT-TERM HOSP Condition: Serious Referrals: NON PHYSICIAN (PCP) Devin Huang MD Oct 27, 2019 02:29
[2019-10-27 02:34] VITALS: BP 132/77
[2019-10-27] MEDS ORDERED: Hydromorphone 0.5mg/0.5ml inj IVP ONE (02:45)
[2019-10-27 03:14] VITALS: BP 123/76
--- NOTE | 2019-10-27 09:48 | Diagnostic Imaging Report ---
EXAM: ULTRASOUND Venous Duplex Scan [place] Leg CLINICAL HISTORY: Leg pain and edema. COMPARISON: None TECHNIQUE: Doppler examination include grayscale images obtained with and without compression, and color and spectral doppler analysis. FINDINGS: Doppler examination shows normal spontaneity, phasicity, compressibility in the deep venous segments of both lower extremities. No acute DVT noted. In the right common femoral vein, there is linear echogenic stranding suggestive of old recanalized fibrin clot. There is good color opacification noted around these linear strands. IMPRESSION: NO EVIDENCE OF ACUTE DVT. LINEAR ECHOGENIC STRANDS NOTED IN THE RIGHT COMMON FEMORAL VEIN WHICH COULD REPRESENT OLD RECANALIZED CLOT.
--- NOTE | 2019-10-27 09:53 | Diagnostic Imaging Report ---
EXAM: XRAY Abdomen 1v HISTORY: Reason For Exam: ABD PAIN COMPARISON: 04/17/2018. TECHNIQUE: Frontal view of the abdomen obtained. FINDINGS: There is relative paucity of bowel gas. Mildly dilated small bowel loop noted in the left mid abdomen. There are stool lucencies in the colon. An IVC filter is again noted. No definite pathologic calcifications identified. There is no sign of free air. Right side of abdomen is excluded on radiograph. IMPRESSION: SLIGHTLY LIMITED STUDY WITH LATERAL RIGHT SIDE OF THE ABDOMEN EXCLUDED. NONSPECIFIC BOWEL GAS PATTERN. RELATIVE PAUCITY OF BOWEL GAS. IVC FILTER IN PLACE.
--- NOTE | 2019-10-27 09:54 | Diagnostic Imaging Report ---
Procedure: XRAY Chest 1v Reason for study: Chest pain Comparison films: 04/17/2018. FINDINGS: There is a right subclavian central venous catheter in place. Vascularity is normal. The lung wilkins are clear bilaterally. Cardiac and mediastinal silhouette are within normal limits. CP angles are sharp. The bony thorax appear unremarkable. IMPRESSION: NO ACUTE CARDIOPULMONARY DISEASE.
== END 2019-10-27 03:14 | disposition short-term general hospital (02) ==
LOC: EMR 23:30
DX: K92.0 Hematemesis (principal); I82.401 Acute embolism and thrombosis of unspecified deep veins of right lower extremity; R79.1 Abnormal coagulation profile; I48.91 Unspecified atrial fibrillation; I11.0 Hypertensive heart disease with heart failure; I50.9 Heart failure, unspecified; J44.9 Chronic obstructive pulmonary disease, unspecified; Z79.01 Long term (current) use of anticoagulants; Z86.73 Personal history of transient ischemic attack (TIA), and cerebral infarction without residual deficits; Z86.718 Personal history of other venous thrombosis and embolism; Z88.6 Allergy status to analgesic agent; Z88.5 Allergy status to narcotic agent; Z91.041 Radiographic dye allergy status; Z88.8 Allergy status to other drugs, medicaments and biological substances
CPT/HCPCS: 36415; 71045; 74018; 80053; 81003; 82550; 83690; 84484; 85025; 85610; 87086; 93005; 93970; 96374; 96375; 96376; J1170; J1200; J2765; S0164; Z7502; 99284